=== PATIENT | female | born 1950 | race Caucasian/White ===

== ENCOUNTER → 2017-06-02 | Outpatient (CLI) | payer BC ==
[2017-06-02 07:13] LABS: CHCM 32.2; HCT 40.2 % (34.0-46.0); HGB 12.6 gm/dL (11.4-16.0); MCH 29.4 pg (25.0-35.0); MCHC 31.4 g/dL (31.0-37.0); MCV 93.7 fL (80.0-100.0); Mean Platelet Volume 8.4; RBC 4.29 m/uL (3.80-5.40); RDW 15.5 % (11.5-15.5); WBC 9.5 k/uL (3.8-10.6)
[2017-06-02 09:36] LABS: ALT 31 U/L (9-52); AST 22 U/L (14-36); Alkaline Phosphatase 75 U/L (38-126); Anion Gap 13 mmol/L; Blood Urea Nitrogen 17 mg/dL (7-17); Calcium 10.3 mg/dL (8.4-10.2); Carbon Dioxide 25 mmol/L (22-30); Chloride 101 mmol/L (98-107); Cholesterol 117 mg/dL (<200); Glucose 189 mg/dL (74-99); HDL Cholesterol 38 mg/dL (40-60); Non-African American GFR(MDRD) 50 (>60 ml/min/1.73 sqM); Potassium 4.6 mmol/L (3.5-5.1); Sodium 139 mmol/L (137-145); Total Bilirubin 0.6 mg/dL (0.2-1.3); Total Protein 6.8 g/dL (6.3-8.2)
[2017-06-02 13:10] LABS: Hemoglobin A1C 7.5 % (4.2-6.1)
[2017-06-02 16:37] LABS: Urine Creatinine 115.4 mg/dL
== END | disposition home or self-care (01) ==
LOC: LABWHC1 06:44
PROVIDERS: ATTEND Family Medicine
DX: Z00.00 Encounter for general adult medical examination without abnormal findings (principal); R80.9 Proteinuria, unspecified
CPT/HCPCS: 36415; 80053; 80061; 82043; 82570; 83036; 84439; 84443; 85027

== ENCOUNTER → 2018-05-25 | Outpatient (CLI) | payer MEDICARE ==
[2018-05-25 07:58] LABS: HCT 38.8 % (34.0-46.0); HGB 11.8 gm/dL (11.4-16.0); Hypochromasia Marked; MCH 28.4 pg (25.0-35.0); MCHC 30.5 g/dL (31.0-37.0); MCV 93.1 fL (80.0-100.0); Platelet Count 280 k/uL (150-450); RBC 4.17 m/uL (3.80-5.40); RDW 15.6 % (11.5-15.5); WBC 8.8 k/uL (3.8-10.6)
[2018-05-25 08:00] LABS: Appearance,Urine Clear (Clear); Bilirubin,Urine Negative (Negative); Blood,Urine Negative (Negative); Color,Urine Yellow; Glucose,Urine (UA) Negative (Negative); Ketones,Urine Negative (Negative); Leukocyte Esterase,Urine Small (Negative); Mucus,Urine Rare /hpf; Nitrite,Urine Negative (Negative); PH, Urine 5.5 (5.0-8.0); Protein,Urine Negative (Negative); RBC,Urine 1 /hpf (0-5); Specific Gravity,Urine 1.007 (1.001-1.035); Squamous Epithelial Cell,Urine 1 /hpf (0-4); Urobilinogen,Urine <2.0 mg/dL (<2.0); WBC,Urine 1 /hpf (0-5)
[2018-05-25 08:22] LABS: Albumin 3.5 g/dL (3.5-5.0); Calcium 9.5 mg/dL (8.4-10.2); Potassium 4.8 mmol/L (3.5-5.1); Total Bilirubin 0.4 mg/dL (0.2-1.3); Total Protein 5.9 g/dL (6.3-8.2)
[2018-05-25 08:37] LABS: T4, Free (Free Thyroxine) 1.24 ng/dL (0.78-2.19)
[2018-05-25 19:13] LABS: Hemoglobin A1C 7.1 % (4.0-6.0)
== END | disposition home or self-care (01) ==
LOC: LABWHC1 07:23
PROVIDERS: ATTEND Family Medicine
DX: Z00.00 Encounter for general adult medical examination without abnormal findings (principal); I48.0 Paroxysmal atrial fibrillation; E11.9 Type 2 diabetes mellitus without complications
CPT/HCPCS: 36415; 80053; 80061; 81001; 82043; 82570; 83036; 84439; 84443; 85027

== ENCOUNTER → 2019-06-06 | Outpatient (CLI) | payer MEDICARE ==
[2019-06-06 08:07] LABS: HCT 35.6 % (34.0-46.0); HGB 11.6 gm/dL (11.4-16.0); MCHC 32.5 g/dL (31.0-37.0); MCV 92.5 fL (80.0-100.0); Mean Platelet Volume 7.6; Platelet Count 253 k/uL (150-450); RBC 3.85 m/uL (3.80-5.40); RDW 14.4 % (11.5-15.5); WBC 6.8 k/uL (3.8-10.6)
[2019-06-06 08:26] LABS: Appearance,Urine Clear (Clear); Bilirubin,Urine Negative (Negative); Blood,Urine Negative (Negative); Color,Urine Yellow; Glucose,Urine (UA) Negative (Negative); Ketones,Urine Negative (Negative); Leukocyte Esterase,Urine Trace (Negative); Mucus,Urine Rare /hpf; Nitrite,Urine Negative (Negative); Protein,Urine Trace (Negative); RBC,Urine <1 /hpf (0-5); Specific Gravity,Urine 1.011 (1.001-1.035); Squamous Epithelial Cell,Urine 6 /hpf (0-4); Urobilinogen,Urine <2.0 mg/dL (<2.0); WBC,Urine 3 /hpf (0-5)
[2019-06-06 17:05] LABS: African American GFR (CKD) 38.2 (60.0-200.0); Albumin 3.6 g/dL (3.80-4.90); Albumin/Globulin Ratio 2.57 (1.60-3.17); Anion Gap 7.8 mmol/L (4.00-12.00); Calcium 9.1 mg/dL (8.7-10.3); Carbon Dioxide 26.2 mmol/L (21.6-31.8); Chol/HDL Ratio 3.74; Globulin 1.4 g/dL (1.6-3.3); LDL Cholesterol,Calculated 58.4 mg/dL (0.0-131.0); Potassium 3.9 mmol/L (3.5-5.5); Total Bilirubin 0.3 mg/dL (0.3-1.2); VLDL Calculation 26.6 mg/dL (5.00-40.00)
[2019-06-06 17:14] LABS: T4, Free (Free Thyroxine) 1.2 ng/dL (0.80-1.80)
[2019-06-06 17:31] LABS: Hemoglobin A1C 6.9 % (4.0-6.0)
== END | disposition home or self-care (01) ==
LOC: LABWHC1 07:41
PROVIDERS: ATTEND Family Medicine
DX: Z00.00 Encounter for general adult medical examination without abnormal findings (principal); E11.9 Type 2 diabetes mellitus without complications
CPT/HCPCS: 36415; 80053; 80061; 81001; 83036; 84439; 84443; 85027

== ENCOUNTER 2021-08-19 15:15 | Inpatient (IN) | payer MEDICARE ==
[2021-08-19] MEDS ORDERED: SODIUM CHLORIDE 0.9% 1,000 ML IV STA ×2 (15:25→16:49)
--- NOTE | 2021-08-19 15:26 | ED ---
General Adult HPI - General Stated complaint: bradycardia Time Seen by Provider: 08/19/21 15:18 - History of Present Illness Initial comments: Dictation was produced using [employer] dictation software. please excuse any grammatical, word or spelling errors. Chief Complaint: 70-year-old female past medical history of atrial fibrillation, diabetes and stroke. She presents to the emergency department for weakness History of Present Illness: She is 70-year-old female she was brought in by EMS from home. Patient is able to provide history of present illness patient states that over the last 3-4 days she is been having worsening weakness. EMS was called by patient's . She lives at home. EMS reports the patient was significantly bradycardic with heart rates measuring the 40s. She was given atropine with improvement of her heart rate. She was having A. fib with slow ventricular rate. Patient reports that she takes an echo evaluation medications. She has no pain complaints. Denies any dysuria. Her primary complaint is that she feels weak. The ROS documented in this emergency department record has been reviewed and confirmed by me. Those systems with pertinent positive or negative responses have been documented in the HPI. All other systems are other negative and/or noncontributory. PHYSICAL EXAM: General Impression: Alert and oriented x3, not in acute distress HEENT: Normocephalic atraumatic, extra-ocular movements intact, pupils equal and reactive to light bilaterally, dry mucous membranes Cardiovascular: Heart regular rate and rhythm Chest: Able to complete full sentences, no retractions, no tachypnea Abdomen: abdomen soft, non-tender, non-distended, no organomegaly Musculoskeletal: Pulses present and equal in all extremities, bilateral lower extremity lymphedema Motor: no focal deficits noted Neurological: CN II-XII grossly intact, no focal motor or sensory deficits noted Skin: Intertriginous rash to the left inferior chest under the fold ED course: 70-year-old female presents emergency department for several days of worsening weakness. Vital signs upon arrival shows heart rate of 44, blood pressure 75/29.. There is concern of sepsis. Patient given broad spectrum antibiotics. Patient is 5 feet 2 inches. Bethany body weight is 50 kg. Patient given 30 mL per KG bolus. Patient is hypotensive and bradycardic. Patient was given atropine with improvement of heart rate into the 50s. Patient was not sure of her medications. at the bedside also is not sure what medi cation she takes per computer technician was able to track that patient's daily medications per she is on beta blockers and multiple blood pressure medications. Laboratory evaluation obtained CBC within acceptable limits. Hemoglobin 8.7. Coag panel is negative. Metabolic panel shows significant derangement with potassium 6.2. Bicarb of 9, BUN 134, creatinine of 4.93. Lactic acidosis 2.9. Coronal virus negative. Patient given multiple boluses of fluid with very slight improvement of blood pressure. Patient given hyperkalemia cocktail with no improvement of bradycardia, blood pressure. Decision was made to pace left internal jugular central venous catheter. Patient started epinephrine to titrate to MAP of 60-65. There is improvement. Improvement of blood pressure and heart rate. Case discussed with Dr. Sidhu in who is willing to accept patient's care to the ICU. Case also discussed with cardiology is agreeable to plan. And will be on consult. Nephrology be consulted. Patient placed on bicarbonate infusion after given bicarbonate boluses. At this point is not entirely clear what's causing patient's bradycardia and hypotension. There is concern of sepsis. Also concern of beta trinity toxicity EKG interpretation: Ventricular rate 40, A. fib with slow ventricular response, QRS 86, QTC 434. No PA prolongation, no QTC prolongation, no ST or T-wave changes noted. EKG is narrow complex bradycardia - Related Data Home Medications Medication Instructions Recorded Confirmed Atenolol [Tenormin] 50 mg PO BID 04/10/14 08/19/21 Atorvastatin Calcium [Lipitor] 10 mg PO HS 04/10/14 08/19/21 Clopidogrel [Plavix] 75 mg PO DAILY 04/10/14 08/19/21 Diltiazem Cd [Cardizem CD] 300 mg PO DAILY 04/10/14 08/19/21 Furosemide [Lasix] 20 mg PO TID 04/10/14 08/19/21 cloNIDine HCL [Catapres] 0.2 mg PO QID PRN 04/10/14 08/19/21 hydrALAZINE HCL 50 mg PO TID-W/MEALS 04/10/14 08/19/21 Ergocalciferol [Vitamin D2 50,000 unit PO Q7D 06/06/14 08/19/21 (DRISDOL)] Doxazosin [Cardura] 4 mg PO HS 08/19/21 08/19/21 Insulin Aspart Protam & Aspart 30 unit SQ HS 08/19/21 08/19/21 [NovoLOG MIX 70-30 Flexpen] Insulin Aspart [NovoLOG Flexpen] 22 units SQ TID-W/MEALS 08/19/21 08/19/21 Losartan Potassium [Cozaar] 100 mg PO DAILY 08/19/21 08/19/21 Travoprost [Travoprost 0.004%] 1 drop BOTH EYES HS 08/19/21 08/19/21 metFORMIN HCL ER [Glucophage XR] 2,000 mg PO DAILY 08/19/21 08/19/21 Allergies Allergy/AdvReac Type Severity Reaction Status Date / Time enalapril maleate Allergy Unknown Verified 08/19/21 16:31 [From Vasotec] enalaprilat dihydrate Allergy Unknown Verified 08/19/21 16:31 [From Vasotec] metoprolol tartrate Allergy Unknown Verified 08/19/21 16:31 [From Lopressor] Review of Systems ROS Statement: Those systems with pertinent positive or pertinent negative responses have been documented in the HPI. ROS Other: All systems not noted in ROS Statement are negative. Past Medical History Past Medical History: CVA/TIA, Diabetes Mellitus, Hyperlipidemia, Hypertension History of Any Multi-Drug Resistant Organisms: None Reported Past Surgical History: Breast Surgery, Hysterectomy, Tonsillectomy Past Anesthesia/Blood Transfusion Reactions: No Reported Reaction Past Psychological History: No Psychological Hx Reported Past Alcohol Use History: None Reported Past Drug Use History: None Reported - Past Family History Father Family Medical History: Cancer Mother Family Medical History: CVA/TIA, Diabetes Mellitus Course Vital Signs 08/19/21 08/19/21 08/19/21 15:45 17:43 18:05 Pulse Rate 44 L 53 L 52 L Respiratory 17 Rate Blood Pressure 75/29 O2 Sat by Pulse 98 Oximetry 08/19/21 19:16 Pulse Rate 45 L Respiratory 18 Rate Blood Pressure 88/44 O2 Sat by Pulse 95 Oximetry Procedures - Central Line Placement Left IJ Consent Obtained: verbal consent, written consent Patient Placed on Monitor/Pulse Ox: Yes MD Prep: mask, gown, gloves Central Line Prep: Povidone-Iodine 1% Local Anesthesia Used: Lidocaine 1%, with Epi Ultrasound Used for Placement: Yes Central Line Lumen Inserted: triple Bloods Obtained for Lab: No Central Line Position: good blood return, all ports aspirated, flushed, capped, sutured in place with 3-0 nylon Dressing Applied: Tegaderm, sterile gauze/tape Post Procedure X-Ray: tip of catheter in good position Patient Tolerated Procedure: well Complications: none Medical Decision Making - Lab Data Result diagrams: 08/19/21 15:59 08/19/21 15:59 Lab Results 08/19/21 08/19/21 08/19/21 Range/Units 15:45 15:59 15:59 WBC 10.6 (3.8-10.6) k/uL RBC 3.48 L (3.80-5.40) m/uL Hgb 8.7 L (11.4-16.0) gm/dL Hct 29.4 L (34.0-46.0) % MCV 84.5 (80.0-100.0) fL MCH 25.1 (25.0-35.0) pg MCHC 29.7 L (31.0-37.0) g/dL RDW 17.5 H (11.5-15.5) % Plt Count 465 H (150-450) k/uL MPV 8.5 Neutrophils % 89 % Lymphocytes % 6 % Monocytes % 4 % Eosinophils % 1 % Basophils % 0 % Neutrophils # 9.4 H (1.3-7.7) k/uL Lymphocytes # 0.6 L (1.0-4.8) k/uL Monocytes # 0.4 (0-1.0) k/uL Eosinophils # 0.1 (0-0.7) k/uL Basophils # 0.0 (0-0.2) k/uL Hypochromasia Marked Anisocytosis Slight PT (9.0-12.0) sec INR (<1.2) APTT (22.0-30.0) sec Sodium 128 L (137-145) mmol/L Potassium 6.2 H* (3.5-5.1) mmol/L Chloride 108 H (98-107) mmol/L Carbon Dioxide 9 L* (22-30) mmol/L Anion Gap 11 mmol/L BUN 134 H* (7-17) mg/dL Creatinine 4.93 H (0.52-1.04) mg/dL Est GFR (CKD-EPI)AfAm 10 (>60 ml/min/1.73 sqM) Est GFR (CKD-EPI)NonAf 8 (>60 ml/min/1.73 sqM) Glucose 110 H (74-99) mg/dL POC Glucose (mg/dL) (75-99) mg/dL POC Glu Distribution Tech ID Lactic Ac Sepsis Rflx Plasma Lactic Acid Garrick (0.7-2.0) mmol/L Calcium 8.1 L (8.4-10.2) mg/dL Ionized Calcium Gricelda 5.2 (4.5-5.3) mg/dL Magnesium 1.7 (1.6-2.3) mg/dL Total Bilirubin <0.1 L (0.2-1.3) mg/dL AST 19 (14-36) U/L ALT 16 (4-34) U/L Alkaline Phosphatase 49 (38-126) U/L Ammonia (<30) umol/L Troponin I (0.000-0.034) ng/mL Total Protein 4.4 L (6.3-8.2) g/dL Albumin 2.2 L (3.5-5.0) g/dL TSH 3.740 (0.465-4.680) mIU/L Coronavirus (PCR) (Not Detectd) Blood Type A Positive Blood Type Confirm Blood Type Recheck Bld Type Recheck Status Antibody Screen NEGATIVE Spec Expiration Date 08/19/21 08/19/21 08/19/21 Range/Units 15:59 15:59 15:59 WBC (3.8-10.6) k/uL RBC (3.80-5.40) m/uL Hgb (11.4-16.0) gm/dL Hct (34.0-46.0) % MCV (80.0-100.0) fL MCH (25.0-35.0) pg MCHC (31.0-37.0) g/dL RDW (11.5-15.5) % Plt Count (150-450) k/uL MPV Neutrophils % % Lymphocytes % % Monocytes % % Eosinophils % % Basophils % % Neutrophils # (1.3-7.7) k/uL Lymphocytes # (1.0-4.8) k/uL Monocytes # (0-1.0) k/uL Eosinophils # (0-0.7) k/uL Basophils # (0-0.2) k/uL Hypochromasia Anisocytosis PT 10.0 (9.0-12.0) sec INR 0.9 (<1.2) APTT 19.5 L (22.0-30.0) sec Sodium (137-145) mmol/L Potassium (3.5-5.1) mmol/L Chloride (98-107) mmol/L Carbon Dioxide (22-30) mmol/L Anion Gap mmol/L BUN (7-17) mg/dL Creatinine (0.52-1.04) mg/dL Est GFR (CKD-EPI)AfAm (>60 ml/min/1.73 sqM) Est GFR (CKD-EPI)NonAf (>60 ml/min/1.73 sqM) Glucose (74-99) mg/dL POC Glucose (mg/dL) (75-99) mg/dL POC Glu Distribution Tech ID Lactic Ac Sepsis Rflx Plasma Lactic Acid Garrick 2.9 H* (0.7-2.0) mmol/L Calcium (8.4-10.2) mg/dL Ionized Calcium Gricelda (4.5-5.3) mg/dL Magnesium (1.6-2.3) mg/dL Total Bilirubin (0.2-1.3) mg/dL AST (14-36) U/L ALT (4-34) U/L Alkaline Phosphatase (38-126) U/L Ammonia <9 (<30) umol/L Troponin I (0.000-0.034) ng/mL Total Protein (6.3-8.2) g/dL Albumin (3.5-5.0) g/dL TSH (0.465-4.680) mIU/L Coronavirus (PCR) (Not Detectd) Blood Type Blood Type Confirm Blood Type Recheck No Previous Record Bld Type Recheck Status CABO Indicated Antibody Screen Spec Expiration Date 08/22/2021235808/19/21 08/19/21 08/19/21 Range/Units 15:59 15:59 16:03 WBC (3.8-10.6) k/uL RBC (3.80-5.40) m/uL Hgb (11.4-16.0) gm/dL Hct (34.0-46.0) % MCV (80.0-100.0) fL MCH (25.0-35.0) pg MCHC (31.0-37.0) g/dL RDW (11.5-15.5) % Plt Count (150-450) k/uL MPV Neutrophils % % Lymphocytes % % Monocytes % % Eosinophils % % Basophils % % Neutrophils # (1.3-7.7) k/uL Lymphocytes # (1.0-4.8) k/uL Monocytes # (0-1.0) k/uL Eosinophils # (0-0.7) k/uL Basophils # (0-0.2) k/uL Hypochromasia Anisocytosis PT (9.0-12.0) sec INR (<1.2) APTT (22.0-30.0) sec Sodium (137-145) mmol/L Potassium (3.5-5.1) mmol/L Chloride (98-107) mmol/L Carbon Dioxide (22-30) mmol/L Anion Gap mmol/L BUN (7-17) mg/dL Creatinine (0.52-1.04) mg/dL Est GFR (CKD-EPI)AfAm (>60 ml/min/1.73 sqM) Est GFR (CKD-EPI)NonAf (>60 ml/min/1.73 sqM) Glucose (74-99) mg/dL POC Glucose (mg/dL) (75-99) mg/dL POC Glu Distribution Tech ID Lactic Ac Sepsis Rflx Plasma Lactic Acid Garrick (0.7-2.0) mmol/L Calcium (8.4-10.2) mg/dL Ionized Calcium Gricelda (4.5-5.3) mg/dL Magnesium (1.6-2.3) mg/dL Total Bilirubin (0.2-1.3) mg/dL AST (14-36) U/L ALT (4-34) U/L Alkaline Phosphatase (38-126) U/L Ammonia (<30) umol/L Troponin I <0.012 (0.000-0.034) ng/mL Total Protein (6.3-8.2) g/dL Albumin (3.5-5.0) g/dL TSH (0.465-4.680) mIU/L Coronavirus (PCR) Not Detected (Not Detectd) Blood Type Blood Type Confirm A Positive Blood Type Recheck Bld Type Recheck Status Antibody Screen Spec Expiration Date 08/19/21 08/19/21 Range/Units 16:29 16:46 WBC (3.8-10.6) k/uL RBC (3.80-5.40) m/uL Hgb (11.4-16.0) gm/dL Hct (34.0-46.0) % MCV (80.0-100.0) fL MCH (25.0-35.0) pg MCHC (31.0-37.0) g/dL RDW (11.5-15.5) % Plt Count (150-450) k/uL MPV Neutrophils % % Lymphocytes % % Monocytes % % Eosinophils % % Basophils % % Neutrophils # (1.3-7.7) k/uL Lymphocytes # (1.0-4.8) k/uL Monocytes # (0-1.0) k/uL Eosinophils # (0-0.7) k/uL Basophils # (0-0.2) k/uL Hypochromasia Anisocytosis PT (9.0-12.0) sec INR (<1.2) APTT (22.0-30.0) sec Sodium (137-145) mmol/L Potassium (3.5-5.1) mmol/L Chloride (98-107) mmol/L Carbon Dioxide (22-30) mmol/L Anion Gap mmol/L BUN (7-17) mg/dL Creatinine (0.52-1.04) mg/dL Est GFR (CKD-EPI)AfAm (>60 ml/min/1.73 sqM) Est GFR (CKD-EPI)NonAf (>60 ml/min/1.73 sqM) Glucose (74-99) mg/dL POC Glucose (mg/dL) 114 H (75-99) mg/dL POC Glu Distribution Tech ID Kathy Johnston Lactic Ac Sepsis Rflx Y Plasma Lactic Acid Garrick (0.7-2.0) mmol/L Calcium (8.4-10.2) mg/dL Ionized Calcium Gricelda (4.5-5.3) mg/dL Magnesium (1.6-2.3) mg/dL Total Bilirubin (0.2-1.3) mg/dL AST (14-36) U/L ALT (4-34) U/L Alkaline Phosphatase (38-126) U/L Ammonia (<30) umol/L Troponin I (0.000-0.034) ng/mL Total Protein (6.3-8.2) g/dL Albumin (3.5-5.0) g/dL TSH (0.465-4.680) mIU/L Coronavirus (PCR) (Not Detectd) Blood Type Blood Type Confirm Blood Type Recheck Bld Type Recheck Status Antibody Screen Spec Expiration Date Critical Care Time Critical Care Time: Yes Total Critical Care Time: 76 Disposition Clinical Impression: Bradycardia, Hypotension, MADELEINE (acute kidney injury) Disposition: ADMITTED IP TO THIS HOSP Condition: Critical Referrals: Luis Armando Crystal DO [Primary Care Provider] - 1-2 days
[2021-08-19] MEDS ORDERED: VANCOMYCIN IV PER PHARMACY 1 EACH MISC MISCELLANE PRN (15:58)
[2021-08-19] MEDS ORDERED: PIPERACILLIN-TAZOBACTAM 3.375 GM in SODIUM CHLORIDE 0.9% 100 ML IVPB STA (15:58)
[2021-08-19] MEDS ORDERED: SODIUM CHLORIDE 0.9% 500 ML 500 ML IV STA (16:00)
[2021-08-19] MEDS ORDERED: VANCOMYCIN 1,500 MG in SODIUM CHLORIDE 0.9% 250 ML IVPB STA (16:04)
[2021-08-19] MEDS ORDERED: ATROPINE SULFATE 0.1 MG/ML 10ML SYRINGE IV STA (16:08)
[2021-08-19 16:15] LABS: Anisocytosis Slight; Basophils % (A) 0 %; Eosinophils # (A) 0.1 k/uL (0-0.7); Eosinophils % (A) 1 %; HCT 29.4 % (34.0-46.0); HGB 8.7 gm/dL (11.4-16.0); Hypochromasia Marked; Lymphocytes # (A) 0.6 k/uL (1.0-4.8); Lymphocytes % (A) 6 %; MCH 25.1 pg (25.0-35.0); MCHC 29.7 g/dL (31.0-37.0); MCV 84.5 fL (80.0-100.0); Mean Platelet Volume 8.5; Monocytes # (A) 0.4 k/uL (0-1.0); Monocytes % (A) 4 %; Neutrophils # (A) 9.4 k/uL (1.3-7.7); Neutrophils % (A) 89 %; Platelet Count 465 k/uL (150-450); RBC 3.48 m/uL (3.80-5.40); RDW 17.5 % (11.5-15.5); WBC 10.6 k/uL (3.8-10.6)
[2021-08-19 16:20] LABS: Ionized Calcium 5.2 mg/dL (4.5-5.3)
[2021-08-19 16:25] LABS: ALT 16 U/L (4-34); AST 19 U/L (14-36); African American GFR (CKD) 10 (>60 ml/min/1.73 sqM); Albumin 2.2 g/dL (3.5-5.0); Alkaline Phosphatase 49 U/L (38-126); Anion Gap 11 mmol/L; Calcium 8.1 mg/dL (8.4-10.2); Chloride 108 mmol/L (98-107); Glucose 110 mg/dL (74-99); Magnesium 1.7 mg/dL (1.6-2.3); Non-African American GFR(CKD) 8 (>60 ml/min/1.73 sqM); Sodium 128 mmol/L (137-145); Total Bilirubin <0.1 mg/dL (0.2-1.3); Total Protein 4.4 g/dL (6.3-8.2)
[2021-08-19 16:30] LABS: Glucose,Whole Blood 114 mg/dL (75-99)
[2021-08-19 16:39] LABS: Lactic Acid, Venous 2.9 mmol/L (0.7-2.0)
[2021-08-19 16:46] LABS: Blood Urea Nitrogen 134 mg/dL (7-17); Carbon Dioxide 9 mmol/L (22-30); Potassium 6.2 mmol/L (3.5-5.1)
[2021-08-19] MEDS ORDERED: SODIUM BICARB 8.4% 50 ML SYR (1 MEQ/ML) IV STA (16:48)
[2021-08-19] MEDS ORDERED: ALBUTEROL NEB (CONC) 2.5 MG/0.5 ML INHALATION ONE (16:48)
[2021-08-19] MEDS ORDERED: DEXTROSE 50% SYRINGE 50 ML IVP ONE (16:48)
[2021-08-19] MEDS ORDERED: INSULIN REGULAR 100 UNIT/ML VIAL (IV) IV ONE (16:48)
[2021-08-19 16:49] LABS: INR 0.9 (<1.2)
--- NOTE | 2021-08-19 17:00 | XR ---
EXAMINATION TYPE: XR chest 1V portable DATE OF EXAM: 08/19/2021 HISTORY: Shortness of breath. COMPARISON: None. TECHNIQUE: Single view of the chest is submitted. FINDINGS: There is cardiomegaly with patchy perihilar and basilar infiltrates. Small effusion noted on the left . The findings are nonspecific and could reflect congestive failure with early pulmonary edema. Infil trates of other etiology however difficult to exclude. Correlate clinically and progress studies are advised. Hilar and mediastinal structures are within normal limits. Degenerative changes are seen of the dorsal spine. IMPRESSION: 1. There is cardiomegaly with patchy perihilar and basilar infiltrates. Small effusion noted on the left. The findings are nonspecific and could reflect congestive failure with early pulmonary edema. I nfiltrates of other etiology however difficult to exclude. Correlate clinically and progress studies are advised.
[2021-08-19 17:05] LABS: Partial Thromboplastin Time 19.5 sec (22.0-30.0)
[2021-08-19] MEDS ORDERED: CALCIUM GLUCONATE 2 GM in SODIUM CHLORIDE 0.9% 100 ML IVPB ONE (17:15)
[2021-08-19] MEDS ORDERED: NOREPINEPHRINE 32 MG in SODIUM CHLORIDE 0.9% 218 ML IV ONE (18:31)
[2021-08-19] MEDS ORDERED: EPINEPHrine 4 MG in DEXTROSE 5% IN WATER 250 ML IV ONE ×2 (19:00)
--- NOTE | 2021-08-19 19:29 | XR ---
EXAMINATION TYPE: XR chest 1V portable DATE OF EXAM: 08/19/2021 COMPARISON: 08/19/2021 INDICATION: Central line placement TECHNIQUE: Single frontal view of the chest is obtained. FINDINGS: The heart size is enlarged. The pulmonary vasculature is normal. Diffuse increased lung markings are present. There is placement of a left central venous catheter with the tip in the proximal right atrium. No pn eumothorax is evident. IMPRESSION: 1. Diffuse increased lung markings. Correlate for pulmonary edema or atypical pneumonia. 2. Insertion of a left central venous catheter with tip in the proximal right atrium. No pneumothorax is evident. 3. Cardiomegaly
[2021-08-19] MEDS ORDERED: NALOXONE 0.4 MG/ML 1 ML VIAL IV PRN (19:38)
[2021-08-19] MEDS ORDERED: SODIUM CHLORIDE 0.9% 1,000 ML IV SCH (19:45)
[2021-08-19] MEDS: DEXTROSE 5% IN WATER 1,000 ML with SODIUM BICARB (1 MEQ/ML) 150 ML IV SCH (20:12)
[2021-08-19] MEDS: PANTOPRAZOLE 40 MG/10 ML VIAL IV SCH (20:44)
[2021-08-19 22:21] LABS: Glucose,Whole Blood 169 mg/dL (75-99)
[2021-08-20] MEDS: SODIUM CHLORIDE 0.9% 150 ML with VASOPRESSIN 60 UNIT IV SCH ×2 (02:28)
[2021-08-20] MEDS: EPINEPHrine 16 MG in DEXTROSE 5% IN WATER 250 ML IV SCH ×4 (02:29→18:55)
[2021-08-20 03:51] LABS: Anisocytosis Slight; Basophils % (A) 0 %; Eosinophils % (A) 0 %; HCT 32.5 % (34.0-46.0); HGB 8.9 gm/dL (11.4-16.0); Hypochromasia Marked; Lymphocytes # (A) 0.5 k/uL (1.0-4.8); Lymphocytes % (A) 3 %; MCH 24.6 pg (25.0-35.0); MCHC 27.5 g/dL (31.0-37.0); MCV 89.2 fL (80.0-100.0); Mean Platelet Volume 8.9; Monocytes # (A) 0.7 k/uL (0-1.0); Monocytes % (A) 3 %; Neutrophils # (A) 19.2 k/uL (1.3-7.7); Neutrophils % (A) 93 %; Platelet Count 548 k/uL (150-450); RBC 3.64 m/uL (3.80-5.40); RDW 17.3 % (11.5-15.5); WBC 20.6 k/uL (3.8-10.6)
[2021-08-20 03:58] LABS: Chloride 105 mmol/L (98-107)
[2021-08-20 04:01] LABS: ALT 18 U/L (4-34); AST 17 U/L (14-36); African American GFR (CKD) 9 (>60 ml/min/1.73 sqM); Albumin 2.3 g/dL (3.5-5.0); Alkaline Phosphatase 54 U/L (38-126); Anion Gap 14 mmol/L; Calcium 8.1 mg/dL (8.4-10.2); Glucose 315 mg/dL (74-99); Non-African American GFR(CKD) 8 (>60 ml/min/1.73 sqM); Potassium 5.4 mmol/L (3.5-5.1); Sodium 126 mmol/L (137-145); Total Bilirubin <0.1 mg/dL (0.2-1.3); Total Protein 4.5 g/dL (6.3-8.2)
[2021-08-20 04:12] LABS: Blood Urea Nitrogen 126 mg/dL (7-17); Carbon Dioxide 7 mmol/L (22-30)
[2021-08-20 04:57] LABS: Amorphous Sediment,Urine Rare /hpf; Appearance,Urine Cloudy (Clear); Bilirubin,Urine 1+ (Negative); Blood,Urine Negative (Negative); Color,Urine Yellow; Glucose,Urine (UA) Negative (Negative); Hyaline Casts,Urine 4 /lpf (0-2); Ketones,Urine Negative (Negative); Leukocyte Esterase,Urine Moderate (Negative); Mucus,Urine Rare /hpf; Nitrite,Urine Negative (Negative); Protein,Urine 2+ (Negative); RBC,Urine 1 /hpf (0-5); Specific Gravity,Urine 1.024 (1.001-1.035); Squamous Epithelial Cell,Urine 4 /hpf (0-4); WBC,Urine 7 /hpf (0-5)
[2021-08-20] MEDS: DEXTROSE 5% IN WATER 1,000 ML with SODIUM BICARB (1 MEQ/ML) 150 ML IV SCH ×2 (06:59→16:39)
[2021-08-20] MEDS ORDERED: SODIUM BICARB 8.4% 50 ML SYR (1 MEQ/ML) IV STA ×2 (07:41→07:48)
[2021-08-20] MEDS ORDERED: SODIUM BICARB 8.4% 50 ML SYR (1 MEQ/ML) ONE (07:43)
[2021-08-20] MEDS ORDERED: IOPAMIDOL CONTRAST (ORAL USE) VIAL PO PRN (07:43)
--- NOTE | 2021-08-20 07:51 | P.CNPUL ---
History of Present Illness Consult date: 08/20/21 Chief complaint: Generalized weakness History of present illness: A 70-year-old morbidly obese female patient presented yesterday because of gene ralized weakness. Immediate she was identified to be in acute kidney injury and she was found to have severe metabolic acidosis. In the emergency room the patient was also bradycardic heart rate was quite low in the 40s initially in the form of atrial fibrillation. She was hypotensive. She was given a triple lumen catheter through the left IJ. He was given a total of 3 L of IV fluids in the form of normal saline. Following that she was started on epinephrine drip which is currently running at 0.37 mcg/kg per minute. Urine output is minimal at this point in time. The patient has developed an acute kidney injury. She reported diminished intake, generalized weakness and fatigue. No reported fever. No cough or sputum production. No altered mentation. No nausea or vomiting. She had a bout of diarrhea. COVID 19 testing is been negative. She has chronic edema and swelling and ulceration lower extremity is bilaterally. No active cellulitis. She did take a dose of vancomycin in the emergency department. Overnight, she was switched a bicarb infusion which is currently running at the rate of 150 mEq at the rate of 150 mL an hour. Most recent serum bicarbonate 7. Most recent potassium level is at 5.4. Most recent sodium level is up 126. Lactic acid level is at 3.0. White cell count is up to 20 with a hemoglobin of 8.9. Chest x-ray showing cardiomegaly along with pulmonary vascular congestion. Despite all these metabolic derangements, the patient is still awake and alert and breathing is comfortable and she is only on 2 L of oxygen by nasal cannula. Troponins are negative. ProBNP level is 7900. Review of Systems Constitutional: Reports daytime sleepiness, Reports fatigue, Reports poor appetite, Reports weakness Eyes: denies as per HPI, denies blurred vision, denies bulging eye, denies decr eased vision, denies diplopia, denies discharge, denies dry eye, denies irritation, denies itching, denies pain, denies photophobia, denies loss of peripheral vision, denies loss of vision, denies tunnel vision/blind spots Ears: deny: decreased hearing, ear discharge, earache, tinnitus Ears, nose, mouth and throat: Reports as per HPI Breasts: absent: as per HPI, change in shape, gynecomastia, masses, nipple discharge, pain, skin changes, swelling Cardiovascular: Reports decreased exercise tolerance, Reports dyspnea on exertion Respiratory: Reports dyspnea Gastrointestinal: Reports diarrhea Genitourinary: Reports as per HPI Menstruation: Reports as per HPI Musculoskeletal: Reports as per HPI Musculoskeletal: bilateral: ankle swelling, absent: ankle pain, ankle stiffness, as per HPI, elbow pain, elbow stiffness, elbow swelling, foot pain, foot stiffness, foot swelling, hand pain, hand stiffness, hand swelling, hip pain, hip stiffness, hip swelling, knee pain, knee stiffness, knee swelling, shoulder pain, shoulder stiffness, shoulder swelling, wrist pain, wrist stiffness, wrist swelling Integumentary: Reports as per HPI, Reports wounds Neurological: Reports as per HPI Psychiatric: Reports as per HPI Endocrine: Reports as per HPI Hematologic/Lymphatic: Reports as per HPI Allergic/Immunologic: Reports as per HPI Past Medical History Past Medical History: CVA/TIA, Diabetes Mellitus, Hyperlipidemia, Hypertension History of Any Multi-Drug Resistant Organisms: None Reported Past Surgical History: Breast Surgery, Hysterectomy, Tonsillectomy Additional Past Surgical History / Comment(s): Right breast biopsy for hyperdensity Past Anesthesia/Blood Transfusion Reactions: No Reported Reaction Past Psychological History: No Psychological Hx Reported Smoking Status: Never smoker Past Alcohol Use History: None Reported Past Drug Use History: None Reported - Past Family History Father Family Medical History: Cancer Mother Family Medical History: CVA/TIA, Diabetes Mellitus Medications and Allergies Home Medications Medication Instructions Recorded Confirmed Type Atenolol [Tenormin] 50 mg PO BID 04/10/14 08/19/21 History Atorvastatin Calcium [Lipitor] 10 mg PO HS 04/10/14 08/19/21 History Clopidogrel [Plavix] 75 mg PO DAILY 04/10/14 08/19/21 History Diltiazem Cd [Cardizem CD] 300 mg PO DAILY 04/10/14 08/19/21 History Furosemide [Lasix] 20 mg PO TID 04/10/14 08/19/21 History cloNIDine HCL [Catapres] 0.2 mg PO QID PRN 04/10/14 08/19/21 History hydrALAZINE HCL 50 mg PO TID-W/MEALS 04/10/14 08/19/21 History Ergocalciferol [Vitamin D2 50,000 unit PO Q7D 06/06/14 08/19/21 History (DRISDOL)] Doxazosin [Cardura] 4 mg PO HS 08/19/21 08/19/21 History Insulin Aspart Protam & Aspart 30 unit SQ HS 08/19/21 08/19/21 History [NovoLOG MIX 70-30 Flexpen] Insulin Aspart [NovoLOG Flexpen] 22 units SQ TID-W/MEALS 08/19/21 08/19/21 History Losartan Potassium [Cozaar] 100 mg PO DAILY 08/19/21 08/19/21 History Travoprost [Travoprost 0.004%] 1 drop BOTH EYES HS 08/19/21 08/19/21 History metFORMIN HCL ER [Glucophage XR] 2,000 mg PO DAILY 08/19/21 08/19/21 History Allergies Allergy/AdvReac Type Severity Reaction Status Date / Time enalapril maleate Allergy Unknown Verified 08/19/21 16:31 [From Vasotec] enalaprilat dihydrate Allergy Unknown Verified 08/19/21 16:31 [From Vasotec] metoprolol tartrate Allergy Unknown Verified 08/19/21 16:31 [From Lopressor] Physical Exam Vitals: Vital Signs Temp Pulse Pulse Resp BP Pulse Ox 08/20/21 07:00 94.5 F L 88 21 81/36 96 08/20/21 06:45 80 20 90/49 96 08/20/21 06:30 71 17 86/56 96 08/20/21 06:15 76 22 93/44 96 08/20/21 06:00 77 20 98/51 96 08/20/21 05:45 89 16 95/42 96 08/20/21 05:30 84 17 97/42 96 08/20/21 05:15 82 111/92 97 08/20/21 05:00 96 18 97/71 96 08/20/21 04:45 85 25 H 92/71 97 08/20/21 04:30 79 19 95/58 96 08/20/21 04:15 71 21 101/64 96 08/20/21 04:00 93.9 F L 80 84 17 106/43 97 08/20/21 03:45 82 78/61 96 08/20/21 03:30 72 70/42 96 08/20/21 03:15 87 84/40 96 08/20/21 03:00 93.6 F L 87 15 90/37 94 L 08/20/21 02:45 79 86/45 97 08/20/21 02:30 84 84/43 97 08/20/21 02:15 93.4 F L 80 89/40 96 08/20/21 02:00 81 15 80/43 95 08/20/21 01:45 82 91/41 96 08/20/21 01:30 86 86/44 96 08/20/21 01:15 82 77/60 94 L 08/20/21 01:00 69 13 89/33 96 08/20/21 00:45 84 86/60 97 08/20/21 00:30 70 81/39 97 08/20/21 00:15 75 84/34 96 08/20/21 00:00 92.8 F L 76 84 14 74/35 95 08/19/21 23:45 70 13 83/39 95 08/19/21 23:30 66 76/34 96 08/19/21 23:15 61 73/40 96 08/19/21 23:00 63 15 75/41 96 08/19/21 22:45 64 73/36 96 08/19/21 22:30 66 63/29 96 08/19/21 22:15 56 L 18 86/44 96 08/19/21 21:50 55 L 18 78/30 98 08/19/21 20:35 18 08/19/21 19:16 45 L 18 88/44 95 08/19/21 18:05 52 L 08/19/21 17:43 53 L 08/19/21 17:07 38 L 17 72/48 95 08/19/21 16:42 41 L 59/46 98 08/19/21 16:10 48 L 17 72/41 98 08/19/21 15:45 44 L 17 75/29 98 08/19/21 15:24 97.1 F L 36 L 17 68/39 98 08/19/21 15:22 32 L 18 74/45 97 Intake and Output 08/19/21 08/20/21 08/20/21 22:59 06:59 14:59 Intake Total 755.521 4256.653 763.876 Output Total 10 Balance 244.527 992.653 763.876 Intake: IV 200 800 150 Dextrose 5% in Water 1, 200 800 150 000 ml @ 150 mls/hr IV . Q7H40M VU with Sodium Bicarb (1 Meq/ml) 150 ml Rx#:[id number] Intake, IV Titration 44.527 202.653 133.876 Amount EPINEPHrine 16 mg In 7.62 133.876 Dextrose 5% in Water 250 ml @ 0.03 MCG/KG/MIN 2. 679 mls/hr IV .Q24H VU Rx#:[id number] EPINEPHrine 4 mg In 44.527 195.033 Dextrose 5% in Water 250 ml @ 0.01 MCG/KG/MIN 3. 601 mls/hr IV .Q24H ONE Rx#:[id number] Oral 480 Output: Urine 10 Other: Weight 95.254 kg 104.2 kg General Impression: Alert and oriented x3, not in acute distress, morbidly obese, breathing is nonlabored and the patient is laying comfortably in bed at 2 L of oxygen by nasal cannula Head exam was generally normal. There was no scleral icterus or corneal arcus. Mucous membranes were moist. HEENT: Normocephalic atraumatic, extra-ocular movements intact, pupils equal and reactive to light bilaterally, dry mucous membranes, the patient is triple-lumen catheter in the left IJ Cardiovascular: Heart regular rate and rhythm Chest: Able to complete full sentences, no retractions, no tachypnea Abdomen: abdomen soft, non-tender, non-distended, no organomegaly Musculoskeletal: Pulses present and equal in all extremities, bilateral lower ex tremity lymphedema Motor: no focal deficits noted Neurological: CN II-XII grossly intact, no focal motor or sensory deficits noted Skin: Intertriginous rash to the left inferior chest under the fold, no active cellulitis in the lower extremities. There is some superficial ulceration. No abscess formation. Results - Laboratory Findings CBC and BMP: 08/20/21 03:19 08/20/21 03:19 PT/INR, D-dimer PT 10.0 sec (9.0-12.0) 08/19/21 15:59 INR 0.9 (<1.2) 08/19/21 15:59 Abnormal lab findings: Abnormal Labs 08/19/21 08/19/21 08/19/21 15:59 15:59 15:59 WBC RBC 3.48 L Hgb 8.7 L Hct 29.4 L MCH MCHC 29.7 L RDW 17.5 H Plt Count 465 H Neutrophils # 9.4 H Lymphocytes # 0.6 L APTT Sodium 128 L Potassium 6.2 H* Chloride 108 H Carbon Dioxide 9 L* BUN 134 H* Creatinine 4.93 H Glucose 110 H POC Glucose (mg/dL) Plasma Lactic Acid Garrick 2.9 H* Calcium 8.1 L Total Bilirubin <0.1 L Total Protein 4.4 L Albumin 2.2 L Urine Appearance Urine Protein Urine Bilirubin Ur Leukocyte Esterase Urine WBC Amorphous Sediment Hyaline Casts Urine Mucus 08/19/21 08/19/21 08/19/21 15:59 16:29 18:46 WBC RBC Hgb Hct MCH MCHC RDW Plt Count Neutrophils # Lymphocytes # APTT 19.5 L Sodium Potassium Chloride Carbon Dioxide BUN Creatinine Glucose POC Glucose (mg/dL) 114 H Plasma Lactic Acid Garrick 2.1 H* Calcium Total Bilirubin Total Protein Albumin Urine Appearance Urine Protein Urine Bilirubin Ur Leukocyte Esterase Urine WBC Amorphous Sediment Hyaline Casts Urine Mucus 08/19/21 08/19/21 08/20/21 19:38 22:20 02:39 WBC RBC Hgb Hct MCH MCHC RDW Plt Count Neutrophils # Lymphocytes # APTT Sodium Potassium 5.4 H Chloride Carbon Dioxide BUN Creatinine Glucose POC Glucose (mg/dL) 169 H Plasma Lactic Acid Garrick 2.8 H* Calcium Total Bilirubin Total Protein Albumin Urine Appearance Urine Protein Urine Bilirubin Ur Leukocyte Esterase Urine WBC Amorphous Sediment Hyaline Casts Urine Mucus 08/20/21 08/20/21 08/20/21 03:19 03:19 04:20 WBC 20.6 H RBC 3.64 L Hgb 8.9 L Hct 32.5 L MCH 24.6 L MCHC 27.5 L RDW 17.3 H Plt Count 548 H Neutrophils # 19.2 H Lymphocytes # 0.5 L APTT Sodium 126 L Potassium 5.4 H Chloride Carbon Dioxide 7 L* BUN 126 H* Creatinine 5.08 H Glucose 315 H POC Glucose (mg/dL) Plasma Lactic Acid Garrick Calcium 8.1 L Total Bilirubin <0.1 L Total Protein 4.5 L Albumin 2.3 L Urine Appearance Cloudy H Urine Protein 2+ H Urine Bilirubin 1+ H Ur Leukocyte Esterase Moderate H Urine WBC 7 H Amorphous Sediment Rare H Hyaline Casts 4 H Urine Mucus Rare H 08/20/21 05:22 WBC RBC Hgb Hct MCH MCHC RDW Plt Count Neutrophils # Lymphocytes # APTT Sodium Potassium Chloride Carbon Dioxide BUN Creatinine Glucose POC Glucose (mg/dL) Plasma Lactic Acid Garrick 3.0 H* Calcium Total Bilirubin Total Protein Albumin Urine Appearance Urine Protein Urine Bilirubin Ur Leukocyte Esterase Urine WBC Amorphous Sediment Hyaline Casts Urine Mucus - Diagnostic Findings Chest x-ray: image reviewed Assessment and Plan Plan: 1 acute kidney injury. The patient is oliguric. The patient is not producing any urine output. Exact cause is not clear. Consider ATN secondary to intravascular volume depletion/dehydration. Further investigation is needed to establish the cause of the acute kidney injury. 2 acute metabolic acidosis a combination of anion and non-anion gap type. The patient has mild lactic acidosis. Serum bicarb is down to 7 and anion gap is at 14. 3 acute hyponatremia, sodium level is at 126 4 acute hyperkalemia, improving and the potassium level is down to 5.4 5 acute leukocytosis 6 bradycardia with an underlying atrial fibrillation rhythm, improved 7 acute hypotension/shock, consider septic, consider hypovolemic and the patient is currently adequately resuscitated and the patient is currently on norepinephrine drip in addition to vasopressin. Norepinephrine is running at a dose of 0.37 mcg/kg per minute and the patient is also on vasopressin physiologic dose. 8 obesity with a BMI of 42 9 history of CVA 10 diabetes mellitus maintained on insulin 7030 on outpatient basis and the patient takes 7030 insulin 30 units at bedtime and NovoLog 22 units 3 times a day with meals 11 hyperlipidemia 12 hypertension 13 glucoma Plan Continue bicarb infusions the rate of 150 mL an hour. Patient has a triple lumen catheter monitor the CVP Given a total of 100 mEq of sodium bicarbonate IV push right now Check urinalysis and urine cultures and blood cultures Monitor lactic acid level , The patient empirically with IV Zosyn The patient has received a dose of vancomycin in the emergency department. He is On hold for now pending further cultures Obtain a CAT scan of the abdomen with by mouth contrast only Nephrology consultation regards acute kidney injury Hold metformin Check ketones Put the patient insulin drip for now for blood sugar control and keep her nothing by mouth pending further workup Heparin subcu for DVT prophylaxis Check pro calcitonin level Continue the pressors in addition to fluids. The patient is currently on a combination of epinephrine and vasopressin Echocardiogram to evaluate LV function Condition is critical. We'll continue to follow. Metformin Time with Patient: Greater than 30
[2021-08-20] MEDS ORDERED: ONDANSETRON 4 MG/2 ML VIAL IVP PRN (07:57)
[2021-08-20] MEDS ORDERED: ONDANSETRON 4 MG/2 ML VIAL ONE (07:57)
[2021-08-20] MEDS ORDERED: INSULIN REGULAR BOLUS (FROM DRIP BAG) IV PRN (08:41)
[2021-08-20] MEDS: IOPAMIDOL CONTRAST (ORAL USE) VIAL PO PRN ×2 (09:05→10:08)
[2021-08-20 09:17] LABS: Glucose,Whole Blood 485 mg/dL (75-99)
[2021-08-20] MEDS: INSULIN REGULAR 100 UNIT in SODIUM CHLORIDE 0.9% 100 ML IV SCH ×3 (09:19→21:06)
[2021-08-20] MEDS: PIPERACILLIN-TAZOBACTAM 3.375 GM in SODIUM CHLORIDE 0.9% 100 ML IVPB SCH ×2 (09:25→20:32)
[2021-08-20] MEDS: PANTOPRAZOLE 40 MG/10 ML VIAL IV SCH (09:26)
[2021-08-20] MEDS: HEPARIN SODIUM,PORCINE/PF 5,000 UNIT/0.5 ML SYRINGE SQ SCH ×2 (09:26→18:39)
--- NOTE | 2021-08-20 09:54 | ECHOF ---
Referral Reason:HYpotension sepsis MEASUREMENTS -------- HEIGHT: 157.5 cm WEIGHT: 103.9 kg BP: RVIDd: 5.2 cm (< 3.3) IVSd: 0.9 cm (0.6 - 1.1) LVIDd: 5.3 cm (3.9 - 5.3) LVPWd: 1.0 cm (0.6 - 1.1) IVSs: 1.6 cm LVIDs: 2.7 cm LVPWs: 1.8 cm LAESV Index (A-L): 31.56 ml/m Ao Diam: 2.6 cm (2.0 - 3.7) AV Cusp: 1.5 cm (1.5 - 2.6) LA Diam: 4.8 cm (2.7 - 3.8) MV EXCURSION: 22.213 mm (> 18.000) MV EF SLOPE: 125 mm/s (70 - 150) EPSS: 1.1 cm MV E Dell: 1.52 m/s MV DecT: 221 ms MV A Dell: 0.38 m/s MV E/A Ratio: 4.03 RAP: 20.00 mmHg RVSP: 80.47 mmHg TAPSE: 17.96 mm FINDINGS -------- This was a technically adequate study. The left ventricular size is normal. Left ventricular wall thickness is normal. Overall left vent ricular systolic function is normal with, an EF between 55 - 60 %. Increased LAP Grade 2 Diastolic Dysfunction. The right ventricle is severely enlarged. The right ventricular systolic function is moderately imp aired. LA is midly dilated 29-33ml/m2. The right atrial size is normal. Unable to visualize the septum. Aortic valve is trileaflet and is mildly thickened. The mitral valve is normal. Mild mitral regurgitation is present. The tricuspid valve appears structurally normal. Moderate to severe tricuspid regurgitation present . There is severe pulmonary hypertension. The right ventricular systolic pressure, as measured by Doppler, is 80.47mmHg. There is no pulmonic regurgitation present. The aortic root size is normal. The inferior vena cava is dilated with no significant inspiratory collapse which is consistent estima wes right atrial pressure of >20 mmHg. There is a trivial pericardial effusion present. CONCLUSIONS -------- 1. The left ventricular size is normal. 2. Left ventricular wall thickness is normal. 3. Overall left ventricular systolic function is normal with, an EF between 55 - 60 %. 4. Increased LAP Grade 2 Diastolic Dysfunction. 5. The right ventricle is severely enlarged. 6. The right ventricular systolic function is moderately impaired. 7. LA is midly dilated 29-33ml/m2. 8. Aortic valve is trileaflet and is mildly thickened. 9. Mild mitral regurgitation is present. 10. Moderate to severe tricuspid regurgitation present. 11. There is severe pulmonary hypertension. 12. The right ventricular systolic pressure, as measured by Doppler, is 80.47mmHg. 13. The inferior vena cava is dilated with no significant inspiratory collapse which is consistent es timated right atrial pressure of >20 mmHg. 14. There is a trivial pericardial effusion present. MOTHER BABY RN: Suma Call RDCS
[2021-08-20 10:00] LABS: Glucose,Whole Blood 429 mg/dL (75-99)
[2021-08-20 11:12] LABS: Glucose,Whole Blood 415 mg/dL (75-99)
--- NOTE | 2021-08-20 11:20 | CT ---
EXAMINATION TYPE: CT chest wo con, CT abdomen pelvis wo con DATE OF EXAM: 08/20/2021 COMPARISON: Chest x-ray from yesterday HISTORY: Sepsis. (accession [id number]), Sepsis, abnormal cxr. (accession [id number]) pain. CT DLP: 1286.4 (accession [id number]), 533.8 (accession [id number]) mGycm. Automated Exposure Control for Dose Reduction was Utilized. TECHNIQUE: CT scan of the thorax, abdomen and pelvis is performed with oral but without without IV contrast. FINDINGS: Patient unable to hold breath making evaluation suboptimal. LUNGS: Small to moderate size left greater than right pleural effusions with associated left-sided co mpressive atelectasis. Central increased opacities suggest mild alveolar edema bilaterally. MEDIASTINUM: There is cardiomegaly with moderate to severe left greater than right biatrial dilatatio n. There is at least mild biventricular dilatation. Severe three-vessel coronary artery calcification and/or stents. Lack of IV contrast and motion limits evaluation for adenopathy. No definitive great er than 1 cm mediastinal lymph nodes. Prominent subcentimeter prevascular lymph nodes. Enlarged right and left pulmonary arteries suggesting underlying pulmonary artery hypertension. OTHER: Prominent but subcentimeter bilateral axillary lymph nodes. Left internal jugular venous ashley ter terminates in SVC. LIVER/GB: Dependent tiny calcified gallstone. Liver has some adjacent anterior superior ascites. Live r is slightly lobulated contour. PANCREAS: No significant abnormality is seen. SPLEEN: Some adjacent ascites. ADRENALS: There is 2.1 x 1.2 cm left adrenal nodularity, Hounsfield units average between 5 and 10 calzada ggesting benign lipid rich adenoma. KIDNEYS: Some cortical thinning in both kidneys. Central vascular calcifications are present lower po le right kidney. No hydronephrosis seen bilaterally. Aguilera catheter decompresses bladder. BOWEL: Suboptimal evaluation of bowel with oral contrast only reaching beginning of the duodenal swee p. Mild to moderately distended contrast-filled stomach. No suspicious small bowel dilatation. Sugges tion of mild to moderate wall thickening throughout small bowel loops. Suggestion of mild to moderate wall thickening throughout nearly entire colon. GENITAL ORGANS: No gross abnormality seen. LYMPH NODES: No greater than 1cm abdominal or pelvic lymph nodes are appreciated. OSSEOUS STRUCTURES: Moderate axial joint space loss both hips. Prominent multilevel spurring in the t horacolumbar spine. Mild to moderate height loss of L1 vertebra site where there are punctate calcifi c densities possible underlying hemangioma, this now extends into the T12-L1 disc space. Perhaps manpreet te fracture. Facet arthropathy lower lumbar spine. OTHER: Small amount of pelvic ascites. Moderate amount of diffuse subcutaneous edema. Focal abnormal skin thickening left anterior pelvic wall measuring 7.4 x 2.6 cm, perhaps large scar, correlate clini caryl. IMPRESSION: 1. Fluid overload state with small to moderate size left greater than right pleural effusions. Mild a mount of intra-abdominal and pelvic ascites. Moderate diffuse soft tissue subcutaneous edema and/or s oft tissue anasarca. No well-formed fluid collection or drainable abscess. 2. Nonspecific diffuse small and large bowel wall thickening.
--- NOTE | 2021-08-20 11:44 | P.HPIM ---
History of Present Illness H&P Date: 08/20/21 Chief Complaint: Weakness This 70-year-old pleasant female, patient of Dr. Crystal, and Dr. 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 Patient comes in to emergency room with severe metabolic acidosis, dehydration, and severe bradycardia, with heart rates in the 40s and blood pressure systolic in the 80s. She was critical when she was seen in the emergency room EMS has given her atropine, with improvement of the heart rate. Patient is in A. fib, with slow ventricular heart rate. 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 Bilateral leg. Patient denies any chest pain pleurisy, leg pain, no nausea vomiting diarrhea, no melena and hematochezia , no syncope no seizures. covid vaccination status unclear, patient was not on any NSAIDs, or steroids prior to ER visit Emergency room, she was in A. fib with slowed ventricular hydrated, in the 40s, CO2 of 9, potassium of 6.2, sodium 128, creatinine 4.93, BUN of 134. Magnesium 1.7 TSH 3.7 albumin 2.2 wbc count 10.6 hemoglobin 8.7 platelet count 465. Urinalysis urine WBC of 7 patient come in with lactic acidosis, coronavirus PCR negative. Patient is transferred to ICU, with multiple consultants, cardiology, Dr. voss from critical care medicine, and Dr. Dave from nephrology. 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 Bowels shows moderate distended contrast-filled stomach, suggestion of mild to moderate wall thickening throughout small bowel loops, Review of Systems Constitutional: Reports as per HPI, Reports lethargy, Reports weakness Ears, nose, mouth and throat: Reports as per HPI Cardiovascular: Reports as per HPI Respiratory: Reports as per HPI, Reports dyspnea, Denies congestion, Denies cough, Denies cough with sputum, Denies excessive sputum, Denies hemoptysis, Den ies home oxygen, Denies pain, Denies pain on inspiration, Denies pleurisy, Denies respiratory infections, Denies sleep apnea, Denies snoring, Denies wheezing Gastrointestinal: Reports as per HPI, Denies abdominal pain, Denies belching, Denies bloating, Denies BRBPR, Denies change in bowel habits, Denies coffee ground emesis, Denies constipation, Denies diarrhea, Denies dyspepsia, Denies early satiety, Denies excessive gas, Denies heartburn, Denies hematemesis, Denies hematochezia, Denies indigestion, Denies jaundice, Denies lactose intolerance, Denies loss of appetite, Denies melena, Denies nausea, Denies vomiting Genitourinary: Reports as per HPI Menstruation: Reports as per HPI, Reports postmenopausal Musculoskeletal: Reports as per HPI, Reports muscle weakness, Denies arm numbness/tingling, Denies atrophy, Denies fractures, Denies frequent falls, Denies gait dysfunction, Denies hot joints, Denies leg numbness/tingling, Denies limitation of motion, Denies loss of height, Denies low back pain, Denies morning stiffness, Denies muscle cramps, Denies myalgias, Denies neck pain, Denies neck stiffness, Denies prior amputations, Denies redness of joints, Denies shooting arm pain, Denies shooting leg pain Integumentary: Reports as per HPI Neurological: Reports as per HPI, Denies change in speech, Denies gait dysfunction, Denies head injury, Denies headaches, Denies motor disturbance, Denies paralysis, Denies seizures Psychiatric: Reports as per HPI, Denies anhedonia, Denies anxiety, Denies anxiety attacks, Denies change in appetite, Denies change in libido, Denies change in sleep habits, Denies confusion, Denies depression, Denies difficulty concentrating, Denies disorientation, Denies hallucinations, Denies hopelessness, Denies hypersomnia, Denies insomnia, Denies irritability, Denies memory loss, Denies mood swings, Denies paranoia, Denies sadness/tearfulness, Denies sleep disturbances, Denies suicidal ideation Endocrine: Reports as per HPI, Denies cold intolerance, Denies deepening of the voice, Denies excessive sweating, Denies excessive thirst, Denies fatigue, Aron es flushing, Denies heat intolerance, Denies high blood sugars, Denies increase in ring/shoe/hat size, Denies low blood sugars, Denies nocturia, Denies palpitations, Denies polydipsia, Denies polyphagia, Denies polyuria, Denies proptosis, Denies recent glucocorticoid use, Denies thyroid mass, Denies weight change Hematologic/Lymphatic: Reports as per HPI, Denies easy bleeding, Denies easy bruising, Denies lymphadenopathy, Denies lymphedema, Denies thrombophilia Allergic/Immunologic: Reports as per HPI, Denies allergic rhinitis, Denies anaphylaxis, Denies angioedema, Denies gluten intolerance, Denies persistent infections, Denies seasonal allergies, Denies urticaria, Denies wheezing Past Medical History Past Medical History: CVA/TIA, Diabetes Mellitus, Hyperlipidemia, Hypertension History of Any Multi-Drug Resistant Organisms: None Reported Past Surgical History: Breast Surgery, Hysterectomy, Tonsillectomy Additional Past Surgical History / Comment(s): Right breast biopsy for hyperdensity Past Anesthesia/Blood Transfusion Reactions: No Reported Reaction Past Psychological History: No Psychological Hx Reported Smoking Status: Never smoker Past Alcohol Use History: None Reported Past Drug Use History: None Reported - Past Family History Father Family Medical History: Cancer (lung) Mother Family Medical History: CVA/TIA, Diabetes Mellitus Additional Family Medical History / Comment(s): 2 brothers okay 2 sisters okay 3 sons okay one daughter okay. patient denies any CAD CHF cancer blood pressure PE DVT CVA asthma Medications and Allergies Home Medications Medication Instructions Recorded Confirmed Type Atenolol [Tenormin] 50 mg PO BID 04/10/14 08/19/21 History Atorvastatin Calcium [Lipitor] 10 mg PO HS 04/10/14 08/19/21 History Clopidogrel [Plavix] 75 mg PO DAILY 04/10/14 08/19/21 History Diltiazem Cd [Cardizem CD] 300 mg PO DAILY 04/10/14 08/19/21 History Furosemide [Lasix] 20 mg PO TID 04/10/14 08/19/21 History cloNIDine HCL [Catapres] 0.2 mg PO QID PRN 04/10/14 08/19/21 History hydrALAZINE HCL 50 mg PO TID-W/MEALS 04/10/14 08/19/21 History Ergocalciferol [Vitamin D2 50,000 unit PO Q7D 06/06/14 08/19/21 History (DRISDOL)] Doxazosin [Cardura] 4 mg PO HS 08/19/21 08/19/21 History Insulin Aspart Protam & Aspart 30 unit SQ HS 08/19/21 08/19/21 History [NovoLOG MIX 70-30 Flexpen] Insulin Aspart [NovoLOG Flexpen] 22 units SQ TID-W/MEALS 08/19/21 08/19/21 History Losartan Potassium [Cozaar] 100 mg PO DAILY 08/19/21 08/19/21 History Travoprost [Travoprost 0.004%] 1 drop BOTH EYES HS 08/19/21 08/19/21 History metFORMIN HCL ER [Glucophage XR] 2,000 mg PO DAILY 08/19/21 08/19/21 History Allergies Allergy/AdvReac Type Severity Reaction Status Date / Time enalapril maleate Allergy Unknown Verified 08/19/21 16:31 [From Vasotec] enalaprilat dihydrate Allergy Unknown Verified 08/19/21 16:31 [From Vasotec] metoprolol tartrate Allergy Unknown Verified 08/19/21 16:31 [From Lopressor] Physical Exam Vitals: Vital Signs Temp Pulse Pulse Resp BP Pulse Ox 08/20/21 08:45 86 13 110/55 95 08/20/21 08:30 93 21 78/63 95 08/20/21 08:15 80 26 H 107/47 96 08/20/21 08:00 101 H 26 H 100/41 96 08/20/21 07:45 84 19 95/39 97 08/20/21 07:30 79 22 96/37 96 08/20/21 07:15 82 15 97/45 95 08/20/21 07:00 94.5 F L 88 21 81/36 96 08/20/21 06:45 80 20 90/49 96 08/20/21 06:30 71 17 86/56 96 08/20/21 06:15 76 22 93/44 96 08/20/21 06:00 77 20 98/51 96 08/20/21 05:45 89 16 95/42 96 08/20/21 05:30 84 17 97/42 96 08/20/21 05:15 82 111/92 97 08/20/21 05:00 96 18 97/71 96 08/20/21 04:45 85 25 H 92/71 97 08/20/21 04:30 79 19 95/58 96 08/20/21 04:15 71 21 101/64 96 08/20/21 04:00 93.9 F L 80 84 17 106/43 97 08/20/21 03:45 82 78/61 96 08/20/21 03:30 72 70/42 96 08/20/21 03:15 87 84/40 96 08/20/21 03:00 93.6 F L 87 15 90/37 94 L 08/20/21 02:45 79 86/45 97 08/20/21 02:30 84 84/43 97 08/20/21 02:15 93.4 F L 80 89/40 96 08/20/21 02:00 81 15 80/43 95 08/20/21 01:45 82 91/41 96 08/20/21 01:30 86 86/44 96 08/20/21 01:15 82 77/60 94 L 08/20/21 01:00 69 13 89/33 96 08/20/21 00:45 84 86/60 97 08/20/21 00:30 70 81/39 97 08/20/21 00:15 75 84/34 96 08/20/21 00:00 92.8 F L 76 84 14 74/35 95 08/19/21 23:45 70 13 83/39 95 08/19/21 23:30 66 76/34 96 08/19/21 23:15 61 73/40 96 08/19/21 23:00 63 15 75/41 96 08/19/21 22:45 64 73/36 96 08/19/21 22:30 66 63/29 96 08/19/21 22:15 56 L 18 86/44 96 08/19/21 21:50 55 L 18 78/30 98 08/19/21 20:35 18 08/19/21 19:16 45 L 18 88/44 95 08/19/21 18:05 52 L 08/19/21 17:43 53 L 08/19/21 17:07 38 L 17 72/48 95 08/19/21 16:42 41 L 59/46 98 08/19/21 16:10 48 L 17 72/41 98 08/19/21 15:45 44 L 17 75/29 98 08/19/21 15:24 97.1 F L 36 L 17 68/39 98 08/19/21 15:22 32 L 18 74/45 97 Intake and Output 08/19/21 08/20/21 08/20/21 22:59 06:59 14:59 Intake Total 163.803 2232.653 1063.876 Output Total 10 0 Balance 244.527 349.832 8367.876 Intake: IV 200 800 450 Dextrose 5% in Water 1, 200 800 450 000 ml @ 150 mls/hr IV . Q7H40M VU with Sodium Bicarb (1 Meq/ml) 150 ml Rx#:[id number] Intake, IV Titration 44.527 202.653 133.876 Amount EPINEPHrine 16 mg In 7.62 133.876 Dextrose 5% in Water 250 ml @ 0.03 MCG/KG/MIN 2. 679 mls/hr IV .Q24H VU Rx#:[id number] EPINEPHrine 4 mg In 44.527 195.033 Dextrose 5% in Water 250 ml @ 0.01 MCG/KG/MIN 3. 601 mls/hr IV .Q24H ONE Rx#:[id number] Oral 480 Output: Urine 10 0 Other: Voiding Method Indwelling Catheter Weight 95.254 kg 104.2 kg - Constitutional General appearance: cooperative, no acute distress - EENT Eyes: EOMI, PERRLA, normal appearance ENT: NA/AT, normal oropharynx - Neck Neck: normal ROM - Respiratory Respiratory: bilateral: CTA, negative: diminished, dullness - Cardiovascular Rhythm: regular Heart sounds: normal: S1, S2 Abnormal Heart Sounds: no systolic murmur, no diastolic murmur, no rub, no S3 Gallop, no S4 Gallop, no click, no other - Gastrointestinal General gastrointestinal: normal bowel sounds - Integumentary Follicular eruptions with circumferential redness on this follicular eruptions, below the knee, with shallow ulcers, mainly dried scab, bilateral no weeping edema Integumentary: cellulitis, decreased turgor, normal - Neurologic Neurologic: CNII-XII intact - Musculoskeletal Musculoskeletal: strength equal bilaterally - Psychiatric Psychiatric: A&O x's 3, intact judgment & insight Results CBC & Chem 7: 08/20/21 03:19 08/20/21 03:19 Labs: Abnormal Lab Results - Last 24 Hours (Table) 08/19/21 08/19/21 08/19/21 Range/Units 15:59 15:59 15:59 WBC (3.8-10.6) k/uL RBC 3.48 L (3.80-5.40) m/uL Hgb 8.7 L (11.4-16.0) gm/dL Hct 29.4 L (34.0-46.0) % MCH (25.0-35.0) pg MCHC 29.7 L (31.0-37.0) g/dL RDW 17.5 H (11.5-15.5) % Plt Count 465 H (150-450) k/uL Neutrophils # 9.4 H (1.3-7.7) k/uL Lymphocytes # 0.6 L (1.0-4.8) k/uL APTT (22.0-30.0) sec Sodium 128 L (137-145) mmol/L Potassium 6.2 H* (3.5-5.1) mmol/L Chloride 108 H (98-107) mmol/L Carbon Dioxide 9 L* (22-30) mmol/L BUN 134 H* (7-17) mg/dL Creatinine 4.93 H (0.52-1.04) mg/dL Glucose 110 H (74-99) mg/dL POC Glucose (mg/dL) (75-99) mg/dL Plasma Lactic Acid Garrick 2.9 H* (0.7-2.0) mmol/L Calcium 8.1 L (8.4-10.2) mg/dL Total Bilirubin <0.1 L (0.2-1.3) mg/dL Total Protein 4.4 L (6.3-8.2) g/dL Albumin 2.2 L (3.5-5.0) g/dL Urine Appearance (Clear) Urine Protein (Negative) Urine Bilirubin (Negative) Ur Leukocyte Esterase (Negative) Urine WBC (0-5) /hpf Amorphous Sediment (None) /hpf Hyaline Casts (0-2) /lpf Urine Mucus (None) /hpf 08/19/21 08/19/21 08/19/21 Range/Units 15:59 16:29 18:46 WBC (3.8-10.6) k/uL RBC (3.80-5.40) m/uL Hgb (11.4-16.0) gm/dL Hct (34.0-46.0) % MCH (25.0-35.0) pg MCHC (31.0-37.0) g/dL RDW (11.5-15.5) % Plt Count (150-450) k/uL Neutrophils # (1.3-7.7) k/uL Lymphocytes # (1.0-4.8) k/uL APTT 19.5 L (22.0-30.0) sec Sodium (137-145) mmol/L Potassium (3.5-5.1) mmol/L Chloride (98-107) mmol/L Carbon Dioxide (22-30) mmol/L BUN (7-17) mg/dL Creatinine (0.52-1.04) mg/dL Glucose (74-99) mg/dL POC Glucose (mg/dL) 114 H (75-99) mg/dL Plasma Lactic Acid Garrick 2.1 H* (0.7-2.0) mmol/L Calcium (8.4-10.2) mg/dL Total Bilirubin (0.2-1.3) mg/dL Total Protein (6.3-8.2) g/dL Albumin (3.5-5.0) g/dL Urine Appearance (Clear) Urine Protein (Negative) Urine Bilirubin (Negative) Ur Leukocyte Esterase (Negative) Urine WBC (0-5) /hpf Amorphous Sediment (None) /hpf Hyaline Casts (0-2) /lpf Urine Mucus (None) /hpf 08/19/21 08/19/21 08/20/21 Range/Units 19:38 22:20 02:39 WBC (3.8-10.6) k/uL RBC (3.80-5.40) m/uL Hgb (11.4-16.0) gm/dL Hct (34.0-46.0) % MCH (25.0-35.0) pg MCHC (31.0-37.0) g/dL RDW (11.5-15.5) % Plt Count (150-450) k/uL Neutrophils # (1.3-7.7) k/uL Lymphocytes # (1.0-4.8) k/uL APTT (22.0-30.0) sec Sodium (137-145) mmol/L Potassium 5.4 H (3.5-5.1) mmol/L Chloride (98-107) mmol/L Carbon Dioxide (22-30) mmol/L BUN (7-17) mg/dL Creatinine (0.52-1.04) mg/dL Glucose (74-99) mg/dL POC Glucose (mg/dL) 169 H (75-99) mg/dL Plasma Lactic Acid Garrick 2.8 H* (0.7-2.0) mmol/L Calcium (8.4-10.2) mg/dL Total Bilirubin (0.2-1.3) mg/dL Total Protein (6.3-8.2) g/dL Albumin (3.5-5.0) g/dL Urine Appearance (Clear) Urine Protein (Negative) Urine Bilirubin (Negative) Ur Leukocyte Esterase (Negative) Urine WBC (0-5) /hpf Amorphous Sediment (None) /hpf Hyaline Casts (0-2) /lpf Urine Mucus (None) /hpf 08/20/21 08/20/21 08/20/21 Range/Units 03:19 03:19 04:20 WBC 20.6 H (3.8-10.6) k/uL RBC 3.64 L (3.80-5.40) m/uL Hgb 8.9 L (11.4-16.0) gm/dL Hct 32.5 L (34.0-46.0) % MCH 24.6 L (25.0-35.0) pg MCHC 27.5 L (31.0-37.0) g/dL RDW 17.3 H (11.5-15.5) % Plt Count 548 H (150-450) k/uL Neutrophils # 19.2 H (1.3-7.7) k/uL Lymphocytes # 0.5 L (1.0-4.8) k/uL APTT (22.0-30.0) sec Sodium 126 L (137-145) mmol/L Potassium 5.4 H (3.5-5.1) mmol/L Chloride (98-107) mmol/L Carbon Dioxide 7 L* (22-30) mmol/L BUN 126 H* (7-17) mg/dL Creatinine 5.08 H (0.52-1.04) mg/dL Glucose 315 H (74-99) mg/dL POC Glucose (mg/dL) (75-99) mg/dL Plasma Lactic Acid Garrick (0.7-2.0) mmol/L Calcium 8.1 L (8.4-10.2) mg/dL Total Bilirubin <0.1 L (0.2-1.3) mg/dL Total Protein 4.5 L (6.3-8.2) g/dL Albumin 2.3 L (3.5-5.0) g/dL Urine Appearance Cloudy H (Clear) Urine Protein 2+ H (Negative) Urine Bilirubin 1+ H (Negative) Ur Leukocyte Esterase Moderate H (Negative) Urine WBC 7 H (0-5) /hpf Amorphous Sediment Rare H (None) /hpf Hyaline Casts 4 H (0-2) /lpf Urine Mucus Rare H (None) /hpf 08/20/21 08/20/21 08/20/21 Range/Units 05:22 08:21 09:17 WBC (3.8-10.6) k/uL RBC (3.80-5.40) m/uL Hgb (11.4-16.0) gm/dL Hct (34.0-46.0) % MCH (25.0-35.0) pg MCHC (31.0-37.0) g/dL RDW (11.5-15.5) % Plt Count (150-450) k/uL Neutrophils # (1.3-7.7) k/uL Lymphocytes # (1.0-4.8) k/uL APTT (22.0-30.0) sec Sodium (137-145) mmol/L Potassium (3.5-5.1) mmol/L Chloride (98-107) mmol/L Carbon Dioxide (22-30) mmol/L BUN (7-17) mg/dL Creatinine (0.52-1.04) mg/dL Glucose (74-99) mg/dL POC Glucose (mg/dL) 485 H (75-99) mg/dL Plasma Lactic Acid Garrick 3.0 H* 3.5 H* (0.7-2.0) mmol/L Calcium (8.4-10.2) mg/dL Total Bilirubin (0.2-1.3) mg/dL Total Protein (6.3-8.2) g/dL Albumin (3.5-5.0) g/dL Urine Appearance (Clear) Urine Protein (Negative) Urine Bilirubin (Negative) Ur Leukocyte Esterase (Negative) Urine WBC (0-5) /hpf Amorphous Sediment (None) /hpf Hyaline Casts (0-2) /lpf Urine Mucus (None) /hpf 08/20/21 08/20/21 Range/Units 09:59 11:11 WBC (3.8-10.6) k/uL RBC (3.80-5.40) m/uL Hgb (11.4-16.0) gm/dL Hct (34.0-46.0) % MCH (25.0-35.0) pg MCHC (31.0-37.0) g/dL RDW (11.5-15.5) % Plt Count (150-450) k/uL Neutrophils # (1.3-7.7) k/uL Lymphocytes # (1.0-4.8) k/uL APTT (22.0-30.0) sec Sodium (137-145) mmol/L Potassium (3.5-5.1) mmol/L Chloride (98-107) mmol/L Carbon Dioxide (22-30) mmol/L BUN (7-17) mg/dL Creatinine (0.52-1.04) mg/dL Glucose (74-99) mg/dL POC Glucose (mg/dL) 429 H 415 H (75-99) mg/dL Plasma Lactic Acid Garrick (0.7-2.0) mmol/L Calcium (8.4-10.2) mg/dL Total Bilirubin (0.2-1.3) mg/dL Total Protein (6.3-8.2) g/dL Albumin (3.5-5.0) g/dL Urine Appearance (Clear) Urine Protein (Negative) Urine Bilirubin (Negative) Ur Leukocyte Esterase (Negative) Urine WBC (0-5) /hpf Amorphous Sediment (None) /hpf Hyaline Casts (0-2) /lpf Urine Mucus (None) /hpf Laboratory Results WBC 20.6 k/uL (3.8-10.6) H 08/20/21 03:19 RBC 3.64 m/uL (3.80-5.40) L 08/20/21 03:19 Hgb 8.9 gm/dL (11.4-16.0) L 08/20/21 03:19 Hct 32.5 % (34.0-46.0) L 08/20/21 03:19 MCV 89.2 fL (80.0-100.0) 08/20/21 03:19 MCH 24.6 pg (25.0-35.0) L 08/20/21 03:19 MCHC 27.5 g/dL (31.0-37.0) L 08/20/21 03:19 RDW 17.3 % (11.5-15.5) H 08/20/21 03:19 Plt Count 548 k/uL (150-450) H 08/20/21 03:19 MPV 8.9 08/20/21 03:19 Neutrophils % 93 % 08/20/21 03:19 Lymphocytes % 3 % 08/20/21 03:19 Monocytes % 3 % 08/20/21 03:19 Eosinophils % 0 % 08/20/21 03:19 Basophils % 0 % 08/20/21 03:19 Neutrophils # 19.2 k/uL (1.3-7.7) H 08/20/21 03:19 Lymphocytes # 0.5 k/uL (1.0-4.8) L 08/20/21 03:19 Monocytes # 0.7 k/uL (0-1.0) 08/20/21 03:19 Eosinophils # 0.0 k/uL (0-0.7) 08/20/21 03:19 Basophils # 0.0 k/uL (0-0.2) 08/20/21 03:19 Hypochromasia Marked 08/20/21 03:19 Anisocytosis Slight 08/20/21 03:19 PT 10.0 sec (9.0-12.0) 08/19/21 15:59 INR 0.9 (<1.2) 08/19/21 15:59 APTT 19.5 sec (22.0-30.0) L 08/19/21 15:59 Sodium 126 mmol/L (137-145) L 08/20/21 03:19 Potassium 5.4 mmol/L (3.5-5.1) H 08/20/21 03:19 Chloride 105 mmol/L (98-107) 08/20/21 03:19 Carbon Dioxide 7 mmol/L (22-30) L* 08/20/21 03:19 Anion Gap 14 mmol/L 08/20/21 03:19 BUN 126 mg/dL (7-17) H* 08/20/21 03:19 Creatinine 5.08 mg/dL (0.52-1.04) H 08/20/21 03:19 Est GFR (CKD-EPI)AfAm 9 (>60 ml/min/1.73 sqM) 08/20/21 03:19 Est GFR (CKD-EPI)NonAf 8 (>60 ml/min/1.73 sqM) 08/20/21 03:19 Glucose 315 mg/dL (74-99) H 08/20/21 03:19 POC Glucose (mg/dL) 415 mg/dL (75-99) H 08/20/21 11:11 POC Glu Lead Driver ID Marie Nichols 08/20/21 11:11 Lactic Ac Sepsis Rflx Y 08/20/21 08:50 Plasma Lactic Acid Garrick 3.5 mmol/L (0.7-2.0) H* 08/20/21 08:21 Calcium 8.1 mg/dL (8.4-10.2) L 08/20/21 03:19 Ionized Calcium Gricelda 5.2 mg/dL (4.5-5.3) 08/19/21 15:59 Magnesium 1.7 mg/dL (1.6-2.3) 08/19/21 15:59 Total Bilirubin <0.1 mg/dL (0.2-1.3) L 08/20/21 03:19 AST 17 U/L (14-36) 08/20/21 03:19 ALT 18 U/L (4-34) 08/20/21 03:19 Alkaline Phosphatase 54 U/L (38-126) 08/20/21 03:19 Ammonia <9 umol/L (<30) 08/19/21 15:59 Troponin I <0.012 ng/mL (0.000-0.034) 08/19/21 15:59 NT-Pro-B Natriuret Pep 7900 pg/mL 08/19/21 18:46 Total Protein 4.5 g/dL (6.3-8.2) L 08/20/21 03:19 Albumin 2.3 g/dL (3.5-5.0) L 08/20/21 03:19 TSH 3.740 mIU/L (0.465-4.680) 08/19/21 15:59 Urine Color Yellow 08/20/21 04:20 Urine Appearance Cloudy (Clear) H 08/20/21 04:20 Urine pH 5.0 (5.0-8.0) 08/20/21 04:20 Ur Specific [place] 1.024 (1.001-1.035) 08/20/21 04:20 Urine Protein 2+ (Negative) H 08/20/21 04:20 Urine Glucose (UA) Negative (Negative) 08/20/21 04:20 Urine Ketones Negative (Negative) 08/20/21 04:20 Urine Blood Negative (Negative) 08/20/21 04:20 Urine Nitrite Negative (Negative) 08/20/21 04:20 Urine Bilirubin 1+ (Negative) H 08/20/21 04:20 Urine Urobilinogen 2.0 mg/dL (<2.0) 08/20/21 04:20 Ur Leukocyte Esterase Moderate (Negative) H 08/20/21 04:20 Urine RBC 1 /hpf (0-5) 08/20/21 04:20 Urine WBC 7 /hpf (0-5) H 08/20/21 04:20 Ur Squamous Epith Cells 4 /hpf (0-4) 08/20/21 04:20 Amorphous Sediment Rare /hpf (None) H 08/20/21 04:20 Hyaline Casts 4 /lpf (0-2) H 08/20/21 04:20 Urine Mucus Rare /hpf (None) H 08/20/21 04:20 Coronavirus (PCR) Not Detected (Not Detectd) 08/19/21 15:59 Blood Type A Positive 08/19/21 15:45 Blood Type Confirm A Positive 08/19/21 16:03 Blood Type Recheck No Previous Record 08/19/21 15:59 Bld Type Recheck Status CABO Indicated 08/19/21 15:59 Antibody Screen NEGATIVE 08/19/21 15:45 Spec Expiration Date 08/22/2021235808/19/21 15:59 Thrombosis Risk Factor Assmnt - Choose All That Apply Each Factor Represents 1 point: Medical pt on bed rest, Obesity (BMI >25) Other Risk Factors: Yes Each Risk Factor Represents 2 Points: Age 61-74 years Thrombosis Risk Factor Assessment Total Risk Factor Score: 4 Thrombosis Risk Factor Assessment Level: Moderate Risk Assessment and Plan Plan: 1. Acute kidney failure, secondary to ATN with oliguria, severe uremia, random proteinuria, baseline creatinine 1.6 in August 2020, metformin discontinued, hydralazine is held secondary to low blood pressure, patient is not on SOTERO inhibitor and prior to coming in, Cardura is on hold atenolol is on hold secondary to bradycardia, losartan is on hold secondary to kidney failure, and hyperkalemia check CK for rhabdo 2 Severe bradycardia, with cardiogenic shock troponins are negative, with echocardiogram ejection fraction 55%, moderate to severe TR, severe pulmonary h ypertension grade 2 diastolic dysfunction, trivial pericardial effusion no aortic stenosis Cardizem, and metoprolol is on hold cardiology is consulted 3sepsis, with septic shock suspected, primary source unknown, however patient comes in with severe hyperbilirubinemia, and bradycardia requiring fluid resuscitation, and norepinephrine drip with vasopressin. Empiric treatment, with vancomycin and Zosyn IV 4 Severe metabolic acidosis, with acute kidney failure metformin is discontinued, patient is on bicarb drip, 5. Diabetes mellitus type 2 was on 7030 as an outpatient, 13 units at bedtime, 22 units breakfast and lunch and dinner check A1c Accu-Cheks before meals and at bedtime, 6. 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 History of CVA unknown deficits at this time 8. Hyperkalemia, acute, requires fluid resuscitation, 9. Bilateral leg cellulitis, unable to perform any cultures at this time Silvadene, local wound care, on IV Invanz, vancomycin 10. Trivial pericardial effusion 11.. 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 Small to moderate left greater than right pleural effusion, with atelectasis 13. Anasarca, with protein calorie malnutrition, protein supplementation Discharge planning CODE STATUS
[2021-08-20 12:19] LABS: Glucose,Whole Blood 400 mg/dL (75-99)
[2021-08-20 12:45] LABS: Potassium 5.1 mmol/L (3.5-5.1)
[2021-08-20 13:44] LABS: Glucose,Whole Blood 366 mg/dL (75-99)
--- NOTE | 2021-08-20 13:51 | CONS ---
CONSULTATION CHIEF COMPLAINT: Bradycardia HISTORY OF PRESENT ILLNESS: This is a 70-year-old lady with history of hypertensive heart disease, chronic renal insufficiency, [id number] diabetes, prior CVA and permanent atrial fibrillation, who declined to take long-term anticoagulation, presented to hospital with symptoms of fatigue tiredness and not feeling well. The patient has been having diarrhea for the last 1 week on and off along with nausea. She was found to be in renal failure with a BUN of 126, creatinine of 5 and the admission potassium was 6.2. She received treatment for hyperkalemia in the emergency room. When she first presented to the ER, she was in atrial fibrillation with very slow ventricular rate in the 30s and 40s. She was also hypotensive. She was started on epinephrine following which her heart rate has improved as did the blood pressure to some extent. She is on multiple medications that will lower her blood pressure including Cozaar, hydralazine, Catapres, and Cardizem CD along with Tenormin and she was also on AV elsie blockers. I believe her bradycardia is related to a combination of problems, including AV elsie blockers and the renal failure with hyperkalemia. Her renal failure is probably due to a combination of long-standing hypertension, diabetes and intravascular volume depletion on this admission secondary to diarrhea. This morning, she is feeling somewhat better and is receiving IV fluids along with epinephrine along with an Epi drip. I anticipate her heart rate coming up with holding the beta blockers and calcium channel blockers and with potassium improving. We will consult Nephrology for the renal failure. PAST MEDICAL HISTORY: Significant for hypertension, atrial fibrillation, diabetes, and renal failure. CURRENT MEDICATIONS: Include metformin 2000 mg daily, Cozaar 100 mg daily, hydralazine 50 t.i.d., Catapres 0.2 q.i.d., insulin, Lasix, Cardura, Cardizem CD 300 daily, Plavix 75 daily Lipitor 10, Tenormin 50 b.i.d. ALLERGIES: ALLERGIC TO VASOTEC AND LOPRESSOR. FAMILY HISTORY: Negative for premature coronary artery disease. SOCIAL HISTORY: Negative for current smoking, EtOH abuse or drug abuse. REVIEW OF SYSTEMS: HEENT is unremarkable,. CARDIAC as described above. RESPIRATORY as described above. GI negative. GENITOURINARY as described above. PSYCHOSOCIAL negative. ENDOCRINE negative. DERMATOLOGICAL: Negative. CONSTITUTIONAL: Significant for fatigue, tiredness, not feeling well along with bradycardia. ANDROID UI DEVELOPER: Negative. Rest of the system review is not relevant. PHYSICAL EXAMINATION: On exam, heart rate is 80 beats per minute. Blood pressure is 110/50. Respiratory is 13, O2 saturation is 95%. NECK: There is no jugular venous distention. Carotid upstroke is diminished. There is no bruit. CHEST exam reveals diminished air entry at the bases. HEART exam reveals first and second heart sounds, irregular rhythm and a systolic murmur at the left lower sternal border. ABDOMEN: Soft. Exam of EXTREMITIES reveals bilateral chronic edema. LAB: Show that the potassium is 5.4, BUN is 126, creatinine is 5. Lactic acid is elevated. White cell count is elevated at 20, hemoglobin is 8.9, platelet count is 548. ASSESSMENT: 1. Acute worsening of the chronic renal failure. 2. Bradycardia secondary to hyperkalemia and the AV elsie blockers. 3. History of hypertension. 4. Hypotension. PLAN: Keep the potassium below 5. Continue with the epi drip for hypotension. We will consult Nephrology for the renal failure. We will obtain a 2D echo to evaluate his LV function. She does not need a pacemaker at this time. I anticipate the heart rate improving once the hyperkalemia improves. The patient is not on oral anticoagulant as she opted not to. PAULINA / TONYN: [id number] /
[2021-08-20 15:02] LABS: Glucose,Whole Blood 335 mg/dL (75-99)
[2021-08-20 15:22] LABS: Calcium 7.7 mg/dL (8.4-10.2)
[2021-08-20 16:07] LABS: Glucose,Whole Blood 322 mg/dL (75-99)
--- NOTE | 2021-08-20 16:42 | CONS ---
CONSULTATION REASON FOR CONSULTATION: Severe metabolic acidosis and acute kidney injury. HISTORY OF PRESENT ILLNESS: The patient is a 70-year-old female who was admitted to the hospital with increased weakness. Patient also had diarrhea for about 2 days prior to admission. She denied any previous history of kidney diseases. Patient's blood pressure has been low, with systolic in the 70s. She is currently maintained on pressors. Patient was also bradycardic on admission with heart rate below 50 and is currently maintained on epi drip and vasopressin. Patient's CO2 was 7 on initial admission, currently maintained on bicarb drip. Serum creatinine was 4.9 yesterday. It is up to 5.08 today. Patient has had poor urine output; only at about 5 to 10 mL/hour. Patient denies use of nonsteroidal anti-inflammatory agents prior to admission. She was maintained on Cozaar, metformin prior to admission. Lactic acid was elevated at 2.9 to 3.5. No diarrhea currently after admission. PAST MEDICAL HISTORY: Significant for hypertension, type 2 diabetes, history of CVA/TIA, hyperlipidemia. PAST SURGICAL HISTORY: Breast surgery, hysterectomy, tonsillectomy, right breast biopsy. SOCIAL HISTORY: Negative for smoking, drug abuse or alcohol abuse. MEDICATIONS: Medications prior to admission included atenolol, Lipitor, Plavix, Cardizem, Lasix, clonidine, hydralazine, vitamin D, Cardura, Cozaar, Glucophage. ALLERGIES: ALLERGIES include VASOTEC (causes reaction not known), LOPRESSOR. REVIEW OF SYSTEMS: As per HPI. Other systems negative. PHYSICAL EXAMINATION: Patient is comfortable, awake. She is not in any acute distress. Alert, oriented x3. Blood pressure 110/55, heart rate 86 per minute. She is afebrile. EXAMINATION OF THE HEART: S1 and S2. EXAMINATION OF LUNGS: Bilateral breath sounds are heard. Decreased breath sounds at the bases. Abdomen is soft, non-tender. Examination of lower extremities shows chronic skin changes. Wrinkling of the skin noted, suggesting recent loss of fluid. FIBERLINE SUPERVISOR EXAM: Grossly intact. LABS: Sodium 126, potassium 5.4, chloride 105, BUN of 126, serum creatinine 5.0. Lactic acid 3.0. ASSESSMENT: 1. Acute kidney injury, acute tubular necrosis, currently oliguric. Rule out obstructive uropathy. Patient is going down for CT of the abdomen. No previous history of kidney diseases. Continue with the Aguilera catheter. 2. Severe metabolic acidosis, non-gap as well as gap acidosis secondary to renal failure as well as diarrhea and lactic acidosis. Patient was on metformin, and this can be associated with lactic acidosis as well. At the same time, Patient has been hypotensive, which would cause the lactic acidosis. Continue with the bicarb drip for now. 3. Hyponatremia, hypovolemic. Will adjust the bicarb drip based on repeat labs. 4. Mild hyperkalemia associated with acute kidney injury, severe metabolic acidosis, use of angiotensin receptor blockers prior to admission, slightly improved. Will repeat labs later on today. 5. Lactic acidosis associated with hypotension, hypoperfusion as well as possibly related to metformin use. 6. Anemia. Rule out iron deficiency. 7. Type 2 diabetes. PLAN: Continue bicarb drip. Repeat labs. Adjust the bicarb drip for the low sodium based on repeat labs. Continue to hold off on the angiotensin receptor blockers and metformin. Continue empiric antibiotics. Agree with CT of the abdomen. Avoid vancomycin, given the advanced renal failure. Thank you for this consultation. Will continue to follow the patient with you during her hospitalization. MMODL / IJN: [id number] /
[2021-08-20 17:40] LABS: Glucose,Whole Blood 259 mg/dL (75-99)
[2021-08-20 18:45] LABS: Glucose,Whole Blood 234 mg/dL (75-99)
--- NOTE | 2021-08-20 19:41 | P.PCN ---
Date of Procedure: 08/20/21 Preoperative Diagnosis: acute kigney injury, hypotension Postoperative Diagnosis: acute kidney injury, hypotension Procedure(s) Performed: arterial line insertion Anesthesia: local, spinal Surgeon: Tad Jade Estimated Blood Loss (ml): 0 Pathology: none sent Condition: critical Disposition: ICU Operative Findings: Arterial Line: Indication: Hemodynamic monitoring. A time-out was completed verifying correct patient, procedure, site, positioni ng, and implant(s) or special equipment if applicable. Allens test was performed to ensure adequate perfusion. The patients right wrist was prepped and draped in sterile fashion. 1% Lidocaine was used to anesthetize the area. An 18G Arrow arterial line was introduced into the radial artery. The catheter was threaded over the guide wire and the needle was removed with appropriate pulsatile blood return. Blood loss was minimal. The catheter was then sutured in place to the skin and a sterile dressing applied. Perfusion to the extremity distal to the point of catheter insertion was checked and found to be adequate. The patient tolerated the procedure well and there were no complications.
[2021-08-20] MEDS ORDERED: VANCOMYCIN 1,500 MG in SODIUM CHLORIDE 0.9% 250 ML IVPB ONE (20:00)
[2021-08-20 20:04] LABS: Glucose,Whole Blood 192 mg/dL (75-99)
[2021-08-20 21:01] LABS: Glucose,Whole Blood 169 mg/dL (75-99)
[2021-08-20 21:58] LABS: Glucose,Whole Blood 157 mg/dL (75-99)
[2021-08-20 23:06] LABS: Glucose,Whole Blood 151 mg/dL (75-99)
[2021-08-20 23:46] LABS: Glucose,Whole Blood 161 mg/dL (75-99)
[2021-08-21] MEDS: HEPARIN SODIUM,PORCINE/PF 5,000 UNIT/0.5 ML SYRINGE SQ SCH ×4 (00:14→23:18)
[2021-08-21 01:08] LABS: Glucose,Whole Blood 135 mg/dL (75-99)
[2021-08-21 01:50] LABS: Glucose,Whole Blood 142 mg/dL (75-99)
[2021-08-21 03:03] LABS: Glucose,Whole Blood 158 mg/dL (75-99)
[2021-08-21] MEDS: DEXTROSE 5% IN WATER 1,000 ML with SODIUM BICARB (1 MEQ/ML) 150 ML IV SCH ×3 (03:07→17:29)
[2021-08-21 04:18] LABS: Glucose,Whole Blood 139 mg/dL (75-99)
[2021-08-21] MEDS: EPINEPHrine 16 MG in DEXTROSE 5% IN WATER 250 ML IV SCH ×2 (04:28)
[2021-08-21 04:44] LABS: Anisocytosis Slight; Basophils % (A) 0 %; Eosinophils % (A) 0 %; HCT 25.2 % (34.0-46.0); HGB 7.8 gm/dL (11.4-16.0); Hypochromasia Slight; Lymphocytes # (A) 0.4 k/uL (1.0-4.8); Lymphocytes % (A) 1 %; MCH 25.1 pg (25.0-35.0); MCHC 30.9 g/dL (31.0-37.0); MCV 81.3 fL (80.0-100.0); Mean Platelet Volume 8.6; Microcytosis Slight; Monocytes # (A) 1.2 k/uL (0-1.0); Monocytes % (A) 4 %; Neutrophils # (A) 29.2 k/uL (1.3-7.7); Neutrophils % (A) 94 %; Platelet Count 523 k/uL (150-450); Poikilocytosis Slight
[2021-08-21 05:02] LABS: Glucose,Whole Blood 169 mg/dL (75-99)
[2021-08-21 06:20] LABS: Glucose,Whole Blood 182 mg/dL (75-99)
[2021-08-21 06:58] LABS: Glucose,Whole Blood 182 mg/dL (75-99)
--- NOTE | 2021-08-21 07:36 | P.PN ---
Subjective Progress Note Date: 08/21/21 A 70-year-old morbidly obese female patient presented yesterday because of generalized weakness. Immediate she was identified to be in acute kidney injury and she was found to have severe metabolic acidosis. In the emergency room the patient was also bradycardic heart rate was quite low in the 40s initially in the form of atrial fibrillation. She was hypotensive. She was given a triple lumen catheter through the left IJ. He was given a total of 3 L of IV fluids in the form of normal saline. Following that she was started on epinephrine drip which is currently running at 0.37 mcg/kg per minute. Urine output is minimal at this point in time. The patient has developed an acute kidney injury. She reported diminished intake, generalized weakness and fatigue. No reported fever. No cough or sputum production. No altered mentation. No nausea or vomiting. She had a bout of diarrhea. COVID 19 testing is been negative. She has chronic edema and swelling and ulceration lower extremity is bilaterally. No active cellulitis. She did take a dose of vancomycin in the emergency department. Overnight, she was switched a bicarb infusion which is currently running at the rate of 150 mEq at the rate of 150 mL an hour. Most recent serum bicarbonate 7. Most recent potassium level is at 5.4. Most recent sodium level is up 126. Lactic acid level is at 3.0. White cell count is up to 20 with a hemoglobin of 8.9. Chest x-ray showing cardiomegaly along with pulmonary vascular congestion. Despite all these metabolic derangements, the patient is still awake and alert and breathing is comfortable and she is only on 2 L of oxygen by nasal cannula. Troponins are negative. ProBNP level is 7900. On today's evaluation of 08/21/2021 patient is feeling better. She is awake and alert and following commands and answering questions. Fortunately, she improved urine output. Currently she is producing urine output in order of 20-40 disease an hour. She remains hemodynamically unstable although there is a potential of weaning down the pressors. The patient is currently on epinephrine drip running at 0.21 mcg/kg per minute and vasopressin is on physiologic dose. She is afebrile. Focused on 11 was low. She is on IV Zosyn. She was given a dose of vancomycin in the emergency pelvic all of the cultures are negative. As such, I'm not sure the patient is septic. His CVP is around 18. CAT scan of the abdomen showed diffuse subcutaneous anasarca. No acute intra-abdominal process. CAT scan of the chest showed bilateral pleural effusion lung bases bilaterally. Meanwhile, echo cardiac exam was essentially within normal limits. She remains on oxygen at 2 L per minute nasal cannula. Electrodes are still pending patient remains on insulin drip at 4 units an hour and the blood sugars under better control. She remains on a bicarb infusion at the rate of 150 mL an hour, labs are still pending. Lactic acid was as high as 3.0. She is stooling. No neck stiffness. No focal neurological deficit at this point in time. Newsroom Intern on the case. Blood cultures were negative. Objective - Vital Signs Vital signs: Vital Signs Temp 98.0 F 08/21/21 04:00 Pulse 112 H 08/21/21 07:15 Resp 17 08/21/21 07:15 BP 123/107 08/21/21 06:30 Pulse Ox 95 08/21/21 07:15 Intake & Output 08/20/21 08/21/21 08/21/21 18:59 06:59 18:59 Intake Total 2723.380 2069.962 213.463 Output Total 25 190 40 Balance 2698.380 1879.962 173.463 Weight 104.2 kg 107.6 kg Intake: IV 1800 1800 150 Dextrose 5% in Water 1, 1800 1800 150 000 ml @ 150 mls/hr IV . Q7H40M VU with Sodium Bicarb (1 Meq/ml) 150 ml Rx#:[id number] Intake, IV Titration 443.380 269.962 63.463 Amount EPINEPHrine 16 mg In 242.380 241.169 63.463 Dextrose 5% in Water 250 ml @ 0.03 MCG/KG/MIN 2. 679 mls/hr IV .Q24H VU Rx#:[id number] Insulin Regular 100 unit 101.000 28.793 In Sodium Chloride 0.9% 100 ml @ Per Protocol IV .Q0M UV Rx#:[id number] Piperacillin-Tazobactam 3 100 .375 gm In Sodium Chloride 0.9% 100 ml @ 25 mls/hr IVPB Q12H VU Rx# :[id number] Oral 480 Output: Urine 25 190 40 Other: Voiding Method Indwelling Catheter Indwelling Catheter # Bowel Movements 1 ABP, PAP, CO, CI - Last Documented Arterial Blood Pressure 124/54 - Exam General Impression: Alert and oriented x3, not in acute distress, morbidly obese, breathing is nonlabored and the patient is laying comfortably in bed at 2 L of oxygen by nasal cannula Head exam was generally normal. There was no scleral icterus or corneal arcus. Mucous membranes were moist. HEENT: Normocephalic atraumatic, extra-ocular movements intact, pupils equal and reactive to light bilaterally, dry mucous membranes, the patient is triple-lumen catheter in the left IJ Cardiovascular: Heart regular rate and rhythm Chest: Able to complete full sentences, no retractions, no tachypnea Abdomen: abdomen soft, non-tender, non-distended, no organomegaly Musculoskeletal: Pulses present and equal in all extremities, bilateral lower extremity lymphedema Motor: no focal deficits noted Neurological: CN II-XII grossly intact, no focal motor or sensory deficits noted Skin: Intertriginous rash to the left inferior chest under the fold, no active cellulitis in the lower extremities. There is some superficial ulceration. No abscess formation. - Labs CBC & Chem 7: 08/21/21 04:15 08/20/21 15:09 Labs: Abnormal Lab Results - Last 24 Hours (Table) 08/20/21 08/20/21 08/20/21 Range/Units 08:21 09:17 09:59 WBC (3.8-10.6) k/uL RBC (3.80-5.40) m/uL Hgb (11.4-16.0) gm/dL Hct (34.0-46.0) % MCHC (31.0-37.0) g/dL RDW (11.5-15.5) % Plt Count (150-450) k/uL Neutrophils # (1.3-7.7) k/uL Lymphocytes # (1.0-4.8) k/uL Monocytes # (0-1.0) k/uL Sodium (137-145) mmol/L Carbon Dioxide (22-30) mmol/L BUN (7-17) mg/dL Creatinine (0.52-1.04) mg/dL Glucose (74-99) mg/dL POC Glucose (mg/dL) 485 H 429 H (75-99) mg/dL Plasma Lactic Acid Garrick 3.5 H* (0.7-2.0) mmol/L Calcium (8.4-10.2) mg/dL Creatine Kinase (30-135) U/L 08/20/21 08/20/21 08/20/21 Range/Units 11:11 11:55 11:55 WBC (3.8-10.6) k/uL RBC (3.80-5.40) m/uL Hgb (11.4-16.0) gm/dL Hct (34.0-46.0) % MCHC (31.0-37.0) g/dL RDW (11.5-15.5) % Plt Count (150-450) k/uL Neutrophils # (1.3-7.7) k/uL Lymphocytes # (1.0-4.8) k/uL Monocytes # (0-1.0) k/uL Sodium 128 L (137-145) mmol/L Carbon Dioxide 10 L (22-30) mmol/L BUN 119 H* (7-17) mg/dL Creatinine 5.13 H (0.52-1.04) mg/dL Glucose 367 H (74-99) mg/dL POC Glucose (mg/dL) 415 H (75-99) mg/dL Plasma Lactic Acid Garrick 5.0 H* (0.7-2.0) mmol/L Calcium 8.0 L (8.4-10.2) mg/dL Creatine Kinase 167 H (30-135) U/L 08/20/21 08/20/21 08/20/21 Range/Units 12:18 13:43 15:00 WBC (3.8-10.6) k/uL RBC (3.80-5.40) m/uL Hgb (11.4-16.0) gm/dL Hct (34.0-46.0) % MCHC (31.0-37.0) g/dL RDW (11.5-15.5) % Plt Count (150-450) k/uL Neutrophils # (1.3-7.7) k/uL Lymphocytes # (1.0-4.8) k/uL Monocytes # (0-1.0) k/uL Sodium (137-145) mmol/L Carbon Dioxide (22-30) mmol/L BUN (7-17) mg/dL Creatinine (0.52-1.04) mg/dL Glucose (74-99) mg/dL POC Glucose (mg/dL) 400 H 366 H 335 H (75-99) mg/dL Plasma Lactic Acid Garrick (0.7-2.0) mmol/L Calcium (8.4-10.2) mg/dL Creatine Kinase (30-135) U/L 08/20/21 08/20/21 08/20/21 Range/Units 15:09 15:09 16:05 WBC (3.8-10.6) k/uL RBC (3.80-5.40) m/uL Hgb (11.4-16.0) gm/dL Hct (34.0-46.0) % MCHC (31.0-37.0) g/dL RDW (11.5-15.5) % Plt Count (150-450) k/uL Neutrophils # (1.3-7.7) k/uL Lymphocytes # (1.0-4.8) k/uL Monocytes # (0-1.0) k/uL Sodium 126 L (137-145) mmol/L Carbon Dioxide 13 L (22-30) mmol/L BUN 127 H* (7-17) mg/dL Creatinine 5.07 H (0.52-1.04) mg/dL Glucose 316 H (74-99) mg/dL POC Glucose (mg/dL) 322 H (75-99) mg/dL Plasma Lactic Acid Garrick 3.0 H* (0.7-2.0) mmol/L Calcium 7.7 L (8.4-10.2) mg/dL Creatine Kinase (30-135) U/L 08/20/21 08/20/21 08/20/21 Range/Units 17:39 18:44 20:02 WBC (3.8-10.6) k/uL RBC (3.80-5.40) m/uL Hgb (11.4-16.0) gm/dL Hct (34.0-46.0) % MCHC (31.0-37.0) g/dL RDW (11.5-15.5) % Plt Count (150-450) k/uL Neutrophils # (1.3-7.7) k/uL Lymphocytes # (1.0-4.8) k/uL Monocytes # (0-1.0) k/uL Sodium (137-145) mmol/L Carbon Dioxide (22-30) mmol/L BUN (7-17) mg/dL Creatinine (0.52-1.04) mg/dL Glucose (74-99) mg/dL POC Glucose (mg/dL) 259 H 234 H 192 H (75-99) mg/dL Plasma Lactic Acid Garrick (0.7-2.0) mmol/L Calcium (8.4-10.2) mg/dL Creatine Kinase (30-135) U/L 08/20/21 08/20/21 08/20/21 Range/Units 21:00 21:56 22:56 WBC (3.8-10.6) k/uL RBC (3.80-5.40) m/uL Hgb (11.4-16.0) gm/dL Hct (34.0-46.0) % MCHC (31.0-37.0) g/dL RDW (11.5-15.5) % Plt Count (150-450) k/uL Neutrophils # (1.3-7.7) k/uL Lymphocytes # (1.0-4.8) k/uL Monocytes # (0-1.0) k/uL Sodium (137-145) mmol/L Carbon Dioxide (22-30) mmol/L BUN (7-17) mg/dL Creatinine (0.52-1.04) mg/dL Glucose (74-99) mg/dL POC Glucose (mg/dL) 169 H 157 H 151 H (75-99) mg/dL Plasma Lactic Acid Garrick (0.7-2.0) mmol/L Calcium (8.4-10.2) mg/dL Creatine Kinase (30-135) U/L 08/20/21 08/21/21 08/21/21 Range/Units 23:45 01:07 01:49 WBC (3.8-10.6) k/uL RBC (3.80-5.40) m/uL Hgb (11.4-16.0) gm/dL Hct (34.0-46.0) % MCHC (31.0-37.0) g/dL RDW (11.5-15.5) % Plt Count (150-450) k/uL Neutrophils # (1.3-7.7) k/uL Lymphocytes # (1.0-4.8) k/uL Monocytes # (0-1.0) k/uL Sodium (137-145) mmol/L Carbon Dioxide (22-30) mmol/L BUN (7-17) mg/dL Creatinine (0.52-1.04) mg/dL Glucose (74-99) mg/dL POC Glucose (mg/dL) 161 H 135 H 142 H (75-99) mg/dL Plasma Lactic Acid Garrick (0.7-2.0) mmol/L Calcium (8.4-10.2) mg/dL Creatine Kinase (30-135) U/L 08/21/21 08/21/21 08/21/21 Range/Units 03:01 04:15 04:15 WBC 31.0 H (3.8-10.6) k/uL RBC 3.10 L (3.80-5.40) m/uL Hgb 7.8 L (11.4-16.0) gm/dL Hct 25.2 L (34.0-46.0) % MCHC 30.9 L (31.0-37.0) g/dL RDW 18.0 H (11.5-15.5) % Plt Count 523 H (150-450) k/uL Neutrophils # 29.2 H (1.3-7.7) k/uL Lymphocytes # 0.4 L (1.0-4.8) k/uL Monocytes # 1.2 H (0-1.0) k/uL Sodium (137-145) mmol/L Carbon Dioxide (22-30) mmol/L BUN (7-17) mg/dL Creatinine (0.52-1.04) mg/dL Glucose (74-99) mg/dL POC Glucose (mg/dL) 158 H (75-99) mg/dL Plasma Lactic Acid Garrick (0.7-2.0) mmol/L Calcium (8.4-10.2) mg/dL Creatine Kinase 140 H (30-135) U/L 08/21/21 08/21/21 08/21/21 Range/Units 04:16 05:00 06:18 WBC (3.8-10.6) k/uL RBC (3.80-5.40) m/uL Hgb (11.4-16.0) gm/dL Hct (34.0-46.0) % MCHC (31.0-37.0) g/dL RDW (11.5-15.5) % Plt Count (150-450) k/uL Neutrophils # (1.3-7.7) k/uL Lymphocytes # (1.0-4.8) k/uL Monocytes # (0-1.0) k/uL Sodium (137-145) mmol/L Carbon Dioxide (22-30) mmol/L BUN (7-17) mg/dL Creatinine (0.52-1.04) mg/dL Glucose (74-99) mg/dL POC Glucose (mg/dL) 139 H 169 H 182 H (75-99) mg/dL Plasma Lactic Acid Garrick (0.7-2.0) mmol/L Calcium (8.4-10.2) mg/dL Creatine Kinase (30-135) U/L 08/21/21 Range/Units 06:56 WBC (3.8-10.6) k/uL RBC (3.80-5.40) m/uL Hgb (11.4-16.0) gm/dL Hct (34.0-46.0) % MCHC (31.0-37.0) g/dL RDW (11.5-15.5) % Plt Count (150-450) k/uL Neutrophils # (1.3-7.7) k/uL Lymphocytes # (1.0-4.8) k/uL Monocytes # (0-1.0) k/uL Sodium (137-145) mmol/L Carbon Dioxide (22-30) mmol/L BUN (7-17) mg/dL Creatinine (0.52-1.04) mg/dL Glucose (74-99) mg/dL POC Glucose (mg/dL) 182 H (75-99) mg/dL Plasma Lactic Acid Garrick (0.7-2.0) mmol/L Calcium (8.4-10.2) mg/dL Creatine Kinase (30-135) U/L Microbiology - Last 24 Hours (Table) 08/19/21 15:59 Blood Culture - Preliminary Blood No Growth after 24 hours Assessment and Plan Plan: 1 acute kidney injury. The patient is oliguric. The patient is not producing any urine output. Exact cause is not clear. Consider ATN secondary to intravascular volume depletion/dehydration. Further investigation is needed to establish the cause of the acute kidney injury. From the abdomen showed no evidence of any hydronephrosis and the patient renal function was significantly impaired. The urine output has improved overnight as the patient is receiving bicarb infusion. Follow-up labs from today is still pending. 2 acute metabolic acidosis a combination of anion and non-anion gap type. The patient has mild lactic acidosis. Awaiting follow-up levels from today, the patient's serum bicarb was as low as 7 and the patient's serum bicarbonate gradually improving. 3 acute hyponatremia, sodium level is at 126 4 acute hyperkalemia, improving 5 acute leukocytosis still elevated 6 bradycardia with an underlying atrial fibrillation rhythm, improved, still on a combination of epinephrine and vasopressin physiologic dose and the patient continues to be in atrial fibrillation, 7 acute hypotension/shock, consider septic, consider hypovolemic and the patient is currently adequately resuscitated and the patient is currently on norepinephrine drip in addition to vasopressin. Norepinephrine is running at a dose of 0.21 mcg/kg per minute and the patient is also on vasopressin physiol ogic dose. 8 obesity with a BMI of 42 9 history of CVA 10 diabetes mellitus maintained on insulin 7030 on outpatient basis and the patient takes 7030 insulin 30 units at bedtime and NovoLog 22 units 3 times a day with meals 11 hyperlipidemia 12 hypertension 13 glucoma 14 secondary pulmonary hypertension with tricuspid regurgitation, preserved LV function and diastolic heart failure 15 bilateral pleural effusions as noted on a CAT scan of the chest. Plan Continue bicarb infusions the rate of 150 mL an hour. Patient has a triple lumen catheter monitor the CVP CVP is currently at 18 Awaiting follow-up levels from today Cultures of been all negative and appropriate calcitonin level is low The patient empirically with IV Zosyn The patient has received a dose of vancomycin in the emergency department. He is On hold for now pending further cultures Nephrology consultation regards acute kidney injury Continue insulin drip for now at 4 units an hour Hold metformin Heparin subcu for DVT prophylaxis Check pro calcitonin level was low Continue the pressors in addition to fluids. The patient is currently on a combination of epinephrine and vasopressin, wean off pressors if possible and lower the epinephrine infusion rate. Patient urine output is improved. Echocardiogram to evaluate LV function, and the patient has preserved LV function, moderate to severe tricuspid regurgitation severe pulmonary hypertension. She has also evidence of diastolic heart failure. The CAT scan of the chest also showed bilateral pleural effusions. Condition is critical. We'll continue to follow.
[2021-08-21] MEDS: NOREPINEPHRINE 8 MG in SODIUM CHLORIDE 0.9% 250 ML IV SCH (09:08)
[2021-08-21] MEDS: SODIUM CHLORIDE 0.9% 150 ML with VASOPRESSIN 60 UNIT IV SCH ×4 (10:25→10:28)
[2021-08-21] MEDS: PIPERACILLIN-TAZOBACTAM 3.375 GM in SODIUM CHLORIDE 0.9% 100 ML IVPB SCH ×2 (10:28→20:50)
[2021-08-21] MEDS: PANTOPRAZOLE 40 MG/10 ML VIAL IV SCH (10:28)
[2021-08-21 10:37] LABS: Glucose,Whole Blood 140 mg/dL (75-99)
[2021-08-21 11:20] LABS: Albumin 2.2 g/dL (3.5-5.0); Calcium 7.4 mg/dL (8.4-10.2); Potassium 4.7 mmol/L (3.5-5.1); Total Bilirubin 0.1 mg/dL (0.2-1.3); Total Protein 4.4 g/dL (6.3-8.2)
--- NOTE | 2021-08-21 12:02 | XR ---
EXAMINATION TYPE: XR KUB portable DATE OF EXAM: 08/21/2021 11:55 AM CLINICAL HISTORY: Distention. TECHNIQUE: Two supine portable KUB images of the abdomen are obtained. COMPARISON: CT abdomen and pelvis August 20, 2021. FINDINGS: Slightly suboptimal secondary to patient's large body habitus and left abdominal protrusion extending outside the field of view. Some paucity of bowel gas redemonstrated. Gas seen in nondisten ded left-sided bowel loops. Aguilera catheter over the lower pelvis redemonstrated. Chronic left basilar opacity consistent with small left pleural effusion and associated compressive atelectasis. Mild/mod erate overlying arterial vascular calcification. Moderate axial joint space loss in both hips. IMPRESSION: Overall nonobstructive bowel gas pattern remains present.
--- NOTE | 2021-08-21 12:46 | P.PN ---
Subjective Progress Note Date: 08/21/21 INTERVAL HISTORY: The patient is a 70-year-old female with a history of hypertension, heart disease, chronic renal insufficiency, ljv-vwnlrhk-umfbonuvt diabetes, prior CVA, and permanent atrial fibrillation, who has declined long- term anticoagulation in the past, presents to the hospital with symptoms of fatigue, tiredness, and not feeling well. Patient was admitted bradycardia, hypotensive, and acute kidney injury. Today patient was doing well examined at the bedside. She remains on epinephrine and vasopressin. Echocardiogram completed yesterday reveals a normal LV function, with an EF of 55-60%, grade 2 diastolic dysfunction, mild mitral valve regurgitation, moderate to severe tricuspid regurgitation and severe pulmonary hypertension. Blood pressure is well-controlled today 124/54, and heart rate is slightly elevated at 100-117. Patient remains in atrial fibrillation. LAB DATA: BUN 120, creatinine 4.61, potassium 4.7, hemoglobin 7.8 Objective - Vital Signs Vital signs: Vital Signs Temp 99.1 F 08/21/21 12:00 Pulse 117 H 08/21/21 12:00 Resp 22 08/21/21 12:00 BP 123/107 08/21/21 06:30 Pulse Ox 96 08/21/21 12:00 Intake & Output 08/20/21 08/21/21 08/21/21 18:59 06:59 18:59 Intake Total 2723.380 2069.962 960.271 Output Total 25 190 265 Balance 2698.380 1879.962 695.271 Weight 104.2 kg 107.6 kg Intake: IV 1800 1800 750 Dextrose 5% in Water 1, 1800 1800 750 000 ml @ 150 mls/hr IV . Q7H40M VU with Sodium Bicarb (1 Meq/ml) 150 ml Rx#:[id number] Intake, IV Titration 443.380 269.962 210.271 Amount EPINEPHrine 16 mg In 242.380 241.169 95.954 Dextrose 5% in Water 250 ml @ 0.03 MCG/KG/MIN 2. 679 mls/hr IV .Q24H VU Rx#:[id number] Insulin Regular 100 unit 101.000 28.793 14.317 In Sodium Chloride 0.9% 100 ml @ Per Protocol IV .Q0M VU Rx#:[id number] Piperacillin-Tazobactam 3 100 .375 gm In Sodium Chloride 0.9% 100 ml @ 25 mls/hr IVPB Q12H VU Rx# :[id number] Sodium Chloride 0.9% 150 100 ml @ 0.03 UNITS/MIN 4.59 mls/hr IV .Q24H VU with Vasopressin 60 unit Rx#: [id number] Oral 480 Output: Urine 25 190 265 Other: Voiding Method Indwelling Catheter Indwelling Catheter Indwelling Catheter # Bowel Movements 1 ABP, PAP, CO, CI - Last Documented Arterial Blood Pressure 106/54 - Exam PHYSICAL EXAMINATION: Blood pressure 124/54 heart rate 109 respirations 20, temp 98.0, 95% on room air. HEART: S1, S2 normal. No murmur, no gallop. Irregular rhythm, with a controlled rate LUNGS: Clear to auscultation. NECK: Supple. ABDOMEN: Soft, non-tender, positive bowel sounds. EXTREMITIES: 2+ peripheral pulses, severe lower extremity edema. Cellulitis of the right lower extremity. - Labs CBC & Chem 7: 08/21/21 04:15 08/21/21 10:37 Labs: Abnormal Lab Results - Last 24 Hours (Table) 08/20/21 08/20/21 08/20/21 Range/Units 11:55 11:55 13:43 WBC (3.8-10.6) k/uL RBC (3.80-5.40) m/uL Hgb (11.4-16.0) gm/dL Hct (34.0-46.0) % MCHC (31.0-37.0) g/dL RDW (11.5-15.5) % Plt Count (150-450) k/uL Neutrophils # (1.3-7.7) k/uL Lymphocytes # (1.0-4.8) k/uL Monocytes # (0-1.0) k/uL Sodium 128 L (137-145) mmol/L Carbon Dioxide 10 L (22-30) mmol/L BUN 119 H* (7-17) mg/dL Creatinine 5.13 H (0.52-1.04) mg/dL Glucose 367 H (74-99) mg/dL POC Glucose (mg/dL) 366 H (75-99) mg/dL Plasma Lactic Acid Garrick 5.0 H* (0.7-2.0) mmol/L Calcium 8.0 L (8.4-10.2) mg/dL Total Bilirubin (0.2-1.3) mg/dL AST (14-36) U/L Creatine Kinase 167 H (30-135) U/L Total Protein (6.3-8.2) g/dL Albumin (3.5-5.0) g/dL 08/20/21 08/20/21 08/20/21 Range/Units 15:00 15:09 15:09 WBC (3.8-10.6) k/uL RBC (3.80-5.40) m/uL Hgb (11.4-16.0) gm/dL Hct (34.0-46.0) % MCHC (31.0-37.0) g/dL RDW (11.5-15.5) % Plt Count (150-450) k/uL Neutrophils # (1.3-7.7) k/uL Lymphocytes # (1.0-4.8) k/uL Monocytes # (0-1.0) k/uL Sodium 126 L (137-145) mmol/L Carbon Dioxide 13 L (22-30) mmol/L BUN 127 H* (7-17) mg/dL Creatinine 5.07 H (0.52-1.04) mg/dL Glucose 316 H (74-99) mg/dL POC Glucose (mg/dL) 335 H (75-99) mg/dL Plasma Lactic Acid Garrick 3.0 H* (0.7-2.0) mmol/L Calcium 7.7 L (8.4-10.2) mg/dL Total Bilirubin (0.2-1.3) mg/dL AST (14-36) U/L Creatine Kinase (30-135) U/L Total Protein (6.3-8.2) g/dL Albumin (3.5-5.0) g/dL 08/20/21 08/20/21 08/20/21 Range/Units 16:05 17:39 18:44 WBC (3.8-10.6) k/uL RBC (3.80-5.40) m/uL Hgb (11.4-16.0) gm/dL Hct (34.0-46.0) % MCHC (31.0-37.0) g/dL RDW (11.5-15.5) % Plt Count (150-450) k/uL Neutrophils # (1.3-7.7) k/uL Lymphocytes # (1.0-4.8) k/uL Monocytes # (0-1.0) k/uL Sodium (137-145) mmol/L Carbon Dioxide (22-30) mmol/L BUN (7-17) mg/dL Creatinine (0.52-1.04) mg/dL Glucose (74-99) mg/dL POC Glucose (mg/dL) 322 H 259 H 234 H (75-99) mg/dL Plasma Lactic Acid Garrick (0.7-2.0) mmol/L Calcium (8.4-10.2) mg/dL Total Bilirubin (0.2-1.3) mg/dL AST (14-36) U/L Creatine Kinase (30-135) U/L Total Protein (6.3-8.2) g/dL Albumin (3.5-5.0) g/dL 08/20/21 08/20/21 08/20/21 Range/Units 20:02 21:00 21:56 WBC (3.8-10.6) k/uL RBC (3.80-5.40) m/uL Hgb (11.4-16.0) gm/dL Hct (34.0-46.0) % MCHC (31.0-37.0) g/dL RDW (11.5-15.5) % Plt Count (150-450) k/uL Neutrophils # (1.3-7.7) k/uL Lymphocytes # (1.0-4.8) k/uL Monocytes # (0-1.0) k/uL Sodium (137-145) mmol/L Carbon Dioxide (22-30) mmol/L BUN (7-17) mg/dL Creatinine (0.52-1.04) mg/dL Glucose (74-99) mg/dL POC Glucose (mg/dL) 192 H 169 H 157 H (75-99) mg/dL Plasma Lactic Acid Garrick (0.7-2.0) mmol/L Calcium (8.4-10.2) mg/dL Total Bilirubin (0.2-1.3) mg/dL AST (14-36) U/L Creatine Kinase (30-135) U/L Total Protein (6.3-8.2) g/dL Albumin (3.5-5.0) g/dL 08/20/21 08/20/21 08/21/21 Range/Units 22:56 23:45 01:07 WBC (3.8-10.6) k/uL RBC (3.80-5.40) m/uL Hgb (11.4-16.0) gm/dL Hct (34.0-46.0) % MCHC (31.0-37.0) g/dL RDW (11.5-15.5) % Plt Count (150-450) k/uL Neutrophils # (1.3-7.7) k/uL Lymphocytes # (1.0-4.8) k/uL Monocytes # (0-1.0) k/uL Sodium (137-145) mmol/L Carbon Dioxide (22-30) mmol/L BUN (7-17) mg/dL Creatinine (0.52-1.04) mg/dL Glucose (74-99) mg/dL POC Glucose (mg/dL) 151 H 161 H 135 H (75-99) mg/dL Plasma Lactic Acid Garrick (0.7-2.0) mmol/L Calcium (8.4-10.2) mg/dL Total Bilirubin (0.2-1.3) mg/dL AST (14-36) U/L Creatine Kinase (30-135) U/L Total Protein (6.3-8.2) g/dL Albumin (3.5-5.0) g/dL 08/21/21 08/21/21 08/21/21 Range/Units 01:49 03:01 04:15 WBC 31.0 H (3.8-10.6) k/uL RBC 3.10 L (3.80-5.40) m/uL Hgb 7.8 L (11.4-16.0) gm/dL Hct 25.2 L (34.0-46.0) % MCHC 30.9 L (31.0-37.0) g/dL RDW 18.0 H (11.5-15.5) % Plt Count 523 H (150-450) k/uL Neutrophils # 29.2 H (1.3-7.7) k/uL Lymphocytes # 0.4 L (1.0-4.8) k/uL Monocytes # 1.2 H (0-1.0) k/uL Sodium (137-145) mmol/L Carbon Dioxide (22-30) mmol/L BUN (7-17) mg/dL Creatinine (0.52-1.04) mg/dL Glucose (74-99) mg/dL POC Glucose (mg/dL) 142 H 158 H (75-99) mg/dL Plasma Lactic Acid Garrick (0.7-2.0) mmol/L Calcium (8.4-10.2) mg/dL Total Bilirubin (0.2-1.3) mg/dL AST (14-36) U/L Creatine Kinase (30-135) U/L Total Protein (6.3-8.2) g/dL Albumin (3.5-5.0) g/dL 08/21/21 08/21/21 08/21/21 Range/Units 04:15 04:16 05:00 WBC (3.8-10.6) k/uL RBC (3.80-5.40) m/uL Hgb (11.4-16.0) gm/dL Hct (34.0-46.0) % MCHC (31.0-37.0) g/dL RDW (11.5-15.5) % Plt Count (150-450) k/uL Neutrophils # (1.3-7.7) k/uL Lymphocytes # (1.0-4.8) k/uL Monocytes # (0-1.0) k/uL Sodium (137-145) mmol/L Carbon Dioxide (22-30) mmol/L BUN (7-17) mg/dL Creatinine (0.52-1.04) mg/dL Glucose (74-99) mg/dL POC Glucose (mg/dL) 139 H 169 H (75-99) mg/dL Plasma Lactic Acid Garrick (0.7-2.0) mmol/L Calcium (8.4-10.2) mg/dL Total Bilirubin (0.2-1.3) mg/dL AST (14-36) U/L Creatine Kinase 140 H (30-135) U/L Total Protein (6.3-8.2) g/dL Albumin (3.5-5.0) g/dL 08/21/21 08/21/21 08/21/21 Range/Units 06:18 06:56 10:36 WBC (3.8-10.6) k/uL RBC (3.80-5.40) m/uL Hgb (11.4-16.0) gm/dL Hct (34.0-46.0) % MCHC (31.0-37.0) g/dL RDW (11.5-15.5) % Plt Count (150-450) k/uL Neutrophils # (1.3-7.7) k/uL Lymphocytes # (1.0-4.8) k/uL Monocytes # (0-1.0) k/uL Sodium (137-145) mmol/L Carbon Dioxide (22-30) mmol/L BUN (7-17) mg/dL Creatinine (0.52-1.04) mg/dL Glucose (74-99) mg/dL POC Glucose (mg/dL) 182 H 182 H 140 H (75-99) mg/dL Plasma Lactic Acid Garrick (0.7-2.0) mmol/L Calcium (8.4-10.2) mg/dL Total Bilirubin (0.2-1.3) mg/dL AST (14-36) U/L Creatine Kinase (30-135) U/L Total Protein (6.3-8.2) g/dL Albumin (3.5-5.0) g/dL 08/21/21 Range/Units 10:37 WBC (3.8-10.6) k/uL RBC (3.80-5.40) m/uL Hgb (11.4-16.0) gm/dL Hct (34.0-46.0) % MCHC (31.0-37.0) g/dL RDW (11.5-15.5) % Plt Count (150-450) k/uL Neutrophils # (1.3-7.7) k/uL Lymphocytes # (1.0-4.8) k/uL Monocytes # (0-1.0) k/uL Sodium 128 L (137-145) mmol/L Carbon Dioxide 20 L (22-30) mmol/L BUN 120 H* (7-17) mg/dL Creatinine 4.61 H (0.52-1.04) mg/dL Glucose 120 H (74-99) mg/dL POC Glucose (mg/dL) (75-99) mg/dL Plasma Lactic Acid Garrick (0.7-2.0) mmol/L Calcium 7.4 L (8.4-10.2) mg/dL Total Bilirubin 0.1 L (0.2-1.3) mg/dL AST 53 H (14-36) U/L Creatine Kinase (30-135) U/L Total Protein 4.4 L (6.3-8.2) g/dL Albumin 2.2 L (3.5-5.0) g/dL Microbiology - Last 24 Hours (Table) 08/19/21 15:59 Blood Culture - Preliminary Blood No Growth after 24 hours Assessment and Plan Assessment: Bradycardia secondary to hyperkalemia and the AV blockers Permanent atrial fibrillation History of Hypertension Hypotension improved Pacemaker not indicated at this time. Plan: Hypotension has improved, Taper pressors down Monitor and maintain Potassium below 5 Creatinine improved, continue to follow with nephrology for renal failure Patient has decided to opt out of using oral anticoagulation
[2021-08-21 14:23] LABS: Glucose,Whole Blood 195 mg/dL (75-99)
--- NOTE | 2021-08-21 14:43 | P.PN ---
Subjective Progress Note Date: 08/21/21 HISTORY OF PRESENT ILLNESS This 70-year-old pleasant female, patient of Dr. Crystal, and Dr. Mari, with known history of diabetes mellitus, previous TIA hypertension, hyperlipidemia, morbid obesity, who comes in the emergency room secondary to generalized weakness, patient denies any nausea vomiting diarrhea, no medication changes from her PCP or her long wall shear operator, for which hasn't seen over the past 2 years. Patient comes in to emergency room with severe metabolic acidosis, dehydration, and severe bradycardia, with heart rates in the 40s and blood pressure systolic in the 80s. She was critical when she was seen in the emergency room EMS has given her atropine, with improvement of the heart rate. Patient is in A. fib, with slow ventricular heart rate. 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 Bilateral leg. Patient denies any chest pain pleurisy, leg pain, no nausea vomiting diarrhea, no melena and hematochezia , no syncope no seizures. covid vaccination status unclear, patient was not on any NSAIDs, or steroids prior to ER visit Emergency room, she was in A. fib with slowed ventricular hydrated, in the 40s, CO2 of 9, potassium of 6.2, sodium 128, creatinine 4.93, BUN of 134. Magnesium 1.7 TSH 3.7 albumin 2.2 wbc count 10.6 hemoglobin 8.7 platelet count 465. Urinalysis urine WBC of 7 patient come in with lactic acidosis, coronavirus PCR negative. Patient is transferred to ICU, with multiple consultants, cardiology, Dr. voss from critical care medicine, and Dr. Dave from nephrology. 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 Bowels shows moderate distended contrast-filled stomach, suggestion of mild to moderate wall thickening throughout small bowel loops, 12/3: Patient is seen in the intensive care unit. She is currently on epinephrine and vasopressin. Patient is awake and alert. She is complaining of diarrhea for C. difficile toxin and stool for occult blood will be obtained. She did have a drop in her hemoglobin which may be dilutional. She denies having any abdominal pain at this time. Shortness of breath is improved from yesterday. Patient has improved urine output at 20-40 ML's per hour with urine in the bag a brown color and fresh urine is clear luciano. She has been afebrile, heart rate 110, blood pressure 123/50, pulse ox 95% on 2 L nasal cannula. site monitor is atrial fibrillation. Cardiology is following with recommendations to taper pressors. Patient has decided to opt out of using oral anticoagulation. Patient is also followed by grounds restoration specialist and nephrology. Echocardiogram reveals EF of 55-60%, grade 2 diastolic dysfunction, mild mitral regurgitation, moderate to severe tricuspid regurgitation severe pulmonary hypertension. Repeat blood work reveals sodium 128, potassium 4.7, chloride 99, CO2 20, BUN 120, creatinine 4.6. Blood sugars are running between 140 and 195. Total bilirubin 0.1, AST 53. WBC 31, hemoglobin 7.8, platelet count 523. Blood culture no growth at 24 hours. IV fluids are D5 W with. Bicarb. KUB reveals overall nonobstructive bowel gas pattern. REVIEW OF SYSTEMS Constitutional: No fever, no chills, no night sweats. No weight change. Reports weakness, reports fatigue reports lethargy. No daytime sleepiness. EENT: No headache. No blurred vision or double vision, no loss of vision. No loss of Hearing, no ringing in the ears, no dizziness. No nasal drainage or congestion. No epistaxis. No sore throat. Lungs: No shortness of breath, cough, no sputum production. No wheezing. Cardiovascular: No chest pain, no lower extremity edema. No palpitations. No paroxysmal nocturnal dyspnea. No orthopnea. No lightheadedness or dizziness. No syncopal episodes. Abdominal: No abdominal pain. No nausea, vomiting. No diarrhea. No constipation. No bloody or tarry stools. Reports loss of appetite. Genitourinary: No dysuria, increased frequency, urgency. No urinary retention. Musculoskeletal: No myalgias. Reports muscle weakness, no gait dysfunction, no frequent falls. No back pain. No neck pain. Integumentary: No wounds, no lesions. No rash or pruritus. No unusual bruising. No change in hair or nails. Neurologic: No aphasia. No facial droop. No change in mentation. No head injury. No headache. No paralysis. No paresthesia. Psychiatric: No depression. No anxiety. No mood swings. Endocrine: No abnormal blood sugars. No weight change. No excessive sweating or thirst. No cold intolerance. PHYSICAL EXAMINATION Gen: This is a 70-year-old morbidly obese female. She is resting in the ICU bed and appears to be more comfortable from yesterday. HEENT: Head is atraumatic, normocephalic. Pupils equal, round. Sclerae is anicteric. NECK: Supple. No JVD. No lymphadenopathy. No thyromegaly. LUNGS: Clear to auscultation. No wheezes or rhonchi. No intercostal retractions. HEART: Irregular rate and rhythm. No murmur. ABDOMEN: Soft. Bowel sounds are present. No masses. No tenderness. EXTREMITIES: Bilateral lower extremity lymphedema. No calf tenderness. Dorsalis pedis palpable bilaterally. NEUROLOGICAL: Patient is awake, alert and oriented x3. Cranial nerves 2 through 12 are grossly intact. ASSESSMENT AND PLAN 1. Acute kidney failure, secondary to ATN with oliguria, severe uremia. Metformin discontinued, hydralazine is held secondary to low blood pressure, patient is not on SOTERO inhibitor and prior to coming in, Cardura is on hold atenolol is on hold secondary to bradycardia, losartan is on hold secondary to kidney failure, and hyperkalemia. 2. Severe bradycardia secondary to hyperkalemia and AV blockers, with cardiogenic shock. Patient is currently on vasopressor and epinephrine. Patient is followed by cardiology. 3. Sepsis, with septic shock suspected, primary source unknown, however patient comes in with severe hyperbilirubinemia, and bradycardia requiring fluid resuscitation. Empiric treatment with Zosyn. Vancomycin discontinued. 4. Severe metabolic acidosis, with acute kidney failure metformin is discontinued, patient is on bicarb drip, 5. Diabetes mellitus type 2 was on 70/30 as an outpatient. Patient is on insulin drip 6. Severe pulmonary hypertension with moderate to severe tricuspid regurgitation long wall shear operator following, need to have sleep apnea test as an o utpatient 7. History of CVA unknown deficits at this time 8. Hyperkalemia, acute, requires fluid resuscitation, 9. Bilateral leg cellulitis, unable to perform any cultures at this time Murtaza, local wound care, on IV Zosyn 10. Trivial pericardial effusion 11. 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 Small to moderate left greater than right pleural effusion, with atelectasis 13. Anasarca, with protein calorie malnutrition, protein supplementation 14. DVT prophylaxis. Heparin subcu. 15. GI prophylaxis. Protonix. 16. COVID-19 testing negative. Patient has been hospitalized during a pandemic. CODE STATUS: Full code DISCHARGE PLAN Patient wishes to discharge to home with VNA or subacute rehab most likely. Impression and plan of care have been directed as dictated by the signing physician. Lucia Oliver nurse practitioner acting as scribe for signing physician. Objective - Vital Signs Vital signs: Vital Signs Temp 99.1 F 08/21/21 08:00 Pulse 103 H 08/21/21 10:30 Resp 18 08/21/21 10:30 BP 123/107 08/21/21 06:30 Pulse Ox 96 08/21/21 10:30 Intake & Output 08/20/21 08/21/21 08/21/21 18:59 06:59 18:59 Intake Total 2723.380 2069.962 260.271 Output Total 25 190 40 Balance 2698.380 1879.962 220.271 Weight 104.2 kg 107.6 kg Intake: IV 1800 1800 150 Dextrose 5% in Water 1, 1800 1800 150 000 ml @ 150 mls/hr IV . Q7H40M VU with Sodium Bicarb (1 Meq/ml) 150 ml Rx#:[id number] Intake, IV Titration 443.380 269.962 110.271 Amount EPINEPHrine 16 mg In 242.380 241.169 95.954 Dextrose 5% in Water 250 ml @ 0.03 MCG/KG/MIN 2. 679 mls/hr IV .Q24H VU Rx#:[id number] Insulin Regular 100 unit 101.000 28.793 14.317 In Sodium Chloride 0.9% 100 ml @ Per Protocol IV .Q0M VU Rx#:[id number] Piperacillin-Tazobactam 3 100 .375 gm In Sodium Chloride 0.9% 100 ml @ 25 mls/hr IVPB Q12H [facility] Rx# :[id number] Oral 480 Output: Urine 25 190 40 Other: Voiding Method Indwelling Catheter Indwelling Catheter # Bowel Movements 1 ABP, PAP, CO, CI - Last Documented Arterial Blood Pressure 97/49 - Labs CBC & Chem 7: 08/21/21 04:15 08/21/21 10:37 Labs: Abnormal Lab Results - Last 24 Hours (Table) 08/20/21 08/20/21 08/20/21 Range/Units 11:11 11:55 11:55 WBC (3.8-10.6) k/uL RBC (3.80-5.40) m/uL Hgb (11.4-16.0) gm/dL Hct (34.0-46.0) % MCHC (31.0-37.0) g/dL RDW (11.5-15.5) % Plt Count (150-450) k/uL Neutrophils # (1.3-7.7) k/uL Lymphocytes # (1.0-4.8) k/uL Monocytes # (0-1.0) k/uL Sodium 128 L (137-145) mmol/L Carbon Dioxide 10 L (22-30) mmol/L BUN 119 H* (7-17) mg/dL Creatinine 5.13 H (0.52-1.04) mg/dL Glucose 367 H (74-99) mg/dL POC Glucose (mg/dL) 415 H (75-99) mg/dL Plasma Lactic Acid Garrick 5.0 H* (0.7-2.0) mmol/L Calcium 8.0 L (8.4-10.2) mg/dL Creatine Kinase 167 H (30-135) U/L 08/20/21 08/20/21 08/20/21 Range/Units 12:18 13:43 15:00 WBC (3.8-10.6) k/uL RBC (3.80-5.40) m/uL Hgb (11.4-16.0) gm/dL Hct (34.0-46.0) % MCHC (31.0-37.0) g/dL RDW (11.5-15.5) % Plt Count (150-450) k/uL Neutrophils # (1.3-7.7) k/uL Lymphocytes # (1.0-4.8) k/uL Monocytes # (0-1.0) k/uL Sodium (137-145) mmol/L Carbon Dioxide (22-30) mmol/L BUN (7-17) mg/dL Creatinine (0.52-1.04) mg/dL Glucose (74-99) mg/dL POC Glucose (mg/dL) 400 H 366 H 335 H (75-99) mg/dL Plasma Lactic Acid Garrick (0.7-2.0) mmol/L Calcium (8.4-10.2) mg/dL Creatine Kinase (30-135) U/L 08/20/21 08/20/21 08/20/21 Range/Units 15:09 15:09 16:05 WBC (3.8-10.6) k/uL RBC (3.80-5.40) m/uL Hgb (11.4-16.0) gm/dL Hct (34.0-46.0) % MCHC (31.0-37.0) g/dL RDW (11.5-15.5) % Plt Count (150-450) k/uL Neutrophils # (1.3-7.7) k/uL Lymphocytes # (1.0-4.8) k/uL Monocytes # (0-1.0) k/uL Sodium 126 L (137-145) mmol/L Carbon Dioxide 13 L (22-30) mmol/L BUN 127 H* (7-17) mg/dL Creatinine 5.07 H (0.52-1.04) mg/dL Glucose 316 H (74-99) mg/dL POC Glucose (mg/dL) 322 H (75-99) mg/dL Plasma Lactic Acid Garrick 3.0 H* (0.7-2.0) mmol/L Calcium 7.7 L (8.4-10.2) mg/dL Creatine Kinase (30-135) U/L 08/20/21 08/20/21 08/20/21 Range/Units 17:39 18:44 20:02 WBC (3.8-10.6) k/uL RBC (3.80-5.40) m/uL Hgb (11.4-16.0) gm/dL Hct (34.0-46.0) % MCHC (31.0-37.0) g/dL RDW (11.5-15.5) % Plt Count (150-450) k/uL Neutrophils # (1.3-7.7) k/uL Lymphocytes # (1.0-4.8) k/uL Monocytes # (0-1.0) k/uL Sodium (137-145) mmol/L Carbon Dioxide (22-30) mmol/L BUN (7-17) mg/dL Creatinine (0.52-1.04) mg/dL Glucose (74-99) mg/dL POC Glucose (mg/dL) 259 H 234 H 192 H (75-99) mg/dL Plasma Lactic Acid Garrick (0.7-2.0) mmol/L Calcium (8.4-10.2) mg/dL Creatine Kinase (30-135) U/L 08/20/21 08/20/21 08/20/21 Range/Units 21:00 21:56 22:56 WBC (3.8-10.6) k/uL RBC (3.80-5.40) m/uL Hgb (11.4-16.0) gm/dL Hct (34.0-46.0) % MCHC (31.0-37.0) g/dL RDW (11.5-15.5) % Plt Count (150-450) k/uL Neutrophils # (1.3-7.7) k/uL Lymphocytes # (1.0-4.8) k/uL Monocytes # (0-1.0) k/uL Sodium (137-145) mmol/L Carbon Dioxide (22-30) mmol/L BUN (7-17) mg/dL Creatinine (0.52-1.04) mg/dL Glucose (74-99) mg/dL POC Glucose (mg/dL) 169 H 157 H 151 H (75-99) mg/dL Plasma Lactic Acid Garrick (0.7-2.0) mmol/L Calcium (8.4-10.2) mg/dL Creatine Kinase (30-135) U/L 08/20/21 08/21/21 08/21/21 Range/Units 23:45 01:07 01:49 WBC (3.8-10.6) k/uL RBC (3.80-5.40) m/uL Hgb (11.4-16.0) gm/dL Hct (34.0-46.0) % MCHC (31.0-37.0) g/dL RDW (11.5-15.5) % Plt Count (150-450) k/uL Neutrophils # (1.3-7.7) k/uL Lymphocytes # (1.0-4.8) k/uL Monocytes # (0-1.0) k/uL Sodium (137-145) mmol/L Carbon Dioxide (22-30) mmol/L BUN (7-17) mg/dL Creatinine (0.52-1.04) mg/dL Glucose (74-99) mg/dL POC Glucose (mg/dL) 161 H 135 H 142 H (75-99) mg/dL Plasma Lactic Acid Garrick (0.7-2.0) mmol/L Calcium (8.4-10.2) mg/dL Creatine Kinase (30-135) U/L 08/21/21 08/21/21 08/21/21 Range/Units 03:01 04:15 04:15 WBC 31.0 H (3.8-10.6) k/uL RBC 3.10 L (3.80-5.40) m/uL Hgb 7.8 L (11.4-16.0) gm/dL Hct 25.2 L (34.0-46.0) % MCHC 30.9 L (31.0-37.0) g/dL RDW 18.0 H (11.5-15.5) % Plt Count 523 H (150-450) k/uL Neutrophils # 29.2 H (1.3-7.7) k/uL Lymphocytes # 0.4 L (1.0-4.8) k/uL Monocytes # 1.2 H (0-1.0) k/uL Sodium (137-145) mmol/L Carbon Dioxide (22-30) mmol/L BUN (7-17) mg/dL Creatinine (0.52-1.04) mg/dL Glucose (74-99) mg/dL POC Glucose (mg/dL) 158 H (75-99) mg/dL Plasma Lactic Acid Garrick (0.7-2.0) mmol/L Calcium (8.4-10.2) mg/dL Creatine Kinase 140 H (30-135) U/L 08/21/21 08/21/21 08/21/21 Range/Units 04:16 05:00 06:18 WBC (3.8-10.6) k/uL RBC (3.80-5.40) m/uL Hgb (11.4-16.0) gm/dL Hct (34.0-46.0) % MCHC (31.0-37.0) g/dL RDW (11.5-15.5) % Plt Count (150-450) k/uL Neutrophils # (1.3-7.7) k/uL Lymphocytes # (1.0-4.8) k/uL Monocytes # (0-1.0) k/uL Sodium (137-145) mmol/L Carbon Dioxide (22-30) mmol/L BUN (7-17) mg/dL Creatinine (0.52-1.04) mg/dL Glucose (74-99) mg/dL POC Glucose (mg/dL) 139 H 169 H 182 H (75-99) mg/dL Plasma Lactic Acid Garrick (0.7-2.0) mmol/L Calcium (8.4-10.2) mg/dL Creatine Kinase (30-135) U/L 08/21/21 08/21/21 Range/Units 06:56 10:36 WBC (3.8-10.6) k/uL RBC (3.80-5.40) m/uL Hgb (11.4-16.0) gm/dL Hct (34.0-46.0) % MCHC (31.0-37.0) g/dL RDW (11.5-15.5) % Plt Count (150-450) k/uL Neutrophils # (1.3-7.7) k/uL Lymphocytes # (1.0-4.8) k/uL Monocytes # (0-1.0) k/uL Sodium (137-145) mmol/L Carbon Dioxide (22-30) mmol/L BUN (7-17) mg/dL Creatinine (0.52-1.04) mg/dL Glucose (74-99) mg/dL POC Glucose (mg/dL) 182 H 140 H (75-99) mg/dL Plasma Lactic Acid Garrick (0.7-2.0) mmol/L Calcium (8.4-10.2) mg/dL Creatine Kinase (30-135) U/L Microbiology - Last 24 Hours (Table) 08/19/21 15:59 Blood Culture - Preliminary Blood No Growth after 24 hours
[2021-08-21 15:48] LABS: Glucose,Whole Blood 136 mg/dL (75-99)
--- NOTE | 2021-08-21 18:30 | PN ---
PROGRESS NOTE Patient is seen for followup for acute kidney injury. She was admitted with severe metabolic acidosis. Serum creatinine had peaked to about 5.0. Patient's urine output has picked up now. She is about 40 to 50 mL/hour. The CT of the abdomen and pelvis did not show any acute findings. There was evidence of pleural effusions and fluid overload, and some bowel thickening was noted as well. Creatinine has come down to 4.6 from 5.0 yesterday. On examination today, patient is awake, comfortable. She is not in any acute distress. Blood pressure 106/54, heart rate 117 per minute. She is afebrile. EXAMINATION OF THE HEART: S1 and S2. EXAMINATION OF LUNGS: Decreased breath sounds at the bases. Abdomen is soft. No significant tenderness noted. Examination of lower extremities shows chronic skin changes. Chronic edema noted. Some wrinkling of the skin noted, suggesting recent decrease in the volume status. DOCTOR OF RADIOLOGY EXAM: Grossly intact. Labs show sodium 128, potassium 4.7, chloride 99, CO2 is 20, BUN 120, serum creatinine of 4.6, albumin 2.2. UA shows 2+ protein, 1+ bilirubin. ASSESSMENT: 1. Acute kidney injury, acute tubular necrosis, currently nonoliguric with improving renal function. No evidence of obstruction on the CT scan. 2. Metabolic acidosis and lactic acidosis. Etiology renal failure as well as possible lactic acidosis from metformin, maintained on bicarb drip. Patient's blood pressure was low as well, and this also definitely contributed to the lactic acidosis. Her acidosis is improved. I will continue with the bicarb drip for now. 3. Hypotension related to sepsis, maintained on small dose of Levophed. 4. Hyponatremia, hypovolemic, now improved. 5. Pleural effusions noted on chest x-ray suggest underlying chronic state of congestive heart failure perhaps. Echocardiogram done yesterday shows ejection fraction of 55% to 60%. The right ventricle is severely enlarged. This most likely contributes to the lower extremity edema with severe pulmonary hypertension and pleural effusions. 6. Hyperkalemia associated with acute kidney injury, metabolic acidosis, angiotensin receptor blockers prior to admission, currently improved. 7. Type 2 diabetes. PLAN: Continue with the bicarb drip for now. Repeat labs in a.m. Change composition of bicarb drip to 3 amps of bicarb in half-normal saline due to low sodium. Try to wean off pressors. Continue antibiotics. MMODL / IJN: [id number] /
[2021-08-21] MEDS: SODIUM CHLORIDE 0.45% 1,000 ML with SODIUM BICARB (1 MEQ/ML) 150 ML IV SCH ×2 (19:03)
[2021-08-21 20:48] LABS: Glucose,Whole Blood 171 mg/dL (75-99)
[2021-08-21] MEDS: INSULIN ASPART (NovoLOG) 100 UNIT/ML VIAL SQ SCH (20:58)
[2021-08-22 06:27] LABS: Glucose,Whole Blood 133 mg/dL (75-99)
[2021-08-22] MEDS: INSULIN ASPART (NovoLOG) 100 UNIT/ML VIAL SQ SCH ×4 (06:49→21:17)
--- NOTE | 2021-08-22 08:14 | P.PN ---
Subjective Progress Note Date: 08/22/21 A 70-year-old morbidly obese female patient presented yesterday because of generalized weakness. Immediate she was identified to be in acute kidney injury and she was found to have severe metabolic acidosis. In the emergency room the patient was also bradycardic heart rate was quite low in the 40s initially in the form of atrial fibrillation. She was hypotensive. She was given a triple lumen catheter through the left IJ. He was given a total of 3 L of IV fluids in the form of normal saline. Following that she was started on epinephrine drip which is currently running at 0.37 mcg/kg per minute. Urine output is minimal at this point in time. The patient has developed an acute kidney injury. She reported diminished intake, generalized weakness and fatigue. No reported fever. No cough or sputum production. No altered mentation. No nausea or vomiting. She had a bout of diarrhea. COVID 19 testing is been negative. She has chronic edema and swelling and ulceration lower extremity is bilaterally. No active cellulitis. She did take a dose of vancomycin in the emergency department. Overnight, she was switched a bicarb infusion which is currently running at the rate of 150 mEq at the rate of 150 mL an hour. Most recent serum bicarbonate 7. Most recent potassium level is at 5.4. Most recent sodium level is up 126. Lactic acid level is at 3.0. White cell count is up to 20 with a hemoglobin of 8.9. Chest x-ray showing cardiomegaly along with pulmonary vascular congestion. Despite all these metabolic derangements, the patient is still awake and alert and breathing is comfortable and she is only on 2 L of oxygen by nasal cannula. Troponins are negative. ProBNP level is 7900. On today's evaluation of 08/21/2021 patient is feeling better. She is awake and alert and following commands and answering questions. Fortunately, she improved urine output. Currently she is producing urine output in order of 20-40 disease an hour. She remains hemodynamically unstable although there is a potential of weaning down the pressors. The patient is currently on epinephrine drip running at 0.21 mcg/kg per minute and vasopressin is on physiologic dose. She is afebrile. Focused on 11 was low. She is on IV Zosyn. She was given a dose of vancomycin in the emergency pelvic all of the cultures are negative. As such, I'm not sure the patient is septic. His CVP is around 18. CAT scan of the abdomen showed diffuse subcutaneous anasarca. No acute intra-abdominal process. CAT scan of the chest showed bilateral pleural effusion lung bases bilaterally. Meanwhile, echo cardiac exam was essentially within normal limits. She remains on oxygen at 2 L per minute nasal cannula. Electrodes are still pending patient remains on insulin drip at 4 units an hour and the blood sugars under better control. She remains on a bicarb infusion at the rate of 150 mL an hour, labs are still pending. Lactic acid was as high as 3.0. She is stooling. No neck stiffness. No focal neurological deficit at this point in time. 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 Blood cultures were negative. We will see her 08/22/2021, the patient is being seen for a follow-up. She is alert and awake. She is calm and comfortable. The patient is still having renal failure. Creatinine is improving slowly. With ongoing fluid resuscitation, creatinine is dropped down to 4.6 with a BUN of 120, sodium is improved up to 128. The patient remains on a bicarb infusion and serum bicarbs up to 20 with anion gap of 9. No cultures available and the patient remains on IV Zosyn. Pressor requirements have dropped down to a norepinephrine of 0.03 mcg/kg per minute and the patient is hemodynamically much improved compared to yesterday. No clear signs of infection despite the fact that the patient has developed some leukocytosis. The blood culture has been negative. The pro calcitonin level wa s at 0.09. The patient is also off the bicarb drip. The overall fluid balance over the past 24 hours has been in the order of +1.3 L. The patient was another 4.5 L positive on 08/20/2021. Most recent blood sugar is 133. Lactic acid level has dropped down to 3.0. She is resting comfortably in bed. She is on oxygen at 2 L and her current pulse ox is 92%. Objective - Vital Signs Vital signs: Vital Signs Temp 98.0 F 08/22/21 04:00 Pulse 90 08/22/21 07:00 Resp 13 08/22/21 07:00 BP 123/107 08/22/21 07:00 Pulse Ox 95 08/22/21 07:00 Intake & Output 08/21/21 08/22/21 08/22/21 18:59 06:59 18:59 Intake Total 1850.271 897.696 70 Output Total 630 770 100 Balance 1220.271 127.696 -30 Weight 108 kg Intake: IV 1640 770 70 Dextrose 5% in Water 1, 1500 000 ml @ 150 mls/hr IV . Q7H40M VU with Sodium Bicarb (1 Meq/ml) 150 ml Rx#:[id number] Sodium Chloride 0.45% 1, 140 770 70 000 ml @ 70 mls/hr IV . [id number] VU with Sodium Bicarb (1 Meq/ml) 150 ml Rx#:[id number] Intake, IV Titration 210.271 127.696 Amount EPINEPHrine 16 mg In 95.954 Dextrose 5% in Water 250 ml @ 0.03 MCG/KG/MIN 2. 679 mls/hr IV .Q24H VU Rx#:[id number] Insulin Regular 100 unit 14.317 In Sodium Chloride 0.9% 100 ml @ Per Protocol IV .Q0M VU Rx#:[id number] Norepinephrine 8 mg In 127.696 Sodium Chloride 0.9% 250 ml @ 0.05 MCG/KG/MIN 10. 41 mls/hr IV .Q24H VU Rx #:[id number] Sodium Chloride 0.9% 150 100 ml @ 0.03 UNITS/MIN 4.59 mls/hr IV .Q24H VU with Vasopressin 60 unit Rx#: [id number] Output: Urine 630 770 100 Other: Voiding Method Indwelling Catheter Indwelling Catheter # Bowel Movements 1 ABP, PAP, CO, CI - Last Documented Arterial Blood Pressure 115/45 - Exam General Impression: Alert and oriented x3, not in acute distress, morbidly obese, breathing is nonlabored and the patient is laying comfortably in bed at 2 L of oxygen by nasal cannula Head exam was generally normal. There was no scleral icterus or corneal arcus. Mucous membranes were moist. HEENT: Normocephalic atraumatic, extra-ocular movements intact, pupils equal and reactive to light bilaterally, dry mucous membranes, the patient is triple-lumen catheter in the left IJ Cardiovascular: Heart regular rate and rhythm Chest: Able to complete full sentences, no retractions, no tachypnea Abdomen: abdomen soft, non-tender, non-distended, no organomegaly Musculoskeletal: Pulses present and equal in all extremities, bilateral lower extremity lymphedema Motor: no focal deficits noted Neurological: CN II-XII grossly intact, no focal motor or sensory deficits noted Skin: Intertriginous rash to the left inferior chest under the fold, no active cellulitis in the lower extremities. There is some superficial ulceration. No abscess formation. - Labs CBC & Chem 7: 08/21/21 04:15 08/21/21 10:37 Labs: Abnormal Lab Results - Last 24 Hours (Table) 08/21/21 08/21/21 08/21/21 Range/Units 03:00 04:15 10:36 Sodium (137-145) mmol/L Carbon Dioxide (22-30) mmol/L BUN (7-17) mg/dL Creatinine (0.52-1.04) mg/dL Glucose (74-99) mg/dL POC Glucose (mg/dL) 140 H (75-99) mg/dL Hemoglobin A1c 6.6 H (4.0-6.0) % Calcium (8.4-10.2) mg/dL Total Bilirubin (0.2-1.3) mg/dL AST (14-36) U/L Total Protein (6.3-8.2) g/dL Albumin (3.5-5.0) g/dL Stool Occult Blood Positive H (Negative) 08/21/21 08/21/21 08/21/21 Range/Units 10:37 14:21 15:46 Sodium 128 L (137-145) mmol/L Carbon Dioxide 20 L (22-30) mmol/L BUN 120 H* (7-17) mg/dL Creatinine 4.61 H (0.52-1.04) mg/dL Glucose 120 H (74-99) mg/dL POC Glucose (mg/dL) 195 H 136 H (75-99) mg/dL Hemoglobin A1c (4.0-6.0) % Calcium 7.4 L (8.4-10.2) mg/dL Total Bilirubin 0.1 L (0.2-1.3) mg/dL AST 53 H (14-36) U/L Total Protein 4.4 L (6.3-8.2) g/dL Albumin 2.2 L (3.5-5.0) g/dL Stool Occult Blood (Negative) 08/21/21 08/22/21 Range/Units 20:46 06:25 Sodium (137-145) mmol/L Carbon Dioxide (22-30) mmol/L BUN (7-17) mg/dL Creatinine (0.52-1.04) mg/dL Glucose (74-99) mg/dL POC Glucose (mg/dL) 171 H 133 H (75-99) mg/dL Hemoglobin A1c (4.0-6.0) % Calcium (8.4-10.2) mg/dL Total Bilirubin (0.2-1.3) mg/dL AST (14-36) U/L Total Protein (6.3-8.2) g/dL Albumin (3.5-5.0) g/dL Stool Occult Blood (Negative) Microbiology - Last 24 Hours (Table) 08/19/21 15:59 Blood Culture - Preliminary Blood No Growth after 48 hours Assessment and Plan Plan: 1 acute kidney injury. Exact cause is not clear. Consider ATN secondary to intravascular volume depletion/dehydration. Further investigation is needed to establish the cause of the acute kidney injury. From the abdomen showed no evidence of any hydronephrosis and the patient renal function was significantly impaired. The urine output has improved overnight as the patient is receiving bicarb infusion. The patient has nonoliguric ATN in the urine output is gradually improving and the creatinine is slowly improving. 2 acute metabolic acidosis a combination of anion and non-anion gap type. The patient has mild lactic acidosis. Awaiting follow-up levels from today, the patient's serum bicarb was as low as 7 and the patient's serum bicarbonate gradually improving. The most recent serum bicarbs up to 20 and the patient has a mild non-anion gap metabolic acidosis. 3 acute hyponatremia, sodium level is at 12 4 acute hyperkalemia, improving 5 acute leukocytosis still elevated 6 bradycardia with an underlying atrial fibrillation rhythm, improved, still on a combination of epinephrine and vasopressin physiologic dose and the patient continues to be in atrial fibrillation. On today's evaluation the patient is on minimal dose of norepinephrine and vasopressin has been discontinued. 7 acute hypotension/shock, consider septic, consider hypovolemic , improved 8 obesity with a BMI of 42 9 history of CVA 10 diabetes mellitus maintained on insulin 7030 on outpatient basis and the patient takes 7030 insulin 30 units at bedtime and NovoLog 22 units 3 times a day with meals, currently the patient is off the insulin drip. 11 hyperlipidemia 12 hypertension 13 glucoma 14 secondary pulmonary hypertension with tricuspid regurgitation, preserved LV function and diastolic heart failure 15 bilateral pleural effusions as noted on a CAT scan of the chest. Plan Continue bicarb infusions the rate of 70 mL an hour. Patient has a triple lumen catheter monitor the CVP CVP is currently at 16 Awaiting follow-up levels from today Cultures of been all negative and appropriate calcitonin level is low The patient empirically with IV Zosyn Nephrology consultation regards acute kidney injury Continue insulin SS coverage Hold metformin Heparin subcu for DVT prophylaxis Check pro calcitonin level was low Wean off pressores and DC Echocardiogram to evaluate LV function, and the patient has preserved LV function, moderate to severe tricuspid regurgitation severe pulmonary hypertension. She has also evidence of diastolic heart failuwill continue to FU and awaiting labs from today!!!!
[2021-08-22] MEDS: PIPERACILLIN-TAZOBACTAM 3.375 GM in SODIUM CHLORIDE 0.9% 100 ML IVPB SCH ×2 (09:30→21:29)
[2021-08-22] MEDS ORDERED: ALTEPLASE 2 MG VIAL (CATHFLO) IV STA (09:53)
[2021-08-22] MEDS: HEPARIN SODIUM,PORCINE/PF 5,000 UNIT/0.5 ML SYRINGE SQ SCH ×2 (10:00→21:17)
[2021-08-22] MEDS: PANTOPRAZOLE 40 MG/10 ML VIAL IV SCH (10:01)
[2021-08-22] MEDS: SODIUM CHLORIDE 0.45% 1,000 ML with SODIUM BICARB (1 MEQ/ML) 150 ML IV SCH ×2 (10:06)
--- NOTE | 2021-08-22 10:26 | P.PN ---
Subjective Progress Note Date: 08/22/21 08/21/21 INTERVAL HISTORY: The patient is a 70-year-old female with a history of hypertension, heart disease, chronic renal insufficiency, [id number] diabetes, prior CVA, and permanent atrial fibrillation, who has declined long- term anticoagulation in the past, presents to the hospital with symptoms of fatigue, tiredness, and not feeling well. Patient was admitted bradycardia, hypotensive, and acute kidney injury. Today patient was doing well examined at the bedside. She remains on epinephrine and vasopressin. Echocardiogram completed yesterday reveals a normal LV function, with an EF of 55-60%, grade 2 diastolic dysfunction, mild mitral valve regurgitation, moderate to severe tricuspid regurgitation and severe pulmonary hypertension. Blood pressure is w ell-controlled today 124/54, and heart rate is slightly elevated at 100-117. Patient remains in atrial fibrillation. 08/22/2021 Today patient was examined at the bedside she was resting comfortably in bed. Patient underwent a KUB x-ray for distention. X-ray revealed nonobstructive bowel gas pattern. Patient remains on epinephrine at this time. Blood pressure was 123/107, arterial blood pressure was 119/53, heart rate 89, patient is on 2 L nasal cannula with an O2 sat of 97%. Patient remains in atrial fibrillation with a controlled rate in today. Patient still has severe lower extremity edema. Potassium today is 4.7, patient sodium is 128, BUN is 120, creatinine improved at 4.61. Objective - Vital Signs Vital signs: Vital Signs Temp 98.5 F 08/22/21 08:00 Pulse 89 08/22/21 09:00 Resp 12 08/22/21 09:00 BP 123/107 08/22/21 09:00 Pulse Ox 97 08/22/21 09:00 Intake & Output 08/21/21 08/22/21 08/22/21 18:59 06:59 18:59 Intake Total 1850.271 897.696 458.595 Output Total 630 770 250 Balance 1220.271 127.696 208.595 Weight 108 kg Intake: IV 1640 770 260 Dextrose 5% in Water 1, 1500 000 ml @ 150 mls/hr IV . Q7H40M VU with Sodium Bicarb (1 Meq/ml) 150 ml Rx#:[id number] Piperacillin-Tazobactam 3 50 .375 gm In Sodium Chloride 0.9% 100 ml @ 25 mls/hr IVPB Q12H VU Rx# :[id number] Sodium Chloride 0.45% 1, 140 770 210 000 ml @ 70 mls/hr IV . [id number] VU with Sodium Bicarb (1 Meq/ml) 150 ml Rx#:[id number] Intake, IV Titration 210.271 127.696 78.595 Amount EPINEPHrine 16 mg In 95.954 Dextrose 5% in Water 250 ml @ 0.03 MCG/KG/MIN 2. 679 mls/hr IV .Q24H VU Rx#:[id number] Insulin Regular 100 unit 14.317 In Sodium Chloride 0.9% 100 ml @ Per Protocol IV .Q0M VU Rx#:[id number] Norepinephrine 8 mg In 127.696 78.595 Sodium Chloride 0.9% 250 ml @ 0.05 MCG/KG/MIN 10. 41 mls/hr IV .Q24H VU Rx #:[id number] Sodium Chloride 0.9% 150 100 ml @ 0.03 UNITS/MIN 4.59 mls/hr IV .Q24H VU with Vasopressin 60 unit Rx#: [id number] Oral 120 Output: Urine 630 770 250 Other: Voiding Method Indwelling Catheter Indwelling Catheter Indwelling Catheter # Bowel Movements 1 ABP, PAP, CO, CI - Last Documented Arterial Blood Pressure 119/53 - Exam PHYSICAL EXAMINATION: Vital signs reviewed. HEART: S1, S2 normal. No murmur, no gallop. Irregular rhythm, with a controlled rate LUNGS: Clear to auscultation. NECK: Supple. ABDOMEN: Soft, non-tender, positive bowel sounds. EXTREMITIES: 2+ peripheral pulses, severe lower extremity edema. Cellulitis of the right lower extremity. - Labs CBC & Chem 7: 08/21/21 04:15 08/21/21 10:37 Labs: Abnormal Lab Results - Last 24 Hours (Table) 08/21/21 08/21/21 08/21/21 Range/Units 03:00 04:15 10:36 Sodium (137-145) mmol/L Carbon Dioxide (22-30) mmol/L BUN (7-17) mg/dL Creatinine (0.52-1.04) mg/dL Glucose (74-99) mg/dL POC Glucose (mg/dL) 140 H (75-99) mg/dL Hemoglobin A1c 6.6 H (4.0-6.0) % Calcium (8.4-10.2) mg/dL Total Bilirubin (0.2-1.3) mg/dL AST (14-36) U/L Total Protein (6.3-8.2) g/dL Albumin (3.5-5.0) g/dL Stool Occult Blood Positive H (Negative) 08/21/21 08/21/21 08/21/21 Range/Units 10:37 14:21 15:46 Sodium 128 L (137-145) mmol/L Carbon Dioxide 20 L (22-30) mmol/L BUN 120 H* (7-17) mg/dL Creatinine 4.61 H (0.52-1.04) mg/dL Glucose 120 H (74-99) mg/dL POC Glucose (mg/dL) 195 H 136 H (75-99) mg/dL Hemoglobin A1c (4.0-6.0) % Calcium 7.4 L (8.4-10.2) mg/dL Total Bilirubin 0.1 L (0.2-1.3) mg/dL AST 53 H (14-36) U/L Total Protein 4.4 L (6.3-8.2) g/dL Albumin 2.2 L (3.5-5.0) g/dL Stool Occult Blood (Negative) 08/21/21 08/22/21 Range/Units 20:46 06:25 Sodium (137-145) mmol/L Carbon Dioxide (22-30) mmol/L BUN (7-17) mg/dL Creatinine (0.52-1.04) mg/dL Glucose (74-99) mg/dL POC Glucose (mg/dL) 171 H 133 H (75-99) mg/dL Hemoglobin A1c (4.0-6.0) % Calcium (8.4-10.2) mg/dL Total Bilirubin (0.2-1.3) mg/dL AST (14-36) U/L Total Protein (6.3-8.2) g/dL Albumin (3.5-5.0) g/dL Stool Occult Blood (Negative) Microbiology - Last 24 Hours (Table) 08/19/21 15:59 Blood Culture - Preliminary Blood No Growth after 48 hours Assessment and Plan Assessment: Bradycardia secondary to hyperkalemia and the AV blockers Permanent atrial fibrillation History of Hypertension Hypotension improved Hyponatremia Plan: Hypotension has improved, Taper pressors down as tolerated by patient Monitor and maintain Potassium below 5 Creatinine improved, continue to follow with nephrology for renal failure Patient has decided to opt out of using oral anticoagulation Pacemaker not indicated at this time.
[2021-08-22 11:11] LABS: Anisocytosis Slight; Basophils % (A) 0 %; Eosinophils # (A) 0.2 k/uL (0-0.7); Eosinophils % (A) 1 %; HCT 26.2 % (34.0-46.0); HGB 8.2 gm/dL (11.4-16.0); Hypochromasia Moderate; Lymphocytes # (A) 0.5 k/uL (1.0-4.8); Lymphocytes % (A) 3 %; MCH 24.9 pg (25.0-35.0); MCHC 31.1 g/dL (31.0-37.0); MCV 80.2 fL (80.0-100.0); Mean Platelet Volume 8.5; Microcytosis Slight; Monocytes # (A) 0.8 k/uL (0-1.0); Monocytes % (A) 4 %; Neutrophils # (A) 17.1 k/uL (1.3-7.7); Neutrophils % (A) 91 %; Platelet Count 384 k/uL (150-450); RBC 3.27 m/uL (3.80-5.40); RDW 17.5 % (11.5-15.5); WBC 18.8 k/uL (3.8-10.6)
[2021-08-22 11:34] LABS: Glucose,Whole Blood 197 mg/dL (75-99)
[2021-08-22 11:34] LABS: Albumin 2.1 g/dL (3.5-5.0); Calcium 7.6 mg/dL (8.4-10.2); Potassium 4.1 mmol/L (3.5-5.1); Total Bilirubin 0.2 mg/dL (0.2-1.3); Total Protein 4.3 g/dL (6.3-8.2)
--- NOTE | 2021-08-22 11:56 | PN ---
PROGRESS NOTE The patient is seen for followup for acute kidney injury mostly ATN, initially oliguric, currently nonoliguric with improving renal function. Serum creatinine was down to 4.6 yesterday. Labs are pending from today. The patient has also been acidotic and currently maintained on bicarb drip. This morning, patient states she is feeling better. She looks much better as well. PHYSICAL EXAMINATION: Blood pressure 116/46, heart rate 87 per minute. She is afebrile. Examination of the heart S1, S2. Examination of lungs decreased breath sounds at the bases. Abdomen: Soft, nontender. Obese. Examination of lower extremities shows chronic skin changes. Edema noted bilaterally, upper and lower extremities. ELECTRODE TURNER AND FINISHER exam grossly intact. LABS: Pending from today. ASSESSMENT: 1. Acute kidney injury, ATN, slowly improving, maintained on IV fluids. 2. Severe metabolic acidosis and lactic acidosis associated with renal failure, possible element of lactic acidosis from metformin. The patient had been hypotensive, currently improved. She still remains on a small dose of Levophed. 3. Hypotension secondary to sepsis, maintained on IV fluids and pressors dose of which is decreasing. 4. Hyperkalemia, associated with acute kidney injury, metabolic acidosis, angiotensin receptor blockers prior to admission, now improved. 5. Severe pulmonary hypertension and right-sided heart failure, ejection fraction 55% to 60%. 6. Mental status changes secondary to sepsis, currently improved. 7. Hyponatremia, maintained on slightly hypertonic fluid with 3 amps of bicarb in half- normal saline. Will follow up on the labs from today. PLAN: Follow up on labs. Adjust IV fluids based on the electrolytes. MMODL / IJN: [id number] /
[2021-08-22] MEDS: NOREPINEPHRINE 8 MG in SODIUM CHLORIDE 0.9% 250 ML IV SCH (13:35)
--- NOTE | 2021-08-22 14:12 | P.PN ---
Subjective Progress Note Date: 08/22/21 HISTORY OF PRESENT ILLNESS This 70-year-old pleasant female, patient of Dr. Crystal, and Dr. 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 Patient comes in to emergency room with severe metabolic acidosis, dehydration, and severe bradycardia, with heart rates in the 40s and blood pressure systolic in the 80s. She was critical when she was seen in the emergency room EMS has given her atropine, with improvement of the heart rate. Patient is in A. fib, with slow ventricular heart rate. 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 Bilateral leg. Patient denies any chest pain pleurisy, leg pain, no nausea vomiting diarrhea, no melena and hematochezia , no syncope no seizures. covid vaccination status unclear, patient was not on any NSAIDs, or steroids prior to ER visit Emergency room, she was in A. fib with slowed ventricular hydrated, in the 40s, CO2 of 9, potassium of 6.2, sodium 128, creatinine 4.93, BUN of 134. Magnesium 1.7 TSH 3.7 albumin 2.2 wbc count 10.6 hemoglobin 8.7 platelet count 465. Urinalysis urine WBC of 7 patient come in with lactic acidosis, coronavirus PCR negative. Patient is transferred to ICU, with multiple consultants, cardiology, Dr. voss from critical care medicine, and Dr. Dave from nephrology. 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 Bowels shows moderate distended contrast-filled stomach, suggestion of mild to moderate wall thickening throughout small bowel loops, 12/3: Patient is seen in the intensive care unit. She is currently on epinephrine and vasopressin. Patient is awake and alert. She is complaining of diarrhea for C. difficile toxin and stool for occult blood will be obtained. She did have a drop in her hemoglobin which may be dilutional. She denies having any abdominal pain at this time. Shortness of breath is improved from yesterday. Patient has improved urine output at 20-40 ML's per hour with urine in the bag a brown color and fresh urine is clear luciano. She has been afebrile, heart rate 110, blood pressure 123/50, pulse ox 95% on 2 L nasal cannula. pvc monitor is atrial fibrillation. Cardiology is following with recommendations to taper pressors. Patient has decided to opt out of using oral anticoagulation. Patient is also followed by community life director and nephrology. Echocardiogram reveals EF of 55-60%, grade 2 diastolic dysfunction, mild mitral regurgitation, moderate to severe tricuspid regurgitation severe pulmonary hypertension. Repeat blood work reveals sodium 128, potassium 4.7, chloride 99, CO2 20, BUN 120, creatinine 4.6. Blood sugars are running between 140 and 195. Total bilirubin 0.1, AST 53. WBC 31, hemoglobin 7.8, platelet count 523. Blood culture no growth at 24 hours. IV fluids are D5 W with. Bicarb. KUB reveals overall nonobstructive bowel gas pattern. 08/22: She remains in intensive care unit on norepinephrine. pvc monitor is atrial fibrillation controlled rate. She is currently also on bicarb drip. She has been afebrile, heart rate in the 80s, blood pressure 123/107, pulse ox 97% on 2 L nasal cannula. Repeat blood work reveals BUN of 117 and creatinine 4.24. Hemoglobin 8.2, WBC 18.8. Blood sugars are running between 133 and 197. REVIEW OF SYSTEMS Constitutional: No fever, no chills, no night sweats. No weight change. Reports weakness, reports fatigue reports lethargy. No daytime sleepiness. EENT: No headache. No blurred vision or double vision, no loss of vision. No loss of Hearing, no ringing in the ears, no dizziness. No nasal drainage or congestion. No epistaxis. No sore throat. Lungs: No shortness of breath, cough, no sputum production. No wheezing. Cardiovascular: No chest pain, no lower extremity edema. No palpitations. No paroxysmal nocturnal dyspnea. No orthopnea. No lightheadedness or dizziness. No syncopal episodes. Abdominal: No abdominal pain. No nausea, vomiting. No diarrhea. No constipation. No bloody or tarry stools. Reports loss of appetite. Genitourinary: No dysuria, increased frequency, urgency. No urinary retention. Aguilera catheter in place. Musculoskeletal: No myalgias. Reports muscle weakness, no gait dysfunction, no frequent falls. No back pain. No neck pain. Integumentary: No wounds, no lesions. No rash or pruritus. No unusual bruising. No change in hair or nails. Neurologic: No aphasia. No facial droop. No change in mentation. No head injury. No headache. No paralysis. No paresthesia. Psychiatric: No depression. No anxiety. No mood swings. Endocrine: No abnormal blood sugars. No weight change. No excessive sweating or thirst. No cold intolerance. PHYSICAL EXAMINATION Gen: This is a 70-year-old morbidly obese female. She is resting in the ICU bed and appears to be more comfortable from yesterday. HEENT: Head is atraumatic, normocephalic. Pupils equal, round. Sclerae is anicteric. NECK: Supple. No JVD. No lymphadenopathy. No thyromegaly. LUNGS: Clear to auscultation. No wheezes or rhonchi. No intercostal retractions. HEART: Irregular rate and rhythm. No murmur. ABDOMEN: Soft. Bowel sounds are present. No masses. No tenderness. Aguilera catheter in place. EXTREMITIES: Bilateral lower extremity lymphedema. No calf tenderness. Dorsalis pedis palpable bilaterally. NEUROLOGICAL: Patient is awake, alert and oriented x3. Cranial nerves 2 through 12 are grossly intact. ASSESSMENT AND PLAN 1. Acute kidney failure, secondary to ATN with oliguria, severe uremia. Metformin discontinued, hydralazine is held secondary to low blood pressure, patient is not on SOTERO inhibitor and prior to coming in, Cardura is on hold atenolol is on hold secondary to bradycardia, losartan is on hold secondary to kidney failure, and hyperkalemia. 2. Severe bradycardia secondary to hyperkalemia and AV blockers, with cardiogenic shock. Patient is currently on vasopressor and epinephrine. Patient is followed by cardiology. 3. Sepsis, with septic shock suspected, primary source unknown, however patient comes in with severe hyperbilirubinemia, and bradycardia requiring fluid resuscitation. Empiric treatment with Zosyn. Vancomycin discontinued. Patient is on norepinephrine. 4. Severe metabolic acidosis, with acute kidney failure metformin is discontinued, patient is on bicarb drip, 5. Diabetes mellitus type 2 was on 70/30 as an outpatient. Patient is on insulin drip 6. 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 History of CVA unknown deficits at this time 8. Hyperkalemia, acute, requires fluid resuscitation, 9. Bilateral leg cellulitis, unable to perform any cultures at this time Murtaza, local wound care, on IV Zosyn 10. Trivial pericardial effusion 11. 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 Small to moderate left greater than right pleural effusion, with atelectasis 13. Anasarca, with protein calorie malnutrition, protein supplementation 14. DVT prophylaxis. Heparin subcu. 15. GI prophylaxis. Protonix. 16. COVID-19 testing negative. Patient has been hospitalized during a pandemic. CODE STATUS: Full code DISCHARGE PLAN Patient wishes to discharge to home with VNA or subacute rehab most likely. Impression and plan of care have been directed as dictated by the signing physician. Lucia Oliver nurse practitioner acting as scribe for signing physician. Objective - Vital Signs Vital signs: Vital Signs Temp 98.5 F 08/22/21 08:00 Pulse 87 08/22/21 10:00 Resp 13 08/22/21 10:00 BP 123/107 08/22/21 09:00 Pulse Ox 97 08/22/21 10:00 Intake & Output 08/21/21 08/22/21 08/22/21 18:59 06:59 18:59 Intake Total 1850.271 897.696 553.595 Output Total 630 770 330 Balance 1220.271 127.696 223.595 Weight 108 kg Intake: IV 1640 770 355 Dextrose 5% in Water 1, 1500 000 ml @ 150 mls/hr IV . Q7H40M VU with Sodium Bicarb (1 Meq/ml) 150 ml Rx#:[id number] Piperacillin-Tazobactam 3 75 .375 gm In Sodium Chloride 0.9% 100 ml @ 25 mls/hr IVPB Q12H [facility] Rx# :[id number] Sodium Chloride 0.45% 1, 140 770 280 000 ml @ 70 mls/hr IV . [id number] VU with Sodium Bicarb (1 Meq/ml) 150 ml Rx#:[id number] Intake, IV Titration 210.271 127.696 78.595 Amount EPINEPHrine 16 mg In 95.954 Dextrose 5% in Water 250 ml @ 0.03 MCG/KG/MIN 2. 679 mls/hr IV .Q24H VU Rx#:[id number] Insulin Regular 100 unit 14.317 In Sodium Chloride 0.9% 100 ml @ Per Protocol IV .Q0M VU Rx#:[id number] Norepinephrine 8 mg In 127.696 78.595 Sodium Chloride 0.9% 250 ml @ 0.05 MCG/KG/MIN 10. 41 mls/hr IV .Q24H [facility] Rx #:[id number] Sodium Chloride 0.9% 150 100 ml @ 0.03 UNITS/MIN 4.59 mls/hr IV .Q24H VU with Vasopressin 60 unit Rx#: [id number] Oral 120 Output: Urine 630 770 330 Other: Voiding Method Indwelling Catheter Indwelling Catheter Indwelling Catheter # Bowel Movements 1 ABP, PAP, CO, CI - Last Documented Arterial Blood Pressure 116/46 - Labs CBC & Chem 7: 08/22/21 10:50 08/22/21 10:50 Labs: Abnormal Lab Results - Last 24 Hours (Table) 08/21/21 08/21/21 08/21/21 Range/Units 03:00 04:15 10:37 Sodium 128 L (137-145) mmol/L Carbon Dioxide 20 L (22-30) mmol/L BUN 120 H* (7-17) mg/dL Creatinine 4.61 H (0.52-1.04) mg/dL Glucose 120 H (74-99) mg/dL POC Glucose (mg/dL) (75-99) mg/dL Hemoglobin A1c 6.6 H (4.0-6.0) % Calcium 7.4 L (8.4-10.2) mg/dL Total Bilirubin 0.1 L (0.2-1.3) mg/dL AST 53 H (14-36) U/L Total Protein 4.4 L (6.3-8.2) g/dL Albumin 2.2 L (3.5-5.0) g/dL Stool Occult Blood Positive H (Negative) 08/21/21 08/21/21 08/21/21 Range/Units 14:21 15:46 20:46 Sodium (137-145) mmol/L Carbon Dioxide (22-30) mmol/L BUN (7-17) mg/dL Creatinine (0.52-1.04) mg/dL Glucose (74-99) mg/dL POC Glucose (mg/dL) 195 H 136 H 171 H (75-99) mg/dL Hemoglobin A1c (4.0-6.0) % Calcium (8.4-10.2) mg/dL Total Bilirubin (0.2-1.3) mg/dL AST (14-36) U/L Total Protein (6.3-8.2) g/dL Albumin (3.5-5.0) g/dL Stool Occult Blood (Negative) 08/22/21 Range/Units 06:25 Sodium (137-145) mmol/L Carbon Dioxide (22-30) mmol/L BUN (7-17) mg/dL Creatinine (0.52-1.04) mg/dL Glucose (74-99) mg/dL POC Glucose (mg/dL) 133 H (75-99) mg/dL Hemoglobin A1c (4.0-6.0) % Calcium (8.4-10.2) mg/dL Total Bilirubin (0.2-1.3) mg/dL AST (14-36) U/L Total Protein (6.3-8.2) g/dL Albumin (3.5-5.0) g/dL Stool Occult Blood (Negative) Microbiology - Last 24 Hours (Table) 08/19/21 15:59 Blood Culture - Preliminary Blood No Growth after 48 hours
[2021-08-22 16:35] LABS: Glucose,Whole Blood 266 mg/dL (75-99)
[2021-08-22 19:58] LABS: Glucose,Whole Blood 352 mg/dL (75-99)
[2021-08-22 21:14] LABS: Glucose,Whole Blood 335 mg/dL (75-99)
[2021-08-23] MEDS: HEPARIN SODIUM,PORCINE/PF 5,000 UNIT/0.5 ML SYRINGE SQ SCH ×4 (00:23→23:32)
[2021-08-23] MEDS: PIPERACILLIN-TAZOBACTAM 3.375 GM in SODIUM CHLORIDE 0.9% 100 ML IVPB SCH (01:30)
[2021-08-23 06:32] LABS: Glucose,Whole Blood 234 mg/dL (75-99)
[2021-08-23] MEDS: INSULIN ASPART (NovoLOG) 100 UNIT/ML VIAL SQ SCH ×4 (06:43→20:38)
[2021-08-23] MEDS: SODIUM CHLORIDE 0.45% 1,000 ML with SODIUM BICARB (1 MEQ/ML) 150 ML IV SCH ×2 (07:54)
[2021-08-23 07:59] LABS: Glucose,Whole Blood 221 mg/dL (75-99)
--- NOTE | 2021-08-23 08:23 | P.PN ---
Subjective A 70-year-old morbidly obese female patient presented yesterday because of generalized weakness. Immediate she was identified to be in acute kidney injury and she was found to have severe metabolic acidosis. In the emergency room the patient was also bradycardic heart rate was quite low in the 40s initially in the form of atrial fibrillation. She was hypotensive. She was given a triple lumen catheter through the left IJ. He was given a total of 3 L of IV fluids in the form of normal saline. Following that she was started on epinephrine drip which is currently running at 0.37 mcg/kg per minute. Urine output is minimal at this point in time. The patient has developed an acute kidney injury. She reported diminished intake, generalized weakness and fatigue. No reported fever. No cough or sputum production. No altered mentation. No nausea or vomiting. She had a bout of diarrhea. COVID 19 testing is been negative. She has chronic edema and swelling and ulceration lower extremity is bilaterally. No active cellulitis. She did take a dose of vancomycin in the emergency department. Overnight, she was switched a bicarb infusion which is currently running at the rate of 150 mEq at the rate of 150 mL an hour. Most recent serum bicarbonate 7. Most recent potassium level is at 5.4. Most recent sodium level is up 126. Lactic acid level is at 3.0. White cell count is up to 20 with a hemoglobin of 8.9. Chest x-ray showing cardiomegaly along with pulmonary vascular congestion. Despite all these metabolic derangements, the patient is still awake and alert and breathing is comfortable and she is only on 2 L of oxygen by nasal cannula. Troponins are negative. ProBNP level is 7900. On today's evaluation of 08/21/2021 patient is feeling better. She is awake and alert and following commands and answering questions. Fortunately, she improved urine output. Currently she is producing urine output in order of 20-40 disease an hour. She remains hemodynamically unstable although there is a potential of weaning down the pressors. The patient is currently on epinephrine drip running at 0.21 mcg/kg per minute and vasopressin is on physiologic dose. She is afebrile. Focused on 11 was low. She is on IV Zosyn. She was given a dose of vancomycin in the emergency pelvic all of the cultures are negative. As such, I'm not sure the patient is septic. His CVP is around 18. CAT scan of the abdomen showed diffuse subcutaneous anasarca. No acute intra-abdominal process. CAT scan of the chest showed bilateral pleural effusion lung bases bilaterally. Meanwhile, echo cardiac exam was essentially within normal limits. She remains on oxygen at 2 L per minute nasal cannula. Electrodes are still pending patient remains on insulin drip at 4 units an hour and the blood sugars under better control. She remains on a bicarb infusion at the rate of 150 mL an hour, labs are still pending. Lactic acid was as high as 3.0. She is stooling. No neck stiffness. No focal neurological deficit at this point in time. Car Scrubber on the case. Blood cultures were negative. We will see her 08/22/2021, the patient is being seen for a follow-up. She is alert and awake. She is calm and comfortable. The patient is still having renal failure. Creatinine is improving slowly. With ongoing fluid resuscitation, creatinine is dropped down to 4.6 with a BUN of 120, sodium is improved up to 128. The patient remains on a bicarb infusion and serum bicarbs up to 20 with anion gap of 9. No cultures available and the patient remains on IV Zosyn. Pressor requirements have dropped down to a norepinephrine of 0.03 mcg/kg per minute and the patient is hemodynamically much improved compared to yesterday. No clear signs of infection despite the fact that the patient has developed some leukocytosis. The blood culture has been negative. The pro calcitonin level was at 0.09. The patient is also off the bicarb drip. The overall fluid balance over the past 24 hours has been in the order of +1.3 L. The patient was another 4.5 L positive on 08/20/2021. Most recent blood sugar is 133. Lactic acid level has dropped down to 3.0. She is resting comfortably in bed. She is on oxygen at 2 L and her current pulse ox is 92%. 08/23/2021, the patient is awake and alert on 2 L of oxygen by nasal cannula. She is tolerating her diet. She is comfortable. No signs of any respiratory distress. No nausea vomiting or abdominal pain. She did have some loose liquidy bowel movements and stool for C. diff is pending. Meanwhile, the patient has developed increased edema lower extremities. There may be a c omponent of cellulitis. At certain areas of the lower extremity, there is some liquid seeping out. No open abscesses. The patient is off pressors. The white cell count was dropping yesterday and follow-up labs are pending from today. She remains on a bicarb infusion. Nevertheless, serum bicarb from yesterday was up to 22 and the bicarb infusion can be discontinued. Urine output is order of 50 mL an hour and a potassium level is down to 4.24 with a mean of 117. No other significant events. The patient on IV Zosyn. The patient is on no pressors for now. Pro-calcitonin level was low. Lactic acid level is also dropped. The findings on the case. Objective - Vital Signs Vital signs: Vital Signs Temp 98.3 F 08/23/21 08:00 Pulse 82 08/23/21 08:00 Resp 20 08/23/21 08:00 BP 127/70 08/23/21 05:00 Pulse Ox 93 L 08/23/21 08:00 Intake & Output 08/22/21 08/23/21 08/23/21 18:59 06:59 18:59 Intake Total 8389.496 1032 106 Output Total 900 925 75 Balance 238.595 127 31 Weight 108 kg 114.5 kg Intake: IV 940 1052 106 Piperacillin-Tazobactam 3 100 .375 gm In Sodium Chloride 0.9% 100 ml @ 25 mls/hr IVPB Q12H [facility] Rx# :[id number] Sodium Chloride 0.45% 1, 840 910 100 000 ml @ 70 mls/hr IV . [id number] VU with Sodium Bicarb (1 Meq/ml) 150 ml Rx#:[id number] pressure bag 42 6 zosyn 100 Intake, IV Titration 78.595 Amount Norepinephrine 8 mg In 78.595 Sodium Chloride 0.9% 250 ml @ 0.05 MCG/KG/MIN 10. 41 mls/hr IV .Q24H [facility] Rx #:[id number] Oral 120 Output: Urine 900 925 75 Other: Voiding Method Indwelling Catheter Indwelling Catheter ABP, PAP, CO, CI - Last Documented Arterial Blood Pressure 129/54 - Exam General Impression: Alert and oriented x3, not in acute distress, morbidly obese, breathing is nonlabored and the patient is laying comfortably in bed at 2 L of oxygen by nasal cannula Head exam was generally normal. There was no scleral icterus or corneal arcus. Mucous membranes were moist. HEENT: Normocephalic atraumatic, extra-ocular movements intact, pupils equal and reactive to light bilaterally, dry mucous membranes, the patient is triple-lumen catheter in the left IJ Cardiovascular: Heart regular rate and rhythm Chest: Able to complete full sentences, no retractions, no tachypnea Abdomen: abdomen soft, non-tender, non-distended, no organomegaly Musculoskeletal: Pulses present and equal in all extremities, bilateral lower extremity lymphedema Motor: no focal deficits noted Neurological: CN II-XII grossly intact, no focal motor or sensory deficits noted Skin: Intertriginous rash to the left inferior chest under the fold, no active cellulitis in the lower extremities. There is some superficial ulceration. No abscess formation. - Labs CBC & Chem 7: 08/22/21 10:50 08/22/21 10:50 Labs: Abnormal Lab Results - Last 24 Hours (Table) 08/22/21 08/22/21 08/22/21 Range/Units 10:50 10:50 11:33 WBC 18.8 H (3.8-10.6) k/uL RBC 3.27 L (3.80-5.40) m/uL Hgb 8.2 L (11.4-16.0) gm/dL Hct 26.2 L (34.0-46.0) % MCH 24.9 L (25.0-35.0) pg RDW 17.5 H (11.5-15.5) % Neutrophils # 17.1 H (1.3-7.7) k/uL Lymphocytes # 0.5 L (1.0-4.8) k/uL Sodium 132 L (137-145) mmol/L BUN 117 H* (7-17) mg/dL Creatinine 4.24 H (0.52-1.04) mg/dL Glucose 168 H (74-99) mg/dL POC Glucose (mg/dL) 197 H (75-99) mg/dL Calcium 7.6 L (8.4-10.2) mg/dL Total Protein 4.3 L (6.3-8.2) g/dL Albumin 2.1 L (3.5-5.0) g/dL 08/22/21 08/22/2121 Range/Units 16:33 19:56 21:11 WBC (3.8-10.6) k/uL RBC (3.80-5.40) m/uL Hgb (11.4-16.0) gm/dL Hct (34.0-46.0) % MCH (25.0-35.0) pg RDW (11.5-15.5) % Neutrophils # (1.3-7.7) k/uL Lymphocytes # (1.0-4.8) k/uL Sodium (137-145) mmol/L BUN (7-17) mg/dL Creatinine (0.52-1.04) mg/dL Glucose (74-99) mg/dL POC Glucose (mg/dL) 266 H 352 H 335 H (75-99) mg/dL Calcium (8.4-10.2) mg/dL Total Protein (6.3-8.2) g/dL Albumin (3.5-5.0) g/dL 08/23/21 08/23/21 Range/Units 06:31 07:57 WBC (3.8-10.6) k/uL RBC (3.80-5.40) m/uL Hgb (11.4-16.0) gm/dL Hct (34.0-46.0) % MCH (25.0-35.0) pg RDW (11.5-15.5) % Neutrophils # (1.3-7.7) k/uL Lymphocytes # (1.0-4.8) k/uL Sodium (137-145) mmol/L BUN (7-17) mg/dL Creatinine (0.52-1.04) mg/dL Glucose (74-99) mg/dL POC Glucose (mg/dL) 234 H 221 H (75-99) mg/dL Calcium (8.4-10.2) mg/dL Total Protein (6.3-8.2) g/dL Albumin (3.5-5.0) g/dL Microbiology - Last 24 Hours (Table) 08/19/21 15:59 Blood Culture - Preliminary Blood No Growth after 72 hours Assessment and Plan Plan: 1 acute kidney injury. Exact cause is not clear. Consider ATN secondary to intravascular volume depletion/dehydration. Further investigation is needed to establish the cause of the acute kidney injury. From the abdomen showed no evidence of any hydronephrosis and the patient renal function was significantly impaired. The urine output has improved overnight as the patient is receiving bicarb infusion. The patient has nonoliguric ATN in the urine output is g radually improving and the creatinine is slowly improving. Consider renal failure secondary to metformin's. Follow-up labs from today still pending. 2 acute metabolic acidosis a combination of anion and non-anion gap type. The acidosis improving 3 acute hyponatremia, sodium level is at 132 4 acute hyperkalemia, improving 5 acute leukocytosis still elevated, improving 6 bradycardia with an underlying atrial fibrillation rhythm, improved, still on a combination of epinephrine and vasopressin physiologic dose and the patient continues to be in atrial fibrillation. On today's evaluation the patient is on minimal dose of norepinephrine and vasopressin has been discontinued. 7 acute hypotension/shock, consider septic, consider hypovolemic , improved 8 obesity with a BMI of 42 9 history of CVA 10 diabetes mellitus maintained on insulin 7030 on outpatient basis and the patient takes 7030 insulin 30 units at bedtime and NovoLog 22 units 3 times a day with meals, currently the patient is off the insulin drip. 11 hyperlipidemia 12 hypertension 13 glucoma 14 secondary pulmonary hypertension with tricuspid regurgitation, preserved LV function and diastolic heart failure 15 bilateral pleural effusions as noted on a CAT scan of the chest. Plan Discontinue the bicarb infusions IV fluids to KVO Awaiting follow-up levels from today Cultures of been all negative and appropriate calcitonin level is low Discontinue IV Zosyn and put the patient on Keflex orally Stool for C. diff Nephrology consultation regards acute kidney injury Continue insulin SS coverage Hold metformin Heparin subcu for DVT prophylaxis Check pro calcitonin level was low Wean off pressores and DC Echocardiogram to evaluate LV function, and the patient has preserved LV function, moderate to severe tricuspid regurgitation severe pulmonary hypertension. She has also evidence of diastolic heart failure will continue to FU transfer to med surg
[2021-08-23] MEDS ORDERED: SODIUM CHLORIDE 0.45% 1,000 ML IV SCH (08:30)
[2021-08-23] MEDS ORDERED: FUROSEMIDE 10 MG/ML 10 ML VIAL IV STA (09:33)
[2021-08-23] MEDS: NOREPINEPHRINE 8 MG in SODIUM CHLORIDE 0.9% 250 ML IV SCH (09:45)
[2021-08-23 09:51] LABS: Anisocytosis Slight; Basophils # (A) 0.1 k/uL (0-0.2); Basophils % (A) 0 %; Eosinophils # (A) 0.1 k/uL (0-0.7); Eosinophils % (A) 1 %; HCT 28.2 % (34.0-46.0); HGB 8.5 gm/dL (11.4-16.0); Hypochromasia Moderate; Lymphocytes # (A) 0.4 k/uL (1.0-4.8); Lymphocytes % (A) 2 %; MCHC 30.2 g/dL (31.0-37.0); MCV 82.7 fL (80.0-100.0); Mean Platelet Volume 9.4; Monocytes # (A) 0.7 k/uL (0-1.0); Monocytes % (A) 4 %; Neutrophils # (A) 15.4 k/uL (1.3-7.7); Neutrophils % (A) 91 %; Platelet Count 374 k/uL (150-450); RBC 3.41 m/uL (3.80-5.40); RDW 17.9 % (11.5-15.5); WBC 16.9 k/uL (3.8-10.6)
[2021-08-23 10:10] LABS: Albumin 2.1 g/dL (3.5-5.0); Calcium 7.8 mg/dL (8.4-10.2); Potassium 3.5 mmol/L (3.5-5.1); Total Bilirubin 0.1 mg/dL (0.2-1.3); Total Protein 4.4 g/dL (6.3-8.2)
[2021-08-23] MEDS: PANTOPRAZOLE 40 MG/10 ML VIAL IV SCH (10:17)
[2021-08-23] MEDS: CEPHALEXIN 500 MG CAP PO SCH (10:18)
[2021-08-23] MEDS: SODIUM CHLORIDE 0.9% 500 ML 500 ML IV SCH (10:27)
[2021-08-23 11:31] LABS: Glucose,Whole Blood 302 mg/dL (75-99)
--- NOTE | 2021-08-23 11:33 | PN ---
PROGRESS NOTE Patient is seen for followup for acute kidney injury and metabolic acidosis. Patient is maintained on bicarb drip. Her renal function has been improving; creatinine down to about 4.2 yesterday from 5.1 at peak. She has been maintained on bicarb drip. Her urine output has improved; currently urine output at 75 to 125 mL/hour. Patient is off of pressors. She is tolerating oral intake as well. On examination today, blood pressure was 129/54, heart rate 82 per minute. She is afebrile. EXAMINATION OF THE HEART: S1 and S2. EXAMINATION OF LUNGS: Decreased breath sounds at the bases. Abdomen is soft, non-tender, obese. Examination of lower extremities shows edema bilaterally with chronic skin changes. Labs show hemoglobin 8.2, sodium 132, potassium 4.1, chloride 101, serum creatinine 4.2. These labs are from yesterday, 08/22, and labs are pending from this morning. ASSESSMENT: 1. Acute kidney injury, acute tubular necrosis, initially oliguric, currently nonoliguric, with improvement in renal function, status post IV hydration and currently off of pressors. Etiology was hypotension, hypoperfusion. 2. Severe metabolic acidosis associated with renal failure as well as lactic acidosis related to hypotension, possibly related to metformin as well, currently improved. 3. Hypovolemic hyponatremia initially, currently improved. Patient is now mildly hypervolemic. We will discontinue the IV fluids. 4. Hyperkalemia on initial admission associated with acute kidney injury, severe metabolic acidosis, use of angiotensin receptor blockers, currently improved. 5. Mental status changes associated with hypotension, hypoperfusion and acidosis, now improved. 6. Anemia. Rule out iron deficiency. PLAN: IV Lasix x1. Continue off of IV fluids. Repeat labs today and then again in a.m. Continue to avoid metformin. Check iron profile for workup of anemia and add a dose of Aranesp. Stool for occult blood was positive. MMODL / IJN: [id number] /
[2021-08-23] MEDS: INSULIN DETEMIR (LEVEMIR) 100 UNIT/ML SYR SQ SCH ×2 (11:36→21:21)
--- NOTE | 2021-08-23 12:08 | P.PN ---
Subjective Progress Note Date: 08/23/21 Patient is a 70-year-old female with admitted with bradycardia, hypotension, and acute kidney injury. She is doing well today she is resting comfortably in bed with no signs of acute distress. She reports she had a good night, denies chest pain, palpitations, and improvement in her shortness of breath. Patient still has moderate to severe pitting lower extremity edema. Patient's creatinine has improved today from 4.24 to 3.86. Patient's pressors have been turned off, her blood pressure. Patient has also had good urine output throughout the night. Patient remains on bicarb drip. She remained in atrial fibrillation with a controlled ventricular rate, patient does not want anticoagulations. Vital signs blood pressure 118/68, heart rate 84, respirations 18, 97% on 2 L nasal cannula, afebrile. Labs: Hemoglobin 8.5, potassium 3.5, BUN 106, creatinine 3.86, sodium 134 Objective - Vital Signs Vital signs: Vital Signs Temp 98.3 F 08/23/21 08:00 Pulse 84 08/23/21 11:00 Resp 18 08/23/21 11:00 BP 118/68 08/23/21 11:00 Pulse Ox 96 08/23/21 11:00 Intake & Output 08/22/21 08/23/21 08/23/21 18:59 06:59 18:59 Intake Total 4854.067 2120 184 Output Total 900 925 405 Balance 238.595 127 -221 Weight 108 kg 114.5 kg Intake: IV 940 1052 164 0.9NACL 20 Piperacillin-Tazobactam 3 100 .375 gm In Sodium Chloride 0.9% 100 ml @ 25 mls/hr IVPB Q12H [facility] Rx# :[id number] Sodium Chloride 0.45% 1, 840 910 120 000 ml @ 70 mls/hr IV . [id number] VU with Sodium Bicarb (1 Meq/ml) 150 ml Rx#:[id number] pressure bag 42 24 zosyn 100 Intake, IV Titration 78.595 20 Amount Norepinephrine 8 mg In 78.595 Sodium Chloride 0.9% 250 ml @ 0.05 MCG/KG/MIN 10. 41 mls/hr IV .Q24H [facility] Rx #:[id number] Sodium Chloride 0.9% 500 20 ml 500 ml @ 20 mls/hr IV .Q24H [facility] Rx#:[id number] Oral 120 Output: Urine 900 925 405 Other: Voiding Method Indwelling Catheter Indwelling Catheter Indwelling Catheter ABP, PAP, CO, CI - Last Documented Arterial Blood Pressure 135/58 - Exam PHYSICAL EXAMINATION: Vital signs reviewed. HEART: S1, S2 normal. No murmur, no gallop. Irregular rhythm, with a controlled rate LUNGS: Clear to auscultation. NECK: Supple. ABDOMEN: Soft, non-tender, positive bowel sounds. EXTREMITIES: 2+ peripheral pulses, severe lower extremity edema. Cellulitis of the right lower extremity. - Labs CBC & Chem 7: 08/23/21 09:40 08/23/21 09:40 Labs: Abnormal Lab Results - Last 24 Hours (Table) 08/22/21 08/22/21 08/22/21 Range/Units 10:50 16:33 19:56 WBC (3.8-10.6) k/uL RBC (3.80-5.40) m/uL Hgb (11.4-16.0) gm/dL Hct (34.0-46.0) % MCHC (31.0-37.0) g/dL RDW (11.5-15.5) % Neutrophils # (1.3-7.7) k/uL Lymphocytes # (1.0-4.8) k/uL Sodium 132 L (137-145) mmol/L BUN 117 H* (7-17) mg/dL Creatinine 4.24 H (0.52-1.04) mg/dL Glucose 168 H (74-99) mg/dL POC Glucose (mg/dL) 266 H 352 H (75-99) mg/dL Calcium 7.6 L (8.4-10.2) mg/dL Total Bilirubin (0.2-1.3) mg/dL Total Protein 4.3 L (6.3-8.2) g/dL Albumin 2.1 L (3.5-5.0) g/dL 08/22/21 08/23/21 08/23/21 Range/Units 21:11 06:31 07:57 WBC (3.8-10.6) k/uL RBC (3.80-5.40) m/uL Hgb (11.4-16.0) gm/dL Hct (34.0-46.0) % MCHC (31.0-37.0) g/dL RDW (11.5-15.5) % Neutrophils # (1.3-7.7) k/uL Lymphocytes # (1.0-4.8) k/uL Sodium (137-145) mmol/L BUN (7-17) mg/dL Creatinine (0.52-1.04) mg/dL Glucose (74-99) mg/dL POC Glucose (mg/dL) 335 H 234 H 221 H (75-99) mg/dL Calcium (8.4-10.2) mg/dL Total Bilirubin (0.2-1.3) mg/dL Total Protein (6.3-8.2) g/dL Albumin (3.5-5.0) g/dL 08/23/21 08/23/21 08/23/21 Range/Units 09:40 09:40 11:25 WBC 16.9 H (3.8-10.6) k/uL RBC 3.41 L (3.80-5.40) m/uL Hgb 8.5 L (11.4-16.0) gm/dL Hct 28.2 L (34.0-46.0) % MCHC 30.2 L (31.0-37.0) g/dL RDW 17.9 H (11.5-15.5) % Neutrophils # 15.4 H (1.3-7.7) k/uL Lymphocytes # 0.4 L (1.0-4.8) k/uL Sodium 134 L (137-145) mmol/L BUN 106 H* (7-17) mg/dL Creatinine 3.86 H (0.52-1.04) mg/dL Glucose 238 H (74-99) mg/dL POC Glucose (mg/dL) 302 H (75-99) mg/dL Calcium 7.8 L (8.4-10.2) mg/dL Total Bilirubin 0.1 L (0.2-1.3) mg/dL Total Protein 4.4 L (6.3-8.2) g/dL Albumin 2.1 L (3.5-5.0) g/dL Microbiology - Last 24 Hours (Table) 08/19/21 15:59 Blood Culture - Preliminary Blood No Growth after 72 hours Assessment and Plan Assessment: Bradycardia secondary to hyperkalemia and the AV blockers Permanent atrial fibrillation History of Hypertension Hypotension improved Hyponatremia Hypervolemia Plan: Continue with all current cardiac medications Hypotension has improved, continue with oral medications Monitor and maintain Potassium below 5 Creatinine improved, continue to follow with nephrology for renal failure Consider IV Lasix for hypervolemia, nephrology to dose Patient has decided to opt out of using oral anticoagulation Pacemaker not indicated at this time.
[2021-08-23 12:29] LABS: Glucose,Whole Blood 254 mg/dL (75-99)
--- NOTE | 2021-08-23 14:28 | P.PN ---
Subjective Progress Note Date: 08/23/21 HISTORY OF PRESENT ILLNESS This 70-year-old pleasant female, patient of Dr. Crystal, and Dr. Mari, with known history of diabetes mellitus, previous TIA hypertension, hyperlipidemia, morbid obesity, who comes in the emergency room secondary to generalized weakness, patient denies any nausea vomiting diarrhea, no medication changes from her PCP or her upsetter helper, for which hasn't seen over the past 2 years. Patient comes in to emergency room with severe metabolic acidosis, dehydration, and severe bradycardia, with heart rates in the 40s and blood pressure systolic in the 80s. She was critical when she was seen in the emergency room EMS has given her atropine, with improvement of the heart rate. Patient is in A. fib, with slow ventricular heart rate. 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 Bilateral leg. Patient denies any chest pain pleurisy, leg pain, no nausea vomiting diarrhea, no melena and hematochezia , no syncope no seizures. covid vaccination status unclear, patient was not on any NSAIDs, or steroids prior to ER visit Emergency room, she was in A. fib with slowed ventricular hydrated, in the 40s, CO2 of 9, potassium of 6.2, sodium 128, creatinine 4.93, BUN of 134. Magnesium 1.7 TSH 3.7 albumin 2.2 wbc count 10.6 hemoglobin 8.7 platelet count 465. Urinalysis urine WBC of 7 patient come in with lactic acidosis, coronavirus PCR negative. Patient is transferred to ICU, with multiple consultants, cardiology, Dr. voss from critical care medicine, and Dr. Dave from nephrology. 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 Bowels shows moderate distended contrast-filled stomach, suggestion of mild to moderate wall thickening throughout small bowel loops, 12/3: Patient is seen in the intensive care unit. She is currently on epinephrine and vasopressin. Patient is awake and alert. She is complaining of diarrhea for C. difficile toxin and stool for occult blood will be obtained. She did have a drop in her hemoglobin which may be dilutional. She denies having any abdominal pain at this time. Shortness of breath is improved from yesterday. Patient has improved urine output at 20-40 ML's per hour with urine in the bag a brown color and fresh urine is clear luciano. She has been afebrile, heart rate 110, blood pressure 123/50, pulse ox 95% on 2 L nasal cannula. desk monitor is atrial fibrillation. Cardiology is following with recommendations to taper pressors. Patient has decided to opt out of using oral anticoagulation. Patient is also followed by financial service professional and nephrology. Echocardiogram reveals EF of 55-60%, grade 2 diastolic dysfunction, mild mitral regurgitation, moderate to severe tricuspid regurgitation severe pulmonary hypertension. Repeat blood work reveals sodium 128, potassium 4.7, chloride 99, CO2 20, BUN 120, creatinine 4.6. Blood sugars are running between 140 and 195. Total bilirubin 0.1, AST 53. WBC 31, hemoglobin 7.8, platelet count 523. Blood culture no growth at 24 hours. IV fluids are D5 W with. Bicarb. KUB reveals overall nonobstructive bowel gas pattern. 08/22: She remains in intensive care unit on norepinephrine. desk monitor is atrial fibrillation controlled rate. She is currently also on bicarb drip. She has been afebrile, heart rate in the 80s, blood pressure 123/107, pulse ox 97% on 2 L nasal cannula. Repeat blood work reveals BUN of 117 and creatinine 4.24. Hemoglobin 8.2, WBC 18.8. Blood sugars are running between 133 and 197. 08/23: Patient remains in the intensive care unit but has been cleared by financial service professional for MedSurg with telemetry. Dr. Dave his ordered Lasix 60 mg IV this morning. IV fluids at KVO. Patient is eating and drinking. She does have some diarrhea and C. diff toxin will be checked as well as frequent repeat Hemoccult. Patient has been afebrile, hemodynamically stable, not requiring vasopressors. Pulse ox 93% on 2 L. Repeat blood work reveals WBC 16.9, hemoglobin 8.5. BUN 106 and creatinine 3.86. Blood sugars are high today running in the 200s up to 302. Patient will be started on Levemir 15 units twice daily, and continue NovoLog scale. PT and OT consults added. Antibiotics have been changed to Keflex. REVIEW OF SYSTEMS Constitutional: No fever, no chills, no night sweats. No weight change. Reports weakness, reports fatigue reports lethargy. No daytime sleepiness. EENT: No headache. No blurred vision or double vision, no loss of vision. No loss of Hearing, no ringing in the ears, no dizziness. No nasal drainage or congestion. No epistaxis. No sore throat. Lungs: No shortness of breath, cough, no sputum production. No wheezing. Cardiovascular: No chest pain, no lower extremity edema. No palpitations. No paroxysmal nocturnal dyspnea. No orthopnea. No lightheadedness or dizziness. No syncopal episodes. Abdominal: No abdominal pain. No nausea, vomiting. No diarrhea. No constipation. No bloody or tarry stools. Reports loss of appetite slightly improved. Genitourinary: No dysuria, increased frequency, urgency. No urinary retention. Aguilera catheter in place. Musculoskeletal: No myalgias. Reports muscle weakness, no gait dysfunction, no frequent falls. No back pain. No neck pain. Integumentary: No wounds, no lesions. No rash or pruritus. No unusual bruising. No change in hair or nails. Neurologic: No aphasia. No facial droop. No change in mentation. No head injury. No headache. No paralysis. No paresthesia. Psychiatric: No depression. No anxiety. No mood swings. Endocrine: No abnormal blood sugars. No weight change. No excessive sweating or thirst. No cold intolerance. PHYSICAL EXAMINATION Gen: This is a 70-year-old morbidly obese female. She is resting in t he ICU bed and appears to be comfortable. HEENT: Head is atraumatic, normocephalic. Pupils equal, round. Sclerae is anicteric. NECK: Supple. No JVD. No lymphadenopathy. No thyromegaly. LUNGS: Clear to auscultation. No wheezes or rhonchi. No intercostal retractions. HEART: Irregular rate and rhythm. No murmur. ABDOMEN: Soft. Bowel sounds are present. No masses. No tenderness. Aguilera catheter in place. EXTREMITIES: Bilateral lower extremity lymphedema. No calf tenderness. Dorsalis pedis palpable bilaterally. NEUROLOGICAL: Patient is awake, alert and oriented x3. Cranial nerves 2 through 12 are grossly intact. ASSESSMENT AND PLAN 1. Acute kidney failure, secondary to ATN with oliguria, severe uremia. Metformin discontinued, hydralazine is held secondary to low blood pressure, patient is not on SOTERO inhibitor and prior to coming in, Cardura is on hold aten olol is on hold secondary to bradycardia, losartan is on hold secondary to kidney failure, and hyperkalemia. 2. Severe bradycardia secondary to hyperkalemia and AV blockers, with cardiogenic shock. Patient is off vasopressors. Patient is followed by cardiology. 3. Sepsis, with septic shock suspected, primary source unknown, however patient comes in with severe hyperbilirubinemia, and bradycardia requiring fluid resuscitation. Empiric treatment with Keflex. Vancomycin discontinued. Pat ient is on norepinephrine. 4. Severe metabolic acidosis, with acute kidney failure metformin is di scontinued, patient is on bicarb drip, 5. Diabetes mellitus type 2 was on 70/30 as an outpatient. Patient is on insulin drip 6. Severe pulmonary hypertension with moderate to severe tricuspid r egurgitation upsetter helper following, need to have sleep apnea test as an outpatient 7. History of CVA unknown deficits at this time 8. Hyperkalemia, acute, requires fluid resuscitation, 9. Bilateral leg cellulitis, unable to perform any cultures at this time Silvadene, local wound care, on IV Zosyn 10. Trivial pericardial effusion 11. 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 Small to moderate left greater than right pleural effusion, with atelectasis 13. Anasarca, with protein calorie malnutrition, protein supplementation 14. DVT prophylaxis. Heparin subcu. 15. GI prophylaxis. Protonix. 16. COVID-19 testing negative. Patient has been hospitalized during a pandemic. CODE STATUS: Full code DISCHARGE PLAN Patient wishes to discharge to home with VNA or subacute rehab most likely. Impression and plan of care have been directed as dictated by the signing physician. Lucia Oliver nurse practitioner acting as scribe for signing physician. Objective - Vital Signs Vital signs: Vital Signs Temp 98.3 F 08/23/21 08:00 Pulse 75 08/23/21 10:00 Resp 15 08/23/21 10:00 BP 118/68 08/23/21 10:00 Pulse Ox 96 08/23/21 10:00 Intake & Output 08/22/21 08/23/21 08/23/21 18:59 06:59 18:59 Intake Total 0482.438 5751 158 Output Total 900 925 230 Balance 238.595 127 -72 Weight 108 kg 114.5 kg Intake: IV 940 1052 158 0.9NACL 20 Piperacillin-Tazobactam 3 100 .375 gm In Sodium Chloride 0.9% 100 ml @ 25 mls/hr IVPB Q12H [facility] Rx# :[id number] Sodium Chloride 0.45% 1, 840 910 120 000 ml @ 70 mls/hr IV . [id number] [facility] with Sodium Bicarb (1 Meq/ml) 150 ml Rx#:[id number] pressure bag 42 18 zosyn 100 Intake, IV Titration 78.595 Amount Norepinephrine 8 mg In 78.595 Sodium Chloride 0.9% 250 ml @ 0.05 MCG/KG/MIN 10. 41 mls/hr IV .Q24H [facility] Rx #:[id number] Oral 120 Output: Urine 900 925 230 Other: Voiding Method Indwelling Catheter Indwelling Catheter ABP, PAP, CO, CI - Last Documented Arterial Blood Pressure 122/49 - Labs CBC & Chem 7: 08/23/21 09:40 08/23/21 09:40 Labs: Abnormal Lab Results - Last 24 Hours (Table) 08/22/21 08/22/21 08/22/21 Range/Units 10:50 10:50 11:33 WBC 18.8 H (3.8-10.6) k/uL RBC 3.27 L (3.80-5.40) m/uL Hgb 8.2 L (11.4-16.0) gm/dL Hct 26.2 L (34.0-46.0) % MCH 24.9 L (25.0-35.0) pg MCHC (31.0-37.0) g/dL RDW 17.5 H (11.5-15.5) % Neutrophils # 17.1 H (1.3-7.7) k/uL Lymphocytes # 0.5 L (1.0-4.8) k/uL Sodium 132 L (137-145) mmol/L BUN 117 H* (7-17) mg/dL Creatinine 4.24 H (0.52-1.04) mg/dL Glucose 168 H (74-99) mg/dL POC Glucose (mg/dL) 197 H (75-99) mg/dL Calcium 7.6 L (8.4-10.2) mg/dL Total Bilirubin (0.2-1.3) mg/dL Total Protein 4.3 L (6.3-8.2) g/dL Albumin 2.1 L (3.5-5.0) g/dL 08/22/21 08/22/21 08/22/21 Range/Units 16:33 19:56 21:11 WBC (3.8-10.6) k/uL RBC (3.80-5.40) m/uL Hgb (11.4-16.0) gm/dL Hct (34.0-46.0) % MCH (25.0-35.0) pg MCHC (31.0-37.0) g/dL RDW (11.5-15.5) % Neutrophils # (1.3-7.7) k/uL Lymphocytes # (1.0-4.8) k/uL Sodium (137-145) mmol/L BUN (7-17) mg/dL Creatinine (0.52-1.04) mg/dL Glucose (74-99) mg/dL POC Glucose (mg/dL) 266 H 352 H 335 H (75-99) mg/dL Calcium (8.4-10.2) mg/dL Total Bilirubin (0.2-1.3) mg/dL Total Protein (6.3-8.2) g/dL Albumin (3.5-5.0) g/dL 08/23/21 08/23/21 08/23/21 Range/Units 06:31 07:57 09:40 WBC 16.9 H (3.8-10.6) k/uL RBC 3.41 L (3.80-5.40) m/uL Hgb 8.5 L (11.4-16.0) gm/dL Hct 28.2 L (34.0-46.0) % MCH (25.0-35.0) pg MCHC 30.2 L (31.0-37.0) g/dL RDW 17.9 H (11.5-15.5) % Neutrophils # 15.4 H (1.3-7.7) k/uL Lymphocytes # 0.4 L (1.0-4.8) k/uL Sodium (137-145) mmol/L BUN (7-17) mg/dL Creatinine (0.52-1.04) mg/dL Glucose (74-99) mg/dL POC Glucose (mg/dL) 234 H 221 H (75-99) mg/dL Calcium (8.4-10.2) mg/dL Total Bilirubin (0.2-1.3) mg/dL Total Protein (6.3-8.2) g/dL Albumin (3.5-5.0) g/dL 08/23/21 Range/Units 09:40 WBC (3.8-10.6) k/uL RBC (3.80-5.40) m/uL Hgb (11.4-16.0) gm/dL Hct (34.0-46.0) % MCH (25.0-35.0) pg MCHC (31.0-37.0) g/dL RDW (11.5-15.5) % Neutrophils # (1.3-7.7) k/uL Lymphocytes # (1.0-4.8) k/uL Sodium 134 L (137-145) mmol/L BUN 106 H* (7-17) mg/dL Creatinine 3.86 H (0.52-1.04) mg/dL Glucose 238 H (74-99) mg/dL POC Glucose (mg/dL) (75-99) mg/dL Calcium 7.8 L (8.4-10.2) mg/dL Total Bilirubin 0.1 L (0.2-1.3) mg/dL Total Protein 4.4 L (6.3-8.2) g/dL Albumin 2.1 L (3.5-5.0) g/dL Microbiology - Last 24 Hours (Table) 08/19/21 15:59 Blood Culture - Preliminary Blood No Growth after 72 hours
[2021-08-23 16:27] LABS: % Iron Saturation 4.35 (12.00-45.00)
[2021-08-23 17:36] LABS: Glucose,Whole Blood 312 mg/dL (75-99)
[2021-08-23 20:09] LABS: Glucose,Whole Blood 365 mg/dL (75-99)
[2021-08-24 07:43] LABS: Glucose,Whole Blood 131 mg/dL (75-99)
[2021-08-24] MEDS: HEPARIN SODIUM,PORCINE/PF 5,000 UNIT/0.5 ML SYRINGE SQ SCH ×3 (08:26→23:19)
[2021-08-24] MEDS: INSULIN DETEMIR (LEVEMIR) 100 UNIT/ML SYR SQ SCH ×2 (08:27→20:22)
[2021-08-24] MEDS: PANTOPRAZOLE 40 MG/10 ML VIAL IV SCH (08:27)
[2021-08-24] MEDS: CEPHALEXIN 500 MG CAP PO SCH (08:27)
[2021-08-24] MEDS: INSULIN ASPART (NovoLOG) 100 UNIT/ML VIAL SQ SCH ×4 (08:29→20:22)
--- NOTE | 2021-08-24 08:39 | P.PN ---
Subjective Patient is seen in follow-up for acute kidney injury on chronic kidney disease. Creatinine 3.86 yesterday. Morning labs pending. Oral intake fair. Has a Aguilera catheter. Nonoliguric. No vomiting or diarrhea. Vital signs are stable. General: Awake and alert. HEENT: Head exam is unremarkable. LUNGS: Breath sounds decreased. HEART: Rate and Rhythm are regular. ABDOMEN: Soft, obese. EXTREMITITES: Chronic changes noted. Objective - Vital Signs Vital signs: Vital Signs Temp 98.6 F 08/24/21 02:00 Pulse 90 08/24/21 02:00 Resp 18 08/24/21 02:00 BP 123/73 08/24/21 02:00 Pulse Ox 94 L 08/24/21 02:00 Intake & Output 08/23/21 08/24/21 08/24/21 18:59 06:59 18:59 Intake Total 184 240 Output Total 1205 900 Balance -1021 660 Intake: IV 164 240 0.9NACL 20 240 Sodium Chloride 0.45% 1, 120 000 ml @ 70 mls/hr IV . [id number] [facility] with Sodium Bicarb (1 Meq/ml) 150 ml Rx#:[id number] pressure bag 24 Intake, IV Titration 20 Amount Sodium Chloride 0.9% 500 20 ml 500 ml @ 20 mls/hr IV .Q24H [facility] Rx#:[id number] Output: Urine 1205 900 Other: Voiding Method Indwelling Catheter Indwelling Catheter # Bowel Movements 1 ABP, PAP, CO, CI - Last Documented Arterial Blood Pressure 135/58 - Labs CBC & Chem 7: 08/23/21 09:40 08/23/21 09:40 Labs: Abnormal Lab Results - Last 24 Hours (Table) 08/23/21 08/23/21 08/23/21 Range/Units 09:40 09:40 09:40 WBC 16.9 H (3.8-10.6) k/uL RBC 3.41 L (3.80-5.40) m/uL Hgb 8.5 L (11.4-16.0) gm/dL Hct 28.2 L (34.0-46.0) % MCHC 30.2 L (31.0-37.0) g/dL RDW 17.9 H (11.5-15.5) % Neutrophils # 15.4 H (1.3-7.7) k/uL Lymphocytes # 0.4 L (1.0-4.8) k/uL Sodium 134 L (137-145) mmol/L BUN 106 H* (7-17) mg/dL Creatinine 3.86 H (0.52-1.04) mg/dL Glucose 238 H (74-99) mg/dL POC Glucose (mg/dL) (75-99) mg/dL Calcium 7.8 L (8.4-10.2) mg/dL Iron (50-170) ug/dL % Saturation (12.00-45.00) Total Bilirubin 0.1 L (0.2-1.3) mg/dL Total Protein 4.4 L (6.3-8.2) g/dL Albumin 2.1 L (3.5-5.0) g/dL Procalcitonin 0.18 H (0.02-0.09) ng/mL 08/23/21 08/23/21 08/23/21 Range/Units 09:40 11:25 12:25 WBC (3.8-10.6) k/uL RBC (3.80-5.40) m/uL Hgb (11.4-16.0) gm/dL Hct (34.0-46.0) % MCHC (31.0-37.0) g/dL RDW (11.5-15.5) % Neutrophils # (1.3-7.7) k/uL Lymphocytes # (1.0-4.8) k/uL Sodium (137-145) mmol/L BUN (7-17) mg/dL Creatinine (0.52-1.04) mg/dL Glucose (74-99) mg/dL POC Glucose (mg/dL) 302 H 254 H (75-99) mg/dL Calcium (8.4-10.2) mg/dL Iron 16 L (50-170) ug/dL % Saturation 4.35 L (12.00-45.00) Total Bilirubin (0.2-1.3) mg/dL Total Protein (6.3-8.2) g/dL Albumin (3.5-5.0) g/dL Procalcitonin (0.02-0.09) ng/mL 1208/23/21 08/24/21 Range/Units 17:15 20:08 07:38 WBC (3.8-10.6) k/uL RBC (3.80-5.40) m/uL Hgb (11.4-16.0) gm/dL Hct (34.0-46.0) % MCHC (31.0-37.0) g/dL RDW (11.5-15.5) % Neutrophils # (1.3-7.7) k/uL Lymphocytes # (1.0-4.8) k/uL Sodium (137-145) mmol/L BUN (7-17) mg/dL Creatinine (0.52-1.04) mg/dL Glucose (74-99) mg/dL POC Glucose (mg/dL) 312 H 365 H 131 H (75-99) mg/dL Calcium (8.4-10.2) mg/dL Iron (50-170) ug/dL % Saturation (12.00-45.00) Total Bilirubin (0.2-1.3) mg/dL Total Protein (6.3-8.2) g/dL Albumin (3.5-5.0) g/dL Procalcitonin (0.02-0.09) ng/mL Microbiology - Last 24 Hours (Table) 08/19/21 15:59 Blood Culture - Preliminary Blood No Growth after 96 hours Assessment and Plan Plan: Assessment: 1. Acute kidney injury secondary to ATN secondary to hypotension. Status post Levophed. Creatinine peaked at 5.0 at this admission - 3.86 today. Nonoliguric. 2. Chronic kidney disease stage IIIB with baseline creatinine near 1.6 secondary to diabetic kidney disease. 3. Volume overload. Status post IV Lasix yesterday. 4. Diabetes mellitus. 5. Metabolic acidosis secondary to acute kidney injury, metformin and lactic acidosis. Resolved. 6. Anemia of chronic kidney disease. Iron deficiency noted. Stool for occult blood positive. Plan: Add IV iron. Avoid nephrotoxins. Follow-up morning labs. Continue to monitor renal function and urine output.
[2021-08-24] MEDS: SODIUM CHLORIDE 0.9% 500 ML 500 ML IV SCH (09:06)
[2021-08-24] MEDS: SODIUM FERRIC GLUCONAT-SUCROSE 125 MG in SODIUM CHLORIDE 0.9% 100 ML IVPB SCH (09:15)
--- NOTE | 2021-08-24 10:32 | P.PN ---
Subjective Patient is a 70-year-old female with a past medical history of chronic atrial fibrillation (refusing anticoagulation), pulmonary hypertension, diabetes mellitus, previous CVA, hypertension, hyperlipidemia, morbid obesity, who comes in the emergency room 08/19/2021 secondary to generalized weakness. Patient found to be severe metabolic acidosis, dehydration, acute kidney injury, and severe bradycardia, with heart rates in the 40s and blood pressure systolic in the 80s. She was critical when she was seen in the emergency room EMS has given her atropine. Patient was in A. fib, with slow ventricular heart rate. She was initially transferred to ICU and now is on 5N medical floor. We are following the patient due to bradycardia. She follows in the office with Dr. Mari. Echocardiogram revealed EF of 55-60%, grade 2 diastolic dysfunction, mild mitral regurgitation, moderate to severe tricuspid regurgitation severe pulmonary hypertension. Patient seen and examined at bedside. She is doing well today she is resting comfortably in bed with no signs of acute distress. She denies chest pain, palpitations, and improvement in her shortness of breath. Patient still has moderate to severe pitting lower extremity edema. Labs from yesterday revealed, creatinine has improved today from 4.24 to 3.86. No labs today. Patient with 2.1 L urine output over the past 24 hours. She remained in atrial fibrillation with a controlled ventricular rate, patient does not want anticoagulation. Patient received dose of IV Lasix 60mg per nephrology yesterday, all cardiac medications are being held. Blood pressure 123/73, heart rate 90, afebrile, oxygen saturations greater than 92% on 2 L nasal cannula GENERAL: In no acute distress. NECK: Supple without JVD or thyromegaly. LUNGS: Breath sounds clear to auscultation bilaterally. Respiration equal and unlabored. No wheezes, rales or rhonchi. HEART: Irregular rate and rhythm without Systolic ejection mumur at apex, No rubs or gallops. S1 and S2 heard. EXTREMITIES: Normal range of motion, 3+ bilateral edema. No clubbing or cyanosis. ASSESSMENT Acute Kidney Injury Bradycardia secondary to hyperkalemia and AV blockers Chronic persistent atrial fibrillation, refused anticoagulation Severe metabolic acidosis History of hypertension Type 2 diabetes History of CVA Hyperlipidemia Severe pulmonary hypertension PLAN -Continue to hold home Cardizem and atenolol -Continue to hold losartan due to MADELEINE and Hydralazine held due to hypotension -No further evidence of bradycardia, blood pressures have improved. Pacemaker not indicated at this time. -Diuretics per nephrology -No further changes or workup from a cardiology perspective at this time. We will follow the patient as needed. Recommend holding atenolol and Cardizem on discharge until follow up with Dr. Mari and further evaluation and restart medications as patient tolerates. Hold antihypertensives per nephrology. Nurse Practitioner note has been reviewed, I agree with a documented findings and plan of care. Patient was seen and examined. Objective - Vital Signs Vital signs: Vital Signs Temp 98.6 F 08/24/21 02:00 Pulse 90 08/24/21 02:00 Resp 18 08/24/21 02:00 BP 123/73 08/24/21 02:00 Pulse Ox 94 L 08/24/21 02:00 Intake & Output 08/23/21 08/24/21 08/24/21 18:59 06:59 18:59 Intake Total 184 240 240 Output Total 1205 900 Balance -1021 -660 240 Intake: IV 164 240 0.9NACL 20 240 Sodium Chloride 0.45% 1, 120 000 ml @ 70 mls/hr IV . [id number] VU with Sodium Bicarb (1 Meq/ml) 150 ml Rx#:[id number] pressure bag 24 Intake, IV Titration 20 Amount Sodium Chloride 0.9% 500 20 ml 500 ml @ 20 mls/hr IV .Q24H VU Rx#:[id number] Oral 240 Output: Urine 1205 900 Other: Voiding Method Indwelling Catheter Indwelling Catheter # Bowel Movements 1 ABP, PAP, CO, CI - Last Documented Arterial Blood Pressure 135/58 - Labs CBC & Chem 7: 08/23/21 09:40 08/23/21 09:40 Labs: Abnormal Lab Results - Last 24 Hours (Table) 08/23/21 08/23/21 08/23/21 Range/Units 09:40 09:40 09:40 Sodium 134 L (137-145) mmol/L BUN 106 H* (7-17) mg/dL Creatinine 3.86 H (0.52-1.04) mg/dL Glucose 238 H (74-99) mg/dL POC Glucose (mg/dL) (75-99) mg/dL Calcium 7.8 L (8.4-10.2) mg/dL Iron 16 L (50-170) ug/dL % Saturation 4.35 L (12.00-45.00) Total Bilirubin 0.1 L (0.2-1.3) mg/dL Total Protein 4.4 L (6.3-8.2) g/dL Albumin 2.1 L (3.5-5.0) g/dL Procalcitonin 0.18 H (0.02-0.09) ng/mL 08/23/21 08/23/21 08/23/21 Range/Units 11:25 12:25 17:15 Sodium (137-145) mmol/L BUN (7-17) mg/dL Creatinine (0.52-1.04) mg/dL Glucose (74-99) mg/dL POC Glucose (mg/dL) 302 H 254 H 312 H (75-99) mg/dL Calcium (8.4-10.2) mg/dL Iron (50-170) ug/dL % Saturation (12.00-45.00) Total Bilirubin (0.2-1.3) mg/dL Total Protein (6.3-8.2) g/dL Albumin (3.5-5.0) g/dL Procalcitonin (0.02-0.09) ng/mL 08/23/21 08/24/21 Range/Units 20:08 07:38 Sodium (137-145) mmol/L BUN (7-17) mg/dL Creatinine (0.52-1.04) mg/dL Glucose (74-99) mg/dL POC Glucose (mg/dL) 365 H 131 H (75-99) mg/dL Calcium (8.4-10.2) mg/dL Iron (50-170) ug/dL % Saturation (12.00-45.00) Total Bilirubin (0.2-1.3) mg/dL Total Protein (6.3-8.2) g/dL Albumin (3.5-5.0) g/dL Procalcitonin (0.02-0.09) ng/mL Microbiology - Last 24 Hours (Table) 08/19/21 15:59 Blood Culture - Preliminary Blood No Growth after 96 hours
[2021-08-24 12:17] LABS: Glucose,Whole Blood 214 mg/dL (75-99)
--- NOTE | 2021-08-24 12:29 | P.PN ---
Subjective Progress Note Date: 08/24/21 HISTORY OF PRESENT ILLNESS This 70-year-old pleasant female, patient of Dr. Crystal, and Dr. Mari, with known history of diabetes mellitus, previous TIA hypertension, hyperlipidemia, morbid obesity, who comes in the emergency room secondary to generalized weakness, patient denies any nausea vomiting diarrhea, no medication changes from her PCP or her corporate development manager, for which hasn't seen over the past 2 years. Patient comes in to emergency room with severe metabolic acidosis, dehydration, and severe bradycardia, with heart rates in the 40s and blood pressure systolic in the 80s. She was critical when she was seen in the emergency room EMS has given her atropine, with improvement of the heart rate. Patient is in A. fib, with slow ventricular heart rate. 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 Bilateral leg. Patient denies any chest pain pleurisy, leg pain, no nausea vomiting diarrhea, no melena and hematochezia , no syncope no seizures. covid vaccination status unclear, patient was not on any NSAIDs, or steroids prior to ER visit Emergency room, she was in A. fib with slowed ventricular hydrated, in the 40s, CO2 of 9, potassium of 6.2, sodium 128, creatinine 4.93, BUN of 134. Magnesium 1.7 TSH 3.7 albumin 2.2 wbc count 10.6 hemoglobin 8.7 platelet count 465. Urinalysis urine WBC of 7 patient come in with lactic acidosis, coronavirus PCR negative. Patient is transferred to ICU, with multiple consultants, cardiology, Dr. voss from critical care medicine, and Dr. Dave from nephrology. 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 Bowels shows moderate distended contrast-filled stomach, suggestion of mild to moderate wall thickening throughout small bowel loops, 12/3: Patient is seen in the intensive care unit. She is currently on epinephrine and vasopressin. Patient is awake and alert. She is complaining of diarrhea for C. difficile toxin and stool for occult blood will be obtained. She did have a drop in her hemoglobin which may be dilutional. She denies having any abdominal pain at this time. Shortness of breath is improved from yesterday. Patient has improved urine output at 20-40 ML's per hour with urine in the bag a brown color and fresh urine is clear luciano. She has been afebrile, heart rate 110, blood pressure 123/50, pulse ox 95% on 2 L nasal cannula. quality assurance monitor chassis is atrial fibrillation. Cardiology is following with recommendations to taper pressors. Patient has decided to opt out of using oral anticoagulation. Patient is also followed by screw machine tender and nephrology. Echocardiogram reveals EF of 55-60%, grade 2 diastolic dysfunction, mild mitral regurgitation, moderate to severe tricuspid regurgitation severe pulmonary hypertension. Repeat blood work reveals sodium 128, potassium 4.7, chloride 99, CO2 20, BUN 120, creatinine 4.6. Blood sugars are running between 140 and 195. Total bilirubin 0.1, AST 53. WBC 31, hemoglobin 7.8, platelet count 523. Blood culture no growth at 24 hours. IV fluids are D5 W with. Bicarb. KUB reveals overall nonobstructive bowel gas pattern. 08/22: She remains in intensive care unit on norepinephrine. quality assurance monitor chassis is atrial fibrillation controlled rate. She is currently also on bicarb drip. She has been afebrile, heart rate in the 80s, blood pressure 123/107, pulse ox 97% on 2 L nasal cannula. Repeat blood work reveals BUN of 117 and creatinine 4.24. Hemoglobin 8.2, WBC 18.8. Blood sugars are running between 133 and 197. 08/23: Patient remains in the intensive care unit but has been cleared by screw machine tender for MedSurg with telemetry. Dr. Dave his ordered Lasix 60 mg IV this morning. IV fluids at KVO. Patient is eating and drinking. She does have some diarrhea and C. diff toxin will be checked as well as frequent repeat Hemoccult. Patient has been afebrile, hemodynamically stable, not requiring vasopressors. Pulse ox 93% on 2 L. Repeat blood work reveals WBC 16.9, hemoglobin 8.5. BUN 106 and creatinine 3.86. Blood sugars are high today running in the 200s up to 302. Patient will be started on Levemir 15 units twice daily, and continue NovoLog scale. PT and OT consults added. Antibiotics have been changed to Keflex. 08/24: Patient is seen today on the [facility] floor. She's been afebrile, heart rate 90, blood pressure 123/73 and pulse ox 94% on 2 L nasal cannula. Stool for C. difficile toxin was negative yesterday. Blood sugars this morning at 131 last evening, patient started higher dose of Levemir. Last evening blood sugars were in the 300s. Blood culture no growth after 96 hours. Patient has been seen by nephrology and Ferrlecit ordered 3 days. She continues to have edema, no Lasix ordered for today. The blood work is ordered for tomorrow. Aguilera catheter is in place. Cardiology is recommending continuing holing Cardizem, atenolol, losartan and hydralazine. Cardiology is following on an as-needed basis with plan for follow-up with Dr. Mari as an outpatient. REVIEW OF SYSTEMS Constitutional: No fever, no chills, no night sweats. No weight change. Reports weakness, reports fatigue reports lethargy. No daytime sleepiness. EENT: No headache. No blurred vision or double vision, no loss of vision. No nasal drainage or congestion. No epistaxis. No sore throat. Lungs: No shortness of breath, cough, no sputum production. No wheezing. Cardiovascular: No chest pain, no lower extremity edema. No palpitations. No paroxysmal nocturnal dyspnea. No orthopnea. No lightheadedness or dizziness. No syncopal episodes. Abdominal: No abdominal pain. No nausea, vomiting. No diarrhea. No constipation. No bloody or tarry stools. Reports loss of appetite slightly improved. Genitourinary: No dysuria, increased frequency, urgency. No urinary retention. Aguilera catheter in place. Musculoskeletal: No myalgias. Reports muscle weakness, no gait dysfunction, no frequent falls. No back pain. No neck pain. Integumentary: No wounds, no lesions. No rash or pruritus. No unusual bruising. No change in hair or nails. Neurologic: No aphasia. No facial droop. No change in mentation. No head injury. No headache. No paralysis. No paresthesia. Psychiatric: No depression. No anxiety. No mood swings. Endocrine: No abnormal blood sugars. No weight change. No excessive sweating or thirst. No cold intolerance. PHYSICAL EXAMINATION Gen: This is a 70-year-old morbidly obese female. She is resting in the bed on the [facility] floor and appears to be comfortable. HEENT: Head is atraumatic, normocephalic. Pupils equal, round. Sclerae is anicteric. NECK: Supple. No JVD. No lymphadenopathy. No thyromegaly. LUNGS: Clear to auscultation. No wheezes or rhonchi. No intercostal retractions. HEART: Irregular rate and rhythm. No murmur. ABDOMEN: Soft. Bowel sounds are present. No masses. No tenderness. Aguilera catheter in place. EXTREMITIES: Bilateral lower extremity lymphedema with edema and generalized edema to the upper extremities as well. No calf tenderness. Dorsalis pedis palpable bilaterally. NEUROLOGICAL: Patient is awake, alert and oriented x3. Cranial nerves 2 through 12 are grossly intact. ASSESSMENT AND PLAN 1. Acute kidney failure, secondary to ATN with oliguria, severe uremia. Metformin, hydralazine losartan, atenolol, Cardura on hold due to either acute kidney injury bradycardia or hypotension. 2. Severe bradycardia secondary to hyperkalemia and AV blockers, with cardiogenic shock. Patient is off vasopressors. Etiology is following on an as needed basis. 3. Sepsis, with septic shock suspected, primary source unknown, however patient comes in with severe hyperbilirubinemia, and bradycardia requiring fluid resuscitation. Empiric treatment with Keflex. Vancomycin discontinued. Patient is off norepinephrine. 4. Severe metabolic acidosis, with acute kidney failure metformin is discontinued, patient is on bicarb drip, 5. Diabetes mellitus type 2 was on 70/30 as an outpatient. Patient is off insulin drip 6. Severe pulmonary hypertension with moderate to severe tricuspid regurgitation corporate development manager following, need to have sleep apnea test as an outpatient 7. History of CVA unknown deficits at this time 8. Hyperkalemia, acute, requires fluid resuscitation, 9. Bilateral leg cellulitis, unable to perform any cultures at this time Murtaza, local wound care, on IV Zosyn 10. Trivial pericardial effusion 11. 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 Small to moderate left greater than right pleural effusion, with atelectasis 13. Anasarca, with protein calorie malnutrition, protein supplementation 14. DVT prophylaxis. Heparin subcu. 15. GI prophylaxis. Protonix. 16. COVID-19 testing negative. Patient has been hospitalized during a valente callum. CODE STATUS: Full code DISCHARGE PLAN Patient wishes to discharge to home with VNA or subacute rehab most likely. Impression and plan of care have been directed as dictated by the signing physician. Lucia Oliver nurse practitioner acting as scribe for signing physic radha. Objective - Vital Signs Vital signs: Vital Signs Temp 98.6 F 08/24/21 02:00 Pulse 90 08/24/21 02:00 Resp 18 08/24/21 02:00 BP 123/73 08/24/21 02:00 Pulse Ox 94 L 08/24/21 02:00 Intake & Output 08/23/21 08/24/21 08/24/21 18:59 06:59 18:59 Intake Total 184 240 240 Output Total 1205 900 Balance -1021 -660 240 Intake: IV 164 240 0.9NACL 20 240 Sodium Chloride 0.45% 1, 120 000 ml @ 70 mls/hr IV . [id number] VU with Sodium Bicarb (1 Meq/ml) 150 ml Rx#:[id number] pressure bag 24 Intake, IV Titration 20 Amount Sodium Chloride 0.9% 500 20 ml 500 ml @ 20 mls/hr IV .Q24H VU Rx#:[id number] Oral 240 Output: Urine 1205 900 Other: Voiding Method Indwelling Catheter Indwelling Catheter # Bowel Movements 1 ABP, PAP, CO, CI - Last Documented Arterial Blood Pressure 135/58 - Labs CBC & Chem 7: 08/23/21 09:40 08/23/21 09:40 Labs: Abnormal Lab Results - Last 24 Hours (Table) 08/23/21 08/23/21 08/23/21 Range/Units 09:40 09:40 09:40 WBC 16.9 H (3.8-10.6) k/uL RBC 3.41 L (3.80-5.40) m/uL Hgb 8.5 L (11.4-16.0) gm/dL Hct 28.2 L (34.0-46.0) % MCHC 30.2 L (31.0-37.0) g/dL RDW 17.9 H (11.5-15.5) % Neutrophils # 15.4 H (1.3-7.7) k/uL Lymphocytes # 0.4 L (1.0-4.8) k/uL Sodium 134 L (137-145) mmol/L BUN 106 H* (7-17) mg/dL Creatinine 3.86 H (0.52-1.04) mg/dL Glucose 238 H (74-99) mg/dL POC Glucose (mg/dL) (75-99) mg/dL Calcium 7.8 L (8.4-10.2) mg/dL Iron (50-170) ug/dL % Saturation (12.00-45.00) Total Bilirubin 0.1 L (0.2-1.3) mg/dL Total Protein 4.4 L (6.3-8.2) g/dL Albumin 2.1 L (3.5-5.0) g/dL Procalcitonin 0.18 H (0.02-0.09) ng/mL 08/23/21 08/23/21 08/23/21 Range/Units 09:40 11:25 12:25 WBC (3.8-10.6) k/uL RBC (3.80-5.40) m/uL Hgb (11.4-16.0) gm/dL Hct (34.0-46.0) % MCHC (31.0-37.0) g/dL RDW (11.5-15.5) % Neutrophils # (1.3-7.7) k/uL Lymphocytes # (1.0-4.8) k/uL Sodium (137-145) mmol/L BUN (7-17) mg/dL Creatinine (0.52-1.04) mg/dL Glucose (74-99) mg/dL POC Glucose (mg/dL) 302 H 254 H (75-99) mg/dL Calcium (8.4-10.2) mg/dL Iron 16 L (50-170) ug/dL % Saturation 4.35 L (12.00-45.00) Total Bilirubin (0.2-1.3) mg/dL Total Protein (6.3-8.2) g/dL Albumin (3.5-5.0) g/dL Procalcitonin (0.02-0.09) ng/mL 08/23/21 08/23/21 08/24/21 Range/Units 17:15 20:08 07:38 WBC (3.8-10.6) k/uL RBC (3.80-5.40) m/uL Hgb (11.4-16.0) gm/dL Hct (34.0-46.0) % MCHC (31.0-37.0) g/dL RDW (11.5-15.5) % Neutrophils # (1.3-7.7) k/uL Lymphocytes # (1.0-4.8) k/uL Sodium (137-145) mmol/L BUN (7-17) mg/dL Creatinine (0.52-1.04) mg/dL Glucose (74-99) mg/dL POC Glucose (mg/dL) 312 H 365 H 131 H (75-99) mg/dL Calcium (8.4-10.2) mg/dL Iron (50-170) ug/dL % Saturation (12.00-45.00) Total Bilirubin (0.2-1.3) mg/dL Total Protein (6.3-8.2) g/dL Albumin (3.5-5.0) g/dL Procalcitonin (0.02-0.09) ng/mL Microbiology - Last 24 Hours (Table) 08/19/21 15:59 Blood Culture - Preliminary Blood No Growth after 96 hours
[2021-08-24 13:58] VITALS: BMI 46.1
[2021-08-24 17:36] LABS: Glucose,Whole Blood 273 mg/dL (75-99)
[2021-08-24 19:55] LABS: Glucose,Whole Blood 284 mg/dL (75-99)
[2021-08-24] MEDS: ATORVASTATIN 10 MG TAB PO SCH (20:22)
[2021-08-25 07:14] LABS: Glucose,Whole Blood 99 mg/dL (75-99)
[2021-08-25] MEDS: INSULIN ASPART (NovoLOG) 100 UNIT/ML VIAL SQ SCH ×4 (08:03→20:32)
[2021-08-25] MEDS: PANTOPRAZOLE 40 MG TABLET PO SCH (08:12)
[2021-08-25] MEDS: INSULIN DETEMIR (LEVEMIR) 100 UNIT/ML SYR SQ SCH ×2 (08:12→20:32)
[2021-08-25] MEDS: SODIUM FERRIC GLUCONAT-SUCROSE 125 MG in SODIUM CHLORIDE 0.9% 100 ML IVPB SCH (08:12)
[2021-08-25] MEDS: HEPARIN SODIUM,PORCINE/PF 5,000 UNIT/0.5 ML SYRINGE SQ SCH ×2 (08:12→16:41)
[2021-08-25] MEDS: CEPHALEXIN 500 MG CAP PO SCH (08:12)
[2021-08-25] MEDS ORDERED: FUROSEMIDE 10 MG/ML 4 ML VIAL IV STA (10:24)
--- NOTE | 2021-08-25 10:24 | P.PN ---
Subjective Patient is seen in follow-up for acute kidney injury on chronic kidney disease. Creatinine 3.86 on August 23. Morning labs pending. Oral intake fair. Has a Aguilera catheter. Nonoliguric. No vomiting or diarrhea. Vital signs are stable. General: Awake and alert. HEENT: Head exam is unremarkable. LUNGS: Breath sounds decreased. HEART: Rate and Rhythm are regular. ABDOMEN: Soft, obese. EXTREMITITES: Chronic changes noted. 1+ edema. Objective - Vital Signs Vital signs: Vital Signs Temp 97.5 F L 08/25/21 05:00 Pulse 85 08/25/21 05:00 Resp 18 08/25/21 05:00 BP 126/78 08/25/21 05:00 Pulse Ox 97 08/25/21 05:00 Intake & Output 08/24/21 08/25/21 08/25/21 18:59 06:59 18:59 Intake Total 340 480 Output Total 500 Balance 340 480 -500 Weight 114.5 kg Intake: Intake, IV Titration 100 Amount Sodium Ferric Gluconat- 100 Sucrose 125 mg In Sodium Chloride 0.9% 100 ml @ 100 mls/hr IVPB DAILY [facility] Rx#:[id number] Oral 240 480 Output: Urine 500 Other: Voiding Method Indwelling Catheter Indwelling Catheter Indwelling Catheter # Voids 4 1 ABP, PAP, CO, CI - Last Documented Arterial Blood Pressure 135/58 - Labs CBC & Chem 7: 08/23/21 09:40 08/23/21 09:40 Labs: Abnormal Lab Results - Last 24 Hours (Table) 08/24/21 08/24/21 08/24/21 Range/Units 12:00 17:33 19:53 POC Glucose (mg/dL) 214 H 273 H 284 H (75-99) mg/dL Microbiology - Last 24 Hours (Table) 08/19/21 15:59 Blood Culture - Preliminary Blood No Growth after 120 hours Assessment and Plan Plan: Assessment: 1. Acute kidney injury secondary to ATN secondary to hypotension. Status post Levophed. Creatinine peaked at 5.0 at this admission - 3.86 on August 23. Nonoliguric. 2. Chronic kidney disease stage IIIB with baseline creatinine near 1.6 secondary to diabetic kidney disease. 3. Volume overload. 4. Diabetes mellitus. 5. Metabolic acidosis secondary to acute kidney injury, metformin and lactic acidosis. Resolved. 6. Anemia of chronic kidney disease. Iron deficiency noted. Stool for occult blood positive. Plan: Maintain IV iron. Lasix 40 mg IV once today. Avoid nephrotoxins. Follow-up morning labs. Continue to monitor renal function and urine output. Okay to DC Aguilera catheter.
[2021-08-25 11:00] LABS: BUN/Creat Ratio 28.71 Ratio (12.00-20.00); Calcium 8.6 mg/dL (8.7-10.3); Magnesium 1.9 mg/dL (1.5-2.4); Non-African American GFR(CKD) 14.6 (60.0-200.0); Potassium 3.6 mmol/L (3.5-5.5)
[2021-08-25 11:47] LABS: Glucose,Whole Blood 158 mg/dL (75-99)
[2021-08-25] MEDS: SODIUM CHLORIDE 0.9% 500 ML 500 ML IV SCH (13:36)
--- NOTE | 2021-08-25 16:56 | P.PN ---
Subjective Progress Note Date: 08/25/21 HISTORY OF PRESENT ILLNESS This 70-year-old pleasant female, patient of Dr. Crystal, and Dr. 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 Patient comes in to emergency room with severe metabolic acidosis, dehydration, and severe bradycardia, with heart rates in the 40s and blood pressure systolic in the 80s. She was critical when she was seen in the emergency room EMS has given her atropine, with improvement of the heart rate. Patient is in A. fib, with slow ventricular heart rate. 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 Bilateral leg. Patient denies any chest pain pleurisy, leg pain, no nausea vomiting diarrhea, no melena and hematochezia , no syncope no seizures. covid vaccination status unclear, patient was not on any NSAIDs, or steroids prior to ER visit Emergency room, she was in A. fib with slowed ventricular hydrated, in the 40s, CO2 of 9, potassium of 6.2, sodium 128, creatinine 4.93, BUN of 134. Magnesium 1.7 TSH 3.7 albumin 2.2 wbc count 10.6 hemoglobin 8.7 platelet count 465. Urinalysis urine WBC of 7 patient come in with lactic acidosis, coronavirus PCR negative. Patient is transferred to ICU, with multiple consultants, cardiology, Dr. voss from critical care medicine, and Dr. Dave from nephrology. 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 Bowels shows moderate distended contrast-filled stomach, suggestion of mild to moderate wall thickening throughout small bowel loops, 12/3: Patient is seen in the intensive care unit. She is currently on epinephrine and vasopressin. Patient is awake and alert. She is complaining of diarrhea for C. difficile toxin and stool for occult blood will be obtained. She did have a drop in her hemoglobin which may be dilutional. She denies having any abdominal pain at this time. Shortness of breath is improved from yesterday. Patient has improved urine output at 20-40 ML's per hour with urine in the bag a brown color and fresh urine is clear luciano. She has been afebrile, heart rate 110, blood pressure 123/50, pulse ox 95% on 2 L nasal cannula. wallpaper hanger helper is atrial fibrillation. Cardiology is following with recommendations to taper pressors. Patient has decided to opt out of using oral anticoagulation. Patient is also followed by compound machine operator and nephrology. Echocardiogram reveals EF of 55-60%, grade 2 diastolic dysfunction, mild mitral regurgitation, moderate to severe tricuspid regurgitation severe pulmonary hypertension. Repeat blood work reveals sodium 128, potassium 4.7, chloride 99, CO2 20, BUN 120, creatinine 4.6. Blood sugars are running between 140 and 195. Total bilirubin 0.1, AST 53. WBC 31, hemoglobin 7.8, platelet count 523. Blood culture no growth at 24 hours. IV fluids are D5 W with. Bicarb. KUB reveals overall nonobstructive bowel gas pattern. 08/22: She remains in intensive care unit on norepinephrine. wallpaper hanger helper is atrial fibrillation controlled rate. She is currently also on bicarb drip. She has been afebrile, heart rate in the 80s, blood pressure 123/107, pulse ox 97% on 2 L nasal cannula. Repeat blood work reveals BUN of 117 and creatinine 4.24. Hemoglobin 8.2, WBC 18.8. Blood sugars are running between 133 and 197. 08/23: Patient remains in the intensive care unit but has been cleared by compound machine operator for MedSurg with telemetry. Dr. Dave his ordered Lasix 60 mg IV this morning. IV fluids at KVO. Patient is eating and drinking. She does have some diarrhea and C. diff toxin will be checked as well as frequent repeat Hemoccult. Patient has been afebrile, hemodynamically stable, not requiring vasopressors. Pulse ox 93% on 2 L. Repeat blood work reveals WBC 16.9, hemoglobin 8.5. BUN 106 and creatinine 3.86. Blood sugars are high today running in the 200s up to 302. Patient will be started on Levemir 15 units twice daily, and continue NovoLog scale. PT and OT consults added. Antibiotics have been changed to Keflex. 08/24: [facility] She's been afebrile, heart rate 90, blood pressure 123/73 and pulse ox 94% on 2 L nasal cannula. Stool for C. difficile toxin was negative yesterday. Blood sugars this morning at 131 last evening, patient started higher dose of Levemir. Last evening blood sugars were in the 300s. Blood culture no growth after 96 hours. Patient has been seen by nephrology and Ferrlecit ordered 3 days. She continues to have edema, no Lasix ordered for today. The blood work is ordered for tomorrow. Aguilera catheter is in place. Cardiology is recommending continuing holing Cardizem, atenolol, losartan and hydralazine. Cardiology is following on an as-needed basis with plan for follow-up with Dr. Mari as an outpatient. 08/25 patient seen on MedSurg floor. Denies any shortness of breath and chest pain. Patient denies any change in bowel habits. Vitals were reviewed patient is afebrile pulse 101 respiratory rate 16 blood pressure 164/76 oxygen saturation 91% on room air. Labs are reviewed patient's creatinine has improved to 3.1 with improvement of BUN to 89. Magnesium 1.9 calcium 8.6. Discontinue Aguilera catheter today. Patient received 1 dose of Lasix. Second dose of IV iron today. Continue to hold Cardizem, atenolol, losartan. Hydralazine can be restarted REVIEW OF SYSTEMS Constitutional: No fever, no chills, no night sweats. No weight change. Reports weakness, reports fatigue reports lethargy. No daytime sleepiness. EENT: No headache. No blurred vision or double vision, no loss of vision. No nasal drainage or congestion. No epistaxis. No sore throat. Lungs: No shortness of breath, cough, no sputum production. No wheezing. Cardiovascular: No chest pain, no lower extremity edema. No palpitations. No paroxysmal nocturnal dyspnea. No orthopnea. No lightheadedness or dizziness. No syncopal episodes. Abdominal: No abdominal pain. No nausea, vomiting. No diarrhea. No constipation. No bloody or tarry stools. Reports loss of appetite slightly improved. Genitourinary: No dysuria, increased frequency, urgency. No urinary retention. Aguilera catheter in place. Musculoskeletal: No myalgias. Reports muscle weakness, no gait dysfunction, no frequent falls. No back pain. No neck pain. Integumentary: No wounds, no lesions. No rash or pruritus. No unusual bruising. No change in hair or nails. Neurologic: No aphasia. No facial droop. No change in mentation. No head injury. No headache. No paralysis. No paresthesia. Psychiatric: No depression. No anxiety. No mood swings. Endocrine: No abnormal blood sugars. No weight change. No excessive sweating or thirst. No cold intolerance. PHYSICAL EXAMINATION Gen: This is a 70-year-old morbidly obese female. She is resting in the bed on the [facility] floor and appears to be comfortable. HEENT: Head is atraumatic, normocephalic. Pupils equal, round. Sclerae is a nicteric. NECK: Supple. No JVD. No lymphadenopathy. No thyromegaly. LUNGS: Clear to auscultation. No wheezes or rhonchi. No intercostal retractions. HEART: Irregular rate and rhythm. No murmur. ABDOMEN: Soft. Bowel sounds are present. No masses. No tenderness. Aguilera catheter in place. EXTREMITIES: Bilateral lower extremity lymphedema with edema and generalized edema to the upper extremities as well. No calf tenderness. Dorsalis pedis palpable bilaterally. NEUROLOGICAL: Patient is awake, alert and oriented x3. Cranial nerves 2 through 12 are grossly intact. ASSESSMENT AND PLAN 1. Acute kidney failure, secondary to ATN with oliguria, severe uremia. Metformin, hydralazine losartan, atenolol, Cardura on hold due to either acute kidney injury bradycardia or hypotension. 2. Severe bradycardia secondary to hyperkalemia and AV blockers, with cardiogenic shock. Patient is off vasopressors. Etiology is following on an as needed basis. 3. Sepsis, with septic shock suspected, primary source unknown, however patient comes in with severe hyperbilirubinemia, and bradycardia requiring fluid resuscitation. Empiric treatment with Keflex. Vancomycin discontinued. Patient is off norepinephrine. 4. Severe metabolic acidosis, with acute kidney failure metformin is discontinued, patient is on bicarb drip, 5. Diabetes mellitus type 2 was on 70/30 as an outpatient. Patient is off insulin drip 6. Severe pulmonary hypertension with moderate to severe tricuspid regurgitation sheet metal shop helper following, need to have sleep apnea test as an outpatient 7. History of CVA unknown deficits at this time 8. Hyperkalemia, acute, requires fluid resuscitation, 9. Bilateral leg cellulitis, unable to perform any cultures at this time Murtaza, local wound care, on IV Zosyn 10. Trivial pericardial effusion 11. 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 Small to moderate left greater than right pleural effusion, with atelectasis 13. Anasarca, with protein calorie malnutrition, protein supplementation 14. DVT prophylaxis. Heparin subcu. 15. GI prophylaxis. Protonix. 16. COVID-19 testing negative. Patient has been hospitalized during a pandemic. CODE STATUS: Full code DISCHARGE PLAN Patient wishes to discharge to home with VNA or subacute rehab most likely. Objective - Vital Signs Vital signs: Vital Signs Temp 97.5 F L 08/25/21 05:00 Pulse 85 08/25/21 05:00 Resp 18 08/25/21 05:00 BP 126/78 08/25/21 05:00 Pulse Ox 97 08/25/21 05:00 Intake & Output 08/24/21 08/25/21 08/25/21 18:59 06:59 18:59 Intake Total 340 480 Output Total 500 Balance 340 480 -500 Weight 114.5 kg Intake: Intake, IV Titration 100 Amount Sodium Ferric Gluconat- 100 Sucrose 125 mg In Sodium Chloride 0.9% 100 ml @ 100 mls/hr IVPB DAILY [facility] Rx#:[id number] Oral 240 480 Output: Urine 500 Other: Voiding Method Indwelling Catheter Indwelling Catheter Indwelling Catheter # Voids 4 1 ABP, PAP, CO, CI - Last Documented Arterial Blood Pressure 135/58 - Labs CBC & Chem 7: 08/23/21 09:40 08/25/21 04:43 Labs: Abnormal Lab Results - Last 24 Hours (Table) 08/24/21 08/24/21 08/24/21 Range/Units 12:00 17:33 19:53 BUN (9.0-27.0) mg/dL Creatinine (0.6-1.5) mg/dL Est GFR (CKD-EPI)AfAm (60.0-200.0) Est GFR (CKD-EPI)NonAf (60.0-200.0) BUN/Creatinine Ratio (12.00-20.00) Ratio Glucose (70-110) mg/dL POC Glucose (mg/dL) 214 H 273 H 284 H (75-99) mg/dL Calcium (8.7-10.3) mg/dL 08/25/21 Range/Units 04:43 BUN 89.0 H (9.0-27.0) mg/dL Creatinine 3.1 H (0.6-1.5) mg/dL Est GFR (CKD-EPI)AfAm 17.0 L (60.0-200.0) Est GFR (CKD-EPI)NonAf 14.6 L (60.0-200.0) BUN/Creatinine Ratio 28.71 H (12.00-20.00) Ratio Glucose 112 H (70-110) mg/dL POC Glucose (mg/dL) (75-99) mg/dL Calcium 8.6 L (8.7-10.3) mg/dL Microbiology - Last 24 Hours (Table) 08/19/21 15:59 Blood Culture - Preliminary Blood No Growth after 120 hours
[2021-08-25 17:19] LABS: Glucose,Whole Blood 264 mg/dL (75-99)
[2021-08-25] MEDS: hydrALAZINE HCL 50 MG TAB PO SCH (17:42)
[2021-08-25 20:32] LABS: Glucose,Whole Blood 285 mg/dL (75-99)
[2021-08-25] MEDS: ATORVASTATIN 10 MG TAB PO SCH (20:33)
[2021-08-26] MEDS ORDERED: HEPARIN SODIUM,PORCINE 5,000 UNIT/ML 1 ML VIAL ONE
[2021-08-26 06:13] LABS: Anisocytosis Slight; Basophils % (A) 0 %; Eosinophils # (A) 0.6 k/uL (0-0.7); Eosinophils % (A) 5 %; HCT 29.7 % (34.0-46.0); HGB 8.3 gm/dL (11.4-16.0); Hypochromasia Marked; Lymphocytes # (A) 0.6 k/uL (1.0-4.8); Lymphocytes % (A) 5 %; MCH 24.8 pg (25.0-35.0); MCHC 28.1 g/dL (31.0-37.0); Mean Platelet Volume 8.6; Monocytes # (A) 0.9 k/uL (0-1.0); Monocytes % (A) 8 %; Neutrophils # (A) 9.6 k/uL (1.3-7.7); Neutrophils % (A) 81 %; Platelet Count 374 k/uL (150-450); RBC 3.36 m/uL (3.80-5.40); RDW 17.7 % (11.5-15.5); WBC 11.9 k/uL (3.8-10.6)
[2021-08-26 06:28] LABS: ALT 18 U/L (4-34); AST 19 U/L (14-36); African American GFR (CKD) 21 (>60 ml/min/1.73 sqM); Albumin 2.3 g/dL (3.5-5.0); Albumin/Globulin Ratio 0.9; Alkaline Phosphatase 56 U/L (38-126); Anion Gap 6 mmol/L; Blood Urea Nitrogen 96 mg/dL (7-17); Calcium 8.8 mg/dL (8.4-10.2); Carbon Dioxide 29 mmol/L (22-30); Chloride 107 mmol/L (98-107); Globulin 2.5 g/dL; Glucose 154 mg/dL (74-99); Magnesium 1.7 mg/dL (1.6-2.3); Non-African American GFR(CKD) 18 (>60 ml/min/1.73 sqM); Potassium 3.4 mmol/L (3.5-5.1); Sodium 142 mmol/L (137-145); Total Bilirubin 0.2 mg/dL (0.2-1.3); Total Protein 4.8 g/dL (6.3-8.2)
[2021-08-26 07:06] LABS: MCV 88.3 fL (80.0-100.0)
[2021-08-26 07:30] LABS: Glucose,Whole Blood 125 mg/dL (75-99)
[2021-08-26] MEDS: HEPARIN SODIUM,PORCINE/PF 5,000 UNIT/0.5 ML SYRINGE SQ SCH ×4 (07:52→23:35)
[2021-08-26] MEDS: INSULIN ASPART (NovoLOG) 100 UNIT/ML VIAL SQ SCH ×4 (08:14→20:35)
[2021-08-26] MEDS: hydrALAZINE HCL 50 MG TAB PO SCH ×3 (08:42→16:14)
[2021-08-26] MEDS: INSULIN DETEMIR (LEVEMIR) 100 UNIT/ML SYR SQ SCH ×2 (08:42→20:36)
[2021-08-26] MEDS: PANTOPRAZOLE 40 MG TABLET PO SCH (08:42)
[2021-08-26] MEDS: CEPHALEXIN 500 MG CAP PO SCH ×2 (08:42→19:46)
[2021-08-26] MEDS: SODIUM FERRIC GLUCONAT-SUCROSE 125 MG in SODIUM CHLORIDE 0.9% 100 ML IVPB SCH (08:47)
[2021-08-26] MEDS ORDERED: POTASSIUM CHLORIDE ER 20 MEQ TAB.ER PO STA (10:27)
[2021-08-26] MEDS: SODIUM CHLORIDE 0.9% 500 ML 500 ML IV SCH (10:37)
--- NOTE | 2021-08-26 11:49 | P.PN ---
Subjective Patient is seen in follow-up for acute kidney injury on chronic kidney disease. Renal function improving. Aguilera catheter discontinued. Good urine output. Oral intake fair. No vomiting or diarrhea. Vital signs are stable. General: Awake and alert. HEENT: Head exam is unremarkable. LUNGS: Breath sounds decreased. HEART: Rate and Rhythm are regular. ABDOMEN: Soft, obese. EXTREMITITES: Chronic changes noted. 1+ edema. Objective - Vital Signs Vital signs: Vital Signs Temp 97.3 F L 08/26/21 11:24 Pulse 90 08/26/21 11:24 Resp 16 08/26/21 11:24 BP 133/82 08/26/21 11:24 Pulse Ox 96 08/26/21 11:24 Intake & Output 08/25/21 08/26/21 08/26/21 18:59 06:59 18:59 Intake Total 100 240 Output Total 1820 Balance -1720 240 Intake: Intake, IV Titration 100 Amount Sodium Ferric Gluconat- 100 Sucrose 125 mg In Sodium Chloride 0.9% 100 ml @ 100 mls/hr IVPB DAILY [facility] Rx#:[id number] Oral 240 Output: Urine 1820 Uretheral (Aguilera) 120 Other: Voiding Method Indwelling Catheter Toilet Toilet ABP, PAP, CO, CI - Last Documented Arterial Blood Pressure 135/58 - Labs CBC & Chem 7: 08/26/21 05:30 08/26/21 05:30 Labs: Abnormal Lab Results - Last 24 Hours (Table) 08/25/21 08/25/21 08/25/21 Range/Units 11:41 17:12 20:30 WBC (3.8-10.6) k/uL RBC (3.80-5.40) m/uL Hgb (11.4-16.0) gm/dL Hct (34.0-46.0) % MCH (25.0-35.0) pg MCHC (31.0-37.0) g/dL RDW (11.5-15.5) % Neutrophils # (1.3-7.7) k/uL Lymphocytes # (1.0-4.8) k/uL Potassium (3.5-5.1) mmol/L BUN (7-17) mg/dL Creatinine (0.52-1.04) mg/dL Glucose (74-99) mg/dL POC Glucose (mg/dL) 158 H 264 H 285 H (75-99) mg/dL Total Protein (6.3-8.2) g/dL Albumin (3.5-5.0) g/dL 08/26/21 08/26/21 08/26/21 Range/Units 05:30 05:30 07:17 WBC 11.9 H (3.8-10.6) k/uL RBC 3.36 L (3.80-5.40) m/uL Hgb 8.3 L (11.4-16.0) gm/dL Hct 29.7 L (34.0-46.0) % MCH 24.8 L (25.0-35.0) pg MCHC 28.1 L (31.0-37.0) g/dL RDW 17.7 H (11.5-15.5) % Neutrophils # 9.6 H (1.3-7.7) k/uL Lymphocytes # 0.6 L (1.0-4.8) k/uL Potassium 3.4 L (3.5-5.1) mmol/L BUN 96 H (7-17) mg/dL Creatinine 2.64 H (0.52-1.04) mg/dL Glucose 154 H (74-99) mg/dL POC Glucose (mg/dL) 125 H (75-99) mg/dL Total Protein 4.8 L (6.3-8.2) g/dL Albumin 2.3 L (3.5-5.0) g/dL Microbiology - Last 24 Hours (Table) 08/19/21 15:59 Blood Culture - Final Blood No Growth after 144 hours Assessment and Plan Plan: Assessment: 1. Acute kidney injury secondary to ATN secondary to hypotension. Status post Levophed. Creatinine peaked at 5.0 at this admission -2.64 today. Nonoliguric. 2. Chronic kidney disease stage IIIB with baseline creatinine near 1.6 secondary to diabetic kidney disease. 3. Volume overload. 4. Diabetes mellitus. 5. Metabolic acidosis secondary to acute kidney injury, metformin and lactic acidosis. Resolved. 6. Anemia of chronic kidney disease. Iron deficiency noted. Stool for occult blood positive. Plan: Maintain IV iron. Add oral Lasix 40 mg once daily. Avoid nephrotoxins. Continue to monitor renal function and urine output.
[2021-08-26 12:04] LABS: Glucose,Whole Blood 148 mg/dL (75-99)
[2021-08-26] MEDS: FUROSEMIDE 40 MG TAB PO SCH (13:34)
--- NOTE | 2021-08-26 14:21 | P.PN ---
Subjective Progress Note Date: 08/26/21 HISTORY OF PRESENT ILLNESS This 70-year-old pleasant female, patient of Dr. Crystal, and Dr. 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 Patient comes in to emergency room with severe metabolic acidosis, dehydration, and severe bradycardia, with heart rates in the 40s and blood pressure systolic in the 80s. She was critical when she was seen in the emergency room EMS has given her atropine, with improvement of the heart rate. Patient is in A. fib, with slow ventricular heart rate. 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 Bilateral leg. Patient denies any chest pain pleurisy, leg pain, no nausea vomiting diarrhea, no melena and hematochezia , no syncope no seizures. covid vaccination status unclear, patient was not on any NSAIDs, or steroids prior to ER visit Emergency room, she was in A. fib with slowed ventricular hydrated, in the 40s, CO2 of 9, potassium of 6.2, sodium 128, creatinine 4.93, BUN of 134. Magnesium 1.7 TSH 3.7 albumin 2.2 wbc count 10.6 hemoglobin 8.7 platelet count 465. Urinalysis urine WBC of 7 patient come in with lactic acidosis, coronavirus PCR negative. Patient is transferred to ICU, with multiple consultants, cardiology, Dr. voss from critical care medicine, and Dr. Dave from nephrology. 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 Bowels shows moderate distended contrast-filled stomach, suggestion of mild to moderate wall thickening throughout small bowel loops, 12/3: Patient is seen in the intensive care unit. She is currently on epinephrine and vasopressin. Patient is awake and alert. She is complaining of diarrhea for C. difficile toxin and stool for occult blood will be obtained. She did have a drop in her hemoglobin which may be dilutional. She denies having any abdominal pain at this time. Shortness of breath is improved from yesterday. Patient has improved urine output at 20-40 ML's per hour with urine in the bag a brown color and fresh urine is clear luciano. She has been afebrile, heart rate 110, blood pressure 123/50, pulse ox 95% on 2 L nasal cannula. youth nutritional monitor is atrial fibrillation. Cardiology is following with recommendations to taper pressors. Patient has decided to opt out of using oral anticoagulation. Patient is also followed by shoe handler and nephrology. Echocardiogram reveals EF of 55-60%, grade 2 diastolic dysfunction, mild mitral regurgitation, moderate to severe tricuspid regurgitation severe pulmonary hypertension. Repeat blood work reveals sodium 128, potassium 4.7, chloride 99, CO2 20, BUN 120, creatinine 4.6. Blood sugars are running between 140 and 195. Total bilirubin 0.1, AST 53. WBC 31, hemoglobin 7.8, platelet count 523. Blood culture no growth at 24 hours. IV fluids are D5 W with. Bicarb. KUB reveals overall nonobstructive bowel gas pattern. 08/22: She remains in intensive care unit on norepinephrine. youth nutritional monitor is atrial fibrillation controlled rate. She is currently also on bicarb drip. She has been afebrile, heart rate in the 80s, blood pressure 123/107, pulse ox 97% on 2 L nasal cannula. Repeat blood work reveals BUN of 117 and creatinine 4.24. Hemoglobin 8.2, WBC 18.8. Blood sugars are running between 133 and 197. 08/23: Patient remains in the intensive care unit but has been cleared by shoe handler for MedSurg with telemetry. Dr. Dave his ordered Lasix 60 mg IV this morning. IV fluids at KVO. Patient is eating and drinking. She does have some diarrhea and C. diff toxin will be checked as well as frequent repeat Hemoccult. Patient has been afebrile, hemodynamically stable, not requiring vasopressors. Pulse ox 93% on 2 L. Repeat blood work reveals WBC 16.9, hemoglobin 8.5. BUN 106 and creatinine 3.86. Blood sugars are high today running in the 200s up to 302. Patient will be started on Levemir 15 units twice daily, and continue NovoLog scale. PT and OT consults added. Antibiotics have been changed to Keflex. 08/24: [facility] She's been afebrile, heart rate 90, blood pressure 123/73 and pulse ox 94% on 2 L nasal cannula. Stool for C. difficile toxin was negative yesterday. Blood sugars this morning at 131 last evening, patient started higher dose of Levemir. Last evening blood sugars were in the 300s. Blood culture no growth after 96 hours. Patient has been seen by nephrology and Ferrlecit ordered 3 days. She continues to have edema, no Lasix ordered for today. The blood work is ordered for tomorrow. Aguilera catheter is in place. Cardiology is recommending continuing holing Cardizem, atenolol, losartan and hydralazine. Cardiology is following on an as-needed basis with plan for follow-up with Dr. Mari as an outpatient. [facility] Denies any shortness of breath and chest pain. Patient denies any change in bowel habits. Vitals were reviewed patient is afebrile pulse 101 respiratory rate 16 blood pressure 164/76 oxygen saturation 91% on room air. Labs are reviewed patient's creatinine has improved to 3.1 with improvement of BUN to 89. Magnesium 1.9 calcium 8.6. Discontinue Aguilera catheter today. Patient received 1 dose of Lasix. Second dose of IV iron today. Continue to hold Cardizem, atenolol, losartan. Hydralazine can be restarted 08/26: Patient has been afebrile, heart rate 76, blood pressure 134/94, pulse ox 90% on 2 L nasal cannula. WBC 11.9, hemoglobin 8.3, platelet count 374. Potassium 3.4, BUN 96 creatinine 2.64. Blood sugars this morning 125 and 285 and 264 during the night. Patient is receiving Ferrlecit for 3 days. He received 1 dose of IV Lasix yesterday. She has been seen by PT and OT will be with recommendations for home with home care. assistant center manager has made arrangements for home care. REVIEW OF SYSTEMS Constitutional: No fever, no chills, no night sweats. No weight change. Reports weakness, reports fatigue reports lethargy. No daytime sleepiness. EENT: No headache. No blurred vision or double vision, no loss of vision. No nasal drainage or congestion. No epistaxis. No sore throat. Lungs: No shortness of breath, cough, no sputum production. No wheezing. Cardiovascular: No chest pain, chronic lower extremity edema. No palpitations. No paroxysmal nocturnal dyspnea. No orthopnea. No lightheadedness or diz ziness. No syncopal episodes. Abdominal: No abdominal pain. No nausea, vomiting. No diarrhea. No constipation. No bloody or tarry stools. Reports loss of appetite slightly improved. Genitourinary: No dysuria, increased frequency, urgency. No urinary retention. Aguilera catheter in place. Musculoskeletal: No myalgias. Reports muscle weakness, no gait dysfunction, no frequent falls. No back pain. No neck pain. Integumentary: No wounds, no lesions. No rash or pruritus. No unusual bruising . No change in hair or nails. Neurologic: No aphasia. No facial droop. No change in mentation. No head injury. No headache. No paralysis. No paresthesia. Psychiatric: No depression. No anxiety. No mood swings. Endocrine: No abnormal blood sugars. No weight change. No excessive sweating or thirst. No cold intolerance. PHYSICAL EXAMINATION Gen: This is a 70-year-old morbidly obese female. She is resting in the bed on the [facility] floor and appears to be comfortable. HEENT: Head is atraumatic, normocephalic. Pupils equal, round. Sclerae is anicteric. NECK: Supple. No JVD. No lymphadenopathy. No thyromegaly. LUNGS: Clear to auscultation. No wheezes or rhonchi. No intercostal retractions. HEART: Irregular rate and rhythm. No murmur. ABDOMEN: Soft. Bowel sounds are present. No masses. No tenderness. EXTREMITIES: Bilateral lower extremity lymphedema with edema and generalized edema to the upper extremities as well. No calf tenderness. Dorsalis pedis palpable bilaterally. NEUROLOGICAL: Patient is awake, alert and oriented x3. Cranial nerves 2 through 12 are grossly intact. ASSESSMENT AND PLAN 1. Acute kidney failure, secondary to ATN with oliguria, severe uremia. Metformin, losartan, atenolol, Cardura on hold due to either acute kidney injury bradycardia or hypotension. 2. Severe bradycardia secondary to hyperkalemia and AV blockers, with cardiogenic shock. Patient is off vasopressors. Cardiology is following on an as needed basis. 3. Sepsis, with septic shock suspected, primary source unknown, however patient comes in with severe hyperbilirubinemia, and bradycardia requiring fluid resusci tation. Empiric treatment with Keflex. Vancomycin discontinued. Patient is off norepinephrine. 4. Severe metabolic acidosis, with acute kidney failure metformin is discontinued, patient is off bicarb drip, 5. Diabetes mellitus type 2 was on 70/30 as an outpatient. Patient is off insulin drip. Continue Levemir 18 units twice daily, NovoLog scale. 6. 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 History of CVA unknown deficits at this time 8. Hyperkalemia, acute, requires fluid resuscitation, 9. Bilateral leg cellulitis, unable to perform any cultures at this time Ivan alcazar, local wound care, on IV Zosyn 10. Trivial pericardial effusion 11. 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 Small to moderate left greater than right pleural effusion, with atelectasis 13. Anasarca, with protein calorie malnutrition, protein supplementation 14. Hypertension. Patient will be resumed on hydralazine 50 mg 3 times daily. Continue to hold losartan, Catapres, Lasix, Cardura. 15. DVT prophylaxis. Heparin subcu. 16. GI prophylaxis. Protonix. 17. COVID-19 testing negative. Patient has been hospitalized during a p andemic. CODE STATUS: Full code DISCHARGE PLAN Home with [facility]. Impression and plan of care have been directed as dictated by the signing physician. Lucia Oliver nurse practitioner acting as scribe for signing physician. Objective - Vital Signs Vital signs: Vital Signs Temp 97.6 F 08/26/21 04:40 Pulse 76 08/26/21 04:40 Resp 24 08/26/21 04:40 BP 134/94 08/26/21 04:40 Pulse Ox 98 08/26/21 04:40 Intake & Output 08/25/21 08/26/21 08/26/21 18:59 06:59 18:59 Intake Total 100 240 Output Total 1820 Balance -1720 240 Intake: Intake, IV Titration 100 Amount Sodium Ferric Gluconat- 100 Sucrose 125 mg In Sodium Chloride 0.9% 100 ml @ 100 mls/hr IVPB DAILY [facility] Rx#:[id number] Oral 240 Output: Urine 1820 Uretheral (Aguilera) 120 Other: Voiding Method Indwelling Catheter Toilet ABP, PAP, CO, CI - Last Documented Arterial Blood Pressure 135/58 - Labs CBC & Chem 7: 08/26/21 05:30 08/26/21 05:30 Labs: Abnormal Lab Results - Last 24 Hours (Table) 08/25/21 08/25/21 08/25/21 Range/Units 04:43 11:41 17:12 WBC (3.8-10.6) k/uL RBC (3.80-5.40) m/uL Hgb (11.4-16.0) gm/dL Hct (34.0-46.0) % MCH (25.0-35.0) pg MCHC (31.0-37.0) g/dL RDW (11.5-15.5) % Neutrophils # (1.3-7.7) k/uL Lymphocytes # (1.0-4.8) k/uL Potassium (3.5-5.1) mmol/L BUN 89.0 H (9.0-27.0) mg/dL Creatinine 3.1 H (0.6-1.5) mg/dL Est GFR (CKD-EPI)AfAm 17.0 L (60.0-200.0) Est GFR (CKD-EPI)NonAf 14.6 L (60.0-200.0) BUN/Creatinine Ratio 28.71 H (12.00-20.00) Ratio Glucose 112 H (70-110) mg/dL POC Glucose (mg/dL) 158 H 264 H (75-99) mg/dL Calcium 8.6 L (8.7-10.3) mg/dL Total Protein (6.3-8.2) g/dL Albumin (3.5-5.0) g/dL 08/25/21 08/26/21 08/26/21 Range/Units 20:30 05:30 05:30 WBC 11.9 H (3.8-10.6) k/uL RBC 3.36 L (3.80-5.40) m/uL Hgb 8.3 L (11.4-16.0) gm/dL Hct 29.7 L (34.0-46.0) % MCH 24.8 L (25.0-35.0) pg MCHC 28.1 L (31.0-37.0) g/dL RDW 17.7 H (11.5-15.5) % Neutrophils # 9.6 H (1.3-7.7) k/uL Lymphocytes # 0.6 L (1.0-4.8) k/uL Potassium 3.4 L (3.5-5.1) mmol/L BUN 96 H (9.0-27.0) mg/dL Creatinine 2.64 H (0.6-1.5) mg/dL Est GFR (CKD-EPI)AfAm (60.0-200.0) Est GFR (CKD-EPI)NonAf (60.0-200.0) BUN/Creatinine Ratio (12.00-20.00) Ratio Glucose 154 H (70-110) mg/dL POC Glucose (mg/dL) 285 H (75-99) mg/dL Calcium (8.7-10.3) mg/dL Total Protein 4.8 L (6.3-8.2) g/dL Albumin 2.3 L (3.5-5.0) g/dL 08/26/21 Range/Units 07:17 WBC (3.8-10.6) k/uL RBC (3.80-5.40) m/uL Hgb (11.4-16.0) gm/dL Hct (34.0-46.0) % MCH (25.0-35.0) pg MCHC (31.0-37.0) g/dL RDW (11.5-15.5) % Neutrophils # (1.3-7.7) k/uL Lymphocytes # (1.0-4.8) k/uL Potassium (3.5-5.1) mmol/L BUN (9.0-27.0) mg/dL Creatinine (0.6-1.5) mg/dL Est GFR (CKD-EPI)AfAm (60.0-200.0) Est GFR (CKD-EPI)NonAf (60.0-200.0) BUN/Creatinine Ratio (12.00-20.00) Ratio Glucose (70-110) mg/dL POC Glucose (mg/dL) 125 H (75-99) mg/dL Calcium (8.7-10.3) mg/dL Total Protein (6.3-8.2) g/dL Albumin (3.5-5.0) g/dL Microbiology - Last 24 Hours (Table) 08/19/21 15:59 Blood Culture - Final Blood No Growth after 144 hours
[2021-08-26 17:17] LABS: Glucose,Whole Blood 208 mg/dL (75-99)
[2021-08-26 20:01] LABS: Glucose,Whole Blood 295 mg/dL (75-99)
[2021-08-26] MEDS: ATORVASTATIN 10 MG TAB PO SCH (20:01)
[2021-08-27 07:09] LABS: Glucose,Whole Blood 133 mg/dL (75-99)
[2021-08-27] MEDS: PANTOPRAZOLE 40 MG TABLET PO SCH (08:50)
[2021-08-27] MEDS: FUROSEMIDE 40 MG TAB PO SCH (08:50)
[2021-08-27] MEDS: CEPHALEXIN 500 MG CAP PO SCH ×2 (08:50→21:27)
[2021-08-27] MEDS: hydrALAZINE HCL 50 MG TAB PO SCH ×3 (08:50→16:58)
[2021-08-27] MEDS: SODIUM FERRIC GLUCONAT-SUCROSE 125 MG in SODIUM CHLORIDE 0.9% 100 ML IVPB SCH (08:50)
[2021-08-27] MEDS: INSULIN ASPART (NovoLOG) 100 UNIT/ML VIAL SQ SCH ×4 (08:51→21:27)
[2021-08-27] MEDS: HEPARIN SODIUM,PORCINE/PF 5,000 UNIT/0.5 ML SYRINGE SQ SCH ×3 (08:51→23:17)
[2021-08-27] MEDS: INSULIN DETEMIR (LEVEMIR) 100 UNIT/ML SYR SQ SCH ×2 (08:51→21:27)
[2021-08-27] MEDS: SODIUM CHLORIDE 0.9% 500 ML 500 ML IV SCH (09:43)
[2021-08-27 09:51] LABS: African American GFR (CKD) 23.1 (60.0-200.0); Anion Gap 12.9 mmol/L (10.00-18.00); BUN/Creat Ratio 35.42 Ratio (12.00-20.00); Calcium 8.9 mg/dL (8.7-10.3); Carbon Dioxide 25.1 mmol/L (20.0-27.5); Magnesium 1.7 mg/dL (1.5-2.4); Non-African American GFR(CKD) 19.9 (60.0-200.0); Potassium 3.5 mmol/L (3.5-5.5)
[2021-08-27] MEDS ORDERED: POTASSIUM CHLORIDE ER 20 MEQ TAB.ER PO STA (10:41)
--- NOTE | 2021-08-27 10:42 | P.PN ---
Subjective Patient is seen in follow-up for acute kidney injury on chronic kidney disease. Renal function improving. Aguilera catheter discontinued. Good urine output. Oral intake fair. No vomiting or diarrhea. No changes overnight. No active complaints. Vital signs are stable. General: Awake and alert. HEENT: Head exam is unremarkable. LUNGS: Breath sounds decreased. HEART: Rate and Rhythm are regular. ABDOMEN: Soft, obese. EXTREMITITES: Chronic changes noted. 1+ edema. Objective - Vital Signs Vital signs: Vital Signs Temp 97.5 F L 08/27/21 04:44 Pulse 98 08/27/21 08:56 Resp 18 08/27/21 04:44 BP 150/74 08/27/21 08:56 Pulse Ox 97 08/27/21 04:44 Intake & Output 08/26/21 08/27/21 08/27/21 18:59 06:59 18:59 Other: Voiding Method Toilet Toilet # Voids 4 # Bowel Movements 1 ABP, PAP, CO, CI - Last Documented Arterial Blood Pressure 135/58 - Labs CBC & Chem 7: 08/26/21 05:30 08/27/21 05:49 Labs: Abnormal Lab Results - Last 24 Hours (Table) 08/26/21 08/26/21 08/26/21 Range/Units 11:57 17:14 19:59 BUN (9.0-27.0) mg/dL Creatinine (0.6-1.5) mg/dL Est GFR (CKD-EPI)AfAm (60.0-200.0) Est GFR (CKD-EPI)NonAf (60.0-200.0) BUN/Creatinine Ratio (12.00-20.00) Ratio Glucose (70-110) mg/dL POC Glucose (mg/dL) 148 H 208 H 295 H (75-99) mg/dL 08/27/21 08/27/21 Range/Units 05:49 07:06 BUN 85.0 H (9.0-27.0) mg/dL Creatinine 2.4 H (0.6-1.5) mg/dL Est GFR (CKD-EPI)AfAm 23.1 L (60.0-200.0) Est GFR (CKD-EPI)NonAf 19.9 L (60.0-200.0) BUN/Creatinine Ratio 35.42 H (12.00-20.00) Ratio Glucose 132 H (70-110) mg/dL POC Glucose (mg/dL) 133 H (75-99) mg/dL Assessment and Plan Plan: Assessment: 1. Acute kidney injury secondary to ATN secondary to hypotension. Status post Levophed. Creatinine peaked at 5.0 at this admission - 2.4 today. Nonoliguric. 2. Chronic kidney disease stage IIIB with baseline creatinine near 1.6 secondary to diabetic kidney disease. 3. Volume overload. 4. Diabetes mellitus. 5. Metabolic acidosis secondary to acute kidney injury, metformin and lactic acidosis. Resolved. 6. Anemia of chronic kidney disease. Iron deficiency noted - s/p IV iron. Stool for occult blood positive. 7. Hypokalemia from diuresis. Plan: Maintain oral Lasix 40 mg once daily. Avoid nephrotoxins. Continue to monitor renal function and urine output. Replace potassium. Add Aranesp.
[2021-08-27] MEDS ORDERED: DARBEPOETIN ALFA 40 MCG/0.4 ML SYRINGE SQ SCH (11:00)
[2021-08-27 12:35] LABS: Glucose,Whole Blood 136 mg/dL (75-99)
--- NOTE | 2021-08-27 12:54 | XR ---
EXAMINATION TYPE: XR chest 2V DATE OF EXAM: 08/27/2021 COMPARISON: 08/19/2021 HISTORY: Shortness of breath TECHNIQUE: Frontal and lateral views of the chest are obtained. FINDINGS: Scattered senescent parenchymal changes noted. Hyperinflation compatible with COPD. There is persistent cardiomegaly with pulmonary venous congestion scattered infiltrates as well as sm all effusions compatible with congestive failure. Mediastinal structures are stable and grossly unrem arkable. No evidence for hilar prominence. Degenerative changes dorsal spine. IMPRESSION: 1. Stable features of congestive failure.
--- NOTE | 2021-08-27 14:57 | P.PN ---
Subjective Progress Note Date: 08/27/21 HISTORY OF PRESENT ILLNESS This 70-year-old pleasant female, patient of Dr. Crystal, and Dr. Mari, with known history of diabetes mellitus, previous TIA hypertension, hyperlipidemia, morbid obesity, who comes in the emergency room secondary to generalized weakness, patient denies any nausea vomiting diarrhea, no medication changes from her PCP or her multiple coil winder, for which hasn't seen over the past 2 years. Patient comes in to emergency room with severe metabolic acidosis, dehydration, and severe bradycardia, with heart rates in the 40s and blood pressure systolic in the 80s. She was critical when she was seen in the emergency room EMS has given her atropine, with improvement of the heart rate. Patient is in A. fib, with slow ventricular heart rate. 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 Bilateral leg. Patient denies any chest pain pleurisy, leg pain, no nausea vomiting diarrhea, no melena and hematochezia , no syncope no seizures. covid vaccination status unclear, patient was not on any NSAIDs, or steroids prior to ER visit Emergency room, she was in A. fib with slowed ventricular hydrated, in the 40s, CO2 of 9, potassium of 6.2, sodium 128, creatinine 4.93, BUN of 134. Magnesium 1.7 TSH 3.7 albumin 2.2 wbc count 10.6 hemoglobin 8.7 platelet count 465. Urinalysis urine WBC of 7 patient come in with lactic acidosis, coronavirus PCR negative. Patient is transferred to ICU, with multiple consultants, cardiology, Dr. voss from critical care medicine, and Dr. Dave from nephrology. 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 Bowels shows moderate distended contrast-filled stomach, suggestion of mild to moderate wall thickening throughout small bowel loops, 12/3: Patient is seen in the intensive care unit. She is currently on epinephrine and vasopressin. Patient is awake and alert. She is complaining of diarrhea for C. difficile toxin and stool for occult blood will be obtained. She did have a drop in her hemoglobin which may be dilutional. She denies having any abdominal pain at this time. Shortness of breath is improved from yesterday. Patient has improved urine output at 20-40 ML's per hour with urine in the bag a brown color and fresh urine is clear luciano. She has been afebrile, heart rate 110, blood pressure 123/50, pulse ox 95% on 2 L nasal cannula. air sampling and monitoring is atrial fibrillation. Cardiology is following with recommendations to taper pressors. Patient has decided to opt out of using oral anticoagulation. Patient is also followed by bowling ball finisher and nephrology. Echocardiogram reveals EF of 55-60%, grade 2 diastolic dysfunction, mild mitral regurgitation, moderate to severe tricuspid regurgitation severe pulmonary hypertension. Repeat blood work reveals sodium 128, potassium 4.7, chloride 99, CO2 20, BUN 120, creatinine 4.6. Blood sugars are running between 140 and 195. Total bilirubin 0.1, AST 53. WBC 31, hemoglobin 7.8, platelet count 523. Blood culture no growth at 24 hours. IV fluids are D5 W with. Bicarb. KUB reveals overall nonobstructive bowel gas pattern. 08/22: She remains in intensive care unit on norepinephrine. air sampling and monitoring is atrial fibrillation controlled rate. She is currently also on bicarb drip. She has been afebrile, heart rate in the 80s, blood pressure 123/107, pulse ox 97% on 2 L nasal cannula. Repeat blood work reveals BUN of 117 and creatinine 4.24. Hemoglobin 8.2, WBC 18.8. Blood sugars are running between 133 and 197. 08/23: Patient remains in the intensive care unit but has been cleared by bowling ball finisher for MedSurg with telemetry. Dr. Dave his ordered Lasix 60 mg IV this morning. IV fluids at KVO. Patient is eating and drinking. She does have some diarrhea and C. diff toxin will be checked as well as frequent repeat Hemoccult. Patient has been afebrile, hemodynamically stable, not requiring vasopressors. Pulse ox 93% on 2 L. Repeat blood work reveals WBC 16.9, hemoglobin 8.5. BUN 106 and creatinine 3.86. Blood sugars are high today running in the 200s up to 302. Patient will be started on Levemir 15 units twice daily, and continue NovoLog scale. PT and OT consults added. Antibiotics have been changed to Keflex. 08/24: [facility] She's been afebrile, heart rate 90, blood pressure 123/73 and pulse ox 94% on 2 L nasal cannula. Stool for C. difficile toxin was negative yesterday. Blood sugars this morning at 131 last evening, patient started higher dose of Levemir. Last evening blood sugars were in the 300s. Blood culture no growth after 96 hours. Patient has been seen by nephrology and Ferrlecit ordered 3 days. She continues to have edema, no Lasix ordered for today. The blood work is ordered for tomorrow. Aguilera catheter is in place. Cardiology is recommending continuing holing Cardizem, atenolol, losartan and hydralazine. Cardiology is following on an as-needed basis with plan for follow-up with Dr. Mari as an outpatient. 08/25 patient seen on MedSurg floor. Denies any shortness of breath and chest pain. Patient denies any change in bowel habits. Vitals were reviewed patient is afebrile pulse 101 respiratory rate 16 blood pressure 164/76 oxygen saturation 91% on room air. Labs are reviewed patient's creatinine has improved to 3.1 with improvement of BUN to 89. Magnesium 1.9 calcium 8.6. Discontinue Aguilera catheter today. Patient received 1 dose of Lasix. Second dose of IV iron today. Continue to hold Cardizem, atenolol, losartan. Hydralazine can be restarted 08/26: Patient has been afebrile, heart rate 76, blood pressure 134/94, pulse ox 90% on 2 L nasal cannula. WBC 11.9, hemoglobin 8.3, platelet count 374. Potassium 3.4, BUN 96 creatinine 2.64. Blood sugars this morning 125 and 285 and 264 during the night. Patient is receiving Ferrlecit for 3 days. He received 1 dose of IV Lasix yesterday. She has been seen by PT and OT will be with recommendations for home with home care. manager wound care has made arrangements for home care. 08/27: Patient completed Ferrlecit infusion yesterday. Nephrology was started the patient on Lasix 40 mg oral daily. She has had good urine output and good appetite and oral intake. Repeat blood work reveals BUN of 85 and creatinine 2.4. Blood sugars are running between 133 and 295. Electrolytes are normal. Patient has been afebrile, heart rate 87, blood pressure 128/83, pulse ox 97% on 2 L nasal cannula. Patient noticed to have some crackles and chest x-ray ordered. Nephrology is continuing [facility]. Anticipate discharge home tomorrow. Patient is very anxious to be discharged. REVIEW OF SYSTEMS Constitutional: No fever, no chills, no night sweats. No weight change. Reports weakness, reports fatigue reports lethargy. No daytime sleepiness. EENT: No headache. No blurred vision or double vision, no loss of vision. No nasal drainage or congestion. No epistaxis. No sore throat. Lungs: No shortness of breath, cough, no sputum production. No wheezing. Cardiovascular: No chest pain, chronic lower extremity edema. No palpitations. No paroxysmal nocturnal dyspnea. No orthopnea. No lightheadedness or dizziness . No syncopal episodes. Abdominal: No abdominal pain. No nausea, vomiting. No diarrhea. No const ipation. No bloody or tarry stools. Reports loss of appetite slightly improved. Genitourinary: No dysuria, increased frequency, urgency. No urinary retention. Musculoskeletal: No myalgias. Reports muscle weakness, no gait dysfunction, no frequent falls. No back pain. No neck pain. Integumentary: No wounds, no lesions. No rash or pruritus. No unusual bruising. No change in hair or nails. Neurologic: No aphasia. No facial droop. No change in mentation. No head injury. No headache. No paralysis. No paresthesia. Psychiatric: No depression. No anxiety. No mood swings. Endocrine: No abnormal blood sugars. No weight change. No excessive sweating or thirst. No cold intolerance. PHYSICAL EXAMINATION Gen: This is a 70-year-old morbidly obese female. She is sitting in on the [facility] floor and appears to be comfortable. HEENT: Head is atraumatic, normocephalic. Pupils equal, round. Sclerae is anicteric. NECK: Supple. No JVD. No lymphadenopathy. No thyromegaly. LUNGS: Clear to auscultation. No wheezes or rhonchi. No intercostal retractions. HEART: Irregular rate and rhythm. No murmur. ABDOMEN: Soft. Bowel sounds are present. No masses. No tenderness. EXTREMITIES: Bilateral lower extremity lymphedema with edema and generalized edema to the upper extremities as well. No calf tenderness. Dorsalis pedis palpable bilaterally. NEUROLOGICAL: Patient is awake, alert and oriented x3. Cranial nerves 2 through 12 are grossly intact. ASSESSMENT AND PLAN 1. Acute kidney failure, secondary to ATN with oliguria, severe uremia. Metformin, losartan, atenolol, Cardura on hold due to either acute kidney injury bradycardia or hypotension. 2. Severe bradycardia secondary to hyperkalemia and AV blockers, with cardiogenic shock. Patient is off vasopressors. Cardiology is following on an as needed basis. 3. Sepsis, with septic shock suspected, primary source unknown, however patient comes in with severe hyperbilirubinemia, and bradycardia requiring fluid resuscitation. Empiric treatment with Keflex. Vancomycin discontinued. Patient is off norepinephrine. 4. Severe metabolic acidosis, with acute kidney failure metformin is discontinued, patient is off bicarb drip, 5. Diabetes mellitus type 2 was on 70/30 as an outpatient. Patient is off insulin drip. Continue Levemir 18 units twice daily, NovoLog scale. 6. Severe pulmonary hypertension with moderate to severe tricuspid regurgitati on multiple coil winder following, need to have sleep apnea test as an outpatient 7. History of CVA unknown deficits at this time 8. Hyperkalemia, acute, requires fluid resuscitation, 9. Bilateral leg cellulitis, unable to perform any cultures at this time Murtaza, local wound care, on IV Zosyn 10. Trivial pericardial effusion 11. 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 Small to moderate left greater than right pleural effusion, with atelectas is 13. Anasarca, with protein calorie malnutrition, protein supplementation 14. Hypertension. Patient will be resumed on hydralazine 50 mg 3 times daily. Continue to hold losartan, Catapres, Lasix, Cardura. 15. DVT prophylaxis. Heparin subcu. 16. GI prophylaxis. Protonix. 17. COVID-19 testing negative. Patient has been hospitalized during a pandemic. CODE STATUS: Full code DISCHARGE PLAN Home with [facility] Tuesday. Impression and plan of care have been directed as dictated by the signing physician. Lucia Oliver nurse practitioner acting as scribe for signing physician. Objective - Vital Signs Vital signs: Vital Signs Temp 97.5 F L 08/27/21 04:44 Pulse 98 08/27/21 08:56 Resp 18 08/27/21 04:44 BP 150/74 08/27/21 08:56 Pulse Ox 97 08/27/21 04:44 Intake & Output 08/26/21 08/27/21 08/27/21 18:59 06:59 18:59 Other: Voiding Method Toilet Toilet # Voids 4 # Bowel Movements 1 ABP, PAP, CO, CI - Last Documented Arterial Blood Pressure 135/58 - Labs CBC & Chem 7: 08/26/21 05:30 08/27/21 05:49 Labs: Abnormal Lab Results - Last 24 Hours (Table) 08/26/21 08/26/21 08/26/21 Range/Units 11:57 17:14 19:59 BUN (9.0-27.0) mg/dL Creatinine (0.6-1.5) mg/dL Est GFR (CKD-EPI)AfAm (60.0-200.0) Est GFR (CKD-EPI)NonAf (60.0-200.0) BUN/Creatinine Ratio (12.00-20.00) Ratio Glucose (70-110) mg/dL POC Glucose (mg/dL) 148 H 208 H 295 H (75-99) mg/dL 08/27/21 08/27/21 Range/Units 05:49 07:06 BUN 85.0 H (9.0-27.0) mg/dL Creatinine 2.4 H (0.6-1.5) mg/dL Est GFR (CKD-EPI)AfAm 23.1 L (60.0-200.0) Est GFR (CKD-EPI)NonAf 19.9 L (60.0-200.0) BUN/Creatinine Ratio 35.42 H (12.00-20.00) Ratio Glucose 132 H (70-110) mg/dL POC Glucose (mg/dL) 133 H (75-99) mg/dL
--- NOTE | 2021-08-27 15:46 | CDI ---
Documentation Clarification Form Date: 08/27/2021 03:13:12 PM From: Lalita Elizalde RN, CCDS Admit Date: 08/19/2021 07:40:00 PM Patient Name: Ashley Egan Visit Number: [id number] Discharge Date: ATTENTION: The Clinical Documentation Specialists (CDI) and [facility] Coding Staff appreciate your assistance in clarifying documentation. Please respond to the clarification below the line at the bottom and electronically sign. The CDI & [facility] Coding staff will review the response and follow-up if needed. Please note: Queries are made part of the Legal Health Record. If you have any questions, please contact the author of this message via ITS. Dr. Irvin Zhang Protein calorie malnutrition is documented in the H/P and subsequent progress notes]. Additional clarification regarding the severity of malnutrition is requested. History/Risk Factors: CVA, TIA, Diabetes Mellitus Hypertension, Morbid obesity Clinical Indicators: 70 year-old female present to ED secondary to generalized weakness, severe bradycardia. She has chronic changes with several stages of carbuncle in the legs bilateral, always has chronic edema bilateral legs. Anasarca, with protein calorie malnutrition. Current BMI: 46.2 08/19 Labs: HGB 8.7, HCT 29.4, BUIN 134, Creatinine 4.93, Total Protein 4.4 Albumin 2.2, CA+ 7.8 Iron 16 Insufficient energy intake: 75-100 % Weight Loss: none Fluid accumulation: bilateral legs, RD Consult Assessment: (08/24) overweight, increased nutrient needs Protein, Vit C, Zinc Treatment: Dietary Consult: Yes Dexter PO BID Controlled blood sugars Monitor PO, Monitor supplement intake Consistent carb diet Please clarify the type of malnutrition, if known: [ X ] Mild Protein-Calorie Malnutrition [ ] Moderate Protein-Calorie Malnutrition [ ] Other condition, please specify [ ] Unable to Determine (Template Last Revised: November 2020) MTDD
--- NOTE | 2021-08-27 16:18 | CDI ---
Documentation Clarification Form Date: 08/27/2021 03:49:02 PM From: Lalita Elizalde RN, CCDS Admit Date: 08/19/2021 07:40:00 PM Patient Name: Ashley Egan Visit Number: [id number] Discharge Date: ATTENTION: The Clinical Documentation Specialists (CDI) and [facility] Coding Staff appreciate your assistance in clarifying documentation. Please respond to the clarification below the line at the bottom and electronically sign. The CDI & [facility] Coding staff will review the response and follow-up if needed. Please note: Queries are made part of the Legal Health Record. If you have any questions, please contact the author of this message via ITS. Dr. Irvin Zhang A stage II pressure ulcer on coccyx and left and right buttock is documented in the nursing wound assessment on 08/19/21 and Dietary consult on . Based on this information and the findings below, is there an additional diagnosis that is clinically appropriate for this patient? History/Risk Factors: Clinical Indicators: 70 year-old female present to ED secondary to generalized weakness, severe bradycardia. She has chronic changes with several stages of carbuncle in the legs bilateral, always has chronic edema bilateral legs. Anasarca, with protein calorie malnutrition. 08/19 Nursing wound assessment: Location: Coccyx: Left buttock, right buttock pressure ulcer stage II Wound description: No drainage Treatment: Dexter PO BID Monitor supplement intake Controlled blood sugars Monitor skin integrity per protocol Zinc paste to coccyx, right and left buttock Is there an additional diagnosis that is clinically appropriate for this patient? [ X ] Coccyx, Left buttock, right buttock pressure ulcer stage II, POA [ ] Coccyx: Left buttock, right buttock pressure ulcer stage II, POA [ ] Other condition, please specify [ ] Unable to determine Clinical Definitions: Stage 1 Pressure Ulcer: intact skin, non-blanching redness of local area Stage 2 Pressure Ulcer: Partial thickness, loss of dermis, pink wound bed Stage 3 Pressure Ulcer: Full thickness tissue loss Stage 4 Pressure Ulcer: Full thickness tissue loss with exposed bone, tendon, or muscle. Unstageable pressure ulcer: Full thickness tissue loss in which the base of the ulcer is covered by slough (yellow, fong, brewer, green or brown) and/or eschar (fong, brown or black) in the wound bed. (Template Last Revised: November 2020) MTDD
[2021-08-27 17:40] LABS: Glucose,Whole Blood 172 mg/dL (75-99)
[2021-08-27 20:40] LABS: Glucose,Whole Blood 314 mg/dL (75-99)
[2021-08-27] MEDS: ATORVASTATIN 10 MG TAB PO SCH (21:27)
[2021-08-28 07:39] LABS: Glucose,Whole Blood 105 mg/dL (75-99)
[2021-08-28] MEDS: hydrALAZINE HCL 50 MG TAB PO SCH ×3 (07:45→17:27)
[2021-08-28] MEDS: CEPHALEXIN 500 MG CAP PO SCH (07:45)
[2021-08-28] MEDS: INSULIN ASPART (NovoLOG) 100 UNIT/ML VIAL SQ SCH ×3 (07:45→17:29)
[2021-08-28] MEDS: PANTOPRAZOLE 40 MG TABLET PO SCH (07:45)
[2021-08-28] MEDS: FUROSEMIDE 40 MG TAB PO SCH (07:45)
[2021-08-28] MEDS: INSULIN DETEMIR (LEVEMIR) 100 UNIT/ML SYR SQ SCH (07:46)
[2021-08-28] MEDS: HEPARIN SODIUM,PORCINE/PF 5,000 UNIT/0.5 ML SYRINGE SQ SCH ×2 (07:46→17:28)
--- NOTE | 2021-08-28 10:18 | P.PN ---
Subjective Patient is seen in follow-up for acute kidney injury on chronic kidney disease. Renal function improving. Aguilera catheter discontinued. Good urine output. Oral intake fair. No vomiting or diarrhea. No changes overnight. No active complaints. Vital signs are stable. General: Awake and alert. HEENT: Head exam is unremarkable. LUNGS: Breath sounds decreased. HEART: Rate and Rhythm are regular. ABDOMEN: Soft, obese. EXTREMITITES: Chronic changes noted. 1+ edema. Objective - Vital Signs Vital signs: Vital Signs Temp 97.3 F L 08/28/21 04:37 Pulse 99 08/28/21 07:51 Resp 18 08/28/21 04:37 BP 156/81 08/28/21 07:51 Pulse Ox 96 08/28/21 04:37 Intake & Output 08/27/21 08/28/21 08/28/21 18:59 06:59 18:59 Intake Total 960 Balance 960 Intake: Oral 960 Other: Voiding Method Toilet Toilet # Voids 2 3 ABP, PAP, CO, CI - Last Documented Arterial Blood Pressure 135/58 - Labs CBC & Chem 7: 08/26/21 05:30 08/27/21 05:49 Labs: Abnormal Lab Results - Last 24 Hours (Table) 08/27/21 08/27/21 08/27/21 Range/Units 12:04 17:36 20:38 POC Glucose (mg/dL) 136 H 172 H 314 H (75-99) mg/dL 08/28/21 Range/Units 07:33 POC Glucose (mg/dL) 105 H (75-99) mg/dL Assessment and Plan Plan: Assessment: 1. Acute kidney injury secondary to ATN secondary to hypotension. Status post Levophed. Creatinine peaked at 5.0 at this admission - 2.4 yesterday. Nonoliguric. 2. Chronic kidney disease stage IIIB with baseline creatinine near 1.6 secondary to diabetic kidney disease. 3. Volume overload. Improving with diuresis. 4. Diabetes mellitus. 5. Metabolic acidosis secondary to acute kidney injury, metformin and lactic acidosis. Resolved. 6. Anemia of chronic kidney disease. Iron deficiency noted - s/p IV iron. Stool for occult blood positive. On Aranesp. 7. Hypokalemia from diuresis. Replace. Plan: Maintain oral Lasix 40 mg once daily. Avoid nephrotoxins. Continue to monitor renal function and urine output. Morning labs pending.
[2021-08-28 10:25] LABS: African American GFR (CKD) 23.6 (60.0-200.0); Anion Gap 14.9 mmol/L (10.00-18.00); BUN/Creat Ratio 34.36 Ratio (12.00-20.00); Blood Urea Nitrogen 81.1 mg/dL (9.0-27.0); Calcium 9.4 mg/dL (8.7-10.3); Carbon Dioxide 24.3 mmol/L (20.0-27.5); Magnesium 1.8 mg/dL (1.5-2.4); Non-African American GFR(CKD) 20.3 (60.0-200.0); Potassium 3.9 mmol/L (3.5-5.5)
--- NOTE | 2021-08-28 11:48 | P.DS ---
Providers Date of admission: 08/19/21 19:40 Expected date of discharge: 08/28/21 Attending physician: Meghana Ambrocio Consults: 08/19/21 19:38 Consult Physician Routine Consulting Provider: Charles Mari Consult Reason/Comments: bradycardia Do you want consulting provider notified?: Already Contacted Consult Physician Routine Consulting Provider: Noemy Dave Consult Reason/Comments: nishant Do you want consulting provider notified?: Yes Consult Physician Stat Consulting Provider: Tad Jade Consult Reason/Comments: icu patient Do you want consulting provider notified?: Already Contacted Primary care physician: Luis Armando [facility] Course: HISTORY OF PRESENT ILLNESS This 70-year-old pleasant female, patient of Dr. Crystal, and Dr. Mari, with known history of diabetes mellitus, previous TIA hypertension, hyperlipidemia, morbid obesity, who comes in the emergency room secondary to generalized weakness, patient denies any nausea vomiting diarrhea, no medication changes from her PCP or her dress draper, for which hasn't seen over the past 2 years. Patient comes in to emergency room with severe metabolic acidosis, dehydration, and severe bradycardia, with heart rates in the 40s and blood pressure systolic in the 80s. She was critical when she was seen in the emergency room EMS has given her atropine, with improvement of the heart rate. Patient is in A. fib, with slow ventricular heart rate. 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 Bilateral leg. Patient denies any chest pain pleurisy, leg pain, no nausea vomiting diarrhea, no melena and hematochezia , no syncope no seizures. covid vaccination status unclear, patient was not on any NSAIDs, or steroids prior to ER visit Emergency room, she was in A. fib with slowed ventricular hydrated, in the 40s, CO2 of 9, potassium of 6.2, sodium 128, creatinine 4.93, BUN of 134. Magnesium 1.7 TSH 3.7 albumin 2.2 wbc count 10.6 hemoglobin 8.7 platelet count 465. Urinalysis urine WBC of 7 patient come in with lactic acidosis, coronavirus PCR negative. Patient is transferred to ICU, with multiple consultants, cardiology, Dr. voss from critical care medicine, and Dr. Dave from nephrology. 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 Bowels shows moderate distended contrast-filled stomach, suggestion of mild to moderate wall thickening throughout small bowel loops, 08/21: Patient is seen in the intensive care unit. She is currently on epinephrine and vasopressin. Patient is awake and alert. She is complaining of diarrhea for C. difficile toxin and stool for occult blood will be obtained. She did have a drop in her hemoglobin which may be dilutional. She denies having any abdominal pain at this time. Shortness of breath is improved from yesterday. Patient has improved urine output at 20-40 ML's per hour with urine in the bag a brown color and fresh urine is clear luciano. She has been afebrile, heart rate 110, blood pressure 123/50, pulse ox 95% on 2 L nasal cannula. civil cad designer is atrial fibrillation. Cardiology is following with recommendations to taper pressors. Patient has decided to opt out of using oral anticoagulation. Patient is also followed by supervisor pastry and nephrology. Echocardiogram reveals EF of 55-60%, grade 2 diastolic dysfunction, mild mitral regurgitation, moderate to severe tricuspid regurgitation severe pulmonary hypertension. Repeat blood work reveals sodium 128, potassium 4.7, chloride 99, CO2 20, BUN 120, creatinine 4.6. Blood sugars are running between 140 and 195. Total bilirubin 0.1, AST 53. WBC 31, hemoglobin 7.8, platelet count 523. Blood culture no growth at 24 hours. IV fluids are D5 W with. Bicarb. KUB reveals overall nonobstructive bowel gas pattern. 08/22: She remains in intensive care unit on norepinephrine. civil cad designer is atrial fibrillation controlled rate. She is currently also on bicarb drip. She has been afebrile, heart rate in the 80s, blood pressure 123/107, pulse ox 97% on 2 L nasal cannula. Repeat blood work reveals BUN of 117 and creatinine 4.24. Hemoglobin 8.2, WBC 18.8. Blood sugars are running between 133 and 197. 08/23: Patient remains in the intensive care unit but has been cleared by supervisor pastry for [facility] with telemetry. Dr. Tenzin dang ordered Lasix 60 mg IV this morning. IV fluids at KVO. Patient is eating and drinking. She does have some diarrhea and C. diff toxin will be checked as well as frequent repeat Hemoccult. Patient has been afebrile, hemodynamically stable, not requiring vasopressors. Pulse ox 93% on 2 L. Repeat blood work reveals WBC 16.9, hemoglobin 8.5. BUN 106 and creatinine 3.86. Blood sugars are high today running in the 200s up to 302. Patient will be started on Levemir 15 units twice daily, and continue NovoLog scale. PT and OT consults added. Antibiotics have been changed to Keflex. 08/24: Patient is seen today on the [facility] floor. She's been afebrile, heart rate 90, blood pressure 123/73 and pulse ox 94% on 2 L nasal cannula. Stool for C. difficile toxin was negative yesterday. Blood sugars this morning at 131 last evening, patient started higher dose of Levemir. Last evening blood sugars were in the 300s. Blood culture no growth after 96 hours. Patient has been seen by nephrology and Ferrlecit ordered 3 days. She continues to have edema, no Lasix ordered for today. The blood work is ordered for tomorrow. Aguilera catheter is in place. Cardiology is recommending continuing holing Cardizem, atenolol, losartan and hydralazine. Cardiology is following on an as-needed basis with plan for follow-up with Dr. Mari as an outpatient. 08/25 patient seen on [facility] floor. Denies any shortness of breath and chest pain. Patient denies any change in bowel habits. Vitals were reviewed patient is afebrile pulse 101 respiratory rate 16 blood pressure 164/76 oxygen saturation 91% on room air. Labs are reviewed patient's creatinine has improved to 3.1 with improvement of BUN to 89. Magnesium 1.9 calcium 8.6. Discontinue Aguilera catheter today. Patient received 1 dose of Lasix. Second dose of IV iron today. Continue to hold Cardizem, atenolol, losartan. Hydralazine can be restarted 08/26: Patient has been afebrile, heart rate 76, blood pressure 134/94, pulse ox 90% on 2 L nasal cannula. WBC 11.9, hemoglobin 8.3, platelet count 374. Potassium 3.4, BUN 96 creatinine 2.64. Blood sugars this morning 125 and 285 and 264 during the night. Patient is receiving Ferrlecit for 3 days. He received 1 dose of IV Lasix yesterday. She has been seen by PT and OT will be with recommendations for home with home care. garde manager has made arrang ements for home care. 08/27: Patient completed Ferrlecit infusion yesterday. Nephrology was started the patient on Lasix 40 mg oral daily. She has had good urine output and good appetite and oral intake. Repeat blood work reveals BUN of 85 and creatinine 2.4. Blood sugars are running between 133 and 295. Electrolytes are normal. Patient has been afebrile, heart rate 87, blood pressure 128/83, pulse ox 97% on 2 L nasal cannula. Patient noticed to have some crackles and chest x-ray ordered. Nephrology is continuing Aranesp. Anticipate discharge home tomorrow. Patient is very anxious to be discharged. 08/28: Patient has been seen and followed closely by nephrology. Patient has no new complaints today. She said had good urine output and Aguilera has been discontinued. Nephrology recommends continuing oral Lasix 40 mg daily. Repeat blood work reveals BUN 81 and creatinine 2.4. Sodium 147. Blood sugars this morning 105, last evening she had one reading of 314. Patient has been afebrile, heart rate 70, blood pressure 124/54, pulse ox 96% on 2 L nasal cannula. Patient will be discharged home today in stable condition. DISCHARGE DIAGNOSES 1. Acute kidney failure, secondary to ATN with oliguria, severe uremia. 2. Severe bradycardia secondary to hyperkalemia and AV block, with cardiogenic shock. 3. Sepsis, with septic shock suspected, primary source unknown, however patient comes in with severe hyperbilirubinemia, and bradycardia requiring fluid resuscitation. 4. Severe metabolic acidosis, with acute kidney failure. 5. Diabetes mellitus type 2. 6. Severe pulmonary hypertension with moderate to severe tricuspid regurgitation. 7. History of CVA unknown deficits at this time. 8. Hyperkalemia, acute. 9. Bilateral leg cellulitis. 10. Trivial pericardial effusion. 11. Adrenal lipid rich adenoma calcified for bladder stone incidental finding CAT scan. 12. Small to moderate left greater than right pleural effusion with atelect asis. 13. Anasarca with moderate protein calorie malnutrition. 14. Hypertension. 15. COVID-19 testing negative. Patient has been hospitalized during a pandemic. 16. Stage II coccyx, left buttocks right buttocks pressure ulcers, POA 17. Moderate protein calorie malnutrition. DISCHARGE PLAN Home with [facility]. Greater than 35 minutes was utilized and coordinating patient's discharge. Impression and plan of care have been directed as dictated by the signing physician. Lucia Oliver nurse practitioner acting as scribe for signing physician. Patient Condition at Discharge: Good Plan - Discharge Summary Discharge Rx Participant: Yes New Discharge Prescriptions: New Furosemide [Lasix] 40 mg PO DAILY #30 tab SILVER sulfADIAZINE CREAM [Silvadene Cream] 1 applic TOPICAL DAILY #50 gram Continue hydrALAZINE HCL 50 mg PO TID-W/MEALS Clopidogrel [Plavix] 75 mg PO DAILY Atorvastatin Calcium [Lipitor] 10 mg PO HS Ergocalciferol [Vitamin D2 (DRISDOL)] 50,000 unit PO Q7D Insulin Aspart Protam & Aspart [NovoLOG MIX 70-30 Flexpen] 30 unit SQ HS #0 Travoprost [Travoprost 0.004%] 1 drop BOTH EYES HS Discontinued cloNIDine HCL [Catapres] 0.2 mg PO QID PRN PRN Reason: HIGH BLOOD PRESSURE Furosemide [Lasix] 20 mg PO TID Diltiazem Cd [Cardizem CD] 300 mg PO DAILY Atenolol [Tenormin] 50 mg PO BID Insulin Aspart [NovoLOG Flexpen] 22 units SQ TID-W/MEALS metFORMIN HCL ER [Glucophage XR] 2,000 mg PO DAILY Doxazosin [Cardura] 4 mg PO HS Losartan Potassium [Cozaar] 100 mg PO DAILY Discharge Medication List Atorvastatin Calcium [Lipitor] 10 mg PO HS 04/10/14 [History] Clopidogrel [Plavix] 75 mg PO DAILY 04/10/14 [History] hydrALAZINE HCL 50 mg PO TID-W/MEALS 04/10/14 [History] Ergocalciferol [Vitamin D2 (DRISDOL)] 50,000 unit PO Q7D 06/06/14 [History] Travoprost [Travoprost 0.004%] 1 drop BOTH EYES HS 08/19/21 [History] Furosemide [Lasix] 40 mg PO DAILY #30 tab 08/28/21 [Rx] Insulin Aspart Protam & Aspart [NovoLOG MIX 70-30 Flexpen] 30 unit SQ HS #0 08/28/21 [Rx] SILVER sulfADIAZINE CREAM [Silvadene Cream] 1 applic TOPICAL DAILY #50 gram 08/28/21 [Rx] Follow up Appointment(s)/Referral(s): Marilou Gallego [NON-STAFF] - 1 Week Luis Armando Crystal DO [Primary Care Provider] - 1 Week Chemo Bermudez DO [STAFF PHYSICIAN] - 1 Week Charles Mari MD [STAFF PHYSICIAN] - 2 Weeks Discharge Disposition: HOME WITH HOME HEALTH SERVICES
[2021-08-28 12:44] LABS: Glucose,Whole Blood 82 mg/dL (75-99)
[2021-08-28] MEDS: SODIUM CHLORIDE 0.9% 500 ML 500 ML IV SCH (13:52)
[2021-08-28 14:00] VITALS: BP 136/81; RESP 20; TEMP 97.4
== END 2021-08-28 17:55 | disposition home health service (06) | DRG 871 ==
LOC: EC 15:15 → 2SICU 19:40 → 5NMEDONC 08-23 12:08
PROVIDERS: ADMIT Family Medicine; ATTEND Family Medicine
PROC: 02H633Z Insertion of Infusion Device into Right Atrium, Percutaneous Approach (ICD-10-PCS; principal; 2021-08-19)
PROC: 3E033XZ Introduction of Vasopressor into Peripheral Vein, Percutaneous Approach (ICD-10-PCS; principal; 2021-08-19)
PROC: 4A133J1 Monitoring of Arterial Pulse, Peripheral, Percutaneous Approach (ICD-10-PCS; 2021-08-20)
PROC: 4A133B1 Monitoring of Arterial Pressure, Peripheral, Percutaneous Approach (ICD-10-PCS; 2021-08-20)
PROC: 03HY32Z Insertion of Monitoring Device into Upper Artery, Percutaneous Approach (ICD-10-PCS; 2021-08-20)
DX: A41.9 Sepsis, unspecified organism (principal); N17.0 Acute kidney failure with tubular necrosis; R57.0 Cardiogenic shock; R65.21 Severe sepsis with septic shock; E87.2 Acidosis; I13.0 Hypertensive heart and chronic kidney disease with heart failure and stage 1 through stage 4 chronic kidney disease, or unspecified chronic kidney disease; E87.1 Hypo-osmolality and hyponatremia; I50.32 Chronic diastolic (congestive) heart failure; R18.8 Other ascites; R17 Unspecified jaundice; I48.21 Permanent atrial fibrillation; Z68.42 Body mass index [BMI] 45.0-49.9, adult; L03.116 Cellulitis of left lower limb; L03.115 Cellulitis of right lower limb; J98.11 Atelectasis; J96.11 Chronic respiratory failure with hypoxia; E44.0 Moderate protein-calorie malnutrition; L89.312 Pressure ulcer of right buttock, stage 2; L89.322 Pressure ulcer of left buttock, stage 2; I27.29 Other secondary pulmonary hypertension; L89.152 Pressure ulcer of sacral region, stage 2; D63.1 Anemia in chronic kidney disease; E11.22 Type 2 diabetes mellitus with diabetic chronic kidney disease; N18.32 Chronic kidney disease, stage 3b; Z79.4 Long term (current) use of insulin; E66.01 Morbid (severe) obesity due to excess calories; Z20.822 Contact with and (suspected) exposure to COVID-19; R00.1 Bradycardia, unspecified; E87.5 Hyperkalemia; E87.6 Hypokalemia; T50.1X5A Adverse effect of loop [high-ceiling] diuretics, initial encounter; E86.0 Dehydration; I44.30 Unspecified atrioventricular block; N21.0 Calculus in bladder; D35.02 Benign neoplasm of left adrenal gland; K82.8 Other specified diseases of gallbladder; E78.5 Hyperlipidemia, unspecified; I08.1 Rheumatic disorders of both mitral and tricuspid valves; L30.4 Erythema intertrigo; E61.1 Iron deficiency; L02.436 Carbuncle of left lower limb; L02.435 Carbuncle of right lower limb; E86.1 Hypovolemia; I89.0 Lymphedema, not elsewhere classified; H40.9 Unspecified glaucoma; Z79.02 Long term (current) use of antithrombotics/antiplatelets; Z79.84 Long term (current) use of oral hypoglycemic drugs; Z79.899 Other long term (current) drug therapy; Z86.73 Personal history of transient ischemic attack (TIA), and cerebral infarction without residual deficits; Z90.710 Acquired absence of both cervix and uterus; Z90.89 Acquired absence of other organs; Z87.42 Personal history of other diseases of the female genital tract; Z87.2 Personal history of diseases of the skin and subcutaneous tissue; Z98.890 Other specified postprocedural states; Z88.8 Allergy status to other drugs, medicaments and biological substances; Z83.3 Family history of diabetes mellitus; Z80.1 Family history of malignant neoplasm of trachea, bronchus and lung; Z82.3 Family history of stroke
CPT/HCPCS: 36415; 36556; 71045; 71046; 71250; 74018; 74176; 80048; 80053; 81001; 82140; 82272; 82330; 82533; 82550; 83036; 83540; 83550; 83605; 83735; 83880; 84132; 84145; 84443; 84484; 85025; 85610; 85730; 86850; 86900; 86901; 87040; 87324; 87635; 93005; 93306; 94640; 96361; 96365; 96366; 96368; 96375; 99291; 99292

== ENCOUNTER 2021-09-04 13:24 | Emergency (ER) | payer MEDICARE ==
[2021-09-04 13:45] LABS: Glucose,Whole Blood 23 mg/dL (75-99)
[2021-09-04] MEDS ORDERED: DEXTROSE 50% SYRINGE 50 ML IVP STA (13:49)
[2021-09-04 13:52] VITALS: RESP 18; TEMP 97.5
--- NOTE | 2021-09-04 14:00 | ED ---
General Adult HPI - General Chief complaint: Recheck/Abnormal Lab/Rx Stated complaint: Hypoglycemia Source: EMS Mode of arrival: EMS Limitations: altered mental status - History of Present Illness Initial comments: 8-year-old female with history of CVA, diabetes presents emergency Department with altered mental status. Most provide the history. States that the recall to the house for possible stroke. Son was concerned that the patient was becoming her right side and was acting confused. EMS checked her glucose and it was found to be 44. They attempted to give her an amp of dextrose however her line blew and were unable to get another one. Patient ate O 0. Normally a and O 4. EMS was unable to appreciate any unilateral weakness. Upon my evaluation IV had been established and the patient was given half amp of dextrose. She does have Quick resolution in her symptoms and is able to answer all questions appropriately. She was recently hospitalized. Normally takes 7030, 30 units in the morning and 20 units at night. States that she did take her insulin last night. She did eat breakfast this morning. Denies that she took any extra insulin. She has been discharged from the hospital for 7 days now reports that she's been doing fine at home. She is wearing home oxygen. Denies increased work of breathing. No chest pain. Denies having any unilateral numbness or weakness. No other alleviating, precipitating or alleviating factors. - Related Data Home Medications Medication Instructions Recorded Confirmed Atorvastatin Calcium [Lipitor] 10 mg PO DAILY 04/10/14 09/04/21 Clopidogrel [Plavix] 75 mg PO DAILY 04/10/14 09/04/21 hydrALAZINE HCL 50 mg PO TID-W/MEALS 04/10/14 09/04/21 Ergocalciferol [Vitamin D2 50,000 unit PO MO 06/06/14 09/04/21 (DRISDOL)] Travoprost [Travoprost 0.004%] 1 drop BOTH EYES HS 08/19/21 09/04/21 Atenolol [Tenormin] 25 mg PO HS 09/04/21 09/04/21 Insulin Aspart Protam & Aspart 20 unit SQ HS 09/04/21 09/04/21 [NovoLOG MIX 70-30 Flexpen] Insulin Aspart Protam & Aspart 30 unit SQ DAILY 09/04/21 09/04/21 [NovoLOG MIX 70-30 Flexpen] Previous Rx's Medication Instructions Recorded Furosemide [Lasix] 40 mg PO DAILY #30 tab 08/28/21 SILVER sulfADIAZINE CREAM 1 applic TOPICAL DAILY #50 gram 08/28/21 [Silvadene Cream] Allergies Allergy/AdvReac Type Severity Reaction Status Date / Time enalapril maleate Allergy Unknown Verified 09/04/21 13:55 [From Vasotec] enalaprilat dihydrate Allergy Unknown Verified 09/04/21 13:55 [From Vasotec] metoprolol tartrate Allergy Unknown Verified 09/04/21 13:55 [From Lopressor] Review of Systems ROS Statement: Those systems with pertinent positive or pertinent negative responses have been documented in the HPI. ROS Other: All systems not noted in ROS Statement are negative. Past Medical History Past Medical History: CVA/TIA, Diabetes Mellitus, Hyperlipidemia, Hypertension History of Any Multi-Drug Resistant Organisms: None Reported Past Surgical History: Breast Surgery, Hysterectomy, Tonsillectomy Additional Past Surgical History / Comment(s): Right breast biopsy for hyperdensity Past Anesthesia/Blood Transfusion Reactions: No Reported Reaction Past Psychological History: No Psychological Hx Reported Smoking Status: Never smoker Past Alcohol Use History: None Reported Past Drug Use History: None Reported - Past Family History Father Family Medical History: Cancer (lung) Mother Family Medical History: CVA/TIA, Diabetes Mellitus Additional Family Medical History / Comment(s): 2 brothers okay 2 sisters okay 3 sons okay one daughter okay. patient denies any CAD CHF cancer blood pressure PE DVT CVA asthma General Exam Limitations: altered mental status Course Vital Signs 09/04/21 09/04/21 09/04/21 13:25 14:41 16:03 Temperature 97.5 F L Pulse Rate 86 71 76 Respiratory 18 18 18 Rate Blood Pressure 112/75 122/76 116/71 O2 Sat by Pulse 96 98 98 Oximetry 09/04/21 17:37 Temperature Pulse Rate 82 Respiratory 18 Rate Blood Pressure 104/67 O2 Sat by Pulse 99 Oximetry EKG Findings - EKG Comments: EKG Findings:: EKG demonstrates A. fib with a rate of 62. QRS 82. QTC of 454. No acute ST segment elevations or depressions Medical Decision Making - Medical Decision Making On arrival the patient is placed into room 9. A thorough history and physical exam is performed. Patient is given half amp of dextrose with improvement in her mentation. He will answer questions appropriately. She does drink some juice. Laboratory sister conducted. Her glucose does fall 274. She does eat a sandwich and is watched in the emergency department for several hours. Lab studies are reviewed. Patient's labs appear consistent with previous. Troponin is elevated however patient does not have previous troponin draw and does have ingested heart failure. I did reevaluate the patient. She is requesting discharge home at this time she does feel much improved. Vitals have been stable as well as her blood glucose. Patient is informed if she has any new or worsening symptoms that she must return immediately to the emergency room for wh ich she did agree to. Patient discharged home in stable condition - Lab Data Result diagrams: 09/04/21 13:52 09/04/21 13:52 Lab Results 09/04/21 09/04/21 09/04/21 Range/Units 13:35 13:52 13:52 WBC 10.9 H (3.8-10.6) k/uL RBC 3.48 L (3.80-5.40) m/uL Hgb 8.9 L (11.4-16.0) gm/dL Hct 31.0 L (34.0-46.0) % MCV 88.9 (80.0-100.0) fL MCH 25.4 (25.0-35.0) pg MCHC 28.6 L (31.0-37.0) g/dL RDW 19.6 H (11.5-15.5) % Plt Count 490 H (150-450) k/uL MPV 8.1 Neutrophils % 84 % Lymphocytes % 7 % Monocytes % 4 % Eosinophils % 3 % Basophils % 1 % Neutrophils # 9.2 H (1.3-7.7) k/uL Lymphocytes # 0.7 L (1.0-4.8) k/uL Monocytes # 0.4 (0-1.0) k/uL Eosinophils # 0.3 (0-0.7) k/uL Basophils # 0.1 (0-0.2) k/uL Hypochromasia Marked Anisocytosis Slight PT 10.6 (9.0-12.0) sec INR 1.0 (<1.2) APTT 19.2 L (22.0-30.0) sec Sodium (137-145) mmol/L Potassium (3.5-5.1) mmol/L Chloride (98-107) mmol/L Carbon Dioxide (22-30) mmol/L Anion Gap mmol/L BUN (7-17) mg/dL Creatinine (0.52-1.04) mg/dL Est GFR (CKD-EPI)AfAm (>60 ml/min/1.73 sqM) Est GFR (CKD-EPI)NonAf (>60 ml/min/1.73 sqM) Glucose (74-99) mg/dL POC Glucose (mg/dL) 23 L (75-99) mg/dL POC Glu Ash Kier Boiler ID Anna Peacock Calcium (8.4-10.2) mg/dL Total Bilirubin (0.2-1.3) mg/dL AST (14-36) U/L ALT (4-34) U/L Alkaline Phosphatase (38-126) U/L Troponin I (0.000-0.034) ng/mL Total Protein (6.3-8.2) g/dL Albumin (3.5-5.0) g/dL 09/04/21 09/04/21 09/04/21 Range/Units 13:52 13:52 13:55 WBC (3.8-10.6) k/uL RBC (3.80-5.40) m/uL Hgb (11.4-16.0) gm/dL Hct (34.0-46.0) % MCV (80.0-100.0) fL MCH (25.0-35.0) pg MCHC (31.0-37.0) g/dL RDW (11.5-15.5) % Plt Count (150-450) k/uL MPV Neutrophils % % Lymphocytes % % Monocytes % % Eosinophils % % Basophils % % Neutrophils # (1.3-7.7) k/uL Lymphocytes # (1.0-4.8) k/uL Monocytes # (0-1.0) k/uL Eosinophils # (0-0.7) k/uL Basophils # (0-0.2) k/uL Hypochromasia Anisocytosis PT (9.0-12.0) sec INR (<1.2) APTT (22.0-30.0) sec Sodium 143 (137-145) mmol/L Potassium 4.0 (3.5-5.1) mmol/L Chloride 106 (98-107) mmol/L Carbon Dioxide 30 (22-30) mmol/L Anion Gap 7 mmol/L BUN 63 H (7-17) mg/dL Creatinine 1.78 H (0.52-1.04) mg/dL Est GFR (CKD-EPI)AfAm 33 (>60 ml/min/1.73 sqM) Est GFR (CKD-EPI)NonAf 29 (>60 ml/min/1.73 sqM) Glucose <20 L* (74-99) mg/dL POC Glucose (mg/dL) 105 H (75-99) mg/dL POC Glu Ash Kier Boiler ID Dann Abad Calcium 9.1 (8.4-10.2) mg/dL Total Bilirubin 0.2 (0.2-1.3) mg/dL AST 28 (14-36) U/L ALT 20 (4-34) U/L Alkaline Phosphatase 90 (38-126) U/L Troponin I 0.118 H* (0.000-0.034) ng/mL Total Protein 5.8 L (6.3-8.2) g/dL Albumin 2.7 L (3.5-5.0) g/dL 09/04/21 09/04/21 Range/Units 14:40 15:57 WBC (3.8-10.6) k/uL RBC (3.80-5.40) m/uL Hgb (11.4-16.0) gm/dL Hct (34.0-46.0) % MCV (80.0-100.0) fL MCH (25.0-35.0) pg MCHC (31.0-37.0) g/dL RDW (11.5-15.5) % Plt Count (150-450) k/uL MPV Neutrophils % % Lymphocytes % % Monocytes % % Eosinophils % % Basophils % % Neutrophils # (1.3-7.7) k/uL Lymphocytes # (1.0-4.8) k/uL Monocytes # (0-1.0) k/uL Eosinophils # (0-0.7) k/uL Basophils # (0-0.2) k/uL Hypochromasia Anisocytosis PT (9.0-12.0) sec INR (<1.2) APTT (22.0-30.0) sec Sodium (137-145) mmol/L Potassium (3.5-5.1) mmol/L Chloride (98-107) mmol/L Carbon Dioxide (22-30) mmol/L Anion Gap mmol/L BUN (7-17) mg/dL Creatinine (0.52-1.04) mg/dL Est GFR (CKD-EPI)AfAm (>60 ml/min/1.73 sqM) Est GFR (CKD-EPI)NonAf (>60 ml/min/1.73 sqM) Glucose (74-99) mg/dL POC Glucose (mg/dL) 74 L 130 H (75-99) mg/dL POC Glu Ash Kier Boiler Dann Buckner, Dann Calcium (8.4-10.2) mg/dL Total Bilirubin (0.2-1.3) mg/dL AST (14-36) U/L ALT (4-34) U/L Alkaline Phosphatase (38-126) U/L Troponin I (0.000-0.034) ng/mL Total Protein (6.3-8.2) g/dL Albumin (3.5-5.0) g/dL Disposition Clinical Impression: Hypoglycemia Disposition: HOME SELF-CARE Condition: Stable Instructions (If sedation given, give patient instructions): Hypoglycemia in a Person with Diabetes (ED) Additional Instructions: Please follow up with primary care doctor within 2-4 days. Check your sugars closely. Return to the emergency room for any new or worsening symptoms Is patient prescribed a controlled substance at d/c from ED?: No Referrals: Luis Armando Crystal DO [Primary Care Provider] - 1-2 days Time of Disposition: 17:13
[2021-09-04 14:06] LABS: Anisocytosis Slight; Basophils # (A) 0.1 k/uL (0-0.2); Basophils % (A) 1 %; Eosinophils # (A) 0.3 k/uL (0-0.7); Eosinophils % (A) 3 %; HGB 8.9 gm/dL (11.4-16.0); Hypochromasia Marked; Lymphocytes # (A) 0.7 k/uL (1.0-4.8); Lymphocytes % (A) 7 %; MCH 25.4 pg (25.0-35.0); MCHC 28.6 g/dL (31.0-37.0); MCV 88.9 fL (80.0-100.0); Mean Platelet Volume 8.1; Monocytes # (A) 0.4 k/uL (0-1.0); Monocytes % (A) 4 %; Neutrophils # (A) 9.2 k/uL (1.3-7.7); Neutrophils % (A) 84 %; Platelet Count 490 k/uL (150-450); RBC 3.48 m/uL (3.80-5.40); RDW 19.6 % (11.5-15.5); WBC 10.9 k/uL (3.8-10.6)
[2021-09-04 14:06] LABS: Glucose,Whole Blood 105 mg/dL (75-99)
[2021-09-04 14:17] LABS: ALT 20 U/L (4-34); AST 28 U/L (14-36); African American GFR (CKD) 33 (>60 ml/min/1.73 sqM); Albumin 2.7 g/dL (3.5-5.0); Alkaline Phosphatase 90 U/L (38-126); Anion Gap 7 mmol/L; Blood Urea Nitrogen 63 mg/dL (7-17); Calcium 9.1 mg/dL (8.4-10.2); Carbon Dioxide 30 mmol/L (22-30); Chloride 106 mmol/L (98-107); Non-African American GFR(CKD) 29 (>60 ml/min/1.73 sqM); Sodium 143 mmol/L (137-145); Total Bilirubin 0.2 mg/dL (0.2-1.3); Total Protein 5.8 g/dL (6.3-8.2)
[2021-09-04 14:25] LABS: Glucose <20 mg/dL (74-99)
[2021-09-04 14:32] LABS: Prothrombin Time 10.6 sec (9.0-12.0)
[2021-09-04 14:35] LABS: Partial Thromboplastin Time 19.2 sec (22.0-30.0)
[2021-09-04 14:41] LABS: Glucose,Whole Blood 74 mg/dL (75-99)
[2021-09-04 15:59] LABS: Glucose,Whole Blood 130 mg/dL (75-99)
[2021-09-04 17:38] VITALS: BP 104/67; PULSE 82
== END 2021-09-04 17:39 | disposition home or self-care (01) ==
LOC: EC 13:24
DX: E11.649 Type 2 diabetes mellitus with hypoglycemia without coma (principal); E78.5 Hyperlipidemia, unspecified; I10 Essential (primary) hypertension; Z79.02 Long term (current) use of antithrombotics/antiplatelets; Z79.4 Long term (current) use of insulin; Z88.1 Allergy status to other antibiotic agents; Z86.73 Personal history of transient ischemic attack (TIA), and cerebral infarction without residual deficits; Z90.710 Acquired absence of both cervix and uterus
CPT/HCPCS: 36415; 80053; 84484; 85025; 85610; 85730; 93005; 99285

== ENCOUNTER 2021-12-07 22:11 | Inpatient (IN) | payer MEDICARE ==
--- NOTE | 2021-12-07 22:33 | XR ---
EXAMINATION TYPE: XR knee limited LT DATE OF EXAM: 12/07/2021 COMPARISON: NONE HISTORY: Pain TECHNIQUE: 2 views FINDINGS: There is acute transverse supracondylar fracture of the distal femur. There is marked commi nution. There is 2 cm posterior displacement of the distal femur fragment on the lateral view. The kn ee joint spaces are normal. No knee joint effusion. IMPRESSION: Acute supracondylar displaced comminuted fracture distal femur.
[2021-12-07] MEDS ORDERED: SODIUM CHLORIDE 0.9% 1,000 ML IV STA (23:57)
[2021-12-07] MEDS ORDERED: NALOXONE 0.4 MG/ML 1 ML VIAL IV PRN (23:59)
[2021-12-07] MEDS ORDERED: TEMAZEPAM 15 MG CAP PO PRN (23:59)
--- NOTE | 2021-12-08 00:04 | ED ---
Fall HPI - General Chief Complaint: Fall Stated Complaint: Fall Time Seen by Provider: 12/07/21 22:12 Source: patient, EMS Mode of arrival: EMS - History of Present Illness Initial Comments: Patient states that she had a mechanical tumble today and injured her left knee. Pain is worse with movement. She did take pain medicine prior to arrival. She did not hit her head. She denies conscious. She has no chest pain or shortness of breath. She has no belly or back pain. She has no nausea or vomiting. She has no paresthesias. She has no weakness. The pain does not radiate into her. She denies any other injuries. - Related Data Home Medications Medication Instructions Recorded Confirmed Atorvastatin Calcium [Lipitor] 10 mg PO DAILY 04/10/14 09/04/21 Clopidogrel [Plavix] 75 mg PO DAILY 04/10/14 09/04/21 hydrALAZINE HCL 50 mg PO TID-W/MEALS 04/10/14 09/04/21 Ergocalciferol [Vitamin D2 50,000 unit PO MO 06/06/14 09/04/21 (DRISDOL)] Travoprost [Travoprost 0.004%] 1 drop BOTH EYES HS 08/19/21 09/04/21 Atenolol [Tenormin] 25 mg PO HS 09/04/21 09/04/21 Insulin Aspart Protam & Aspart 20 unit SQ HS 09/04/21 09/04/21 [NovoLOG MIX 70-30 Flexpen] Insulin Aspart Protam & Aspart 30 unit SQ DAILY 09/04/21 09/04/21 [NovoLOG MIX 70-30 Flexpen] Previous Rx's Medication Instructions Recorded Furosemide [Lasix] 40 mg PO DAILY #30 tab 08/28/21 SILVER sulfADIAZINE CREAM 1 applic TOPICAL DAILY #50 gram 08/28/21 [Silvadene Cream] Allergies Allergy/AdvReac Type Severity Reaction Status Date / Time enalapril maleate Allergy Unknown Verified 09/04/21 13:55 [From Vasotec] enalaprilat dihydrate Allergy Unknown Verified 09/04/21 13:55 [From Vasotec] metoprolol tartrate Allergy Unknown Verified 09/04/21 13:55 [From Lopressor] Review of Systems ROS Statement: Those systems with pertinent positive or pertinent negative responses have been documented in the HPI. ROS Other: All systems not noted in ROS Statement are negative. Past Medical History Past Medical History: CVA/TIA, Diabetes Mellitus, Hyperlipidemia, Hypertension Additional Past Medical History / Comment(s): lymphedema History of Any Multi-Drug Resistant Organisms: None Reported Past Surgical History: Breast Surgery, Hysterectomy, Tonsillectomy Additional Past Surgical History / Comment(s): Right breast biopsy for hyperdensity Past Anesthesia/Blood Transfusion Reactions: No Reported Reaction Past Psychological History: No Psychological Hx Reported Smoking Status: Never smoker Past Alcohol Use History: None Reported Past Drug Use History: None Reported - Past Family History Father Family Medical History: Cancer (lung) Mother Family Medical History: CVA/TIA, Diabetes Mellitus Additional Family Medical History / Comment(s): 2 brothers okay 2 sisters okay 3 sons okay one daughter okay. patient denies any CAD CHF cancer blood pressure PE DVT CVA asthma General Exam Limitations: no limitations Head exam: Present: atraumatic, normocephalic, normal inspection Eye exam: Present: normal appearance, PERRL, EOMI. Absent: scleral icterus, conjunctival injection, periorbital swelling ENT exam: Present: normal exam, mucous membranes moist Neck exam: Present: normal inspection. Absent: tenderness, meningismus, lymphadenopathy Respiratory exam: Present: normal lung sounds bilaterally. Absent: respiratory distress, wheezes, rales, rhonchi, stridor Cardiovascular Exam: Present: regular rate, normal rhythm, normal heart sounds. Absent: systolic murmur, diastolic murmur, rubs, gallop, clicks GI/Abdominal exam: Present: soft, normal bowel sounds. Absent: distended, tenderness, guarding, rebound, rigid Extremities exam: Present: tenderness, pedal edema Back exam: Present: normal inspection. Absent: tenderness Neurological exam: Present: alert, oriented X3 Psychiatric exam: Present: normal affect, normal mood Skin exam: Present: warm, dry Course Vital Signs 12/07/21 22:18 Temperature 98.4 F Pulse Rate 74 Respiratory 16 Rate Blood Pressure 101/64 O2 Sat by Pulse 92 L Oximetry Medical Decision Making - Medical Decision Making Patient presents to the left leg injury. X-ray shows a supracondylar femur fracture. I spoke with orthopedics, who will admit the patient to the hospital. I am placing a consult to internal medicine for medical management. Disposition Clinical Impression: Femur fracture, left Disposition: ADMITTED IP TO THIS HOSP Condition: Fair Is patient prescribed a controlled substance at d/c from ED?: No Referrals: Luis Armando Crystal DO [Primary Care Provider] - 1-2 days
--- NOTE | 2021-12-08 00:44 | XR ---
EXAMINATION TYPE: XR femur LT DATE OF EXAM: 12/08/2021 COMPARISON: None HISTORY: Fall. Pain TECHNIQUE: 4 views FINDINGS: There is supracondylar fracture of the distal femur. There is posterior displacement of the distal fragment 2 cm. No dislocation at the knee joint. The hip joint is intact exam limited by rush ent's size. IMPRESSION: Acute supracondylar fracture of the distal femur with comminution and displacement.
--- NOTE | 2021-12-08 00:49 | XR ---
EXAMINATION TYPE: XR chest 1V portable DATE OF EXAM: 12/08/2021 COMPARISON: 08/27/2021 HISTORY: Chest pain TECHNIQUE: Single view FINDINGS: Heart is enlarged. There is pulmonary vascular congestion. There is some blunting of the co st phrenic angles and more on the left side. There is also left lower lobe infiltrate. IMPRESSION: Congestive heart failure with pleural fluid and left lower lobe pneumonia. No change comp ared to old exam.
[2021-12-08 01:01] LABS: Anisocytosis Slight; Basophils # (A) 0.1 k/uL (0-0.2); Basophils % (A) 1 %; Eosinophils % (A) 0 %; HCT 37.9 % (34.0-46.0); HGB 10.6 gm/dL (11.4-16.0); Hypochromasia Marked; Lymphocytes # (A) 0.5 k/uL (1.0-4.8); Lymphocytes % (A) 4 %; MCH 23.6 pg (25.0-35.0); MCV 84.3 fL (80.0-100.0); Mean Platelet Volume 7.4; Monocytes # (A) 0.6 k/uL (0-1.0); Monocytes % (A) 5 %; Neutrophils # (A) 10.2 k/uL (1.3-7.7); Neutrophils % (A) 88 %; Platelet Count 435 k/uL (150-450); RDW 18.1 % (11.5-15.5); WBC 11.5 k/uL (3.8-10.6)
[2021-12-08 01:15] LABS: Albumin 2.5 g/dL (3.5-5.0); Calcium 8.3 mg/dL (8.4-10.2); Potassium 4.5 mmol/L (3.5-5.1); Total Bilirubin 0.6 mg/dL (0.2-1.3); Total Protein 5.3 g/dL (6.3-8.2)
[2021-12-08 01:25] LABS: Prothrombin Time 10.5 sec (9.0-12.0)
[2021-12-08 01:31] LABS: Partial Thromboplastin Time 21.1 sec (22.0-30.0)
--- NOTE | 2021-12-08 03:56 | P.HPIM ---
History of Present Illness H&P Date: 12/08/21 Patient is a 71-year-old female with a PMH of diastolic CHF with persistent bilateral lower extremity edema, chronic kidney disease, type II DM, hypertension, hyperlipidemia, TIA, who presents to the emergency room after a fall. Patient reports that she was walking at home with her walker when she tripped on a blanket that got stuck on the walker. She reports falling on her left side, striking her hip to the ground, and immediately having severe pain at the site. She denied losing consciousness or head trauma. She called for her who subsequently activated EMS and the patient was brought to the emergency room. A left femur x-ray revealed an acute supracondylar fracture of the distal femur with combination and displacement. Chest x-ray revealed congestive heart failure with pleural fluid and left lower lobe pneumonia. Laboratory evaluation was remarkable for WBC count 11.5, BUN 74, creatinine 1.68, and glucose 154. At time of interview, the patient reported no active complaints with no left hip pain at rest. She did report significant hip pain with any sort of movement. She denied experiencing cough, fever, chills, chest pain, shortness of breath. Reports bilateral lower extremity edema chronically with venous stasis changes and nonhealing wounds for which she follows at wound clinic. Further denied abdominal pain, nausea, vomiting, diarrhea. Review of systems: Pertinent positives and negatives as discussed in HPI, a complete review of systems was performed and all other systems are negative. Physical examination: General: non toxic, no distress, appears older than stated age, morbidly obese Derm: no unusual rashes/lesions no unusual ecchymoses, warm, dry Head: atraumatic, normocephalic, symmetric Eyes: EOMI, no lid lag, anicteric sclera, pupils equal round reactive to light ENT: Nose and ears atraumatic, no thrush, no pharyngeal erythema Neck: No thyromegaly, no cervical lymphadenopathy, trachea midline, supple Mouth: no lip lesion, mucus membranes moist Cardiovascular: S1S2 reg, no murmur, positive posterior tibial pulse bilateral, 2+ bilateral lower extremity pitting edema with Ole bandages in place, capillary refill less than 2 seconds Lungs: Mild bibasilar rales, no wheezing or rhonchi, no accessory muscle use Abdominal: soft, nontender to palpation, no guarding, no appreciable organomegaly, normal bowel sounds Ext: no gross muscle atrophy, muscle strength 4 out of 5 in all 4 extremities grossly except proximal left lower extremity due to pain, no overlying left hip skin abnormalities noted no contractures, Neuro: CN II-XI grossly intact, light touch intact all 4 extremities, finger to nose within normal limits, Psych: Alert, oriented, appropriate affect Assessment/plan Preoperative Evaluation s/p traumatic left femoral fracture -Patient appears to be in acute CHF exacerbation -Cardiology consulted for clearance -Patient will be a high risk for intraoperative cardiac complications due to significant comorbidities and underlying CHF -Obtain EKG Acute CHF exacerbation -IV Lasix -Intake and output -Daily weight -Monitor electrolytes Chronic conditions: 2 DM, hypertension, hyperlipidemia, history of TIA, chronic kidney disease -Continue with home meds -Insulin sliding scale and blood glucose monitoring -Check A1c Past Medical History Past Medical History: CVA/TIA, Diabetes Mellitus, Hyperlipidemia, Hypertension Additional Past Medical History / Comment(s): lymphedema History of Any Multi-Drug Resistant Organisms: None Reported Past Surgical History: Breast Surgery, Hysterectomy, Tonsillectomy Additional Past Surgical History / Comment(s): Right breast biopsy for hyperdensity Past Anesthesia/Blood Transfusion Reactions: No Reported Reaction Past Psychological History: No Psychological Hx Reported Smoking Status: Never smoker Past Alcohol Use History: None Reported Past Drug Use History: None Reported - Past Family History Father Family Medical History: Cancer (lung) Mother Family Medical History: CVA/TIA, Diabetes Mellitus Additional Family Medical History / Comment(s): 2 brothers okay 2 sisters okay 3 sons okay one daughter okay. patient denies any CAD CHF cancer blood pressure PE DVT CVA asthma Medications and Allergies Home Medications Medication Instructions Recorded Confirmed Type Atorvastatin Calcium [Lipitor] 10 mg PO DAILY 04/10/14 09/04/21 History Clopidogrel [Plavix] 75 mg PO DAILY 04/10/14 09/04/21 History hydrALAZINE HCL 50 mg PO TID-W/MEALS 04/10/14 09/04/21 History Ergocalciferol [Vitamin D2 50,000 unit PO MO 06/06/14 09/04/21 History (DRISDOL)] Travoprost [Travoprost 0.004%] 1 drop BOTH EYES HS 08/19/21 09/04/21 History Furosemide [Lasix] 40 mg PO DAILY #30 tab 08/28/21 09/04/21 Rx SILVER sulfADIAZINE CREAM 1 applic TOPICAL DAILY #50 gram 08/28/21 09/04/21 Rx [Silvadene Cream] Atenolol [Tenormin] 25 mg PO HS 09/04/21 09/04/21 History Insulin Aspart Protam & Aspart 20 unit SQ HS 09/04/21 09/04/21 History [NovoLOG MIX 70-30 Flexpen] Insulin Aspart Protam & Aspart 30 unit SQ DAILY 09/04/21 09/04/21 History [NovoLOG MIX 70-30 Flexpen] Allergies Allergy/AdvReac Type Severity Reaction Status Date / Time enalapril maleate Allergy Unknown Verified 09/04/21 13:55 [From Vasotec] enalaprilat dihydrate Allergy Unknown Verified 09/04/21 13:55 [From Vasotec] metoprolol tartrate Allergy Unknown Verified 09/04/21 13:55 [From Lopressor] Physical Exam Vitals: Vital Signs Temp Pulse Resp BP Pulse Ox 12/07/21 22:18 98.4 F 74 16 101/64 92 L Intake and Output 12/07/21 12/07/21 12/08/21 14:59 22:59 06:59 Other: Weight 113.398 kg Results CBC & Chem 7: 12/08/21 00:35 12/08/21 00:35 Labs: Abnormal Lab Results - Last 24 Hours (Table) 12/08/21 12/08/21 12/08/21 Range/Units 00:35 00:35 00:35 WBC 11.5 H (3.8-10.6) k/uL Hgb 10.6 L (11.4-16.0) gm/dL MCH 23.6 L (25.0-35.0) pg MCHC 28.0 L (31.0-37.0) g/dL RDW 18.1 H (11.5-15.5) % Neutrophils # 10.2 H (1.3-7.7) k/uL Lymphocytes # 0.5 L (1.0-4.8) k/uL APTT 21.1 L (22.0-30.0) sec Chloride 111 H (98-107) mmol/L Carbon Dioxide 21 L (22-30) mmol/L BUN 74 H (7-17) mg/dL Creatinine 1.68 H (0.52-1.04) mg/dL Glucose 154 H (74-99) mg/dL Calcium 8.3 L (8.4-10.2) mg/dL AST 40 H (14-36) U/L Total Protein 5.3 L (6.3-8.2) g/dL Albumin 2.5 L (3.5-5.0) g/dL
[2021-12-08] MEDS: MORPHINE SULFATE 4 MG/ML SYRINGE IVP PRN ×2 (04:01→14:22)
[2021-12-08] MEDS: ATORVASTATIN 10 MG TAB PO SCH (08:03)
[2021-12-08] MEDS: hydrALAZINE HCL 50 MG TAB PO SCH ×3 (08:03→20:20)
[2021-12-08] MEDS: HEPARIN SODIUM,PORCINE/PF 5,000 UNIT/0.5 ML SYRINGE SQ SCH ×3 (08:03→23:54)
[2021-12-08] MEDS: CLOPIDOGREL 75 MG TAB PO SCH (08:03)
[2021-12-08] MEDS: FUROSEMIDE 10 MG/ML 4 ML VIAL IV SCH ×2 (08:03→23:47)
[2021-12-08 08:30] LABS: Glucose,Whole Blood 146 mg/dL (75-99)
[2021-12-08] MEDS ORDERED: FUROSEMIDE 40 MG TAB PO SCH (09:00)
[2021-12-08] MEDS ORDERED: INSULN ASP PRT/INSULIN ASPART 100 UNIT/ML 10 ML VIAL SQ SCH ×2 (09:00→21:00)
[2021-12-08 09:32] LABS: African American GFR (CKD) 32.3 (60.0-200.0); Anion Gap 11.2 mmol/L (10.00-18.00); BUN/Creat Ratio 38.01 Ratio (12.00-20.00); Blood Urea Nitrogen 68.8 mg/dL (9.0-27.0); Calcium 8.5 mg/dL (8.7-10.3); Carbon Dioxide 18.9 mmol/L (20.0-27.5); Non-African American GFR(CKD) 27.8 (60.0-200.0); Potassium 4.3 mmol/L (3.5-5.5)
[2021-12-08 09:35] LABS: HGB 9.5 g/dL (12.0-15.0); MCH 22.9 pg (27.0-32.0); MCHC 27.9 g/dL (32.0-37.0); MCV 81.9 fL (80.0-97.0); NRBC Per 100 WBC 0 /100 WBCS (0.0-0.0); Platelet Count 439 X 10*3/uL (140-440); RBC 4.15 X 10*6/uL (4.10-5.20); RDW 19.9 % (11.5-14.5); WBC 7.15 X 10*3/uL (4.50-10.00)
--- NOTE | 2021-12-08 09:37 | P.HPOR ---
History of Present Illness H&P Date: 12/08/21 This patient is a 71-year-old female with a past medical history of diabetes, hypertension, hyperlipidemia, TIA, chronic kidney disease, bilateral chronic lower extremity ulcers, who currently takes Plavix that presented to [facility] emergency department last evening with complaints of left knee pain following a fall at home. Patient states she was getting up from her chair at home when she tripped over a blanket and fell onto the left knee. EMS was called and the patient was transported to [facility] emergency department. X- rays in the emergency department revealed a left distal femur fracture. Patient was admitted under the care of Dr. William with a consult placed to internal medicine for pre-operative medical clearance. Patient is seen and examined bedside in the emergency department. She states her pain is well controlled at this time. Her pain is localized to the left knee and she denies additional areas of pain or discomfort. She states she did not hit her head when she fell. She did receive a dose of Plavix this morning. Patient states she is ambulatory at baseline with a walker. Patient states her bilateral lower extremity ulcers are dressed daily by an outpatient physical therapist. Patient denies chest pain, shortness of breath, nausea, vomiting. She denies numbness or tingling of the left lower extremity. Vital signs stable. Past Medical History Past Medical History: CVA/TIA, Diabetes Mellitus, Hyperlipidemia, Hypertension Additional Past Medical History / Comment(s): lymphedema History of Any Multi-Drug Resistant Organisms: None Reported Past Surgical History: Breast Surgery, Hysterectomy, Tonsillectomy Additional Past Surgical History / Comment(s): Right breast biopsy for hyperdensity Past Anesthesia/Blood Transfusion Reactions: No Reported Reaction Past Psychological History: No Psychological Hx Reported Smoking Status: Never smoker Past Alcohol Use History: None Reported Past Drug Use History: None Reported - Past Family History Father Family Medical History: Cancer (lung) Mother Family Medical History: CVA/TIA, Diabetes Mellitus Additional Family Medical History / Comment(s): 2 brothers okay 2 sisters okay 3 sons okay one daughter okay. patient denies any CAD CHF cancer blood pressure PE DVT CVA asthma Medications and Allergies Home Medications Medication Instructions Recorded Confirmed Type Atorvastatin Calcium [Lipitor] 10 mg PO DAILY 04/10/14 12/08/21 History Clopidogrel [Plavix] 75 mg PO DAILY 04/10/14 12/08/21 History hydrALAZINE HCL 50 mg PO TID-W/MEALS 04/10/14 12/08/21 History Ergocalciferol [Vitamin D2 50,000 unit PO MO 06/06/14 12/08/21 History (DRISDOL)] Travoprost [Travoprost 0.004%] 1 drop BOTH EYES HS 08/19/21 12/08/21 History Atenolol [Tenormin] 50 mg PO HS 09/04/21 12/08/21 History Insulin Aspart Protam & Aspart 20 unit SQ HS 09/04/21 12/08/21 History [NovoLOG MIX 70-30 Flexpen] Insulin Aspart Protam & Aspart 30 unit SQ DAILY 09/04/21 12/08/21 History [NovoLOG MIX 70-30 Flexpen] Brimonidine Tartrate [Alphagan P 1 drop BOTH EYES BID 12/08/21 12/08/21 History 0.1% Ophth Soln] Furosemide [Lasix] 40 mg PO DAILY 12/08/21 12/08/21 History Allergies Allergy/AdvReac Type Severity Reaction Status Date / Time enalapril maleate Allergy Hives over Verified 12/08/21 07:09 [From Vasotec] entire body enalaprilat dihydrate Allergy Hives over Verified 12/08/21 07:09 [From Vasotec] entire body metoprolol tartrate Allergy Hives over Verified 12/08/21 07:09 [From Lopressor] entire body Physical Examination On examination, patient is lying in bed in no apparent distress. She is alert and oriented 3. Her head appears normocephalic and atraumatic. Her breathing appears nonlabored. On inspection of the bilateral upper extremities, there are no obvious deformities or signs of trauma. On inspection of the right lower extremity, there are no obvious deformities or signs of trauma. Her right lower leg is dressed in an Ole wrap. No pain with PROM of the right hip, knee, ankle. On inspection of the left lower extremity, lower leg is wrapped in an Ole wrap. There is mild swelling of the distal thigh. There are no open wounds or lac erations. There is diffuse pain with palpation of the left knee and distal thigh. No pain with palpation of the left hip, thigh, lower leg, ankle, foot. No pain with PROM of the left hip, ankle. Motor and sensory function is intact of the left lower extremity. The visible portion of the toes are warm and well perfused with brisk capillary refill distally. Results Left femur x-ray 12/07/21: Displaced supracondylar distal femur fracture. - Labs Labs: Abnormal Lab Results - Last 24 Hours (Table) 12/08/21 12/08/21 12/08/21 Range/Units 00:35 00:35 00:35 WBC 11.5 H (3.8-10.6) k/uL Hgb 10.6 L (11.4-16.0) gm/dL MCH 23.6 L (25.0-35.0) pg MCHC 28.0 L (31.0-37.0) g/dL RDW 18.1 H (11.5-15.5) % Neutrophils # 10.2 H (1.3-7.7) k/uL Lymphocytes # 0.5 L (1.0-4.8) k/uL APTT 21.1 L (22.0-30.0) sec Chloride 111 H (98-107) mmol/L Carbon Dioxide 21 L (22-30) mmol/L BUN 74 H (7-17) mg/dL Creatinine 1.68 H (0.52-1.04) mg/dL Glucose 154 H (74-99) mg/dL POC Glucose (mg/dL) (75-99) mg/dL Calcium 8.3 L (8.4-10.2) mg/dL AST 40 H (14-36) U/L Total Protein 5.3 L (6.3-8.2) g/dL Albumin 2.5 L (3.5-5.0) g/dL 12/08/21 Range/Units 08:27 WBC (3.8-10.6) k/uL Hgb (11.4-16.0) gm/dL MCH (25.0-35.0) pg MCHC (31.0-37.0) g/dL RDW (11.5-15.5) % Neutrophils # (1.3-7.7) k/uL Lymphocytes # (1.0-4.8) k/uL APTT (22.0-30.0) sec Chloride (98-107) mmol/L Carbon Dioxide (22-30) mmol/L BUN (7-17) mg/dL Creatinine (0.52-1.04) mg/dL Glucose (74-99) mg/dL POC Glucose (mg/dL) 146 H (75-99) mg/dL Calcium (8.4-10.2) mg/dL AST (14-36) U/L Total Protein (6.3-8.2) g/dL Albumin (3.5-5.0) g/dL H & H 12/08/21 Range/Units 00:35 Hgb 10.6 L (11.4-16.0) gm/dL Hct 37.9 (34.0-46.0) % Coagulation 12/08/21 Range/Units 00:35 INR 1.0 (<1.2) Result Diagrams: 12/08/21 06:07 12/08/21 06:07 Assessment and Plan Assessment: Left displaced distal femur fracture Plan: - Clinical and imaging findings were discussed with the patient. The patient was discussed in detail with Dr. William. Recommend surgical fixation of the patient's left femur fracture with a retrograde femoral nail, pending medical clearance and consent. Patient gave verbal consent for procedure bedside this morning. Internal medicine has requested cardiology clearance. - Strict non-weight bearing left lower extremity. Bed rest. - Pain management as needed. - Will plan for OR this afternoon if medically cleared. NPO diet.
--- NOTE | 2021-12-08 11:41 | P.CRDCN ---
History of Present Illness History of present illness: This is a 71 year old female with a past medical history of hypertension, dyslipidemia, type 2 diabetes, permanent atrial fibrillation not on anticoagulation due to patient refusal in the past, chronic kidney disease, severe pulmonary hypertension, peripheral vascular disease. She follows with Dr. Mari. We have been consulted for cardiac clearance. Patient presents to the emergency department with mechanical fall at home and found to have a left femur fracture. Patient states that she was walking at home with her walker unfortunately she got tangled up with her walker and tripped and fell on the ground on her left side. X-rays in the emergency department revealed a left distal femur fracture. Patient denies any lightheadedness, dizziness, palpitations, syncope or near- syncope. She denies any chest pain. She states she has been short of breath with this is been chronic since August. She denies any worsening lower extremity edema. She does have bilateral leg ulcers and she gets these just daily outpatient with physical therapy. She denies any orthopnea or PND. Sleeps with 1 pillow. Per ortho that plan for surgical fixation of the patient's left femur fracture with a retrograde femoral nail this afternoon DIAGNOSTICS EKG reveals atrial fibrillation, heart rate 76 Telemetry tracings indicate atrial fibrillation Chest xray report revealed no change compared to old exam, congestive heart failure with pleural fluid and left lower lobe infiltrate noted Most recent echocardiogram 08/2021 revealed EF 5560 percent, grade 2 diastolic dysfunction, LA is mildly dilated, mild mitral regurgitation, [id number] tricuspid regurgitation, severe pulmonary hypertension, RVSP of 80 mmHg Laboratory reviewed, sodium 140, potassium 4.3, BUN 68, serum creatinine 1.8, hemoglobin A1c 7.4, magnesium 2.0, WBC 7.1, hemoglobin 9.5, platelets 438 Current home medications include hydralazine 50 mg 3 times a day, Lasix 40 mg daily, Plavix 75 mg daily, atorvastatin 10 mg daily, atenolol 50 mg daily REVIEW OF SYSTEMS At the time of my exam: CONSTITUTIONAL: Denies fever or chills. CARDIOVASCULAR: Denies chest pain, +shortness of breath, Denies orthopnea, PND or palpitations. RESPIRATORY: Denies cough. GASTROINTESTINAL: Denies abdominal pain, diarrhea, constipation, nausea or vomiting. MUSCULOSKELETAL: Denies myalgias. NEUROLOGIC: Denies numbness, tingling, headacbe or weakness. ENDOCRINE: Denies fatigue, weight change, polydipsia or polyurina. GENITOURINARY: Denies burning, hematuria or urgency with micturation. HEMATOLOGIC: Denies history of anemia or bleeding. PHYSICAL EXAMINATION Blood pressure 109/70, heart rate 72, afebrile, oxygen saturation 94% on room air CONSTITUTIONAL: No apparent distress. HEENT: Head is normocephalic. Pupils are equal, round. Sclerae anicteric. Mucous membranes of the mouth are moist. Mild JVD noted. No carotid bruit. CHEST EXAMINATION: Lungs with crackles on the left lower base to auscultation. No chest wall tenderness is noted on palpation or with deep breathing. HEART EXAMINATION: Irregular rate and rhythm. S1, S2 heard. Systolic ejection murmur at apex. No gallops or rub. ABDOMEN: Soft, nontender. Positive bowel sounds. EXTREMITIES: 2+ peripheral pulses, 2+ bilateral lower extremity edema, wrapped in SOTERO bandages bilaterally, patient with bilateral LE ulcers NEUROLOGIC EXAMINATION: Patient is awake, alert and oriented x3. ASSESSMENT Mechanical Fall Left distal femur fracture Chronic heart failure with preserved ejection fraction Hypertension Dyslipidemia Type 2 diabetes Permanent atrial fibrillation not on anticoagulation due to patient refusal Chronic kidney disease Severe pulmonary hypertension Morbid obesity BMP 113 Bilateral lower extremity ulcers, chronic \ Chronic lower extremity edema PLAN Patient is at high risk for surgery. She has the following risk factors history of congestive heart failure, pulmonary hypertension, history of atrial fibrillation, preoperative treatment with insulin, chronic kidney disease. Patient is also not able to perform >4 METs levels of activity. There is risk to the procedure, however, benefits of surgery to repair left femur fracture outweigh risks at this time. Patient is hemodynamically stable. Recommend cautious fluid administration and optimal BP control. Continue home cardiac medications Further recommendations based on clinical course. Nurse practitioner note has been reviewed by physician. Signing provider agrees with the documented findings, assessment, and plan of care. Past Medical History Past Medical History: CVA/TIA, Diabetes Mellitus, Hyperlipidemia, Hypertension Additional Past Medical History / Comment(s): lymphedema History of Any Multi-Drug Resistant Organisms: None Reported Past Surgical History: Breast Surgery, Hysterectomy, Tonsillectomy Additional Past Surgical History / Comment(s): Right breast biopsy for hyperdensity Past Anesthesia/Blood Transfusion Reactions: No Reported Reaction Past Psychological History: No Psychological Hx Reported Smoking Status: Never smoker Past Alcohol Use History: None Reported Past Drug Use History: None Reported - Past Family History Father Family Medical History: Cancer (lung) Mother Family Medical History: CVA/TIA, Diabetes Mellitus Additional Family Medical History / Comment(s): 2 brothers okay 2 sisters okay 3 sons okay one daughter okay. patient denies any CAD CHF cancer blood pressure PE DVT CVA asthma Medications and Allergies Home Medications Medication Instructions Recorded Confirmed Type Atorvastatin Calcium [Lipitor] 10 mg PO DAILY 04/10/14 12/08/21 History Clopidogrel [Plavix] 75 mg PO DAILY 04/10/14 12/08/21 History hydrALAZINE HCL 50 mg PO TID-W/MEALS 04/10/14 12/08/21 History Ergocalciferol [Vitamin D2 50,000 unit PO MO 06/06/14 12/08/21 History (DRISDOL)] Travoprost [Travoprost 0.004%] 1 drop BOTH EYES HS 08/19/21 12/08/21 History Atenolol [Tenormin] 50 mg PO HS 09/04/21 12/08/21 History Insulin Aspart Protam & Aspart 20 unit SQ HS 09/04/21 12/08/21 History [NovoLOG MIX 70-30 Flexpen] Insulin Aspart Protam & Aspart 30 unit SQ DAILY 09/04/21 12/08/21 History [NovoLOG MIX 70-30 Flexpen] Brimonidine Tartrate [Alphagan P 1 drop BOTH EYES BID 12/08/21 12/08/21 History 0.1% Ophth Soln] Furosemide [Lasix] 40 mg PO DAILY 12/08/21 12/08/21 History Allergies Allergy/AdvReac Type Severity Reaction Status Date / Time enalapril maleate Allergy Hives over Verified 12/08/21 07:09 [From Vasotec] entire body enalaprilat dihydrate Allergy Hives over Verified 12/08/21 07:09 [From Vasotec] entire body metoprolol tartrate Allergy Hives over Verified 12/08/21 07:09 [From Lopressor] entire body Physical Exam Vitals: Vital Signs Temp Pulse Resp BP Pulse Ox 12/08/21 07:00 72 16 109/70 94 L 12/08/21 04:24 72 16 119/73 98 12/07/21 22:18 98.4 F 74 16 101/64 92 L Intake and Output 12/07/21 12/08/21 12/08/21 22:59 06:59 14:59 Other: Weight 113.398 kg Results 12/08/21 06:07 12/08/21 06:07 Cardiac Enzymes 12/08/21 Range/Units 00:35 AST 40 H (14-36) U/L Coagulation 12/08/21 Range/Units 00:35 PT 10.5 (9.0-12.0) sec APTT 21.1 L (22.0-30.0) sec CBC 12/08/21 Range/Units 00:35 WBC 11.5 H (3.8-10.6) k/uL RBC 4.50 (3.80-5.40) m/uL Hgb 10.6 L (11.4-16.0) gm/dL Hct 37.9 (34.0-46.0) % Plt Count 435 (150-450) k/uL Comprehensive Metabolic Panel 12/08/21 Range/Units 00:35 Sodium 138 (137-145) mmol/L Potassium 4.5 (3.5-5.1) mmol/L Chloride 111 H (98-107) mmol/L Carbon Dioxide 21 L (22-30) mmol/L BUN 74 H (7-17) mg/dL Creatinine 1.68 H (0.52-1.04) mg/dL Glucose 154 H (74-99) mg/dL Calcium 8.3 L (8.4-10.2) mg/dL AST 40 H (14-36) U/L ALT 14 (4-34) U/L Alkaline Phosphatase 70 (38-126) U/L Total Protein 5.3 L (6.3-8.2) g/dL Albumin 2.5 L (3.5-5.0) g/dL Current Medications Generic Name Dose Route Start Last Admin Trade Name Freq PRN Reason Stop Dose Admin Hydrocodone Bitart/Acetaminophen 1 each 12/07/21 23:59 Hydrocodone/Apap 5-325mg 1 Each Tab PO Q4HR PRN Moderate Pain Atenolol 25 mg 12/08/21 21:00 Atenolol 25 Mg Tab PO HS VU Atorvastatin Calcium 10 mg 12/08/21 09:00 12/08/21 08:03 Atorvastatin 10 Mg Tab PO 10 mg DAILY VU Administration Clopidogrel Bisulfate 75 mg 12/08/21 09:00 12/08/21 08:03 Clopidogrel 75 Mg Tab PO 75 mg DAILY VU Administration Ergocalciferol 1,250 mcg 12/14/21 09:00 Ergocalciferol 1,250 Mcg (50,000 Iu) Capsule PO MO VU Furosemide 40 mg 12/08/21 09:00 12/08/21 08:03 Furosemide 10 Mg/Ml 4 Ml Vial IV 40 mg Q12HR VU Administration Heparin Sodium (Porcine) 5,000 unit 12/08/21 08:00 12/08/21 08:03 Heparin Sodium,Porcine/Pf 5,000 Unit/0.5 Ml Syringe SQ 5,000 unit Q8HR VU Administration Hydralazine HCl 50 mg 12/08/21 07:30 12/08/21 08:03 Hydralazine Hcl 50 Mg Tab PO 50 mg TID-W/MEALS VU Administration Sodium Chloride 1,000 mls @ 20 mls/hr 12/07/21 23:57 Saline 0.9% IV 12/08/21 23:56 .Q24H STA Insulin Aspart 15 unit 12/08/21 21:00 Insuln Asp Prt/Insulin Aspart 100 Unit/Ml 10 Ml Vial SQ HS UV Insulin Aspart 22 unit 12/08/21 09:00 Insuln Asp Prt/Insulin Aspart 100 Unit/Ml 10 Ml Vial SQ DAILY VU Latanoprost 1 drops 12/08/21 21:00 Latanoprost 0.005% Ophth Drops 2.5 Ml Btl BOTH EYES HS VU Morphine Sulfate 4 mg 12/07/21 23:59 12/08/21 04:01 Morphine Sulfate 4 Mg/Ml Syringe IVP 4 mg Q4HR PRN Administration Severe Pain Naloxone HCl 0.2 mg 12/07/21 23:59 Naloxone 0.4 Mg/Ml 1 Ml Vial IV Q2M PRN Opioid Reversal Temazepam 15 mg 12/07/21 23:59 Temazepam 15 Mg Cap PO HS PRN Insomnia Intake and Output 12/07/21 12/08/21 12/08/21 22:59 06:59 14:59 Other: Weight 113.398 kg 12/08/21 00:35 12/08/21 00:35
[2021-12-08] MEDS ORDERED: TRANEXAMIC ACID 1,000 MG in SODIUM CHLORIDE 0.9% 100 ML IVPB ONE ×4 (13:06)
[2021-12-08] MEDS ORDERED: LACTATED RINGERS 1,000 ML IV ONE (14:59)
[2021-12-08 15:12] LABS: Glucose,Whole Blood 143 mg/dL (75-99)
[2021-12-08] MEDS ORDERED: LIDOCAINE 1% INJ 10MG/ML (20 ML MDV) ONE (15:43)
[2021-12-08] MEDS ORDERED: NEOSTIGMINE 1 MG/ML 10 ML VIAL ONE (15:43)
[2021-12-08] MEDS ORDERED: KETAMINE 10 MG/ML 20 ML VIAL ONE (15:43)
[2021-12-08] MEDS ORDERED: fentaNYL (PF) 50 MCG/ML 2 ML AMP ONE (15:43)
[2021-12-08] MEDS ORDERED: GLYCOPYRROLATE 0.2 MG/ML 2 ML VIAL ONE (15:43)
[2021-12-08] MEDS ORDERED: PHENYLEPHRINE-0.9% NACL SYG 1,000 MCG/10 ML SYRINGE ONE (15:43)
[2021-12-08] MEDS ORDERED: MIDAZOLAM 2 MG/2 ML VIAL ONE (15:43)
[2021-12-08] MEDS ORDERED: TRANEXAMIC ACID IN NACL,ISO-OS 1,000 MG/100 ML BAG ONE (15:43)
[2021-12-08] MEDS ORDERED: ONDANSETRON 4 MG/2 ML VIAL ONE (15:43)
[2021-12-08] MEDS ORDERED: SUCCINYLCHOLINE CHLORIDE 100 MG/5 ML SYR IV ONE (15:43)
[2021-12-08] MEDS ORDERED: PROPOFOL 10 MG/ML 20 ML VIAL IV ONE (15:43)
[2021-12-08] MEDS ORDERED: ROCURONIUM 10 MG/ML (5 ML VIAL) IV ONE (15:43)
[2021-12-08] MEDS ORDERED: ceFAZolin 3,000 MG in SODIUM CHLORIDE 0.9% IRRIGATIO 3,000 ML IRRIGATION ONE (16:43)
[2021-12-08] MEDS ORDERED: NALOXONE 0.4 MG/ML 1 ML VIAL IVP ONE (16:57)
[2021-12-08] MEDS ORDERED: SUGAMMADEX SODIUM 500 MG/5 ML SDV IV ONE (16:58)
--- NOTE | 2021-12-08 18:30 | FL ---
EXAMINATION TYPE: FL guidance operating room DATE OF EXAM: 12/08/2021 6:19 PM INDICATION: Patient age:Female; 71 years old; Reason for study: LT FEMORAL NAIL; PHH. Intraoperative fluoroscopic services were provided for internal fixation of a left femur fracture. To lyla fluoroscopy time is 3 minutes 52 seconds with a total of 10submitted images to PACS. Please see margot hazel operative note for further details.
[2021-12-08] MEDS ORDERED: HYDROmorphone 0.2 MG/1 ML SYRINGE IVP PRN (18:43)
[2021-12-08] MEDS ORDERED: HYDROmorphone 0.5 MG/0.5 ML SYRINGE IVP PRN (18:43)
[2021-12-08] MEDS ORDERED: ONDANSETRON 4 MG/2 ML VIAL IVP PRN (18:43)
[2021-12-08] MEDS ORDERED: hydrOXYzine pamoate 25 MG CAP PO PRN (18:43)
--- NOTE | 2021-12-08 18:50 | P.OP ---
Date of Procedure: 12/08/21 Preoperative Diagnosis: 1. Left comminuted supracondylar distal femur fracture 2. Morbid obesity 3. Chronic bilateral lower extremity lymphedema with multiple open wounds and chronic cellulitis 4. History of TIA on Plavix 5. Congestive heart failure 6. Chronic kidney disease 7. Type 2 diabetes 8. Atrial fibrillation Postoperative Diagnosis: Same Procedure(s) Performed: Operative fixation of left femoral shaft fracture with retrograde intramedullary nail Implants: Tarun T2 330 x 13 mm nail Anesthesia: GETA Surgeon: Flakito William Line Installer Trolley #1: Trinidad Hunt Estimated Blood Loss (ml): 300 Pathology: none sent Condition: stable Disposition: PACU Indications for Procedure: The patient is a 71-year-old female with multiple medical problems including morbid obesity who sustained a closed left distal femur fracture. She was admitted under my care and cleared for surgery by internal medicine. I met with the patient and her to discuss surgical options. My recommendation was operative fixation with an intramedullary nail given her very poor soft tissue envelope and multiple open draining wounds in her legs. We discussed my desire to make a small incisions as possible to prevent wound healing complications and infection. We also discussed the possibility of performing open reduction and internal fixation with a lateral plate and screws if the fracture is not amenable to a retrograde nail. We discussed potential risks and competitions of surgery including but certainly not limited to risks from anesthesia, infection, delayed wound healing, nonunion, malunion, hardware failure, posterior medical arthritis, iatrogenic joint damage, DVT, PE, other medical complications, and inability to regain preinjury level of function, and possibly loss of life or limb. The patient and her understand that she has a significantly elevated risk of having a complication given her weight and multiple medical problems. They provided their verbal and written consent to go forward with martinez bird. Description of Procedure: The patient was identified in preoperative holding and the correct left leg was marked with my initials. I reviewed the consent form with the patient and her . All the questions were answered. The patient was then brought back to the operating room by anesthesia. She was positioned on the operating room table where a general anesthetic, preoperative antibiotics, and TXA were given. A bump was placed on the left leg to facilitate imaging. The right leg was secured to the OR table with foam and tape. Her pannus was overlapping the proximal aspect of her thigh which would prevent proximal interlocking screw placements of her pannus was carefully taped over her right shoulder. The left leg was then prepped and draped in the standard sterile fashion. Prior to starting surgery timeout was performed identifying the correct patient, operative extremity, and procedure. I began by provisionally reducing the fracture. Stab incisions were made anteriorly over the distal and proximal fragment. A ball spike pusher was used to translate the proximal shaft posteriorly. An incision was then made in the midline over the patellar tendon starting at the distal pole of the patella and extending distally. Dissection was carried down carefully to the subcutaneous tissue and peritenon. The patellar tendon was split midline. A guidepin was then placed centered in the femoral notch on the AP view and at the apex of the Blumensaat's line on the lateral view. The guidewire was then brought to the level of the fracture. Reduction finger was then used to bring the distal fragment out of flexion. Once the fracture was reasonably well per reduced the short guidepin was removed and a ball-tipped guidewire was placed across the fracture and up to the level of lesser trochanter. This was measured and then I reamed up to a 14.5 mm reamer. A 13 mm diameter nail was dispensed. I verified the targeting arm lined up with all the slots in the nail. The nail was then gently inserted under fluoroscopic guidance and fully seated. The ball-tipped guidewire was removed. Using the targeting arm for distal interlocking screws were placed. Using the freehand technique a proximal interlocking screw was placed. Final fluoroscopic images were taken. All wounds were then irrigated and closed in layers. Sterile dressings were applied. A knee immobilizer was placed. The patient was then awoken from her anesthetic transferred from the OR table to a gurney and brought to recovery having tolerated the procedure well. Trinidad Hunt was required as a skilled railway yard assistant due to the complexity of the surgery given the patient's size for patient positioning, retraction, placement of hardware, closure of wounds, application of dressing, and mobilization. Plan: The patient should remain toe-touch weightbearing on her left leg. I would like to keep her in a knee immobilizer for 48 hours. After this the knee immobilizer can removed and she can begin gentle range of motion of the knee. Given her multiple medical problems I will defer DVT prophylaxis to internal medicine. The wound service will be consulted for management of her bilateral lymphedema and chronic wounds. Given her multiple medical issues I would like her transferred to internal medicine on postoperative day #1.
[2021-12-08 20:01] LABS: Glucose,Whole Blood 143 mg/dL (75-99)
[2021-12-08] MEDS: INSULN ASP PRT/INSULIN ASPART 100 UNIT/ML 10 ML VIAL SQ SCH ×2 (20:19→23:48)
[2021-12-08 20:52] LABS: Glucose,Whole Blood 142 mg/dL (75-99)
[2021-12-08] MEDS: atenoloL 25 MG TAB PO SCH (21:46)
[2021-12-08] MEDS: HYDROcodone/APAP 5-325MG 1 EACH TAB PO PRN (21:46)
[2021-12-08] MEDS: LATANOPROST 0.005% OPHTH DROPS 2.5 ML BTL BOTH EYES SCH (23:47)
[2021-12-08] MEDS: SENNOSIDES-DOCUSATE SODIUM 1 EACH TAB PO SCH (23:55)
[2021-12-09 07:04] LABS: Glucose,Whole Blood 123 mg/dL (75-99)
[2021-12-09 08:28] LABS: Anisocytosis Slight; Basophils # (A) 0.1 k/uL (0-0.2); Basophils % (A) 1 %; Eosinophils % (A) 0 %; HGB 9.5 gm/dL (11.4-16.0); Hypochromasia Marked; Lymphocytes # (A) 0.6 k/uL (1.0-4.8); Lymphocytes % (A) 5 %; MCH 23.9 pg (25.0-35.0); MCHC 27.1 g/dL (31.0-37.0); MCV 88.4 fL (80.0-100.0); Mean Platelet Volume 7.9; Monocytes # (A) 0.6 k/uL (0-1.0); Monocytes % (A) 6 %; Neutrophils # (A) 9.1 k/uL (1.3-7.7); Neutrophils % (A) 86 %; Platelet Count 403 k/uL (150-450); RBC 3.96 m/uL (3.80-5.40); RDW 17.9 % (11.5-15.5); WBC 10.6 k/uL (3.8-10.6)
[2021-12-09 08:36] LABS: African American GFR (CKD) 31 (>60 ml/min/1.73 sqM); Anion Gap 6 mmol/L; Blood Urea Nitrogen 71 mg/dL (7-17); Carbon Dioxide 20 mmol/L (22-30); Chloride 109 mmol/L (98-107); Glucose 117 mg/dL (74-99); Non-African American GFR(CKD) 27 (>60 ml/min/1.73 sqM); Potassium 4.5 mmol/L (3.5-5.1); Sodium 135 mmol/L (137-145)
[2021-12-09] MEDS: HEPARIN SODIUM,PORCINE/PF 5,000 UNIT/0.5 ML SYRINGE SQ SCH ×3 (10:28→23:18)
[2021-12-09] MEDS: ATORVASTATIN 10 MG TAB PO SCH (10:28)
[2021-12-09] MEDS: CLOPIDOGREL 75 MG TAB PO SCH (10:30)
[2021-12-09] MEDS: FUROSEMIDE 10 MG/ML 4 ML VIAL IV SCH (10:30)
[2021-12-09] MEDS: hydrALAZINE HCL 50 MG TAB PO SCH ×3 (10:30→19:37)
[2021-12-09] MEDS: INSULN ASP PRT/INSULIN ASPART 100 UNIT/ML 10 ML VIAL SQ SCH ×2 (11:27→20:49)
--- NOTE | 2021-12-09 11:46 | XR ---
Fluoroscopy INDICATION: Pain FINDINGS: Fluoroscopy time: 3 minutes 53 seconds. Images obtained: 10. IMPRESSIONS: 1. Documentation of fluoroscopy.
[2021-12-09 11:48] LABS: Glucose,Whole Blood 101 mg/dL (75-99)
[2021-12-09] MEDS: HYDROmorphone 0.5 MG/0.5 ML SYRINGE IVP PRN ×2 (11:58→13:04)
--- NOTE | 2021-12-09 12:02 | P.PN ---
Subjective This is a 71 year old female with a past medical history of hypertension, dyslipidemia, type 2 diabetes, permanent atrial fibrillation not on anticoa gulation due to patient refusal in the past, chronic kidney disease, severe pulmonary hypertension, peripheral vascular disease. She follows with Dr. Mari. We have been consulted for cardiac clearance. Patient presents to the emergency department with mechanical fall at home and found to have a left femur fracture. Patient states that she was walking at home with her walker unfortunately she got tangled up with her walker and tripped and fell on the ground on her left side. X-rays in the emergency department revealed a left distal femur fracture. She underwent operative fixation of the left femoral fracture with intramedullary nail 12/08/2021 with orthopedics. Patient seen and examined at bedside, no acute distress. She denies any chest pain, shortness of breath, orthopnea or PND, lightheadedness or dizziness. Her pain is currently controlled. Heart rates are controlled vitals signs stable PHYSICAL EXAMINATION Blood pressure 129/74 HR 97, afebrile, 99% on 3L nasal cannula CONSTITUTIONAL: No apparent distress. HEENT: Neck Supple. No JVD No carotid bruit. CHEST EXAMINATION: Lungs diminished in the bases to auscultation. No chest wall tenderness is noted on palpation or with deep breathing. HEART EXAMINATION: Irregular rate and rhythm. S1, S2 heard. Systolic ejection murmur at apex. No gallops or rub. ABDOMEN: Soft, nontender. Positive bowel sounds. EXTREMITIES: 2+ peripheral pulses, 2+ bilateral lower extremity edema, wrapped in SOTERO bandages bilaterally, patient with bilateral LE ulcers NEUROLOGIC EXAMINATION: Patient is awake, alert and oriented x3. ASSESSMENT Mechanical Fall Left distal femur fracture s/p Chronic heart failure with preserved ejection fraction Hypertension Dyslipidemia Type 2 diabetes Permanent atrial fibrillation not on anticoagulation due to patient refusal Chronic kidney disease Severe pulmonary hypertension Morbid obesity BMP 113 Bilateral lower extremity ulcers, chronic \ Chronic lower extremity edema PLAN From a cardiology perspective, patient is stable. Continue home cardiac medications. No further changes at this time. Nurse practitioner note has been reviewed by physician. Signing provider agrees with the documented findings, assessment, and plan of care. Objective - Vital Signs Vital signs: Vital Signs Temp 97.7 F 12/09/21 08:00 Pulse 100 12/09/21 08:00 Resp 16 12/09/21 08:00 BP 129/74 12/09/21 08:00 Pulse Ox 98 12/09/21 09:29 Intake & Output 12/08/21 12/09/21 12/09/21 18:59 06:59 18:59 Intake Total 901 Output Total 1050 300 Balance -149 -300 Weight 124 kg Intake: IV 901 Output: Urine 750 300 Uretheral ([place]) 650 Estimated Blood Loss 300 Other: Voiding Method Indwelling Catheter - Labs CBC & Chem 7: 12/09/21 08:07 12/09/21 08:07 Labs: Abnormal Lab Results - Last 24 Hours (Table) 12/08/21 12/08/21 12/08/21 Range/Units 15:10 19:59 20:46 Hgb (11.4-16.0) gm/dL MCH (25.0-35.0) pg MCHC (31.0-37.0) g/dL RDW (11.5-15.5) % Neutrophils # (1.3-7.7) k/uL Lymphocytes # (1.0-4.8) k/uL Sodium (137-145) mmol/L Chloride (98-107) mmol/L Carbon Dioxide (22-30) mmol/L BUN (7-17) mg/dL Creatinine (0.52-1.04) mg/dL Glucose (74-99) mg/dL POC Glucose (mg/dL) 143 H 143 H 142 H (75-99) mg/dL Calcium (8.4-10.2) mg/dL 12/09/21 12/09/21 12/09/21 Range/Units 07:02 08:07 08:07 Hgb 9.5 L (11.4-16.0) gm/dL MCH 23.9 L (25.0-35.0) pg MCHC 27.1 L (31.0-37.0) g/dL RDW 17.9 H (11.5-15.5) % Neutrophils # 9.1 H (1.3-7.7) k/uL Lymphocytes # 0.6 L (1.0-4.8) k/uL Sodium 135 L (137-145) mmol/L Chloride 109 H (98-107) mmol/L Carbon Dioxide 20 L (22-30) mmol/L BUN 71 H (7-17) mg/dL Creatinine 1.86 H (0.52-1.04) mg/dL Glucose 117 H (74-99) mg/dL POC Glucose (mg/dL) 123 H (75-99) mg/dL Calcium 8.0 L (8.4-10.2) mg/dL
[2021-12-09] MEDS: HYDROcodone/APAP 5-325MG 1 EACH TAB PO PRN (12:23)
--- NOTE | 2021-12-09 14:41 | P.PN ---
Subjective Progress Note Date: 12/09/21 Patient is a 71-year-old female with a PMH of diastolic CHF with persistent bilateral lower extremity edema, chronic kidney disease, type II DM, hypertension, hyperlipidemia, TIA, who presents to the emergency room after a fall. Patient reports that she was walking at home with her walker when she tripped on a blanket that got stuck on the walker. She reports falling on her left side, striking her hip to the ground, and immediately having severe pain at the site. She denied losing consciousness or head trauma. She called for her who subsequently activated EMS and the patient was brought to the emergency room. A left femur x-ray revealed an acute supracondylar fracture of the distal femur with combination and displacement. Chest x-ray revealed congestive heart failure with pleural fluid and left lower lobe pneumonia. Laboratory evaluation was remarkable for WBC count 11.5, BUN 74, creatinine 1.68, and glucose 154. At time of interview, the patient reported no active complaints with no left hip pain at rest. She did report significant hip pain with any sort of movement. She denied experiencing cough, fever, chills, chest pain, shortness of breath. Reports bilateral lower extremity edema chronically with venous stasis changes and nonhealing wounds for which she follows at wound clinic. Further denied abdominal pain, nausea, vomiting, diarrhea. On 12/08/2021 patient was cleared by cardiology for surgery. Patient had repair of left femoral shaft. This morning patient denies any acute complaints. She denies any shortness of breath. When working with physical therapy nurse noted a vesicular rash on her back and thigh. I did look at these pictures which appeared to be consistent with herpes zoster. Patient herself is denying any back pain. Objective - Vital Signs Vital signs: Vital Signs Temp 97.7 F 12/09/21 08:00 Pulse 100 12/09/21 08:00 Resp 16 12/09/21 08:00 BP 129/74 12/09/21 08:00 Pulse Ox 98 12/09/21 09:29 Intake & Output 12/08/21 12/09/21 12/09/21 18:59 06:59 18:59 Intake Total 901 Output Total 1050 300 Balance -149 -300 Weight 124 kg Intake: IV 901 Output: Urine 750 300 Uretheral ([place]) 650 Estimated Blood Loss 300 Other: Voiding Method Indwelling Catheter - Exam General examination - Alert and Oriented 3 in NAD Heart - + S1S2 no murmurs Lungs - Clear to auscultation Abdomen soft NT ND +ve BS, obese Extremities - bilateral lower extremity bandages are intact and dry 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 Psych - Calm and cooperative - Labs CBC & Chem 7: 12/09/21 08:07 12/09/21 08:07 Labs: Abnormal Lab Results - Last 24 Hours (Table) 12/08/21 12/08/21 12/08/21 Range/Units 15:10 19:59 20:46 Hgb (11.4-16.0) gm/dL MCH (25.0-35.0) pg MCHC (31.0-37.0) g/dL RDW (11.5-15.5) % Neutrophils # (1.3-7.7) k/uL Lymphocytes # (1.0-4.8) k/uL Sodium (137-145) mmol/L Chloride (98-107) mmol/L Carbon Dioxide (22-30) mmol/L BUN (7-17) mg/dL Creatinine (0.52-1.04) mg/dL Glucose (74-99) mg/dL POC Glucose (mg/dL) 143 H 143 H 142 H (75-99) mg/dL Calcium (8.4-10.2) mg/dL 12/09/21 12/09/21 12/09/21 Range/Units 07:02 08:07 08:07 Hgb 9.5 L (11.4-16.0) gm/dL MCH 23.9 L (25.0-35.0) pg MCHC 27.1 L (31.0-37.0) g/dL RDW 17.9 H (11.5-15.5) % Neutrophils # 9.1 H (1.3-7.7) k/uL Lymphocytes # 0.6 L (1.0-4.8) k/uL Sodium 135 L (137-145) mmol/L Chloride 109 H (98-107) mmol/L Carbon Dioxide 20 L (22-30) mmol/L BUN 71 H (7-17) mg/dL Creatinine 1.86 H (0.52-1.04) mg/dL Glucose 117 H (74-99) mg/dL POC Glucose (mg/dL) 123 H (75-99) mg/dL Calcium 8.0 L (8.4-10.2) mg/dL 12/09/21 Range/Units 11:46 Hgb (11.4-16.0) gm/dL MCH (25.0-35.0) pg MCHC (31.0-37.0) g/dL RDW (11.5-15.5) % Neutrophils # (1.3-7.7) k/uL Lymphocytes # (1.0-4.8) k/uL Sodium (137-145) mmol/L Chloride (98-107) mmol/L Carbon Dioxide (22-30) mmol/L BUN (7-17) mg/dL Creatinine (0.52-1.04) mg/dL Glucose (74-99) mg/dL POC Glucose (mg/dL) 101 H (75-99) mg/dL Calcium (8.4-10.2) mg/dL Assessment and Plan Assessment: Left Femoral fracture status post repair -PT OT consult -Orthopedic surgery management Chronic heart failure with preserved ejection fraction -Continue with IV Lasix 40 mg twice a day -Intake and output -Daily weight -Monitor electrolytes -Cardiology on board -Resume statin, beta trinity, Plavix Herpes zoster rash on back and thigh -We'll start patient on acyclovir Diabetes mellitus type 2 -Resume home dose insulin Chronic bilateral lower extremity wounds -Wound care consult Hyperlipidemia -Resume statin CK D stage III -Creatinine at baseline Chronic conditions: 2 DM, hypertension, hyperlipidemia, history of TIA, chronic kidney disease -Continue with home meds -Insulin sliding scale and blood glucose monitoring -Check A1c CODE STATUS:full code DVT prophylaxis: Subcu heparin Discussed with: Patient, ER, rn Anticipated length of stay : [address]: detention facility
[2021-12-09 16:52] LABS: Glucose,Whole Blood 121 mg/dL (75-99)
[2021-12-09] MEDS ORDERED: SODIUM CHLORIDE 0.9% 500 ML 500 ML IV ONE (17:48)
--- NOTE | 2021-12-09 18:35 | P.PN ---
Subjective Progress Note Date: 12/09/21 This patient is a 71- year old female who is status-post operative fixation of left femoral shaft fracture with retrograde intramedullary nail on 12/08/21. Today is post-operative day #1. Patient is seen and examined bedside with Dr. William. Patient is experiencing left foot pain today. She also complains of muscle spasms. Per nursing she did get up with physical therapy today. There are no additional complaints. Vital signs stable. Objective - Vital Signs Vital signs: Vital Signs Temp 96.8 F L 12/09/21 17:42 Pulse 103 H 12/09/21 17:42 Resp 12 12/09/21 17:42 BP 84/50 12/09/21 17:42 Pulse Ox 97 12/09/21 17:42 Intake & Output 12/08/21 12/09/21 12/09/21 18:59 06:59 18:59 Intake Total 901 Output Total 1050 300 Balance -149 -300 Weight 124 kg Intake: IV 901 Output: Urine 750 300 Uretheral ([place]) 650 Estimated Blood Loss 300 Other: Voiding Method Indwelling Catheter - Exam On examination, patient is sitting up in bed in acute distress. She is alert and orientated x3. is bedside. On inspection of the left lower extremity, there is an SOTERO wrap and knee immobilizer in place. The visible portion of the foot is warm and well perfused with brisk capillary refill distally. Motor and sensory function intact LLE. There is pain with palpation of the left foot. - Labs CBC & Chem 7: 12/09/21 08:07 12/09/21 08:07 Labs: Abnormal Lab Results - Last 24 Hours (Table) 12/08/21 12/08/21 12/09/21 Range/Units 19:59 20:46 07:02 Hgb (11.4-16.0) gm/dL MCH (25.0-35.0) pg MCHC (31.0-37.0) g/dL RDW (11.5-15.5) % Neutrophils # (1.3-7.7) k/uL Lymphocytes # (1.0-4.8) k/uL Sodium (137-145) mmol/L Chloride (98-107) mmol/L Carbon Dioxide (22-30) mmol/L BUN (7-17) mg/dL Creatinine (0.52-1.04) mg/dL Glucose (74-99) mg/dL POC Glucose (mg/dL) 143 H 142 H 123 H (75-99) mg/dL Calcium (8.4-10.2) mg/dL 12/09/21 12/09/21 12/09/21 Range/Units 08:07 08:07 11:46 Hgb 9.5 L (11.4-16.0) gm/dL MCH 23.9 L (25.0-35.0) pg MCHC 27.1 L (31.0-37.0) g/dL RDW 17.9 H (11.5-15.5) % Neutrophils # 9.1 H (1.3-7.7) k/uL Lymphocytes # 0.6 L (1.0-4.8) k/uL Sodium 135 L (137-145) mmol/L Chloride 109 H (98-107) mmol/L Carbon Dioxide 20 L (22-30) mmol/L BUN 71 H (7-17) mg/dL Creatinine 1.86 H (0.52-1.04) mg/dL Glucose 117 H (74-99) mg/dL POC Glucose (mg/dL) 101 H (75-99) mg/dL Calcium 8.0 L (8.4-10.2) mg/dL 12/09/21 Range/Units 16:49 Hgb (11.4-16.0) gm/dL MCH (25.0-35.0) pg MCHC (31.0-37.0) g/dL RDW (11.5-15.5) % Neutrophils # (1.3-7.7) k/uL Lymphocytes # (1.0-4.8) k/uL Sodium (137-145) mmol/L Chloride (98-107) mmol/L Carbon Dioxide (22-30) mmol/L BUN (7-17) mg/dL Creatinine (0.52-1.04) mg/dL Glucose (74-99) mg/dL POC Glucose (mg/dL) 121 H (75-99) mg/dL Calcium (8.4-10.2) mg/dL Assessment and Plan Assessment: Status-post operative fixation of left femoral shaft fracture with retrograde intramedullary nail on 12/08/21. Post-operative day #1. Plan: - Toe touch weight bearing left lower extremity. Up with assistance and a walker. - Physical therapy for gait and balance training. - Keep knee immobilizer in place for 48 hours. - Pain management as needed. - DVT prophylaxis per internal medicine. - 2 doses of post-operative IV antibiotics complete. - Will obtain x-rays of left foot. - Case management consulted for discharge planning. Anticipate discharge to rehab.
--- NOTE | 2021-12-09 19:02 | XR ---
EXAMINATION TYPE: XR foot limited LT DATE OF EXAM: 12/09/2021 6:43 PM INDICATION: Patient age:Female; 71 years old; Reason for study: pain; COMPARISON: None TECHNIQUE: The left foot was examined in the AP, oblique, and lateral projections. FINDINGS: There is diffuse osseous demineralization. Plantar calcaneal spurring is present. Calcaneal Achilles enthesophyte is present. Atherosclerosis of the arterial vasculature. No evidence of any acute osseous pathology. No evidence of soft tissue swelling. Scattered degenerat shira osteoarthritic changes of the interphalangeal joints. Mild hallux valgus. IMPRESSION: 1. No evidence of acute fracture. 2. Diffuse osseous demineralization. 3. Mild hallux valgus.
[2021-12-09 20:00] LABS: Glucose,Whole Blood 140 mg/dL (75-99)
[2021-12-09] MEDS: SENNOSIDES-DOCUSATE SODIUM 1 EACH TAB PO SCH (20:48)
[2021-12-09] MEDS: ACYCLOVIR 800 MG TAB PO SCH ×3 (20:48→23:18)
[2021-12-09] MEDS: LATANOPROST 0.005% OPHTH DROPS 2.5 ML BTL BOTH EYES SCH (20:50)
[2021-12-09] MEDS: atenoloL 25 MG TAB PO SCH (20:50)
[2021-12-09] MEDS ORDERED: HYDROmorphone 0.5 MG/0.5 ML SYRINGE IVP STA (22:17)
[2021-12-10] MEDS: ACYCLOVIR 800 MG TAB PO SCH ×3 (05:07→20:43)
[2021-12-10] MEDS: ACETAMINOPHEN TAB 325 MG TAB PO PRN ×3 (05:08→20:48)
[2021-12-10] MEDS ORDERED: SODIUM CHLORIDE 0.9% 1,000 ML IV ONE (06:22)
[2021-12-10 07:03] LABS: Glucose,Whole Blood 113 mg/dL (75-99)
[2021-12-10 09:33] LABS: African American GFR (CKD) 24 (>60 ml/min/1.73 sqM); Anion Gap 10 mmol/L; Blood Urea Nitrogen 74 mg/dL (7-17); Calcium 7.5 mg/dL (8.4-10.2); Carbon Dioxide 13 mmol/L (22-30); Chloride 107 mmol/L (98-107); Glucose 109 mg/dL (74-99); Non-African American GFR(CKD) 21 (>60 ml/min/1.73 sqM); Sodium 130 mmol/L (137-145)
[2021-12-10 09:35] LABS: Magnesium 1.8 mg/dL (1.6-2.3); Potassium 5.2 mmol/L (3.5-5.1)
[2021-12-10] MEDS: INSULN ASP PRT/INSULIN ASPART 100 UNIT/ML 10 ML VIAL SQ SCH ×2 (09:42→20:43)
[2021-12-10] MEDS: HEPARIN SODIUM,PORCINE/PF 5,000 UNIT/0.5 ML SYRINGE SQ SCH ×3 (09:43→23:05)
[2021-12-10] MEDS: CLOPIDOGREL 75 MG TAB PO SCH (09:43)
[2021-12-10] MEDS: ATORVASTATIN 10 MG TAB PO SCH (09:43)
[2021-12-10] MEDS: MIDODRINE 5 MG TAB PO SCH ×2 (11:10→17:05)
--- NOTE | 2021-12-10 11:43 | P.CONS ---
History of Present Illness - Reason for Consult Consult date: 12/10/21 wound care - History of Present Illness This is a 71-year-old patient being seen for open ulcerations to the right lower extremity. Patient's left lower extremity is currently in the leg immobilizer from a previous fracture. Patient states that the legs will routinely have ulcerations that come and go. Her son put lotion on them and they do improve. At this time patient has been seen the wound care center at [facility] where they've been doing daily wraps to her right lower leg. This time patient has no open ulcerations to the right lower leg. Past medical history significant for CVA, diabetes mellitus, hyperlipidemia, hypertension and lymphedema. Review Of Systems: Constitutional: No fever, no chills, no night sweats. No weight change. No weakness, fatigue or lethargy. No daytime sleepiness. Integumentary:reports wounds, no lesions. No rash or pruritus. No unusual bruising. No change in hair or nails. Physical exam: General Appearance: Alert, cooperative, no distress, appears stated age. Skin: See HPI all other Skin color, texture, tugor normal, no rashes or lesions. Neurologic: Alert oriented x3 Assessment: 1. Chronic venous hypertension with inflammation to bilateral lower extremities 2. Lymphedema Plan: 1. Apply triad cream and Ole wrap daily to the right lower extremity. Thank for the consultation any questions contact the wound care center DNP note has been reviewed and discussed with Dr. Menard and the impression and plan of care has been directed as dictated. Past Medical History Past Medical History: CVA/TIA, Diabetes Mellitus, Hyperlipidemia, Hypertension Additional Past Medical History / Comment(s): lymphedema History of Any Multi-Drug Resistant Organisms: None Reported Past Surgical History: Breast Surgery, Hysterectomy, Tonsillectomy Additional Past Surgical History / Comment(s): Right breast biopsy for hyperdensity Past Anesthesia/Blood Transfusion Reactions: No Reported Reaction Past Psychological History: No Psychological Hx Reported Smoking Status: Never smoker Past Alcohol Use History: None Reported Past Drug Use History: None Reported - Past Family History Father Family Medical History: Cancer Mother Family Medical History: CVA/TIA, Diabetes Mellitus Additional Family Medical History / Comment(s): 2 brothers okay 2 sisters okay 3 sons okay one daughter okay. patient denies any CAD CHF cancer blood pressure PE DVT CVA asthma Medications and Allergies Home Medications Medication Instructions Recorded Confirmed Type Atorvastatin Calcium [Lipitor] 10 mg PO DAILY 04/10/14 12/08/21 History Clopidogrel [Plavix] 75 mg PO DAILY 04/10/14 12/08/21 History hydrALAZINE HCL 50 mg PO TID-W/MEALS 04/10/14 12/08/21 History Ergocalciferol [Vitamin D2 50,000 unit PO MO 06/06/14 12/08/21 History (DRISDOL)] Travoprost [Travoprost 0.004%] 1 drop BOTH EYES HS 08/19/21 12/08/21 History Atenolol [Tenormin] 50 mg PO HS 09/04/21 12/08/21 History Insulin Aspart Protam & Aspart 20 unit SQ HS 09/04/21 12/08/21 History [NovoLOG MIX 70-30 Flexpen] Insulin Aspart Protam & Aspart 30 unit SQ DAILY 09/04/21 12/08/21 History [NovoLOG MIX 70-30 Flexpen] Brimonidine Tartrate [Alphagan P 1 drop BOTH EYES BID 12/08/21 12/08/21 History 0.1% Ophth Soln] Furosemide [Lasix] 40 mg PO DAILY 12/08/21 12/08/21 History Allergies Allergy/AdvReac Type Severity Reaction Status Date / Time enalapril maleate Allergy Hives over Verified 12/08/21 14:52 [From Vasotec] entire body enalaprilat dihydrate Allergy Hives over Verified 12/08/21 14:52 [From Vasotec] entire body metoprolol tartrate Allergy Hives over Verified 12/08/21 14:52 [From Lopressor] entire body Physical Exam Vitals: Vital Signs Temp Pulse Resp BP Pulse Ox 12/10/21 08:00 98.1 F 90 16 101/55 97 12/10/21 03:43 102 H 18 84/56 97 12/09/21 22:05 97 18 91/59 97 12/09/21 20:15 97.7 F 106 H 16 114/75 98 12/09/21 19:30 66 18 104/56 100 12/09/21 17:42 96.8 F L 103 H 12 84/50 97 12/09/21 15:00 97.8 F 113 H 16 96/63 99 Intake and Output 12/09/21 12/10/21 12/10/21 22:59 06:59 14:59 Output Total 200 100 Balance -200 -100 Output: Urine 200 100 Other: Voiding Method Indwelling Catheter Indwelling Catheter Results CBC & Chem 7: 12/09/21 08:07 12/10/21 08:35 Labs: Abnormal Lab Results - Last 24 Hours (Table) 12/09/21 12/09/21 12/09/21 Range/Units 11:46 16:49 19:58 Sodium (137-145) mmol/L Potassium (3.5-5.1) mmol/L Carbon Dioxide (22-30) mmol/L BUN (7-17) mg/dL Creatinine (0.52-1.04) mg/dL Glucose (74-99) mg/dL POC Glucose (mg/dL) 101 H 121 H 140 H (75-99) mg/dL Calcium (8.4-10.2) mg/dL 12/10/21 12/10/21 Range/Units 07:01 08:35 Sodium 130 L (137-145) mmol/L Potassium 5.2 H (3.5-5.1) mmol/L Carbon Dioxide 13 L (22-30) mmol/L BUN 74 H (7-17) mg/dL Creatinine 2.32 H (0.52-1.04) mg/dL Glucose 109 H (74-99) mg/dL POC Glucose (mg/dL) 113 H (75-99) mg/dL Calcium 7.5 L (8.4-10.2) mg/dL Assessment and Plan (1) Chronic venous hypertension with inflammation involving both sides Current Visit: Yes Status: Acute Code(s): I87.323 - CHRONIC VENOUS HTN W INFLAMMATION OF BILATERAL LOW EXTRM SNOMED Code(s): 281932418
[2021-12-10 11:51] LABS: Glucose,Whole Blood 134 mg/dL (75-99)
--- NOTE | 2021-12-10 12:06 | P.PN ---
Subjective Progress Note Date: 12/10/21 This patient is a 71- year old female who is status-post operative fixation of left femoral shaft fracture with retrograde intramedullary nail on 12/08/21. Today is post-operative day #2. Patient is seen and examined bedside this morning. Patient was up with physical therapy yesterday and it was noted she has a herpes zoster rash on her back. Patient has been mildly hypotensive and opioids have been discontinued per internal medicine. She states her pain is well-controlled at this time. Patient denies left foot pain today. She has no new complaints. Vital signs stable. Objective - Vital Signs Vital signs: Vital Signs Temp 98.1 F 12/10/21 08:00 Pulse 90 12/10/21 08:00 Resp 16 12/10/21 08:00 BP 101/55 12/10/21 08:00 Pulse Ox 97 12/10/21 08:00 Intake & Output 12/09/21 12/10/21 12/10/21 18:59 06:59 18:59 Output Total 200 100 Balance -200 -100 Output: Urine 200 100 Other: Voiding Method Indwelling Catheter Indwelling Catheter - Exam On examination, patient is sitting up in bed in acute distress. She is alert and orientated x3. On inspection of the left lower extremity, there is an SOTERO wrap and knee immobilizer in place. The visible portion of the foot is warm and well perfused with brisk capillary refill distally. Motor and sensory function intact LLE. There is no pain with palpation of the left foot today. - Labs CBC & Chem 7: 12/09/21 08:07 12/10/21 08:35 Labs: Abnormal Lab Results - Last 24 Hours (Table) 12/09/21 12/09/21 12/10/21 Range/Units 16:49 19:58 07:01 Sodium (137-145) mmol/L Potassium (3.5-5.1) mmol/L Carbon Dioxide (22-30) mmol/L BUN (7-17) mg/dL Creatinine (0.52-1.04) mg/dL Glucose (74-99) mg/dL POC Glucose (mg/dL) 121 H 140 H 113 H (75-99) mg/dL Calcium (8.4-10.2) mg/dL 12/10/21 12/10/21 Range/Units 08:35 11:49 Sodium 130 L (137-145) mmol/L Potassium 5.2 H (3.5-5.1) mmol/L Carbon Dioxide 13 L (22-30) mmol/L BUN 74 H (7-17) mg/dL Creatinine 2.32 H (0.52-1.04) mg/dL Glucose 109 H (74-99) mg/dL POC Glucose (mg/dL) 134 H (75-99) mg/dL Calcium 7.5 L (8.4-10.2) mg/dL - Imaging and Cardiology Left foot x-ray 12/09/21: No acute fractures identified. Assessment and Plan Assessment: Status-post operative fixation of left femoral shaft fracture with retrograde intramedullary nail on 12/08/21. Post-operative day #2. Plan: - Toe touch weight bearing left lower extremity. Up with assistance and a walker. - Physical therapy for gait and balance training. - Keep knee immobilizer in place and we will plan to remove tomorrow morning. - Pain management as needed. - DVT prophylaxis per internal medicine. - X-rays of left foot negative for acute fracture and patient complaining of no pain today. We will observe her left foot pain at this time. - Anticipate discharge to rehab when medically cleared. We will follow patient as she remains inpatient.
[2021-12-10] MEDS: FUROSEMIDE 40 MG TAB PO SCH (12:17)
[2021-12-10] MEDS: HYDROPHILIC CREAM 180 GM TUBE TOPICAL SCH (12:18)
--- NOTE | 2021-12-10 14:36 | P.PN ---
Subjective Progress Note Date: 12/10/21 Patient is a 71-year-old female with a PMH of diastolic CHF with persistent bilateral lower extremity edema, chronic kidney disease, type II DM, hypertension, hyperlipidemia, TIA, who presents to the emergency room after a fall. Patient reports that she was walking at home with her walker when she tripped on a blanket that got stuck on the walker. She reports falling on her left side, striking her hip to the ground, and immediately having severe pain at the site. She denied losing consciousness or head trauma. She called for her who subsequently activated EMS and the patient was brought to the emergency room. A left femur x-ray revealed an acute supracondylar fracture of the distal femur with combination and displacement. Chest x-ray revealed congestive heart failure with pleural fluid and left lower lobe pneumonia. Laboratory evaluation was remarkable for WBC count 11.5, BUN 74, creatinine 1.68, and glucose 154. At time of interview, the patient reported no active complaints with no left hip pain at rest. She did report significant hip pain with any sort of movement. She denied experiencing cough, fever, chills, chest pain, shortness of breath. Reports bilateral lower extremity edema chronically with venous stasis changes and nonhealing wounds for which she follows at wound clinic. Further denied abdominal pain, nausea, vomiting, diarrhea. On 12/08/2021 patient was cleared by cardiology for surgery. Patient had repair of left femoral shaft. 12/09/2021: Physical therapy nurse noticed that patient had a vesicular rash on her back. Nurse took a picture and I repeated and looks like his consistent with herpes zoster. Patient started on acyclovir. Patient blood pressure was also on the low side. She had to be given 1.5 L of fluid bolus. Her hydralazine was discontinued.Also decrease to 40 mg oral daily 12/10/2021: Patient states that her pain is controlled on current pain regimen. Patient blood pressure is still on the low side. Patient has been started on midodrine. Patient still significantly volume overloaded. We'll resume Lasix oral 40 mg daily as tolerated by blood pressure. Patient creatinine is also increasing to 2.3. Which is likely due to her low blood pressure. Objective - Vital Signs Vital signs: Vital Signs Temp 98.1 F 12/10/21 08:00 Pulse 90 03/24/22 08:00 Resp 16 12/10/21 08:00 BP 101/55 12/10/21 08:00 Pulse Ox 97 12/10/21 08:00 Intake & Output 12/09/21 12/10/21 12/10/21 18:59 06:59 18:59 Output Total 200 100 30 Balance -200 -100 -30 Output: Urine 200 100 30 Uretheral ([place]) 30 Other: Voiding Method Indwelling Catheter Indwelling Catheter - Exam General examination - Alert and Oriented 3 in NAD Heart - + S1S2 no murmurs Lungs -diminished breath sounds bilaterally Abdomen soft NT ND +ve BS, obese Extremities - bilateral lower extremity bandages are intact and dry, left knee brace, bilateral lower extremity pitting edema +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 Psych - Calm and cooperative - Labs CBC & Chem 7: 12/09/21 08:07 12/10/21 08:35 Labs: Abnormal Lab Results - Last 24 Hours (Table) 12/09/21 12/09/21 12/10/21 Range/Units 16:49 19:58 07:01 Sodium (137-145) mmol/L Potassium (3.5-5.1) mmol/L Carbon Dioxide (22-30) mmol/L BUN (7-17) mg/dL Creatinine (0.52-1.04) mg/dL Glucose (74-99) mg/dL POC Glucose (mg/dL) 121 H 140 H 113 H (75-99) mg/dL Calcium (8.4-10.2) mg/dL 12/10/21 12/10/21 Range/Units 08:35 11:49 Sodium 130 L (137-145) mmol/L Potassium 5.2 H (3.5-5.1) mmol/L Carbon Dioxide 13 L (22-30) mmol/L BUN 74 H (7-17) mg/dL Creatinine 2.32 H (0.52-1.04) mg/dL Glucose 109 H (74-99) mg/dL POC Glucose (mg/dL) 134 H (75-99) mg/dL Calcium 7.5 L (8.4-10.2) mg/dL Assessment and Plan Assessment: Left Femoral fracture status post repair -PT OT consult -> recommend jail facility -Orthopedic surgery management Chronic heart failure with preserved ejection fraction -Due to low blood pressure were changed patient to oral Lasix 40 mg daily -Intake and output -Daily weight -Monitor electrolytes -Cardiology on board -Resume statin, beta trinity, Plavix Herpes zoster rash on back and thigh -Resume acyclovir -Airborn and contact precautions Acute kidney injury on CK D stage III -Creatinine baseline around 1.8 -Likely worsening due to low blood pressure Low blood pressure -Hold hydralazine -Start patient on midodrine Diabetes mellitus type 2 -Resume home dose insulin Chronic bilateral lower extremity wounds -Wound care consult pending Hyperlipidemia -Resume statin Chronic conditions: 2 DM, hypertension, hyperlipidemia, history of TIA, chronic kidney disease -Continue with home meds -Insulin sliding scale and blood glucose monitoring -Hemoglobin A1c is 7.4 CODE STATUS:full code DVT prophylaxis: Subcu heparin Discussed with: Patient, ER, rn Anticipated length of stay : [address] more [address]: [facility] facility
[2021-12-10 16:45] LABS: Glucose,Whole Blood 141 mg/dL (75-99)
[2021-12-10 20:41] LABS: Glucose,Whole Blood 172 mg/dL (75-99)
[2021-12-10] MEDS: LATANOPROST 0.005% OPHTH DROPS 2.5 ML BTL BOTH EYES SCH (20:42)
[2021-12-10] MEDS: atenoloL 25 MG TAB PO SCH (20:43)
[2021-12-10] MEDS: SENNOSIDES-DOCUSATE SODIUM 1 EACH TAB PO SCH (20:43)
[2021-12-11] MEDS: ACYCLOVIR 800 MG TAB PO SCH ×2 (05:30→09:19)
[2021-12-11 07:03] LABS: Glucose,Whole Blood 124 mg/dL (75-99)
[2021-12-11] MEDS: INSULN ASP PRT/INSULIN ASPART 100 UNIT/ML 10 ML VIAL SQ SCH ×2 (09:14→21:27)
[2021-12-11 09:17] LABS: Magnesium 2.1 mg/dL (1.5-2.4)
[2021-12-11] MEDS: HEPARIN SODIUM,PORCINE/PF 5,000 UNIT/0.5 ML SYRINGE SQ SCH ×3 (09:18→22:54)
[2021-12-11] MEDS: MIDODRINE 5 MG TAB PO SCH ×3 (09:18→17:05)
[2021-12-11] MEDS: ATORVASTATIN 10 MG TAB PO SCH (09:19)
[2021-12-11] MEDS: FUROSEMIDE 40 MG TAB PO SCH (09:19)
[2021-12-11] MEDS: CLOPIDOGREL 75 MG TAB PO SCH (09:19)
[2021-12-11] MEDS: HYDROPHILIC CREAM 180 GM TUBE TOPICAL SCH (09:21)
[2021-12-11 09:32] LABS: African American GFR (CKD) 18.2 (60.0-200.0); Anion Gap 13.1 mmol/L (10.00-18.00); BUN/Creat Ratio 27.52 Ratio (12.00-20.00); Blood Urea Nitrogen 79.8 mg/dL (9.0-27.0); Calcium 7.9 mg/dL (8.7-10.3); Carbon Dioxide 16.9 mmol/L (20.0-27.5); Non-African American GFR(CKD) 15.7 (60.0-200.0); Potassium 5.1 mmol/L (3.5-5.5)
--- NOTE | 2021-12-11 10:35 | P.PN ---
Subjective Progress Note Date: 12/11/21 This patient is a 71- year old female who is status-post operative fixation of left femoral shaft fracture with retrograde intramedullary nail on 12/08/21. Today is post-operative day #3. Patient is seen and examined bedside this morning. She states the pain in her left lower extremity is controlled at this time. No new complaints or concerns today. Patient remains hypotensive. Objective - Vital Signs Vital signs: Vital Signs Temp 97.6 F 12/11/21 07:15 Pulse 87 12/11/21 08:00 Resp 18 12/11/21 08:00 BP 94/59 12/11/21 07:15 Pulse Ox 94 L 12/11/21 07:15 Intake & Output 12/10/21 12/11/21 12/11/21 18:59 06:59 18:59 Output Total 30 200 Balance -30 -200 Output: Urine 30 200 Uretheral (Aguilera) 30 Post Void Residual 0 Other: Voiding Method Indwelling Catheter Indwelling Catheter Indwelling Catheter - Exam On examination, patient is sitting up in bed in acute distress. She is alert and orientated x3. On inspection of the left lower extremity, there is an SOTERO wrap and knee immobilizer in place. Knee immobilizer removed and SOTERO taken down, surgical dressings are clean, dry, intact. No bleeding or drainage through dressings. Dorsalis pedis pulse +2, foot is warm and well perfused with brisk capillary refill distally. Motor and sensory function intact LLE. - Labs CBC & Chem 7: 12/09/21 08:07 12/11/21 06:16 Labs: Abnormal Lab Results - Last 24 Hours (Table) 12/10/21 12/10/21 12/10/21 Range/Units 11:49 16:44 20:39 Sodium (135-145) mmol/L Carbon Dioxide (20.0-27.5) mmol/L BUN (9.0-27.0) mg/dL Creatinine (0.6-1.5) mg/dL Est GFR (CKD-EPI)AfAm (60.0-200.0) Est GFR (CKD-EPI)NonAf (60.0-200.0) BUN/Creatinine Ratio (12.00-20.00) Ratio Glucose (70-110) mg/dL POC Glucose (mg/dL) 134 H 141 H 172 H (75-99) mg/dL Calcium (8.7-10.3) mg/dL 12/11/21 12/11/21 Range/Units 06:16 07:01 Sodium 132 L (135-145) mmol/L Carbon Dioxide 16.9 L (20.0-27.5) mmol/L BUN 79.8 H (9.0-27.0) mg/dL Creatinine 2.9 H (0.6-1.5) mg/dL Est GFR (CKD-EPI)AfAm 18.2 L (60.0-200.0) Est GFR (CKD-EPI)NonAf 15.7 L (60.0-200.0) BUN/Creatinine Ratio 27.52 H (12.00-20.00) Ratio Glucose 113 H (70-110) mg/dL POC Glucose (mg/dL) 124 H (75-99) mg/dL Calcium 7.9 L (8.7-10.3) mg/dL Assessment and Plan Assessment: Status-post operative fixation of left femoral shaft fracture with retrograde intramedullary nail on 12/08/21. Post-operative day #3. Plan: - Toe touch weight bearing left lower extremity. Up with assistance and a walker. - Physical therapy for gait and balance training. - Knee immobilizer has been discontinued. - Pain management as needed. - DVT prophylaxis per internal medicine. - We will continue to follow patient peripherally as she remains inpatient. Patient should follow-up in the office 2 weeks following discharge for repeat x-rays and suture removal.
[2021-12-11 11:42] LABS: Glucose,Whole Blood 127 mg/dL (75-99)
[2021-12-11] MEDS: ACETAMINOPHEN TAB 325 MG TAB PO PRN ×2 (12:48→22:53)
--- NOTE | 2021-12-11 12:51 | P.PN ---
Subjective Progress Note Date: 12/11/21 Patient is a 71-year-old female with a PMH of diastolic CHF with persistent bilateral lower extremity edema, chronic kidney disease, type II DM, hypertension, hyperlipidemia, TIA, who presents to the emergency room after a fall. Patient reports that she was walking at home with her walker when she tripped on a blanket that got stuck on the walker. She reports falling on her left side, striking her hip to the ground, and immediately having severe pain at the site. She denied losing consciousness or head trauma. She called for her who subsequently activated EMS and the patient was brought to the emergency room. A left femur x-ray revealed an acute supracondylar fracture of the distal femur with combination and displacement. Chest x-ray revealed congestive heart failure with pleural fluid and left lower lobe pneumonia. Laboratory evaluation was remarkable for WBC count 11.5, BUN 74, creatinine 1.68, and glucose 154. At time of interview, the patient reported no active complaints with no left hip pain at rest. She did report significant hip pain with any sort of movement. She denied experiencing cough, fever, chills, chest pain, shortness of breath. Reports bilateral lower extremity edema chronically with venous stasis changes and nonhealing wounds for which she follows at wound clinic. Further denied abdominal pain, nausea, vomiting, diarrhea. On 12/08/2021 patient was cleared by cardiology for surgery. Patient had repair of left femoral shaft. 12/09/2021: Physical therapy nurse noticed that patient had a vesicular rash on her back. Nurse took a picture and I repeated and looks like his consistent with herpes zoster. Patient started on acyclovir. Patient blood pressure was also on the low side. She had to be given 1.5 L of fluid bolus. Her hydralazine was discontinued.Also decrease to 40 mg oral daily 12/10/2021: Patient states that her pain is controlled on current pain regimen. Patient blood pressure is still on the low side. Patient has been started on midodrine. Patient still significantly volume overloaded. We'll resume Lasix oral 40 mg daily as tolerated by blood pressure. Patient creatinine is also increasing to 2.3. Which is likely due to her low blood pressure. 12/11/2021: This morning patient is denying any pain. Patient's creatinine is worsening and is up to 2.9. I will stop acyclovir. Also will hold Lasix. Patient is still significantly volume overloaded. Awaiting for nephrology recommendations. Per nurse patient has decreased urine output. Blood pressure remains on the low side Objective - Vital Signs Vital signs: Vital Signs Temp 97.6 F 12/11/21 07:15 Pulse 87 12/11/21 08:00 Resp 18 12/11/21 08:00 BP 94/59 12/11/21 07:15 Pulse Ox 94 L 12/11/21 07:15 Intake & Output 12/10/21 12/11/21 12/11/21 18:59 06:59 18:59 Output Total 30 200 Balance -30 -200 Output: Urine 30 200 Uretheral ([place]il[place]) 30 Post Void Residual 0 Other: Voiding Method Indwelling Catheter Indwelling Catheter Indwelling Catheter - Exam General examination - Alert and Oriented 3 in NAD Heart - + S1S2 no murmurs Lungs -diminished breath sounds bilaterally Abdomen soft NT ND +ve BS, obese Extremities - bilateral lower extremity bandages are intact and dry, left knee brace, bilateral lower extremity pitting edema +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 Psych - Calm and cooperative - Labs CBC & Chem 7: 12/09/21 08:07 12/11/21 06:16 Labs: Abnormal Lab Results - Last 24 Hours (Table) 12/10/21 12/10/21 12/11/21 Range/Units 16:44 20:39 06:16 Sodium 132 L (135-145) mmol/L Carbon Dioxide 16.9 L (20.0-27.5) mmol/L BUN 79.8 H (9.0-27.0) mg/dL Creatinine 2.9 H (0.6-1.5) mg/dL Est GFR (CKD-EPI)AfAm 18.2 L (60.0-200.0) Est GFR (CKD-EPI)NonAf 15.7 L (60.0-200.0) BUN/Creatinine Ratio 27.52 H (12.00-20.00) Ratio Glucose 113 H (70-110) mg/dL POC Glucose (mg/dL) 141 H 172 H (75-99) mg/dL Calcium 7.9 L (8.7-10.3) mg/dL 12/11/21 12/11/21 Range/Units 07:01 11:40 Sodium (135-145) mmol/L Carbon Dioxide (20.0-27.5) mmol/L BUN (9.0-27.0) mg/dL Creatinine (0.6-1.5) mg/dL Est GFR (CKD-EPI)AfAm (60.0-200.0) Est GFR (CKD-EPI)NonAf (60.0-200.0) BUN/Creatinine Ratio (12.00-20.00) Ratio Glucose (70-110) mg/dL POC Glucose (mg/dL) 124 H 127 H (75-99) mg/dL Calcium (8.7-10.3) mg/dL Assessment and Plan Assessment: Left Femoral fracture status post repair -PT OT consult -> recommend long term facility -Orthopedic surgery management Acute on Chronic heart failure with preserved ejection fraction -Due to worsening renal function will hold Lasix -Intake and output -Daily weight -Monitor electrolytes -Cardiology on board -Resume statin, beta trinity, Plavix Herpes zoster rash on back and thigh -Due to worsening renal function we'll stop acyclovir -Airborn and contact precautions Acute kidney injury on CK D stage III -Creatinine baseline around 1.8 -Likely worsening due to low blood pressure versus ATN secondary to acyclovir and Lasix -Patient also has decreased urine output -Maintain Aguilera catheter -Consult nephrology Low blood pressure -Hold hydralazine -Start patient on midodrine Diabetes mellitus type 2 -Resume home dose insulin Chronic bilateral lower extremity wounds -Wound care consult pending Hyperlipidemia -Resume statin Chronic conditions: 2 DM, hypertension, hyperlipidemia, history of TIA, chronic kidney disease -Continue with home meds -Insulin sliding scale and blood glucose monitoring -Hemoglobin A1c is 7.4 CODE STATUS:full code DVT prophylaxis: Subcu heparin Discussed with: Patient, ER, rn Anticipated length of stay : 3-[address]: residential facility
[2021-12-11 16:05] LABS: Glucose,Whole Blood 120 mg/dL (75-99)
--- NOTE | 2021-12-11 17:10 | P.NPCON ---
History of Present Illness - Reason for Consult acute renal failure - History of Present Illness Patient is a 71-year-old female with history of type 2 diabetes hypertension, hyperlipidemia, TIA, chronic kidney disease NKF stage IIIB to 4 secondary to diabetic kidney disease and nephrosclerosis. Baseline creatinine about 1.6 mg/dL. Patient had an episode of acute kidney injury in August 2021 with peak creatinine at about 5.1 mg/dL. He did come down to about 1.6 on 12/08/2021. Patient is admitted to the hospital status post fall. She was found to have acute supracondylar fracture of the distal femur with displacement. Patient is status post operative fixation of the left femoral shaft fracture with retrograde intramedullary nail on 12/08/2021. Serum creatinine was 1.68 on admission and has increased to 2.9 today. Blood pressure has been low with systolic as low as 84 mmHg yesterday. Patient was being diuresed for CHF exacerbation. Ejection fraction 55-60% in August 2021 Started on midodrine yesterday. No NSAIDs noted Patient has an indwelling catheter and 24-hour output documented at 300 mL. I'm not sure this is accurate. Review of Systems As per HPI Past Medical History Past Medical History: CVA/TIA, Diabetes Mellitus, Hyperlipidemia, Hypertension Additional Past Medical History / Comment(s): lymphedema History of Any Multi-Drug Resistant Organisms: None Reported Past Surgical History: Breast Surgery, Hysterectomy, Tonsillectomy Additional Past Surgical History / Comment(s): Right breast biopsy for h yperdensity Past Anesthesia/Blood Transfusion Reactions: No Reported Reaction Past Psychological History: No Psychological Hx Reported Smoking Status: Never smoker Past Alcohol Use History: None Reported Past Drug Use History: None Reported - Past Family History Father Family Medical History: Cancer Mother Family Medical History: CVA/TIA, Diabetes Mellitus Additional Family Medical History / Comment(s): 2 brothers okay 2 sisters okay 3 sons okay one daughter okay. patient denies any CAD CHF cancer blood pressure PE DVT CVA asthma Medications and Allergies Home Medications Medication Instructions Recorded Confirmed Type Atorvastatin Calcium [Lipitor] 10 mg PO DAILY 04/10/14 12/08/21 History Clopidogrel [Plavix] 75 mg PO DAILY 04/10/14 12/08/21 History hydrALAZINE HCL 50 mg PO TID-W/MEALS 04/10/14 12/08/21 History Ergocalciferol [Vitamin D2 50,000 unit PO MO 06/06/14 12/08/21 History (DRISDOL)] Travoprost [Travoprost 0.004%] 1 drop BOTH EYES HS 08/19/21 12/08/21 History Atenolol [Tenormin] 50 mg PO HS 09/04/21 12/08/21 History Insulin Aspart Protam & Aspart 20 unit SQ HS 09/04/21 12/08/21 History [NovoLOG MIX 70-30 Flexpen] Insulin Aspart Protam & Aspart 30 unit SQ DAILY 09/04/21 12/08/21 History [NovoLOG MIX 70-30 Flexpen] Brimonidine Tartrate [Alphagan P 1 drop BOTH EYES BID 12/08/21 12/08/21 History 0.1% Ophth Soln] Furosemide [Lasix] 40 mg PO DAILY 12/08/21 12/08/21 History Allergies Allergy/AdvReac Type Severity Reaction Status Date / Time enalapril maleate Allergy Hives over Verified 12/08/21 14:52 [From Vasotec] entire body enalaprilat dihydrate Allergy Hives over Verified 12/08/21 14:52 [From Vasotec] entire body metoprolol tartrate Allergy Hives over Verified 12/08/21 14:52 [From Lopressor] entire body Physical Exam Vitals: Vital Signs Temp Pulse Resp BP Pulse Ox 12/11/21 14:00 97.4 F L 96 19 95/51 94 L 12/11/21 08:00 87 18 12/11/21 07:15 97.6 F 87 18 94/59 94 L 12/11/21 01:58 97.8 F 58 L 17 103/57 95 12/10/21 19:52 97.6 F 86 18 106/72 98 Intake and Output 12/11/21 12/11/21 12/11/21 06:59 14:59 22:59 Output Total 200 Balance -200 Output: Urine 200 Other: Voiding Method Indwelling Catheter Patient is awake, comfortable, not in any acute distress. Examination of the heart S1 and S2 Examination lungs bilateral breath sounds are heard Abdomen is soft nontender Examination lower extremities shows both extremities to be wrapped. STUDENT DEVELOPMENT DEAN exam grossly intact Results - Lab Results Most recent lab results Calcium 7.9 mg/dL (8.7-10.3) L 12/11/21 06:16 Magnesium 2.1 mg/dL (1.5-2.4) 12/11/21 06:16 12/09/21 08:07 12/11/21 06:16 Assessment and Plan Assessment: 1. Acute kidney injury, ATN secondary to hypoperfusion/hypotension. Patient was also on acyclovir which is appropriately discontinued. Agree with midodrine. I will increase dose. 2. Hypotension rule out adrenal insufficiency 3. Status post fall and left femoral fracture status post surgery on 12/08/2021. Patient had operative fixation of the left shaft fracture with a retrograde intramedullary nail 4. Herpes zoster . Patient was on acyclovir which is appropriately discontinued today 5. Chronic kidney disease NKF stage IIIB to 4 with baseline creatinine about 1.6 mg/dL. Patient had acute kidney injury in August with creatinine had peaked at about 5.1 mg/dL. 6. Type 2 diabetes 7. Diastolic CHF with severe pulmonary hypertension, status post diuresis 8. Metabolic acidosis him a non-gap secondary to acute kidney injury Plan: Flush Aguilera catheter Agree with discontinuation of acyclovir Increase midodrine Add oral sodium bicarb Check random cortisol level IV Lasix 1 Check chest x-ray Avoid any other nephrotoxic agents Check urine analysis Check ultrasound of the kidneys
--- NOTE | 2021-12-11 18:27 | US ---
EXAMINATION TYPE: US kidneys/renal and bladder DATE OF EXAM: 12/11/2021 COMPARISON: CT CLINICAL HISTORY: RF. Diabetic, left femur fracture EXAM MEASUREMENTS: Right Kidney: 9.5 x 6.2 x 4.4 cm Left Kidney: 8.6 x 4.2 x 5.4 cm Post Void Residual Volume: not assessed on inpatient with indwelling bladder catheter. Right Kidney: No hydronephrosis or masses seen Left Kidney: No hydronephrosis or masses seen Bladder: not assessed as patient has reddened and excoriated skin beneath panus and at groin areas. There is no evidence for hydronephrosis at this point in time. No nephrolithiasis is seen. No lucero s are identified. IMPRESSION: No evidence for hydronephrosis or obstructive uropathy.
--- NOTE | 2021-12-11 18:54 | XR ---
EXAMINATION TYPE: XR chest 1V DATE OF EXAM: 12/11/2021 6:45 PM COMPARISON:Chest radiographs from 12/08/2021 TECHNIQUE: XR chest 1V Frontal view of the chest. CLINICAL INDICATION:Female, 71 years old with history of chf; FINDINGS: Lungs/Pleura: No evidence of focal consolidation or pneumothorax. Blunting of the costophrenic angles is present, small left trace right . Pulmonary vascularity: Mild pulmonary vascular congestion. Heart/mediastinum: Cardiomediastinal silhouette is enlarged and stable. Musculoskeletal: No acute osseous pathology. Other findings: None IMPRESSION: Cardiomegaly, pulmonary vascular congestion and bilateral pleural effusions. Correlate with BNP for c ongestive heart failure.
[2021-12-11 21:07] LABS: Glucose,Whole Blood 157 mg/dL (75-99)
[2021-12-11] MEDS: LATANOPROST 0.005% OPHTH DROPS 2.5 ML BTL BOTH EYES SCH (21:27)
[2021-12-11] MEDS: SENNOSIDES-DOCUSATE SODIUM 1 EACH TAB PO SCH (21:27)
[2021-12-11 23:21] LABS: Appearance,Urine Turbid (Clear); Bilirubin,Urine Negative (Negative); Blood,Urine Moderate (Negative); Budding Yeast,Urine Many /hpf; Color,Urine Yellow; Glucose,Urine (UA) Negative (Negative); Ketones,Urine Negative (Negative); Leukocyte Esterase,Urine Large (Negative); Mucus,Urine Many /hpf; Nitrite,Urine Negative (Negative); PH, Urine 5.5 (5.0-8.0); Protein,Urine 1+ (Negative); RBC,Urine >182 /hpf (0-5); Specific Gravity,Urine 1.016 (1.001-1.035); Squamous Epithelial Cell,Urine 14 /hpf (0-4); Urobilinogen,Urine <2.0 mg/dL (<2.0); WBC,Urine >182 /hpf (0-5)
[2021-12-12 07:16] LABS: Glucose,Whole Blood 111 mg/dL (75-99)
[2021-12-12 09:15] LABS: Basophils # (A) 0.02 X 10*3/uL (0.00-0.10); Basophils % (A) 0.2 %; Eosinophils # (A) 0.07 X 10*3/uL (0.04-0.35); Eosinophils % (A) 0.7 %; HCT 27.2 % (37.2-46.3); HGB 7.6 g/dL (12.0-15.0); Immature Grans, Automated 0.4 %; Lymphocytes # (A) 0.71 X 10*3/uL (0.90-5.00); Lymphocytes % (A) 6.8 %; MCH 22.6 pg (27.0-32.0); MCHC 27.9 g/dL (32.0-37.0); MCV 80.7 fL (80.0-97.0); Mean Platelet Volume 10.1 fL (9.5-12.2); Monocytes # (A) 1.02 X 10*3/uL (0.20-1.00); Monocytes % (A) 9.7 %; NRBC Per 100 WBC 0.2 /100 WBCS (0.0-0.0); Neutrophils # (A) 8.65 X 10*3/uL (1.80-7.70); Neutrophils % (A) 82.2 %; Platelet Count 387 X 10*3/uL (140-440); RBC 3.37 X 10*6/uL (4.10-5.20); RDW 19.4 % (11.5-14.5); WBC 10.51 X 10*3/uL (4.50-10.00)
[2021-12-12 09:24] LABS: African American GFR (CKD) 18.2 (60.0-200.0); Anion Gap 11.8 mmol/L (10.00-18.00); BUN/Creat Ratio 28.72 Ratio (12.00-20.00); Blood Urea Nitrogen 83.3 mg/dL (9.0-27.0); Calcium 7.7 mg/dL (8.7-10.3); Carbon Dioxide 17.2 mmol/L (20.0-27.5); Non-African American GFR(CKD) 15.7 (60.0-200.0); Potassium 4.9 mmol/L (3.5-5.5)
--- NOTE | 2021-12-12 09:51 | P.PN ---
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 She was admitted with fall and fracture of distal femur with surgery on 12/08/2021 She was started on Lasix because of possible congestive heart failure He is resting comfortable at bed on nasal cannula oxygen since shortness of breath is better Although her urine output is not adequate. Urine output is documented at 230 mL and 275 mL for the last 2 days. Patient denies any nausea vomiting diarrhea. She has significant edema Objective - Vital Signs Vital signs: Vital Signs Temp 97.7 F 12/12/21 02:00 Pulse 62 12/12/21 02:00 Resp 17 12/12/21 02:00 BP 95/46 12/12/21 02:00 Pulse Ox 97 12/12/21 02:00 Intake & Output 12/11/21 12/12/21 12/12/21 18:59 06:59 18:59 Output Total 275 Balance -275 Output: Urine 275 Other: Voiding Method Indwelling Catheter Indwelling Catheter # Voids 350 On examination on nasal cannula oxygen comfortable HEENT exam JVP difficult to see Lungs are clear to auscultation fair air entry bilaterally Heart sounds unremarkable for any murmur rub gallop Abdomen soft nontender. Extremity examination reveals significant edema to 3+ Neurologically awake alert oriented but generalized weakness - Labs CBC & Chem 7: 12/12/21 05:15 12/12/21 05:09 Labs: Abnormal Lab Results - Last 24 Hours (Table) 12/11/21 12/11/21 12/11/21 Range/Units 11:40 16:03 21:05 WBC (4.50-10.00) X 10*3/uL RBC (4.10-5.20) X 10*6/uL Hgb (12.0-15.0) g/dL Hct (37.2-46.3) % MCH (27.0-32.0) pg MCHC (32.0-37.0) g/dL RDW (11.5-14.5) % Absolute Nucleated RBC (0.00-0.00) X 10*3/uL Neutrophils # (1.80-7.70) X 10*3/uL Lymphocytes # (0.90-5.00) X 10*3/uL Monocytes # (0.20-1.00) X 10*3/uL NRBC/100 WBC Diff (0.0-0.0) /100 WBCS Sodium (135-145) mmol/L Carbon Dioxide (20.0-27.5) mmol/L BUN (9.0-27.0) mg/dL Creatinine (0.6-1.5) mg/dL Est GFR (CKD-EPI)AfAm (60.0-200.0) Est GFR (CKD-EPI)NonAf (60.0-200.0) BUN/Creatinine Ratio (12.00-20.00) Ratio POC Glucose (mg/dL) 127 H 120 H 157 H (75-99) mg/dL Plasma Lactic Acid Garrick (0.7-2.0) mmol/L Calcium (8.7-10.3) mg/dL Urine Appearance (Clear) Urine Protein (Negative) Urine Blood (Negative) Ur Leukocyte Esterase (Negative) Urine RBC (0-5) /hpf Urine WBC (0-5) /hpf Urine WBC Clumps (None) /hpf Ur Squamous Epith Cells (0-4) /hpf Urine Mucus (None) /hpf Urine Yeast (Budding) (None) /hpf 12/11/21 12/12/21 12/12/21 Range/Units 22:45 05:09 05:15 WBC 10.51 H (4.50-10.00) X 10*3/uL RBC 3.37 L (4.10-5.20) X 10*6/uL Hgb 7.6 L (12.0-15.0) g/dL Hct 27.2 L (37.2-46.3) % MCH 22.6 L (27.0-32.0) pg MCHC 27.9 L (32.0-37.0) g/dL RDW 19.4 H (11.5-14.5) % Absolute Nucleated RBC 0.02 H (0.00-0.00) X 10*3/uL Neutrophils # 8.65 H (1.80-7.70) X 10*3/uL Lymphocytes # 0.71 L (0.90-5.00) X 10*3/uL Monocytes # 1.02 H (0.20-1.00) X 10*3/uL NRBC/100 WBC Diff 0.2 H (0.0-0.0) /100 WBCS Sodium 132 L (135-145) mmol/L Carbon Dioxide 17.2 L (20.0-27.5) mmol/L BUN 83.3 H (9.0-27.0) mg/dL Creatinine 2.9 H (0.6-1.5) mg/dL Est GFR (CKD-EPI)AfAm 18.2 L (60.0-200.0) Est GFR (CKD-EPI)NonAf 15.7 L (60.0-200.0) BUN/Creatinine Ratio 28.72 H (12.00-20.00) Ratio POC Glucose (mg/dL) (75-99) mg/dL Plasma Lactic Acid Garrick (0.7-2.0) mmol/L Calcium 7.7 L (8.7-10.3) mg/dL Urine Appearance Turbid H (Clear) Urine Protein 1+ H (Negative) Urine Blood Moderate H (Negative) Ur Leukocyte Esterase Large H (Negative) Urine RBC >182 H (0-5) /hpf Urine WBC >182 H (0-5) /hpf Urine WBC Clumps Many H (None) /hpf Ur Squamous Epith Cells 14 H (0-4) /hpf Urine Mucus Many H (None) /hpf Urine Yeast (Budding) Many H (None) /hpf 12/12/21 12/12/21 Range/Units 07:14 08:46 WBC (4.50-10.00) X 10*3/uL RBC (4.10-5.20) X 10*6/uL Hgb (12.0-15.0) g/dL Hct (37.2-46.3) % MCH (27.0-32.0) pg MCHC (32.0-37.0) g/dL RDW (11.5-14.5) % Absolute Nucleated RBC (0.00-0.00) X 10*3/uL Neutrophils # (1.80-7.70) X 10*3/uL Lymphocytes # (0.90-5.00) X 10*3/uL Monocytes # (0.20-1.00) X 10*3/uL NRBC/100 WBC Diff (0.0-0.0) /100 WBCS Sodium (135-145) mmol/L Carbon Dioxide (20.0-27.5) mmol/L BUN (9.0-27.0) mg/dL Creatinine (0.6-1.5) mg/dL Est GFR (CKD-EPI)AfAm (60.0-200.0) Est GFR (CKD-EPI)NonAf (60.0-200.0) BUN/Creatinine Ratio (12.00-20.00) Ratio POC Glucose (mg/dL) 111 H (75-99) mg/dL Plasma Lactic Acid Garrick 0.6 L (0.7-2.0) mmol/L Calcium (8.7-10.3) mg/dL Urine Appearance (Clear) Urine Protein (Negative) Urine Blood (Negative) Ur Leukocyte Esterase (Negative) Urine RBC (0-5) /hpf Urine WBC (0-5) /hpf Urine WBC Clumps (None) /hpf Ur Squamous Epith Cells (0-4) /hpf Urine Mucus (None) /hpf Urine Yeast (Budding) (None) /hpf Assessment and Plan Assessment: Impression 1. Acute kidney injury, secondary to hypotension blood pressure in the 95 systolic to 107/63, additionally acyclovir, hip fracture with possible bleeding hemoglobin went down from 10.6-7.6 . Creatinine has gone up from 1.68 on admission to 2.9 as of yesterday and 2.9 this morning. 2. Chronic kidney disease secondary diabetic nephropathy baseline creatinine is 1.68 on 12/08/2021. ultrasound shows 9.5 cm and 8.6 cm kidneys 3. Mild degree of hypernatremia secondary acute kidney injury sodium is 132 4. Mild degree of non-gap acidosis with bicarb at 17 and gap 11 etiology is acute kidney injury 5. Morbidly obese. 6. Atrial fibrillation 7. Pulmonary hypertension adding to the edema Recommendation 1. Because of significant edema and possible CHF Will try one dose of Lasix 40 mg IV and see what the response is as follows blood pressure and creatinine is concerned
[2021-12-12] MEDS: HEPARIN SODIUM,PORCINE/PF 5,000 UNIT/0.5 ML SYRINGE SQ SCH ×2 (10:02→17:10)
[2021-12-12] MEDS: CLOPIDOGREL 75 MG TAB PO SCH (10:03)
[2021-12-12] MEDS: INSULN ASP PRT/INSULIN ASPART 100 UNIT/ML 10 ML VIAL SQ SCH ×2 (10:04→20:19)
[2021-12-12] MEDS: MIDODRINE 5 MG TAB PO SCH ×3 (10:04→17:10)
[2021-12-12] MEDS: HYDROPHILIC CREAM 180 GM TUBE TOPICAL SCH (10:04)
[2021-12-12] MEDS: ATORVASTATIN 10 MG TAB PO SCH (10:04)
[2021-12-12] MEDS ORDERED: FUROSEMIDE 10 MG/ML 4 ML VIAL IV STA (10:17)
[2021-12-12 11:06] LABS: Glucose,Whole Blood 119 mg/dL (75-99)
--- NOTE | 2021-12-12 11:29 | P.PN ---
Subjective Progress Note Date: 12/12/21 Patient is a 71-year-old female with a PMH of diastolic CHF with persistent bilateral lower extremity edema, chronic kidney disease, type II DM, hypertension, hyperlipidemia, TIA, who presents to the emergency room after a fall. Patient reports that she was walking at home with her walker when she tripped on a blanket that got stuck on the walker. She reports falling on her left side, striking her hip to the ground, and immediately having severe pain at the site. She denied losing consciousness or head trauma. She called for her who subsequently activated EMS and the patient was brought to the emergency room. A left femur x-ray revealed an acute supracondylar fracture of the distal femur with combination and displacement. Chest x-ray revealed congestive heart failure with pleural fluid and left lower lobe pneumonia. Laboratory evaluation was remarkable for WBC count 11.5, BUN 74, creatinine 1.68, and glucose 154. At time of interview, the patient reported no active complaints with no left hip pain at rest. She did report significant hip pain with any sort of movement. She denied experiencing cough, fever, chills, chest pain, shortness of breath. Reports bilateral lower extremity edema chronically with venous stasis changes and nonhealing wounds for which she follows at wound clinic. Further denied abdominal pain, nausea, vomiting, diarrhea. On 12/08/2021 patient was cleared by cardiology for surgery. Patient had repair of left femoral shaft. 12/09/2021: Physical therapy nurse noticed that patient had a vesicular rash on her back. Nurse took a picture and I repeated and looks like his consistent with herpes zoster. Patient started on acyclovir. Patient blood pressure was also on the low side. She had to be given 1.5 L of fluid bolus. Her hydralazine was discontinued.Also decrease to 40 mg oral daily 12/10/2021: Patient states that her pain is controlled on current pain regimen. Patient blood pressure is still on the low side. Patient has been started on midodrine. Patient still significantly volume overloaded. We'll resume Lasix oral 40 mg daily as tolerated by blood pressure. Patient creatinine is also increasing to 2.3. Which is likely due to her low blood pressure. 12/11/2021: This morning patient is denying any pain. Patient's creatinine is worsening and is up to 2.9. I will stop acyclovir. Also will hold Lasix. Patient is still significantly volume overloaded. Awaiting for nephrology recommendations. Per nurse patient has decreased urine output. Blood pressure remains on the low side 12/12/2021: Patient denying any pain or has any complaints. Her creatinine this morning is 2.9. Patient is still significantly volume overloaded. Nephrology ordered another dose of IV Lasix. Patient's blood pressure remains on the low side. Midodrine has been increased. Patient's UA consistent with UTI. Blood cultures and lactic acid and IV Rocephin has been ordered. Objective - Vital Signs Vital signs: Vital Signs Temp 97.4 F L 12/12/21 10:01 Pulse 80 12/12/21 10:01 Resp 21 12/12/21 10:01 BP 94/64 12/12/21 10:01 Pulse Ox 97 12/12/21 10:01 Intake & Output 12/11/21 12/12/21 12/12/21 18:59 06:59 18:59 Output Total 275 Balance -275 Output: Urine 275 Other: Voiding Method Indwelling Catheter Indwelling Catheter Indwelling Catheter # Voids 350 - Exam General examination - Alert and Oriented 3 in NAD Heart - + S1S2 no murmurs Lungs -diminished breath sounds bilaterally Abdomen soft NT ND +ve BS, obese Extremities - bilateral lower extremity bandages are intact and dry, left knee brace, bilateral lower extremity pitting edema +3 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 - Moving all 4 extremities spontaneously Psych - Calm and cooperative - Labs CBC & Chem 7: 12/12/21 05:15 12/12/21 05:09 Labs: Abnormal Lab Results - Last 24 Hours (Table) 12/11/21 12/11/21 12/11/21 Range/Units 11:40 16:03 21:05 WBC (4.50-10.00) X 10*3/uL RBC (4.10-5.20) X 10*6/uL Hgb (12.0-15.0) g/dL Hct (37.2-46.3) % MCH (27.0-32.0) pg MCHC (32.0-37.0) g/dL RDW (11.5-14.5) % Absolute Nucleated RBC (0.00-0.00) X 10*3/uL Neutrophils # (1.80-7.70) X 10*3/uL Lymphocytes # (0.90-5.00) X 10*3/uL Monocytes # (0.20-1.00) X 10*3/uL NRBC/100 WBC Diff (0.0-0.0) /100 WBCS Sodium (135-145) mmol/L Carbon Dioxide (20.0-27.5) mmol/L BUN (9.0-27.0) mg/dL Creatinine (0.6-1.5) mg/dL Est GFR (CKD-EPI)AfAm (60.0-200.0) Est GFR (CKD-EPI)NonAf (60.0-200.0) BUN/Creatinine Ratio (12.00-20.00) Ratio POC Glucose (mg/dL) 127 H 120 H 157 H (75-99) mg/dL Plasma Lactic Acid Garrick (0.7-2.0) mmol/L Calcium (8.7-10.3) mg/dL Urine Appearance (Clear) Urine Protein (Negative) Urine Blood (Negative) Ur Leukocyte Esterase (Negative) Urine RBC (0-5) /hpf Urine WBC (0-5) /hpf Urine WBC Clumps (None) /hpf Ur Squamous Epith Cells (0-4) /hpf Urine Mucus (None) /hpf Urine Yeast (Budding) (None) /hpf 12/11/21 12/12/21 12/12/21 Range/Units 22:45 05:09 05:15 WBC 10.51 H (4.50-10.00) X 10*3/uL RBC 3.37 L (4.10-5.20) X 10*6/uL Hgb 7.6 L (12.0-15.0) g/dL Hct 27.2 L (37.2-46.3) % MCH 22.6 L (27.0-32.0) pg MCHC 27.9 L (32.0-37.0) g/dL RDW 19.4 H (11.5-14.5) % Absolute Nucleated RBC 0.02 H (0.00-0.00) X 10*3/uL Neutrophils # 8.65 H (1.80-7.70) X 10*3/uL Lymphocytes # 0.71 L (0.90-5.00) X 10*3/uL Monocytes # 1.02 H (0.20-1.00) X 10*3/uL NRBC/100 WBC Diff 0.2 H (0.0-0.0) /100 WBCS Sodium 132 L (135-145) mmol/L Carbon Dioxide 17.2 L (20.0-27.5) mmol/L BUN 83.3 H (9.0-27.0) mg/dL Creatinine 2.9 H (0.6-1.5) mg/dL Est GFR (CKD-EPI)AfAm 18.2 L (60.0-200.0) Est GFR (CKD-EPI)NonAf 15.7 L (60.0-200.0) BUN/Creatinine Ratio 28.72 H (12.00-20.00) Ratio POC Glucose (mg/dL) (75-99) mg/dL Plasma Lactic Acid Garrick (0.7-2.0) mmol/L Calcium 7.7 L (8.7-10.3) mg/dL Urine Appearance Turbid H (Clear) Urine Protein 1+ H (Negative) Urine Blood Moderate H (Negative) Ur Leukocyte Esterase Large H (Negative) Urine RBC >182 H (0-5) /hpf Urine WBC >182 H (0-5) /hpf Urine WBC Clumps Many H (None) /hpf Ur Squamous Epith Cells 14 H (0-4) /hpf Urine Mucus Many H (None) /hpf Urine Yeast (Budding) Many H (None) /hpf 12/12/21 12/12/21 12/12/21 Range/Units 07:14 08:46 11:05 WBC (4.50-10.00) X 10*3/uL RBC (4.10-5.20) X 10*6/uL Hgb (12.0-15.0) g/dL Hct (37.2-46.3) % MCH (27.0-32.0) pg MCHC (32.0-37.0) g/dL RDW (11.5-14.5) % Absolute Nucleated RBC (0.00-0.00) X 10*3/uL Neutrophils # (1.80-7.70) X 10*3/uL Lymphocytes # (0.90-5.00) X 10*3/uL Monocytes # (0.20-1.00) X 10*3/uL NRBC/100 WBC Diff (0.0-0.0) /100 WBCS Sodium (135-145) mmol/L Carbon Dioxide (20.0-27.5) mmol/L BUN (9.0-27.0) mg/dL Creatinine (0.6-1.5) mg/dL Est GFR (CKD-EPI)AfAm (60.0-200.0) Est GFR (CKD-EPI)NonAf (60.0-200.0) BUN/Creatinine Ratio (12.00-20.00) Ratio POC Glucose (mg/dL) 111 H 119 H (75-99) mg/dL Plasma Lactic Acid Garrick 0.6 L (0.7-2.0) mmol/L Calcium (8.7-10.3) mg/dL Urine Appearance (Clear) Urine Protein (Negative) Urine Blood (Negative) Ur Leukocyte Esterase (Negative) Urine RBC (0-5) /hpf Urine WBC (0-5) /hpf Urine WBC Clumps (None) /hpf Ur Squamous Epith Cells (0-4) /hpf Urine Mucus (None) /hpf Urine Yeast (Budding) (None) /hpf Assessment and Plan Assessment: Left Femoral fracture status post repair -PT OT consult -> recommend intermediate facility -Orthopedic surgery management Acute blood loss anemia secondary to surgery -Trend hemoglobin -Transfuse for hemoglobin less than 7 Acute on Chronic heart failure with preserved ejection fraction Significant volume overload -Defer diuretics to nephrology. Patient given 1 dose of IV Lasix today -Patient started on midodrine so that blood pressure can tolerate diuretics -Intake and output -Daily weight -Monitor electrolytes -Cardiology on board -Resume statin, beta trinity, Plavix Herpes zoster rash on back and thigh -Due to worsening renal function we'll stop acyclovir -Airborn and contact precautions -> removed from contact precaution once patient's vesicles are crusted over Acute kidney injury on CK D stage III -Creatinine baseline around 1.8 -Likely due to low blood pressure versus ATN secondary to acyclovir -Patient also has decreased urine output -Maintain Aguilera catheter -Nephrology following patient Low blood pressure Urinary tract infection -Start IV Rocephin -Patient not in sepsis -Lactic acid within normal limits -Follow up urine culture and blood cultures Diabetes mellitus type 2 -Resume home dose insulin Chronic bilateral lower extremity wounds -Appreciated recommendations from wound care Hyperlipidemia -Resume statin Chronic conditions: 2 DM, hypertension, hyperlipidemia, history of TIA, chronic kidney disease -Continue with home meds -Insulin sliding scale and blood glucose monitoring -Hemoglobin A1c is 7.4 -Hold hydralazine due to low blood pressure CODE STATUS:full code DVT prophylaxis: Subcu heparin Discussed with: Patient, ER, rn Anticipated length of stay : 3-[address]: [facility] facility
[2021-12-12] MEDS: ACETAMINOPHEN TAB 325 MG TAB PO PRN (12:20)
[2021-12-12 16:53] LABS: Glucose,Whole Blood 98 mg/dL (75-99)
[2021-12-12 20:26] LABS: Glucose,Whole Blood 133 mg/dL (75-99)
[2021-12-12] MEDS: SENNOSIDES-DOCUSATE SODIUM 1 EACH TAB PO SCH (20:36)
[2021-12-12] MEDS: LATANOPROST 0.005% OPHTH DROPS 2.5 ML BTL BOTH EYES SCH (20:42)
[2021-12-13] MEDS: HEPARIN SODIUM,PORCINE/PF 5,000 UNIT/0.5 ML SYRINGE SQ SCH ×4 (00:30→22:19)
[2021-12-13] MEDS: ACETAMINOPHEN TAB 325 MG TAB PO PRN (06:03)
[2021-12-13 06:53] LABS: Glucose,Whole Blood 113 mg/dL (75-99)
[2021-12-13] MEDS: INSULN ASP PRT/INSULIN ASPART 100 UNIT/ML 10 ML VIAL SQ SCH ×2 (08:00→20:20)
[2021-12-13] MEDS: ATORVASTATIN 10 MG TAB PO SCH (08:00)
[2021-12-13] MEDS: MIDODRINE 5 MG TAB PO SCH ×3 (08:00→17:05)
[2021-12-13] MEDS: CLOPIDOGREL 75 MG TAB PO SCH (08:00)
[2021-12-13] MEDS: HYDROPHILIC CREAM 180 GM TUBE TOPICAL SCH (08:01)
--- NOTE | 2021-12-13 08:37 | P.PN ---
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 She was admitted with fall and fracture of distal femur with surgery on 12/08/2021 She was started on Lasix because of possible congestive heart failure, and severe edema. Her blood pressure remains somewhat low at 95/56, to 118/72. 24-hour urine output has increased to 9 75 mL. He gave her 1 dose of Lasix 40 mg yesterday to see how she responds. After they're pending creatinine yesterday was 2.9 stable for the last 2 days but had not improved. Today's labs are pending. She seems less short of breath currently on nasal cannula oxygen. She has skin breakdown in the right groin because of large pendulous abdomen with the left groin area is clean. No reported pressure sore on the sacrum. Has a poor appetite. But no nausea vomiting or diarrhea Objective - Vital Signs Vital signs: Vital Signs Temp 98.8 F 12/13/21 07:54 Pulse 80 12/13/21 07:54 Resp 17 12/13/21 07:54 BP 95/56 12/13/21 07:54 Pulse Ox 99 12/13/21 07:54 Intake & Output 12/12/21 12/13/21 12/13/21 18:59 06:59 18:59 Output Total 650 325 Balance -650 -325 Output: Urine 650 325 Other: Voiding Method Indwelling Catheter Indwelling Catheter On examination awake alert oriented but generalized weakness Lungs are clear to auscultation fair air entry bilaterally Heart sounds unremarkable for any murmur rub gallop Abdomen pendulous with skin breakdown in the right inguinal area from the large pendulous abdomen. Extremity exam was 3+ edema this includes the upper arms Neurologically awake alert but profoundly weak - Labs CBC & Chem 7: 12/12/21 05:15 12/12/21 05:09 Labs: Abnormal Lab Results - Last 24 Hours (Table) 12/12/21 12/12/21 12/12/21 Range/Units 05:09 05:15 08:46 WBC 10.51 H (4.50-10.00) X 10*3/uL RBC 3.37 L (4.10-5.20) X 10*6/uL Hgb 7.6 L (12.0-15.0) g/dL Hct 27.2 L (37.2-46.3) % MCH 22.6 L (27.0-32.0) pg MCHC 27.9 L (32.0-37.0) g/dL RDW 19.4 H (11.5-14.5) % Absolute Nucleated RBC 0.02 H (0.00-0.00) X 10*3/uL Neutrophils # 8.65 H (1.80-7.70) X 10*3/uL Lymphocytes # 0.71 L (0.90-5.00) X 10*3/uL Monocytes # 1.02 H (0.20-1.00) X 10*3/uL NRBC/100 WBC Diff 0.2 H (0.0-0.0) /100 WBCS Sodium 132 L (135-145) mmol/L Carbon Dioxide 17.2 L (20.0-27.5) mmol/L BUN 83.3 H (9.0-27.0) mg/dL Creatinine 2.9 H (0.6-1.5) mg/dL Est GFR (CKD-EPI)AfAm 18.2 L (60.0-200.0) Est GFR (CKD-EPI)NonAf 15.7 L (60.0-200.0) BUN/Creatinine Ratio 28.72 H (12.00-20.00) Ratio POC Glucose (mg/dL) (75-99) mg/dL Plasma Lactic Acid Garrick 0.6 L (0.7-2.0) mmol/L Calcium 7.7 L (8.7-10.3) mg/dL 12/12/21 12/12/21 12/13/21 Range/Units 11:05 20:24 06:52 WBC (4.50-10.00) X 10*3/uL RBC (4.10-5.20) X 10*6/uL Hgb (12.0-15.0) g/dL Hct (37.2-46.3) % MCH (27.0-32.0) pg MCHC (32.0-37.0) g/dL RDW (11.5-14.5) % Absolute Nucleated RBC (0.00-0.00) X 10*3/uL Neutrophils # (1.80-7.70) X 10*3/uL Lymphocytes # (0.90-5.00) X 10*3/uL Monocytes # (0.20-1.00) X 10*3/uL NRBC/100 WBC Diff (0.0-0.0) /100 WBCS Sodium (135-145) mmol/L Carbon Dioxide (20.0-27.5) mmol/L BUN (9.0-27.0) mg/dL Creatinine (0.6-1.5) mg/dL Est GFR (CKD-EPI)AfAm (60.0-200.0) Est GFR (CKD-EPI)NonAf (60.0-200.0) BUN/Creatinine Ratio (12.00-20.00) Ratio POC Glucose (mg/dL) 119 H 133 H 113 H (75-99) mg/dL Plasma Lactic Acid Garrick (0.7-2.0) mmol/L Calcium (8.7-10.3) mg/dL Assessment and Plan Assessment: Impression 1. Acute kidney injury, secondary to hypotension , additionally acyclovir, hip fracture with possible bleeding hemoglobin went down from 10.6-7.6 . Creatinine has gone up from 1.68 on admission to 2.9 for the last 2 days. Today's labs are pending she did respond to Lasix IV 40 mg 2. Chronic kidney disease secondary diabetic nephropathy baseline creatinine is 1.68 on 12/08/2021. ultrasound shows 9.5 cm and 8.6 cm kidneys 3. Severe edema secondary to hypoalbuminemia, pulmonary hypertension possibly and acute kidney injury. 4. Mild degree of hyponatremia secondary acute kidney injury sodium is 132, possible CHF. today/pending 4. Mild degree of non-gap acidosis with bicarb at 17 and gap 11 etiology is acute kidney injury 5. Morbidly obese. 6. Atrial fibrillation 7. Pulmonary hypertension adding to the edema. Recommendation 1. continue Lasix 40 mg every 12 hours and watch blood pressure and creatinines 2. Start sodium bicarb 650 4 times a day 3. Follow-up labs
[2021-12-13] MEDS: FUROSEMIDE 10 MG/ML 4 ML VIAL IV SCH ×2 (10:05→22:18)
[2021-12-13] MEDS: SODIUM BICARBONATE TAB 650 MG TAB PO SCH ×4 (10:05→22:20)
[2021-12-13 11:43] LABS: Glucose,Whole Blood 65 mg/dL (75-99)
[2021-12-13 11:58] LABS: African American GFR (CKD) 18.2 (60.0-200.0); BUN/Creat Ratio 26.59 Ratio (12.00-20.00); Blood Urea Nitrogen 77.1 mg/dL (9.0-27.0); Calcium 8.1 mg/dL (8.7-10.3); Magnesium 2.1 mg/dL (1.5-2.4); Non-African American GFR(CKD) 15.7 (60.0-200.0); Potassium 4.7 mmol/L (3.5-5.5)
--- NOTE | 2021-12-13 12:27 | P.PN ---
Subjective Progress Note Date: 12/13/21 Patient is a 71-year-old female with a PMH of diastolic CHF with persistent bilateral lower extremity edema, chronic kidney disease, type II DM, hypertension, hyperlipidemia, TIA, who presents to the emergency room after a fall. Patient reports that she was walking at home with her walker when she tripped on a blanket that got stuck on the walker. She reports falling on her left side, striking her hip to the ground, and immediately having severe pain at the site. She denied losing consciousness or head trauma. She called for her who subsequently activated EMS and the patient was brought to the emergency room. A left femur x-ray revealed an acute supracondylar fracture of the distal femur with combination and displacement. Chest x-ray revealed congestive heart failure with pleural fluid and left lower lobe pneumonia. Laboratory evaluation was remarkable for WBC count 11.5, BUN 74, creatinine 1.68, and glucose 154. At time of interview, the patient reported no active complaints with no left hip pain at rest. She did report significant hip pain with any sort of movement. She denied experiencing cough, fever, chills, chest pain, shortness of breath. Reports bilateral lower extremity edema chronically with venous stasis changes and nonhealing wounds for which she follows at wound clinic. Further denied abdominal pain, nausea, vomiting, diarrhea. On 12/08/2021 patient was cleared by cardiology for surgery. Patient had repair of left femoral shaft. 12/09/2021: Physical therapy nurse noticed that patient had a vesicular rash on her back. Nurse took a picture and I repeated and looks like his consistent with herpes zoster. Patient started on acyclovir. Patient blood pressure was also on the low side. She had to be given 1.5 L of fluid bolus. Her hydralazine was discontinued.Also decrease to 40 mg oral daily 12/10/2021: Patient states that her pain is controlled on current pain regimen. Patient blood pressure is still on the low side. Patient has been started on midodrine. Patient still significantly volume overloaded. We'll resume Lasix oral 40 mg daily as tolerated by blood pressure. Patient creatinine is also increasing to 2.3. Which is likely due to her low blood pressure. 12/11/2021: This morning patient is denying any pain. Patient's creatinine is worsening and is up to 2.9. I will stop acyclovir. Also will hold Lasix. Patient is still significantly volume overloaded. Awaiting for nephrology recommendations. Per nurse patient has decreased urine output. Blood pressure remains on the low side 12/12/2021: Patient denying any pain or has any complaints. Her creatinine this morning is 2.9. Patient is still significantly volume overloaded. Nephrology ordered another dose of IV Lasix. Patient's blood pressure remains on the low side. Midodrine has been increased. Patient's UA consistent with UTI. Blood cultures and lactic acid and IV Rocephin has been ordered. 12/13/2021: Patient denying any complaints this morning. I looked at patient's shingles this morning and appears in some areas is still weeping vesicles. Patient's creatinine this morning is again 2.9. Nephrology started patient IV Lasix 40 mg twice a day. Objective - Vital Signs Vital signs: Vital Signs Temp 98.8 F 12/13/21 07:54 Pulse 80 12/13/21 07:54 Resp 16 12/13/21 08:00 BP 95/56 12/13/21 07:54 Pulse Ox 99 12/13/21 07:54 Intake & Output 12/12/21 12/13/21 12/13/21 18:59 06:59 18:59 Output Total 650 325 Balance -650 -325 Output: Urine 650 325 Other: Voiding Method Indwelling Catheter Indwelling Catheter - Exam General examination - Alert and Oriented 3 in NAD Heart - + S1S2 no murmurs Lungs -diminished breath sounds bilaterally Abdomen soft NT ND +ve BS, obese Extremities - bilateral lower extremity bandages are intact and dry, left knee brace, bilateral lower extremity pitting edema +3 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 - Moving all 4 extremities spontaneously Psych - Calm and cooperative - Labs CBC & Chem 7: 12/12/21 05:15 12/13/21 05:01 Labs: Abnormal Lab Results - Last 24 Hours (Table) 12/12/21 12/13/21 12/13/21 Range/Units 20:24 05:01 06:52 Sodium 133 L (135-145) mmol/L Carbon Dioxide 17.0 L (20.0-27.5) mmol/L BUN 77.1 H (9.0-27.0) mg/dL Creatinine 2.9 H (0.6-1.5) mg/dL Est GFR (CKD-EPI)AfAm 18.2 L (60.0-200.0) Est GFR (CKD-EPI)NonAf 15.7 L (60.0-200.0) BUN/Creatinine Ratio 26.59 H (12.00-20.00) Ratio POC Glucose (mg/dL) 133 H 113 H (75-99) mg/dL Calcium 8.1 L (8.7-10.3) mg/dL 12/13/21 Range/Units 11:35 Sodium (135-145) mmol/L Carbon Dioxide (20.0-27.5) mmol/L BUN (9.0-27.0) mg/dL Creatinine (0.6-1.5) mg/dL Est GFR (CKD-EPI)AfAm (60.0-200.0) Est GFR (CKD-EPI)NonAf (60.0-200.0) BUN/Creatinine Ratio (12.00-20.00) Ratio POC Glucose (mg/dL) 65 L (75-99) mg/dL Calcium (8.7-10.3) mg/dL Microbiology - Last 24 Hours (Table) 12/12/21 09:09 Blood Culture - Preliminary Blood No Growth after 24 hours 12/12/21 08:46 Blood Culture - Preliminary Blood No Growth after 24 hours Assessment and Plan Assessment: Left Femoral fracture status post repair -PT OT consult -> [facility] -Orthopedic surgery management -Patient transferred to medical service Acute blood loss anemia secondary to surgery -Trend hemoglobin -Transfuse for hemoglobin less than 7 -CBC pending from this morning Acute on Chronic heart failure with preserved ejection fraction Significant volume overload -Defer diuretics to nephrology. Patient on IV Lasix 40 mg twice a day -Patient started on midodrine so that blood pressure can tolerate diuretics -Intake and output -Daily weight -Monitor electrolytes -Cardiology signed off as nephrology is managing diuretics -Resume statin, beta trinity, Plavix Herpes zoster rash on back and thigh -Due to worsening renal function we'll stop acyclovir -Airborn and contact precautions -> remove from contact precaution once patient's vesicles are crusted over Acute kidney injury on CK D stage III -Creatinine baseline around 1.8 -Likely due to low blood pressure versus ATN secondary to acyclovir -Patient also has decreased urine output -Maintain Aguilera catheter -Nephrology following Urinary tract infection -Start IV Rocephin -Patient not in sepsis -Lactic acid within normal limits -Follow up urine culture and blood cultures Diabetes mellitus type 2 -Resume home dose insulin Chronic bilateral lower extremity wounds -Appreciated recommendations from wound care Hyperlipidemia -Resume statin Chronic conditions: 2 DM, hypertension, hyperlipidemia, history of TIA, chronic kidney disease -Continue with home meds -Insulin sliding scale and blood glucose monitoring -Hemoglobin A1c is 7.4 -Hold hydralazine due to low blood pressure CODE STATUS:full code DVT prophylaxis: Subcu heparin Anticipated length of stay : 3-[address]: long term facility
[2021-12-13 12:43] LABS: Glucose,Whole Blood 100 mg/dL (75-99)
[2021-12-13 12:58] LABS: HCT 27.1 % (37.2-46.3); HGB 7.5 g/dL (12.0-15.0); MCH 22.3 pg (27.0-32.0); MCHC 27.7 g/dL (32.0-37.0); MCV 80.7 fL (80.0-97.0); Mean Platelet Volume 10.3 fL (9.5-12.2); NRBC Per 100 WBC 0.2 /100 WBCS (0.0-0.0); Platelet Count 395 X 10*3/uL (140-440); RBC 3.36 X 10*6/uL (4.10-5.20); RDW 19.6 % (11.5-14.5); WBC 9.95 X 10*3/uL (4.50-10.00)
[2021-12-13 16:54] LABS: Glucose,Whole Blood 96 mg/dL (75-99)
[2021-12-13 20:17] LABS: Glucose,Whole Blood 113 mg/dL (75-99)
[2021-12-13] MEDS: SENNOSIDES-DOCUSATE SODIUM 1 EACH TAB PO SCH (22:19)
[2021-12-13] MEDS: LATANOPROST 0.005% OPHTH DROPS 2.5 ML BTL BOTH EYES SCH (22:20)
[2021-12-14] MEDS: ACETAMINOPHEN TAB 325 MG TAB PO PRN ×4 (01:44→22:18)
[2021-12-14 07:01] LABS: Glucose,Whole Blood 109 mg/dL (75-99)
[2021-12-14] MEDS ORDERED: ERGOCALCIFEROL 1,250 MCG (50,000 IU) CAPSULE PO SCH (09:00)
[2021-12-14 09:28] LABS: BUN/Creat Ratio 31.96 Ratio (12.00-20.00); Magnesium 2.2 mg/dL (1.5-2.4)
[2021-12-14 09:29] LABS: African American GFR (CKD) 21.3 (60.0-200.0); Anion Gap 10.6 mmol/L (10.00-18.00); Blood Urea Nitrogen 81.5 mg/dL (9.0-27.0); Calcium 7.8 mg/dL (8.7-10.3); Carbon Dioxide 20.1 mmol/L (20.0-27.5); Non-African American GFR(CKD) 18.4 (60.0-200.0); Potassium 4.4 mmol/L (3.5-5.5)
[2021-12-14] MEDS: MIDODRINE 5 MG TAB PO SCH ×3 (10:04→15:27)
[2021-12-14] MEDS: CLOPIDOGREL 75 MG TAB PO SCH (10:04)
[2021-12-14] MEDS: HEPARIN SODIUM,PORCINE/PF 5,000 UNIT/0.5 ML SYRINGE SQ SCH ×3 (10:04→22:19)
[2021-12-14] MEDS: SODIUM BICARBONATE TAB 650 MG TAB PO SCH ×4 (10:04→22:18)
[2021-12-14] MEDS: ATORVASTATIN 10 MG TAB PO SCH (10:04)
[2021-12-14] MEDS: HYDROPHILIC CREAM 180 GM TUBE TOPICAL SCH (10:05)
[2021-12-14] MEDS: INSULN ASP PRT/INSULIN ASPART 100 UNIT/ML 10 ML VIAL SQ SCH ×2 (10:05→22:20)
--- NOTE | 2021-12-14 10:56 | P.PN ---
Subjective Patient is seen in follow-up for acute kidney injury on chronic kidney disease. Renal function better today. On IV Lasix. Nonoliguric. Denies chest pain or shortness of breath. On 2 L nasal cannula. No vomiting or diarrhea. Vital signs are stable. General: Awake and alert. HEENT: Head exam is unremarkable. On nasal cannula. LUNGS: Breath sounds decreased. HEART: Rate and Rhythm are regular. ABDOMEN: Soft, obese. EXTREMITITES: Lower extremities wrapped. 1+ edema. Objective - Vital Signs Vital signs: Vital Signs Temp 97.5 F L 12/14/21 08:00 Pulse 85 12/14/21 08:00 Resp 17 12/14/21 00:35 BP 100/66 12/14/21 08:00 Pulse Ox 98 12/14/21 08:00 Intake & Output 12/13/21 12/14/21 12/14/21 18:59 06:59 18:59 Output Total 2600 1000 Balance -2600 -1000 Weight 118 kg Output: Urine 2600 1000 Uretheral ([place]il[place]) 1300 Other: Voiding Method Indwelling Catheter # Bowel Movements 1 - Labs CBC & Chem 7: 12/13/21 05:01 12/14/21 05:35 Labs: Abnormal Lab Results - Last 24 Hours (Table) 12/13/21 12/13/21 12/13/21 Range/Units 05:01 05:01 11:35 RBC 3.36 L (4.10-5.20) X 10*6/uL Hgb 7.5 L (12.0-15.0) g/dL Hct 27.1 L (37.2-46.3) % MCH 22.3 L (27.0-32.0) pg MCHC 27.7 L (32.0-37.0) g/dL RDW 19.6 H (11.5-14.5) % Absolute Nucleated RBC 0.02 H (0.00-0.00) X 10*3/uL NRBC/100 WBC Diff 0.2 H (0.0-0.0) /100 WBCS Sodium 133 L (135-145) mmol/L Carbon Dioxide 17.0 L (20.0-27.5) mmol/L BUN 77.1 H (9.0-27.0) mg/dL Creatinine 2.9 H (0.6-1.5) mg/dL Est GFR (CKD-EPI)AfAm 18.2 L (60.0-200.0) Est GFR (CKD-EPI)NonAf 15.7 L (60.0-200.0) BUN/Creatinine Ratio 26.59 H (12.00-20.00) Ratio POC Glucose (mg/dL) 65 L (75-99) mg/dL Calcium 8.1 L (8.7-10.3) mg/dL 12/13/21 12/13/21 12/14/21 Range/Units 12:42 20:14 05:35 RBC (4.10-5.20) X 10*6/uL Hgb (12.0-15.0) g/dL Hct (37.2-46.3) % MCH (27.0-32.0) pg MCHC (32.0-37.0) g/dL RDW (11.5-14.5) % Absolute Nucleated RBC (0.00-0.00) X 10*3/uL NRBC/100 WBC Diff (0.0-0.0) /100 WBCS Sodium (135-145) mmol/L Carbon Dioxide (20.0-27.5) mmol/L BUN 81.5 H (9.0-27.0) mg/dL Creatinine 2.6 H (0.6-1.5) mg/dL Est GFR (CKD-EPI)AfAm 21.3 L (60.0-200.0) Est GFR (CKD-EPI)NonAf 18.4 L (60.0-200.0) BUN/Creatinine Ratio 31.96 H (12.00-20.00) Ratio POC Glucose (mg/dL) 100 H 113 H (75-99) mg/dL Calcium 7.8 L (8.7-10.3) mg/dL 12/14/21 Range/Units 07:00 RBC (4.10-5.20) X 10*6/uL Hgb (12.0-15.0) g/dL Hct (37.2-46.3) % MCH (27.0-32.0) pg MCHC (32.0-37.0) g/dL RDW (11.5-14.5) % Absolute Nucleated RBC (0.00-0.00) X 10*3/uL NRBC/100 WBC Diff (0.0-0.0) /100 WBCS Sodium (135-145) mmol/L Carbon Dioxide (20.0-27.5) mmol/L BUN (9.0-27.0) mg/dL Creatinine (0.6-1.5) mg/dL Est GFR (CKD-EPI)AfAm (60.0-200.0) Est GFR (CKD-EPI)NonAf (60.0-200.0) BUN/Creatinine Ratio (12.00-20.00) Ratio POC Glucose (mg/dL) 109 H (75-99) mg/dL Calcium (8.7-10.3) mg/dL Microbiology - Last 24 Hours (Table) 12/12/21 09:09 Blood Culture - Preliminary Blood No Growth after 24 hours 12/12/21 08:46 Blood Culture - Preliminary Blood No Growth after 24 hours Assessment and Plan Plan: Assessment: 1. Acute kidney injury secondary to ATN secondary to hypotension, acyclovir and anemia. Also component of cardiorenal syndrome. Renal function better. Creatinine 2.6 today. No hydronephrosis noted on kidney ultrasound. Left kidney small in size 2. Chronic kidney disease stage IIIB secondary to diabetic kidney disease with baseline creatinine in the range of 1.6-1.8. 3. Volume overload. 4. Left hip fracture status post surgical repair on 12/08/2021. 5. Metabolic acidosis secondary to acute kidney injury. On oral bicarb. 6. Anemia of chronic kidney disease. 7. Diabetes mellitus. Plan: Maintain IV Lasix. Check iron studies. Encouraged oral intake. 1500 mL fluid restriction Continue to monitor renal function and urine output
[2021-12-14] MEDS: FUROSEMIDE 10 MG/ML 4 ML VIAL IV SCH ×2 (10:57→22:19)
[2021-12-14 11:23] LABS: Glucose,Whole Blood 100 mg/dL (75-99)
[2021-12-14 13:54] VITALS: BMI 44.6
--- NOTE | 2021-12-14 14:15 | P.PN ---
Subjective Progress Note Date: 12/14/21 HISTORY OF PRESENT ILLNESS Patient is a 71-year-old female with a PMH of diastolic CHF with persistent bi lateral lower extremity edema, chronic kidney disease, type II DM, hypertension, hyperlipidemia, TIA, who presents to the emergency room after a fall. Patient reports that she was walking at home with her walker when she tripped on a blanket that got stuck on the walker. She reports falling on her left side, striking her hip to the ground, and immediately having severe pain at the site. She denied losing consciousness or head trauma. She called for her who subsequently activated EMS and the patient was brought to the emergency room. A left femur x-ray revealed an acute supracondylar fracture of the distal femur with combination and displacement. Chest x-ray revealed congestive heart failure with pleural fluid and left lower lobe pneumonia. Laboratory evaluation was remarkable for WBC count 11.5, BUN 74, creatinine 1.68, and glucose 154. At time of interview, the patient reported no active complaints with no left hip pain at rest. She did report significant hip pain with any sort of movement. She denied experiencing cough, fever, chills, chest pain, shortness of breath. Reports bilateral lower extremity edema chronically with venous stasis changes and nonhealing wounds for which she follows at wound clinic. Further denied abdominal pain, nausea, vomiting, diarrhea. On 12/08/2021 patient was cleared by cardiology for surgery. Patient had repair of left femoral shaft. 12/09/2021: Physical therapy nurse noticed that patient had a vesicular rash on her back. Nurse took a picture and I repeated and looks like his consistent with herpes zoster. Patient started on acyclovir. Patient blood pressure was also on the low side. She had to be given 1.5 L of fluid bolus. Her hydralazine was discontinued.Also decrease to 40 mg oral daily 12/10/2021: Patient states that her pain is controlled on current pain regimen. Patient blood pressure is still on the low side. Patient has been started on midodrine. Patient still significantly volume overloaded. We'll resume Lasix oral 40 mg daily as tolerated by blood pressure. Patient creatinine is also increasing to 2.3. Which is likely due to her low blood pressure. 12/11/2021: This morning patient is denying any pain. Patient's creatinine is worsening and is up to 2.9. I will stop acyclovir. Also will hold Lasix. Patient is still significantly volume overloaded. Awaiting for nephrology recommendations. Per nurse patient has decreased urine output. Blood pressure remains on the low side 12/12/2021: Patient denying any pain or has any complaints. Her creatinine this morning is 2.9. Patient is still significantly volume overloaded. Nephrology ordered another dose of IV Lasix. Patient's blood pressure remains on the low side. Midodrine has been increased. Patient's UA consistent with UTI. Blood cultures and lactic acid and IV Rocephin has been ordered. 12/13/2021: Patient denying any complaints this morning. I looked at patient's shingles this morning and appears in some areas is still weeping vesicles. Patient's creatinine this morning is again 2.9. Nephrology started patient IV Lasix 40 mg twice a day. 12/14: Patient has been seen by nephrology this morning recommend continuing IV Lasix, check iron studies and encourage oral intake, 1500 mL fluid restriction, monitor renal function and urine output. Patient remains afebrile, heart rate 85, blood pressure 100/66, pulse ox 98% on 2 L nasal cannula. Electrolytes are normal, BUN 81 creatinine 2.6. Capillary blood glucose running between 96 and 113. Serum 2.2. Blood culture no growth after [address] remains in place. REVIEW OF SYSTEMS Constitutional: No fever, no chills, no night sweats. No weight change. Generalized weakness, +fatigue or lethargy. No daytime sleepiness. EENT: No headache. No blurred vision or double vision, no loss of vision. No loss of Hearing, no ringing in the ears, no dizziness. No nasal drainage or congestion. No epistaxis. No sore throat. Lungs: Reports shortness of breath, cough, no sputum production. No wheezing. Cardiovascular: No chest pain, no lower extremity edema. No palpitations. No paroxysmal nocturnal dyspnea. No orthopnea. No lightheadedness or dizziness. No syncopal episodes. Abdominal: No abdominal pain. No nausea, vomiting. No diarrhea. No constipation. No bloody or tarry stools. No loss of appetite. Genitourinary: No dysuria, increased frequency, urgency. No urinary retention. Aguilera catheter. Musculoskeletal: No myalgias. No muscle weakness, no gait dysfunction, no frequent falls. No back pain. No neck pain. + Left hip pain. Integumentary: No wounds, no lesions. Noted rash now pruritus. No unusual bruising. No change in hair or nails. Neurologic: No aphasia. No facial droop. No change in mentation. No head injury. No headache. No paralysis. No paresthesia. Psychiatric: No depression. No anxiety. No mood swings. Endocrine: No abnormal blood sugars. No weight change. No excessive sweating or thirst. No cold intolerance. PHYSICAL EXAMINATION Gen: This is a 71-year-old morbidly obese female. She is resting in bed and appears to be comfortable and in no acute distress. HEENT: Head is atraumatic, normocephalic. Pupils equal, round. Sclerae is anicteric. NECK: Supple. No JVD. No lymphadenopathy. No thyromegaly. LUNGS: Diminished breath sounds. No wheezes. No intercostal retractions. No accessory muscle usage. HEART: Regular rate and rhythm. Systolic ejection murmur. ABDOMEN: Soft. Bowel sounds are present. No masses. No tenderness. EXTREMITIES: 1+ pedal edema. No calf tenderness. NEUROLOGICAL: Patient is awake, alert and oriented x3. Cranial nerves 2 through 12 are grossly intact. ASSESSMENT AND PLAN Left Femoral fracture status post intramedullary nail 12/[address] William. Continue PT, OT, current pain management, incentive spirometry to reduce incidence of atelectasis and hospital-acquired pneumonia. Acute blood loss anemia secondary to surgery. Continue to monitor. Acute on Chronic diastolic heart failure. Continue patient on Lasix 40 mg IV every 12 hours per nephrology, monitor I&O and daily weights, continue midodrine 10 mg 3 times daily per nephrology for hypotension. Cardiology has signed off. Herpes zoster rash on back and thigh. Due to worsening renal function, acyclovir discontinued. -Airborn and contact precautions -> remove from contact precaution once patient's vesicles are crusted over Acute kidney injury secondary to ATN secondary to hypotension, acyclovir and anemia. Continue to monitor renal function, Lasix, Aguilera catheter per nephrology. Chronic kidney disease stage IIIB secondary to diabetic kidney disease. Urinary tract infection. No urine culture is available. Continue Rocephin. Diabetes mellitus type 2. Continue patient on Home dose insulin, NovoLog mix [id number] 22 units in the morning, 15 units at bedtime. A1c 7.4. Chronic bilateral lower extremity wounds. Consult with [facility] appreciated. Apply triad and with Ole wrap daily. Hyperlipidemia Hypertension. Hold hydralazine due to low blood pressure DISCHARGE PLAN Subacute rehab at [facility] Impression and plan of care have been directed as dictated by the signing physician. Lucia Oliver nurse practitioner acting as scribe for signing ph ysician. Objective - Vital Signs Vital signs: Vital Signs Temp 97.5 F L 12/14/21 08:00 Pulse 85 12/14/21 08:00 Resp 17 12/14/21 00:35 BP 100/66 12/14/21 08:00 Pulse Ox 98 12/14/21 08:00 Intake & Output 12/13/21 12/14/21 12/14/21 18:59 06:59 18:59 Output Total 2600 1000 Balance -2600 -1000 Output: Urine 2600 1000 Uretheral (Aguilera) 1300 Other: Voiding Method Indwelling Catheter # Bowel Movements 1 - Labs CBC & Chem 7: 12/13/21 05:01 12/14/21 05:35 Labs: Abnormal Lab Results - Last 24 Hours (Table) 12/13/21 12/13/21 12/13/21 Range/Units 05:01 05:01 11:35 RBC 3.36 L (4.10-5.20) X 10*6/uL Hgb 7.5 L (12.0-15.0) g/dL Hct 27.1 L (37.2-46.3) % MCH 22.3 L (27.0-32.0) pg MCHC 27.7 L (32.0-37.0) g/dL RDW 19.6 H (11.5-14.5) % Absolute Nucleated RBC 0.02 H (0.00-0.00) X 10*3/uL NRBC/100 WBC Diff 0.2 H (0.0-0.0) /100 WBCS Sodium 133 L (135-145) mmol/L Carbon Dioxide 17.0 L (20.0-27.5) mmol/L BUN 77.1 H (9.0-27.0) mg/dL Creatinine 2.9 H (0.6-1.5) mg/dL Est GFR (CKD-EPI)AfAm 18.2 L (60.0-200.0) Est GFR (CKD-EPI)NonAf 15.7 L (60.0-200.0) BUN/Creatinine Ratio 26.59 H (12.00-20.00) Ratio POC Glucose (mg/dL) 65 L (75-99) mg/dL Calcium 8.1 L (8.7-10.3) mg/dL 12/13/21 12/13/21 12/14/21 Range/Units 12:42 20:14 07:00 RBC (4.10-5.20) X 10*6/uL Hgb (12.0-15.0) g/dL Hct (37.2-46.3) % MCH (27.0-32.0) pg MCHC (32.0-37.0) g/dL RDW (11.5-14.5) % Absolute Nucleated RBC (0.00-0.00) X 10*3/uL NRBC/100 WBC Diff (0.0-0.0) /100 WBCS Sodium (135-145) mmol/L Carbon Dioxide (20.0-27.5) mmol/L BUN (9.0-27.0) mg/dL Creatinine (0.6-1.5) mg/dL Est GFR (CKD-EPI)AfAm (60.0-200.0) Est GFR (CKD-EPI)NonAf (60.0-200.0) BUN/Creatinine Ratio (12.00-20.00) Ratio POC Glucose (mg/dL) 100 H 113 H 109 H (75-99) mg/dL Calcium (8.7-10.3) mg/dL Microbiology - Last 24 Hours (Table) 12/12/21 09:09 Blood Culture - Preliminary Blood No Growth after 24 hours 12/12/21 08:46 Blood Culture - Preliminary Blood No Growth after 24 hours
[2021-12-14 16:02] LABS: Glucose,Whole Blood 123 mg/dL (75-99)
[2021-12-14 21:15] LABS: Glucose,Whole Blood 144 mg/dL (75-99)
[2021-12-14] MEDS: SENNOSIDES-DOCUSATE SODIUM 1 EACH TAB PO SCH (22:18)
[2021-12-14] MEDS: LATANOPROST 0.005% OPHTH DROPS 2.5 ML BTL BOTH EYES SCH (22:19)
[2021-12-15 07:04] LABS: Glucose,Whole Blood 71 mg/dL (75-99)
[2021-12-15 07:23] VITALS: TEMP 97.5
[2021-12-15 07:34] LABS: African American GFR (CKD) 25 (>60 ml/min/1.73 sqM); Anion Gap 3 mmol/L; Blood Urea Nitrogen 81 mg/dL (7-17); Calcium 7.9 mg/dL (8.4-10.2); Carbon Dioxide 22 mmol/L (22-30); Chloride 110 mmol/L (98-107); Glucose 63 mg/dL (74-99); Magnesium 1.9 mg/dL (1.6-2.3); Non-African American GFR(CKD) 21 (>60 ml/min/1.73 sqM); Potassium 4.1 mmol/L (3.5-5.1); Sodium 135 mmol/L (137-145)
[2021-12-15 08:30] LABS: % Iron Saturation 6.25 (12.00-45.00); Ferritin 69.2 ng/mL (10.0-291.0)
[2021-12-15] MEDS: INSULN ASP PRT/INSULIN ASPART 100 UNIT/ML 10 ML VIAL SQ SCH (08:38)
--- NOTE | 2021-12-15 08:45 | P.DS ---
Providers Date of admission: 12/07/21 23:59 Expected date of discharge: 12/15/21 Attending physician: Douglas Ellis Consults: 12/07/21 23:59 Consult Physician Stat Consulting Provider: Flakito William Consult Reason/Comments: medical management for trauma patient Femur Fracture Do you want consulting provider notified?: Already Contacted 12/08/21 00:29 Consult Physician Stat Consulting Provider: Sagar Botello Consult Reason/Comments: trauma patient, cardiac clearance Do you want consulting provider notified?: Yes 12/10/21 14:50 Consult Physician Routine Consulting Provider: Noemy Dave Consult Reason/Comments: oligouria, [place], volume overload Do you want consulting provider notified?: Yes Primary care physician: [place] [facility] Hospital Course: HISTORY OF PRESENT ILLNESS Patient is a 71-year-old female with a PMH of diastolic CHF with persistent bilateral lower extremity edema, chronic kidney disease, type II DM, hypertension, hyperlipidemia, TIA, who presents to the emergency room after a fall. Patient reports that she was walking at home with her walker when she tripped on a blanket that got stuck on the walker. She reports falling on her left side, striking her hip to the ground, and immediately having severe pain at the site. She denied losing consciousness or head trauma. She called for her who subsequently activated EMS and the patient was brought to the emergency room. A left femur x-ray revealed an acute supracondylar fracture of the distal femur with combination and displacement. Chest x-ray revealed congestive heart failure with pleural fluid and left lower lobe pneumonia. Laboratory evaluation was remarkable for WBC count 11.5, BUN 74, creatinine 1.68, and glucose 154. At time of interview, the patient reported no active complaints with no left hip pain at rest. She did report significant hip pain with any sort of movement. She denied experiencing cough, fever, chills, chest pain, shortness of breath. Reports bilateral lower extremity edema chronically with venous stasis changes and nonhealing wounds for which she follows at wound clinic. Further denied abdominal pain, nausea, vomiting, diarrhea. On 12/08/2021 patient was cleared by cardiology for surgery. Patient had repair of left femoral shaft. 12/09/2021: Physical therapy nurse noticed that patient had a vesicular rash on her back. Nurse took a picture and I repeated and looks like his consistent with herpes zoster. Patient started on acyclovir. Patient blood pressure was also on the low side. She had to be given 1.5 L of fluid bolus. Her hydralazine was discontinued.Also decrease to 40 mg oral daily 12/10/2021: Patient states that her pain is controlled on current pain regimen. Patient blood pressure is still on the low side. Patient has been started on midodrine. Patient still significantly volume overloaded. We'll resume Lasix oral 40 mg daily as tolerated by blood pressure. Patient creatinine is also increasing to 2.3. Which is likely due to her low blood pressure. 12/11/2021: This morning patient is denying any pain. Patient's creatinine is worsening and is up to 2.9. I will stop acyclovir. Also will hold Lasix. Patient is still significantly volume overloaded. Awaiting for nephrology recommendations. Per nurse patient has decreased urine output. Blood pressure remains on the low side 12/12/2021: Patient denying any pain or has any complaints. Her creatinine this morning is 2.9. Patient is still significantly volume overloaded. Nephrology ordered another dose of IV Lasix. Patient's blood pressure remains on the low side. Midodrine has been increased. Patient's UA consistent with UTI. Blood cultures and lactic acid and IV Rocephin has been ordered. 12/13/2021: Patient denying any complaints this morning. I looked at patient's shingles this morning and appears in some areas is still weeping vesicles. Patient's creatinine this morning is again 2.9. Nephrology started patient IV Lasix 40 mg twice a day. 12/14: Patient has been seen by nephrology this morning recommend continuing IV Lasix, check iron studies and encourage oral intake, 1500 mL fluid restriction, monitor renal function and urine output. Patient remains afebrile, heart rate 85, blood pressure 100/66, pulse ox 98% on 2 L nasal cannula. Electrolytes are normal, BUN 81 creatinine 2.6. Capillary blood glucose running between 96 and 113. Serum 2.2. Blood culture no growth after [address] remains in place. 12/15: Patient denies shortness of breath. She states her pain is controlled. She has had a bowel movement with no diarrhea. She is a Aguilera catheter in which we'll plan to have removed at [facility]. She is on oxygen but pulse oxing 100% and oxygen will be removed now. Nephrology has recommended transition to torsemide 20 mg daily on discharge, IV iron decrease dose of bicarbonate, 1500 mL fluid restriction. Patient will be discharged to [facility] today in stable condition. DISCHARGE DIAGNOSES Left Femoral fracture status post intramedullary nail 12/[address] William. Acute blood loss anemia secondary to fracture and surgery. Acute on Chronic diastolic heart failure. Herpes zoster rash on back and thigh. Acute kidney injury secondary to ATN secondary to hypotension, acyclovir and anemia. Chronic kidney disease stage IIIB secondary to diabetic kidney disease. Urinary tract infection. Diabetes mellitus type 2. Chronic bilateral lower extremity wounds. Apply triad and with Ole wrap daily. Hyperlipidemia Hypertension. Hold hydralazine due to low blood pressure DISCHARGE PLAN Subacute rehab at [facility] Greater than 35 minutes was utilized and coordinating patient's discharge. Impression and plan of care have been directed as dictated by the signing physi ashvin. Lucia Oliver nurse practitioner acting as scribe for signing physician. Patient Condition at Discharge: Stable Plan - Discharge Summary Discharge Rx Participant: Yes New Discharge Prescriptions: New Midodrine [ProAmatine] 10 mg PO AC-TID tab atenoloL [Tenormin] 12.5 mg PO HS dose Acetaminophen Tab [Tylenol] 650 mg PO Q6HR PRN tab PRN Reason: Fever And/ Or Pain Torsemide [Demadex] 20 mg PO DAILY #30 tablet Sennosides-Docusate Sodium [Senokot-S] 2 each PO HS tab Sodium Bicarbonate Tab 650 mg PO QID tab Continue Clopidogrel [Plavix] 75 mg PO DAILY Atorvastatin Calcium [Lipitor] 10 mg PO DAILY Ergocalciferol [Vitamin D2 (DRISDOL)] 50,000 unit PO MO Travoprost [Travoprost 0.004%] 1 drop BOTH EYES HS Brimonidine Tartrate [Alphagan P 0.1% Ophth Soln] 1 drop BOTH EYES BID Changed Insulin Aspart Protam & Aspart [NovoLOG MIX 70-30 Flexpen] 15 unit SQ HS #0 Insulin Aspart Protam & Aspart [NovoLOG MIX 70-30 Flexpen] 22 unit SQ DAILY #0 Discontinued hydrALAZINE HCL 50 mg PO TID-W/MEALS Atenolol [Tenormin] 50 mg PO HS Furosemide [Lasix] 40 mg PO DAILY Discharge Medication List Atorvastatin Calcium [Lipitor] 10 mg PO DAILY 04/10/14 [History] Clopidogrel [Plavix] 75 mg PO DAILY 04/10/14 [History] Ergocalciferol [Vitamin D2 (DRISDOL)] 50,000 unit PO MO 06/06/14 [History] Travoprost [Travoprost 0.004%] 1 drop BOTH EYES HS 08/19/21 [History] Brimonidine Tartrate [Alphagan P 0.1% Ophth Soln] 1 drop BOTH EYES BID 12/08/21 [History] Acetaminophen Tab [Tylenol] 650 mg PO Q6HR PRN tab 12/15/21 [Rx] Insulin Aspart Protam & Aspart [NovoLOG MIX 70-30 Flexpen] 15 unit SQ HS #0 12/15/21 [Rx] Insulin Aspart Protam & Aspart [NovoLOG MIX 70-30 Flexpen] 22 unit SQ DAILY #0 12/15/21 [Rx] Midodrine [ProAmatine] 10 mg PO AC-TID tab 12/15/21 [Rx] Sennosides-Docusate Sodium [Senokot-S] 2 each PO HS tab 12/15/21 [Rx] Sodium Bicarbonate Tab 650 mg PO QID tab 12/15/21 [Rx] Torsemide [Demadex] 20 mg PO DAILY #30 tablet 12/15/21 [Rx] atenoloL [Tenormin] 12.5 mg PO HS dose 12/15/21 [Rx] Follow up Appointment(s)/Referral(s): Luis Armando Crystal DO [Primary Care Provider] - 1 Week (after discharge from [facility]) Charles Mari MD [STAFF PHYSICIAN] - 2 Weeks (office not asnwering Please call to schedule appointment) Flakito William MD [Medical Doctor] - 12/24/21 10:10 am Discharge Disposition: TRANSFER TO SNF/ECF
[2021-12-15] MEDS: HEPARIN SODIUM,PORCINE/PF 5,000 UNIT/0.5 ML SYRINGE SQ SCH (08:46)
[2021-12-15] MEDS: MIDODRINE 5 MG TAB PO SCH ×2 (08:47→12:42)
[2021-12-15] MEDS: SODIUM BICARBONATE TAB 650 MG TAB PO SCH (08:47)
[2021-12-15] MEDS: ATORVASTATIN 10 MG TAB PO SCH (08:47)
[2021-12-15] MEDS: CLOPIDOGREL 75 MG TAB PO SCH (08:47)
[2021-12-15] MEDS: FUROSEMIDE 10 MG/ML 4 ML VIAL IV SCH (08:53)
[2021-12-15] MEDS ORDERED: SODIUM FERRIC GLUCONAT-SUCROSE 125 MG in SODIUM CHLORIDE 0.9% 100 ML IVPB SCH (09:00)
[2021-12-15] MEDS ORDERED: SODIUM BICARBONATE TAB 650 MG TAB PO SCH (09:00)
--- NOTE | 2021-12-15 09:01 | P.PN ---
Subjective Patient is seen in follow-up for acute kidney injury on chronic kidney disease. Renal function improving. On IV Lasix. Urine output 3.6 L in the last 24 hours. Denies chest pain or shortness of breath. On 2 L nasal cannula. No vomiting or diarrhea. Oral intake fair. Vital signs are stable. General: Awake and alert. HEENT: Head exam is unremarkable. On nasal cannula. LUNGS: Breath sounds decreased. HEART: Rate and Rhythm are regular. ABDOMEN: Soft, obese. EXTREMITITES: Lower extremities wrapped. 1+ edema. Objective - Vital Signs Vital signs: Vital Signs Temp 97.5 F L 12/15/21 07:21 Pulse 70 12/15/21 07:21 Resp 20 12/15/21 07:21 BP 102/66 12/15/21 07:21 Pulse Ox 100 12/15/21 07:21 Intake & Output 12/14/21 12/15/21 12/15/21 18:59 06:59 18:59 Intake Total 50 200 Output Total 1000 0 Balance -950 200 Weight 118 kg Intake: Intake, IV Titration 50 Amount cefTRIAXone 1 gm In 50 Sodium Chloride 0.9% 50 ml @ 100 mls/hr IVPB Q24HR [facility] Rx#:[id number] Oral 200 Output: Urine 1000 Stool 0 Other: Voiding Method Indwelling Catheter Indwelling Catheter - Labs CBC & Chem 7: 12/13/21 05:01 12/15/21 07:08 Labs: Abnormal Lab Results - Last 24 Hours (Table) 12/14/21 12/14/21 12/14/21 Range/Units 05:35 05:35 11:21 Sodium (137-145) mmol/L Chloride (98-107) mmol/L BUN 81.5 H (9.0-27.0) mg/dL Creatinine 2.6 H (0.6-1.5) mg/dL Est GFR (CKD-EPI)AfAm 21.3 L (60.0-200.0) Est GFR (CKD-EPI)NonAf 18.4 L (60.0-200.0) BUN/Creatinine Ratio 31.96 H (12.00-20.00) Ratio Glucose (74-99) mg/dL POC Glucose (mg/dL) 100 H (75-99) mg/dL Calcium 7.8 L (8.7-10.3) mg/dL Iron 17 L (50-170) ug/dL % Saturation 6.25 L (12.00-45.00) Transferrin 199.0 L (204.0-354.0) mg/dL 12/14/21 12/14/21 12/15/21 Range/Units 16:01 21:05 07:02 Sodium (137-145) mmol/L Chloride (98-107) mmol/L BUN (9.0-27.0) mg/dL Creatinine (0.6-1.5) mg/dL Est GFR (CKD-EPI)AfAm (60.0-200.0) Est GFR (CKD-EPI)NonAf (60.0-200.0) BUN/Creatinine Ratio (12.00-20.00) Ratio Glucose (74-99) mg/dL POC Glucose (mg/dL) 123 H 144 H 71 L (75-99) mg/dL Calcium (8.7-10.3) mg/dL Iron (50-170) ug/dL % Saturation (12.00-45.00) Transferrin (204.0-354.0) mg/dL 12/15/21 Range/Units 07:08 Sodium 135 L (137-145) mmol/L Chloride 110 H (98-107) mmol/L BUN 81 H (9.0-27.0) mg/dL Creatinine 2.26 H (0.6-1.5) mg/dL Est GFR (CKD-EPI)AfAm (60.0-200.0) Est GFR (CKD-EPI)NonAf (60.0-200.0) BUN/Creatinine Ratio (12.00-20.00) Ratio Glucose 63 L (74-99) mg/dL POC Glucose (mg/dL) (75-99) mg/dL Calcium 7.9 L (8.7-10.3) mg/dL Iron (50-170) ug/dL % Saturation (12.00-45.00) Transferrin (204.0-354.0) mg/dL Microbiology - Last 24 Hours (Table) 12/12/21 09:09 Blood Culture - Preliminary Blood No Growth after 48 hours 12/12/21 08:46 Blood Culture - Preliminary Blood No Growth after 48 hours Assessment and Plan Plan: Assessment: 1. Acute kidney injury secondary to ATN secondary to hypotension, acyclovir and anemia. Also component of cardiorenal syndrome. Renal function better. Creatinine 2.26 today. No hydronephrosis noted on kidney ultrasound. Left kidney small in size 2. Chronic kidney disease stage IIIB secondary to diabetic kidney disease with baseline creatinine in the range of 1.6-1.8. 3. Volume overload. Improving with diuresis. 4. Left hip fracture status post surgical repair on 12/08/2021. 5. Metabolic acidosis secondary to acute kidney injury. On oral bicarb. Better. 6. Anemia of chronic kidney disease. Iron deficiency noted. 7. Diabetes mellitus. Plan: Maintain IV Lasix. Transition to oral torsemide 20 mg daily upon discharge. Add IV iron. Decrease dose of bicarb. Encouraged oral intake. 1500 mL fluid restriction Continue to monitor renal function and urine output. Repeat BMP and magnesium level 2-3 days postdischarge. Follow up outpatient in 1 week. Plan for subacute rehab upon discharge.
[2021-12-15] MEDS: HYDROPHILIC CREAM 180 GM TUBE TOPICAL SCH (09:24)
[2021-12-15 11:32] LABS: Glucose,Whole Blood 90 mg/dL (75-99)
[2021-12-15] MEDS: ACETAMINOPHEN TAB 325 MG TAB PO PRN (12:42)
[2021-12-15 14:11] VITALS: BP 108/63; PULSE 80; RESP 19
== END 2021-12-15 15:47 | DRG 480 ==
LOC: EC 22:11 → 4SSUR 23:59
PROVIDERS: ADMIT Internal Medicine Geriatric Medicine; ATTEND Internal Medicine Geriatric Medicine
PROC: 0QS936Z Reposition Left Femoral Shaft with Intramedullary Internal Fixation Device, Percutaneous Approach (ICD-10-PCS; principal; 2021-12-08 09:00)
DX: S72.452A Displaced supracondylar fracture without intracondylar extension of lower end of left femur, initial encounter for closed fracture (principal); N17.0 Acute kidney failure with tubular necrosis; I50.33 Acute on chronic diastolic (congestive) heart failure; J18.9 Pneumonia, unspecified organism; N39.0 Urinary tract infection, site not specified; L97.919 Non-pressure chronic ulcer of unspecified part of right lower leg with unspecified severity; L97.929 Non-pressure chronic ulcer of unspecified part of left lower leg with unspecified severity; D62 Acute posthemorrhagic anemia; E87.0 Hyperosmolality and hypernatremia; E87.2 Acidosis; I13.0 Hypertensive heart and chronic kidney disease with heart failure and stage 1 through stage 4 chronic kidney disease, or unspecified chronic kidney disease; I48.21 Permanent atrial fibrillation; L03.90 Cellulitis, unspecified; Z68.41 Body mass index [BMI] 40.0-44.9, adult; Z20.822 Contact with and (suspected) exposure to COVID-19; S72.302A Unspecified fracture of shaft of left femur, initial encounter for closed fracture; N18.32 Chronic kidney disease, stage 3b; I95.9 Hypotension, unspecified; W18.09XA Striking against other object with subsequent fall, initial encounter; Y92.009 Unspecified place in unspecified non-institutional (private) residence as the place of occurrence of the external cause; Z79.02 Long term (current) use of antithrombotics/antiplatelets; Z79.4 Long term (current) use of insulin; Z79.899 Other long term (current) drug therapy; Z80.1 Family history of malignant neoplasm of trachea, bronchus and lung; Z82.3 Family history of stroke; B02.9 Zoster without complications; D63.1 Anemia in chronic kidney disease; E11.22 Type 2 diabetes mellitus with diabetic chronic kidney disease; E61.1 Iron deficiency; E66.01 Morbid (severe) obesity due to excess calories; E78.5 Hyperlipidemia, unspecified; E88.09 Other disorders of plasma-protein metabolism, not elsewhere classified; I27.20 Pulmonary hypertension, unspecified; I87.309 Chronic venous hypertension (idiopathic) without complications of unspecified lower extremity; I87.8 Other specified disorders of veins; I89.0 Lymphedema, not elsewhere classified; Z83.3 Family history of diabetes mellitus; Z86.73 Personal history of transient ischemic attack (TIA), and cerebral infarction without residual deficits; Z90.710 Acquired absence of both cervix and uterus
CPT/HCPCS: 36410; 71045; 73502; 76770; 76937; 80048; 80053; 81001; 82533; 82728; 83036; 83540; 83550; 83605; 83735; 85025; 85027; 85610; 85730; 87040; 87635; 93005; 94660; 94760; 96372; 96374; 96375; 99285

== ENCOUNTER 2022-01-16 18:36 | Inpatient (IN) | payer MEDICARE ==
--- NOTE | 2022-01-16 18:56 | ED ---
Weakness HPI - General Chief complaint: Recheck/Abnormal Lab/Rx Stated complaint: altered mental status Time Seen by Provider: 01/16/22 18:47 Source: EMS, RN notes reviewed Mode of arrival: EMS Limitations: no limitations - History of Present Illness Initial comments: This is a pleasant 71-year-old female with a history of congestive heart kurt lure, chronic peripheral edema, chronic kidney disease, type 2 diabetes mellitus, hypertension, hyperlipidemia, and TIA. Patient was admitted here to the hospital after sustaining a left femur fracture and supracondylar fracture of the distal femur with displacement. Patient had to have surgical repair by Dr. William. Patient subsequently was [facility] December 07 to [facility]. Apparently the patient has been complaining about her stay there. Patient is frustrated, stating that the place is too crowded. Patient requested to go home but could not go home. Instead staff called the family who went to visit the patient. Apparently the called 911 from the facility and the patient is here. According to staff the patient is somewhat confused. There is been no fall. Patient complains of no pain. Patient is telling me that the place is too crowded and she is getting an disagreements with people and wants to go home. Patient is able to give a decent history. She is alert and oriented 2. She is minimally disoriented to time. She does come up with the correct year and president. No headache, no fever or chills, no changes in vision or hearing, no sore throat or difficulty with speech, no neck pain, no chest pain or shortness of breath, no abdominal pain, no nausea or vomiting, no changes in urination or bowel move ments, no numbness or tingling, no extremity pain, no skin rashes or lesions. MD Complaint: generalized weakness - Related Data Home Medications Medication Instructions Recorded Confirmed Atorvastatin Calcium [Lipitor] 10 mg PO DAILY@79904/10/14 01/16/22 Clopidogrel [Plavix] 75 mg PO DAILY@79904/10/14 01/16/22 Ergocalciferol [Vitamin D2 50,000 unit PO MO@0800 06/06/14 01/16/22 (DRISDOL)] Travoprost [Travoprost 0.004%] 1 drop BOTH EYES HS 08/19/21 01/16/22 Brimonidine Tartrate [Alphagan P 1 drop BOTH EYES BID@0800,1700 12/08/21 01/16/22 0.1% Ophth Soln] Acetaminophen Tab [Tylenol] 650 mg PO Q6H PRN 01/16/22 01/16/22 Eucerin Plus Cream 1 applic TOPICAL DAILY 01/16/22 01/16/22 Gabapentin [Neurontin] 100 mg PO Q12H 01/16/22 01/16/22 Glucerna Shake 237 ml PO DAILY@0800 01/16/22 01/16/22 HYDROcodone/APAP 5-325MG [[place] 1 tab PO Q6H PRN 01/16/22 01/16/22 5-325] Insulin Aspart Protam & Aspart 10 unit SQ HS 01/16/22 01/16/22 [NovoLOG MIX 70-30 Flexpen] Insulin Aspart Protam & Aspart 15 unit SQ DAILY@0800 01/16/22 01/16/22 [NovoLOG MIX 70-30 Flexpen] Liquacel 30 ml PO DAILY@1200 01/16/22 01/16/22 Magnesium Hydroxide [Milk of 7,200 mg PO Q48H PRN 01/16/22 01/16/22 Magnesia Concentrate] Midodrine [ProAmatine] 10 mg PO TID@0800,1200,1700 01/16/22 01/16/22 Na Phos,M-B/Na Phos,Di-Ba [Fleet 133 ml RECTAL DAILY PRN 01/16/22 01/16/22 Adult] Sennosides-Docusate Sodium 2 tab PO HS 01/16/22 01/16/22 [Senokot-S] Torsemide [Demadex] 20 mg PO DAILY@0800 01/16/22 01/16/22 Torsemide [Demadex] 20 mg PO ONCE@1715 01/16/22 01/16/22 bisacodyL [Dulcolax] 10 mg RECTAL DAILY PRN 01/16/22 01/16/22 Previous Rx's Medication Instructions Recorded Sodium Bicarbonate Tab 650 mg PO QID tab 12/15/21 atenoloL [Tenormin] 12.5 mg PO HS dose 12/15/21 Allergies Allergy/AdvReac Type Severity Reaction Status Date / Time enalapril maleate Allergy Hives over Verified 01/16/22 21:19 [From Vasotec] entire body enalaprilat dihydrate Allergy Hives over Verified 01/16/22 21:19 [From Vasotec] entire body metoprolol tartrate Allergy Hives over Verified 01/16/22 21:19 [From Lopressor] entire body Review of Systems ROS Statement: Those systems with pertinent positive or pertinent negative responses have been documented in the HPI. ROS Other: All systems not noted in ROS Statement are negative. Past Medical History Past Medical History: CVA/TIA, Diabetes Mellitus, Hyperlipidemia, Hypertension Additional Past Medical History / Comment(s): lymphedema History of Any Multi-Drug Resistant Organisms: None Reported Past Surgical History: Breast Surgery, Hysterectomy, Tonsillectomy Additional Past Surgical History / Comment(s): Right breast biopsy for hyperdensity Past Anesthesia/Blood Transfusion Reactions: No Reported Reaction Past Psychological History: No Psychological Hx Reported Smoking Status: Never smoker Past Alcohol Use History: None Reported Past Drug Use History: None Reported - Past Family History Father Family Medical History: Cancer Mother Family Medical History: CVA/TIA, Diabetes Mellitus Additional Family Medical History / Comment(s): 2 brothers okay 2 sisters okay 3 sons okay one daughter okay. patient denies any CAD CHF cancer blood pressure PE DVT CVA asthma General Exam - General Exam Comments Initial Comments: Deconditioned elderly female in minimal distress. Patient actually appears to have mild increased work of breathing.. Cranial nerves II through XII are intact. Patient does not appear to be ill or toxic. Vital signs are reviewed Limitations: no limitations General appearance: alert, in distress, obese Head exam: Present: atraumatic, normocephalic, normal inspection Eye exam: Present: normal appearance, PERRL, EOMI. Absent: scleral icterus, conjunctival injection, periorbital swelling ENT exam: Present: normal exam, normal oropharynx, mucous membranes moist, TM's normal bilaterally, normal external ear exam. Absent: mucous membranes dry Neck exam: Present: normal inspection, full ROM. Absent: tenderness, meningismus, lymphadenopathy Respiratory exam: Present: respiratory distress, rales (Bibasilar), chest wall tenderness, accessory muscle use. Absent: normal lung sounds bilaterally, wheezes, rhonchi, stridor Cardiovascular Exam: Present: regular rate, normal rhythm, normal heart sounds. Absent: systolic murmur, diastolic murmur, rubs, gallop, clicks GI/Abdominal exam: Present: soft, normal bowel sounds. Absent: distended, tenderness, guarding, rebound, rigid Extremities exam: Present: normal inspection, full ROM, normal capillary refill, pedal edema (Patient has edema noted to bilateral legs and arms.), other (Surgical incision appears to be healing well to the left distal femur. Patient has wraps to the bilateral lower extremities. No evidence of infectious process.). Absent: tenderness, joint swelling, calf tenderness Back exam: Present: normal inspection Neurological exam: Present: alert, CN II-XII intact, other (Gait not tested due to patient's condition. Alert and oriented 2. No focal findings). Absent: motor sensory deficit Psychiatric exam: Present: normal affect, normal mood Skin exam: Present: warm, dry, intact, normal color. Absent: rash, cyanosis, diaphoretic, erythema, urticaria, vesicles, petechiae, pallor, mottled, abrasion Course Vital Signs 01/16/22 01/16/22 01/16/22 18:41 19:46 21:36 Temperature 98.3 F Pulse Rate 96 89 84 Respiratory 18 22 22 Rate Blood Pressure 114/56 109/61 99/70 O2 Sat by Pulse 97 96 96 Oximetry - Reevaluation(s) Reevaluation #1: 01/16/22 21:30 Patient was reevaluated and is essentially unchanged. Patient appears to have increased work of breathing despite being on nasal oxygen. According to the she never wore oxygen until recently after the femur fracture. believes that the breathing seems to be getting worse. Patient's CO2 elevated on CMP. According to obtain an ABG and add on a BMP as the patient does appear to have some generalized edema. Reevaluation #2: 01/16/22 22:47 Medical record is reviewed Symptoms are improved here in the emergency department Patient is informed of results and questions answered Patient in no distressPatient minimally improved after IV Lasix. - Consultations Consultation #1: Discussed the case in detail with Dr. Ji who insets admission of the patient for congestive heart failure. EKG Findings - EKG Comments: EKG Findings:: EKG done at 1946 and read by the ED attending physician reveals atrial fibrillation with a rate of 83. Remainder the intervals are normal. Normal axis. No acute ST or T wave changes. When compared to the previous study there is no significant change. Medical Decision Making - Medical Decision Making We'll order a general workup for weakness and possible mild confusion. Ensure that there is no infectious process. However it appears to be that the patient is mostly frustrated with the stay at the nursing facility and wants to go home. Patient's BMP elevated. 60 mg of Lasix ordered IV push. I'll discuss the case with the patient's primary care physician. Case is discussed in detail with the patient's primary care physician who wrote subsequent admission. Note that the patient had 700 mL of urine out on straight cath urineFoley catheter maintained The case was discussed in detail with ED attending physician. Presentation, findings, treatment plan discussed in detail. Dr. Abbasi - Lab Data Result diagrams: 01/16/22 19:35 01/16/22 19:35 Lab Results 01/16/22 01/16/22 01/16/22 Range/Units 19:35 19:35 19:35 WBC 9.3 (3.8-10.6) k/uL RBC 3.86 (3.80-5.40) m/uL Hgb 9.4 L (11.4-16.0) gm/dL Hct 34.9 (34.0-46.0) % MCV 90.3 (80.0-100.0) fL MCH 24.4 L (25.0-35.0) pg MCHC 27.0 L (31.0-37.0) g/dL RDW 19.3 H (11.5-15.5) % Plt Count 356 (150-450) k/uL MPV 8.7 Neutrophils % 83 % Lymphocytes % 7 % Monocytes % 4 % Eosinophils % 3 % Basophils % 1 % Neutrophils # 7.8 H (1.3-7.7) k/uL Lymphocytes # 0.7 L (1.0-4.8) k/uL Monocytes # 0.4 (0-1.0) k/uL Eosinophils # 0.3 (0-0.7) k/uL Basophils # 0.1 (0-0.2) k/uL Hypochromasia Marked Anisocytosis Slight Sodium 140 (137-145) mmol/L Potassium 3.8 (3.5-5.1) mmol/L Chloride 92 L (98-107) mmol/L Carbon Dioxide 45 H* (22-30) mmol/L Anion Gap 3 mmol/L BUN 50 H (7-17) mg/dL Creatinine 1.58 H (0.52-1.04) mg/dL Est GFR (CKD-EPI)AfAm 38 (>60 ml/min/1.73 sqM) Est GFR (CKD-EPI)NonAf 33 (>60 ml/min/1.73 sqM) Glucose 119 H (74-99) mg/dL Plasma Lactic Acid Garrick 0.8 (0.7-2.0) mmol/L Calcium 9.1 (8.4-10.2) mg/dL Phosphorus 4.2 (2.5-4.5) mg/dL Magnesium 1.8 (1.6-2.3) mg/dL Total Bilirubin 0.6 (0.2-1.3) mg/dL AST 19 (14-36) U/L ALT <6 (4-34) U/L Alkaline Phosphatase 63 (38-126) U/L Ammonia 15 (<30) umol/L Troponin I (0.000-0.034) ng/mL NT-Pro-B Natriuret Pep pg/mL Total Protein 5.3 L (6.3-8.2) g/dL Albumin 2.5 L (3.5-5.0) g/dL TSH 1.330 (0.465-4.680) mIU/L Urine Color Urine Appearance (Clear) Urine pH (5.0-8.0) Ur Specific Friend (1.001-1.035) Urine Protein (Negative) Urine Glucose (UA) (Negative) Urine Ketones (Negative) Urine Blood (Negative) Urine Nitrite (Negative) Urine Bilirubin (Negative) Urine Urobilinogen (<2.0) mg/dL Ur Leukocyte Esterase (Negative) Urine RBC (0-5) /hpf Urine WBC (0-5) /hpf Urine WBC Clumps (None) /hpf Urine Bacteria (None) /hpf Hyaline Casts (0-2) /lpf Urine Mucus (None) /hpf 01/16/22 01/16/22 01/16/22 Range/Units 19:35 19:35 23:09 WBC (3.8-10.6) k/uL RBC (3.80-5.40) m/uL Hgb (11.4-16.0) gm/dL Hct (34.0-46.0) % MCV (80.0-100.0) fL MCH (25.0-35.0) pg MCHC (31.0-37.0) g/dL RDW (11.5-15.5) % Plt Count (150-450) k/uL MPV Neutrophils % % Lymphocytes % % Monocytes % % Eosinophils % % Basophils % % Neutrophils # (1.3-7.7) k/uL Lymphocytes # (1.0-4.8) k/uL Monocytes # (0-1.0) k/uL Eosinophils # (0-0.7) k/uL Basophils # (0-0.2) k/uL Hypochromasia Anisocytosis Sodium (137-145) mmol/L Potassium (3.5-5.1) mmol/L Chloride (98-107) mmol/L Carbon Dioxide (22-30) mmol/L Anion Gap mmol/L BUN (7-17) mg/dL Creatinine (0.52-1.04) mg/dL Est GFR (CKD-EPI)AfAm (>60 ml/min/1.73 sqM) Est GFR (CKD-EPI)NonAf (>60 ml/min/1.73 sqM) Glucose (74-99) mg/dL Plasma Lactic Acid Garrick (0.7-2.0) mmol/L Calcium (8.4-10.2) mg/dL Phosphorus (2.5-4.5) mg/dL Magnesium (1.6-2.3) mg/dL Total Bilirubin (0.2-1.3) mg/dL AST (14-36) U/L ALT (4-34) U/L Alkaline Phosphatase (38-126) U/L Ammonia (<30) umol/L Troponin I 0.033 (0.000-0.034) ng/mL NT-Pro-B Natriuret Pep 91741 pg/mL Total Protein (6.3-8.2) g/dL Albumin (3.5-5.0) g/dL TSH (0.465-4.680) mIU/L Urine Color Yellow Urine Appearance Clear (Clear) Urine pH 5.0 (5.0-8.0) Ur Specific Friend 1.010 (1.001-1.035) Urine Protein Negative (Negative) Urine Glucose (UA) Negative (Negative) Urine Ketones Negative (Negative) Urine Blood Negative (Negative) Urine Nitrite Negative (Negative) Urine Bilirubin Negative (Negative) Urine Urobilinogen <2.0 (<2.0) mg/dL Ur Leukocyte Esterase Trace H (Negative) Urine RBC 1 (0-5) /hpf Urine WBC 5 (0-5) /hpf Urine WBC Clumps Rare H (None) /hpf Urine Bacteria Rare H (None) /hpf Hyaline Casts 6 H (0-2) /lpf Urine Mucus Rare H (None) /hpf Disposition Clinical Impression: Acute exacerbation of CHF (congestive heart failure), Agitation, Chronic atrial fibrillation, Urinary retention Disposition: ADMITTED IP TO THIS HOSP Condition: Stable Referrals: Douglas Ellis MD [Primary Care Provider] - 1-2 days Time of Disposition: 22:21
[2022-01-16 19:43] LABS: Anisocytosis Slight; Basophils # (A) 0.1 k/uL (0-0.2); Basophils % (A) 1 %; Eosinophils # (A) 0.3 k/uL (0-0.7); Eosinophils % (A) 3 %; HCT 34.9 % (34.0-46.0); HGB 9.4 gm/dL (11.4-16.0); Hypochromasia Marked; Lymphocytes # (A) 0.7 k/uL (1.0-4.8); Lymphocytes % (A) 7 %; MCH 24.4 pg (25.0-35.0); MCV 90.3 fL (80.0-100.0); Mean Platelet Volume 8.7; Monocytes # (A) 0.4 k/uL (0-1.0); Monocytes % (A) 4 %; Neutrophils # (A) 7.8 k/uL (1.3-7.7); Neutrophils % (A) 83 %; Platelet Count 356 k/uL (150-450); RBC 3.86 m/uL (3.80-5.40); RDW 19.3 % (11.5-15.5); WBC 9.3 k/uL (3.8-10.6)
[2022-01-16 19:52] LABS: Lactic Acid, Venous 0.8 mmol/L (0.7-2.0)
[2022-01-16 20:11] LABS: ALT <6 U/L (4-34); AST 19 U/L (14-36); African American GFR (CKD) 38 (>60 ml/min/1.73 sqM); Albumin 2.5 g/dL (3.5-5.0); Alkaline Phosphatase 63 U/L (38-126); Blood Urea Nitrogen 50 mg/dL (7-17); Calcium 9.1 mg/dL (8.4-10.2); Chloride 92 mmol/L (98-107); Glucose 119 mg/dL (74-99); Magnesium 1.8 mg/dL (1.6-2.3); Non-African American GFR(CKD) 33 (>60 ml/min/1.73 sqM); Phosphorus 4.2 mg/dL (2.5-4.5); Potassium 3.8 mmol/L (3.5-5.1); Sodium 140 mmol/L (137-145); Total Bilirubin 0.6 mg/dL (0.2-1.3); Total Protein 5.3 g/dL (6.3-8.2)
[2022-01-16 20:18] LABS: Anion Gap 3 mmol/L
[2022-01-16 21:05] LABS: Carbon Dioxide 45 mmol/L (22-30)
--- NOTE | 2022-01-16 21:15 | XR ---
EXAMINATION TYPE: XR chest 1V portable DATE OF EXAM: 01/16/2022 COMPARISON: 12/11/2021 HISTORY: Weakness TECHNIQUE: FINDINGS: Heart is enlarged. There is pulmonary interstitial and airspace edema. There is blunting of the costophrenic angles. There are chest leads. IMPRESSION: Congestive heart failure with pulmonary edema and pleural fluid that is increased compare d to old exam.
[2022-01-16] MEDS ORDERED: FUROSEMIDE 10 MG/ML 10 ML VIAL IV STA (21:33)
[2022-01-16] MEDS ORDERED: ASPIRIN 325 MG TAB PO STA (22:56)
[2022-01-16 23:39] LABS: Appearance,Urine Clear (Clear); Bacteria,Urine Rare /hpf; Bilirubin,Urine Negative (Negative); Blood,Urine Negative (Negative); Color,Urine Yellow; Glucose,Urine (UA) Negative (Negative); Hyaline Casts,Urine 6 /lpf (0-2); Ketones,Urine Negative (Negative); Leukocyte Esterase,Urine Trace (Negative); Mucus,Urine Rare /hpf; Nitrite,Urine Negative (Negative); Protein,Urine Negative (Negative); RBC,Urine 1 /hpf (0-5); Urobilinogen,Urine <2.0 mg/dL (<2.0); WBC,Urine 5 /hpf (0-5)
[2022-01-17] MEDS: FUROSEMIDE 10 MG/ML 4 ML VIAL IV SCH ×3 (00:14→23:21)
[2022-01-17 02:38] LABS: Glucose,Whole Blood 133 mg/dL (75-99)
[2022-01-17 05:55] LABS: Glucose,Whole Blood 122 mg/dL (75-99)
[2022-01-17] MEDS: INSULIN ASPART (NovoLOG) 100 UNIT/ML VIAL SQ SCH ×4 (06:04→21:02)
[2022-01-17] MEDS ORDERED: ENOXAPARIN 40 MG/0.4 ML SYRINGE SQ SCH ×2 (09:00)
[2022-01-17] MEDS: ASPIRIN 325 MG TAB PO SCH (09:15)
[2022-01-17] MEDS ORDERED: bisacodyL 10 MG SUPP RECTAL PRN (11:54)
[2022-01-17] MEDS ORDERED: MAGNESIUM HYDROXIDE 2,400 MG/10 ML CUP PO PRN (11:54)
[2022-01-17] MEDS ORDERED: ACETAMINOPHEN TAB 325 MG TAB PO PRN (11:54)
[2022-01-17] MEDS ORDERED: NA PHOS,M-B/NA PHOS,DI-BA 133 ML ENEMA RECTAL PRN (11:54)
[2022-01-17] MEDS ORDERED: HYDROcodone/APAP 5-325MG 1 EACH TAB PO PRN (11:54)
[2022-01-17 11:58] LABS: Glucose,Whole Blood 142 mg/dL (75-99)
[2022-01-17] MEDS ORDERED: NON FORMULARY DRUG (Liquacel 30 ML) PO SCH (12:00)
[2022-01-17] MEDS: SODIUM BICARBONATE TAB 650 MG TAB PO SCH ×3 (12:22→23:22)
[2022-01-17] MEDS: MIDODRINE 5 MG TAB PO SCH ×2 (12:23→16:27)
--- NOTE | 2022-01-17 12:51 | P.CRDCN ---
History of Present Illness Consult date: 01/17/22 History of present illness: Patient is a 71-year-old female with a known history of chronic congestive heart failure, chronic kidney disease, diabetic, hyperlipidemia, hypertension, TIA, permanent atrial fibrillation not on any anticoagulation due to patient refused, known pulmonary hypertension who came into the ER for increased shortness of breath. We have been counseled to see this patient for elevated troponins and congestive heart failure. Patient recently had a left leg fracture and was at rehab, family was visiting the patient felt she was more short of breath than normal and called 911. Patient's chest x-ray showed congestive heart failure. her EKG showed atrial fibrillation. Her troponin first one was negative, second 0.39, and the third one was negative. Her BUN is 15 and creatinine is 1.58, and her BMP is 23,800. Patient was started on IV Lasix 40 mg every 12 hours patient had an echocardiogram completed August 2021 which showed a normal LV function with an ejection fraction of 55-60%, grade 2 diastolic dysfunction, mild mitral valve regurgitation, moderate to severe tricuspid regurgitation and increased pulmonary hypertension. Continue current home medications aspirin, atenolol, Lipitor, Plavix. Patient is on Lovenox for DVT prophylactics. Will obtain a 2-D echo to evaluate LV function Review of Systems REVIEW OF SYSTEMS At the time of my exam: CONSTITUTIONAL: Denies fever or chills. EYES: Negative for vision changes ENT: Negative for hearing loss CARDIOVASCULAR: Denies chest pain, shortness of breath, diaphoresis, orthopnea, PND or palpitations. VASCULAR: Denies edema RESPIRATORY: Denies cough. GASTROINTESTINAL: Denies abdominal pain, diarrhea, constipation, nausea or vomiting. MUSCULOSKELETAL: Denies myalgias. NEUROLOGIC: Denies numbness, tingling, headache or weakness. ENDOCRINE: Denies fatigue, weight change, polydipsia or polyurina. GENITOURINARY: Denies burning, hematuria or urgency with micturation. HEMATOLOGIC: Denies history of anemia or bleeding. DERMATOLOGY: Denies rash or skin sores PSYCH: Negative for depression or hallucinations. Insert review of systems Past Medical History Past Medical History: CVA/TIA, Diabetes Mellitus, Hyperlipidemia, Hypertension Additional Past Medical History / Comment(s): lymphedema History of Any Multi-Drug Resistant Organisms: None Reported Past Surgical History: Breast Surgery, Hysterectomy, Tonsillectomy Additional Past Surgical History / Comment(s): Right breast biopsy for hyperdensity Past Anesthesia/Blood Transfusion Reactions: No Reported Reaction Past Psychological History: No Psychological Hx Reported Smoking Status: Never smoker Past Alcohol Use History: None Reported Past Drug Use History: None Reported - Past Family History Father Family Medical History: Cancer Mother Family Medical History: CVA/TIA, Diabetes Mellitus Additional Family Medical History / Comment(s): 2 brothers okay 2 sisters okay 3 sons okay one daughter okay. patient denies any CAD CHF cancer blood pressure PE DVT CVA asthma Medications and Allergies Home Medications Medication Instructions Recorded Confirmed Type Atorvastatin Calcium [Lipitor] 10 mg PO DAILY@0800 04/10/14 01/16/22 History Clopidogrel [Plavix] 75 mg PO DAILY@0800 04/10/14 01/16/22 History Ergocalciferol [Vitamin D2 50,000 unit PO MO@0800 06/06/14 01/16/22 History (DRISDOL)] Travoprost [Travoprost 0.004%] 1 drop BOTH EYES HS 08/19/21 01/16/22 History Brimonidine Tartrate [Alphagan P 1 drop BOTH EYES BID@0800,1700 12/08/21 History 0.1% Ophth Soln] Sodium Bicarbonate Tab 650 mg PO QID tab 12/15/21 01/16/22 Rx atenoloL [Tenormin] 12.5 mg PO HS dose 12/15/21 01/16/22 Rx Acetaminophen Tab [Tylenol] 650 mg PO Q6H PRN 01/16/22 01/16/22 History Eucerin Plus Cream 1 applic TOPICAL DAILY 01/16/22 01/16/22 History Gabapentin [Neurontin] 100 mg PO Q12H 01/16/22 01/16/22 History Glucerna Shake 237 ml PO DAILY@0800 01/16/22 01/16/22 History HYDROcodone/APAP 5-325MG [[place] 1 tab PO Q6H PRN 01/16/22 01/16/22 History 5-325] Insulin Aspart Protam & Aspart 10 unit SQ HS 01/16/22 01/16/22 History [NovoLOG MIX 70-30 Flexpen] Insulin Aspart Protam & Aspart 15 unit SQ DAILY@0800 01/16/22 01/16/22 History [NovoLOG MIX 70-30 Flexpen] Liquacel 30 ml PO DAILY@1200 01/16/22 01/16/22 History Magnesium Hydroxide [Milk of 7,200 mg PO Q48H PRN 01/16/22 01/16/22 History Magnesia Concentrate] Midodrine [ProAmatine] 10 mg PO TID@0800,1200,1700 01/16/22 01/16/22 History Na Phos,M-B/Na Phos,Di-Ba [Fleet 133 ml RECTAL DAILY PRN 01/16/22 01/16/22 History Adult] Sennosides-Docusate Sodium 2 tab PO HS 01/16/22 01/16/22 History [Senokot-S] Torsemide [Demadex] 20 mg PO DAILY@0800 01/16/22 01/16/22 History Torsemide [Demadex] 20 mg PO ONCE@1715 01/16/22 01/16/22 History bisacodyL [Dulcolax] 10 mg RECTAL DAILY PRN 01/16/22 01/16/22 History Allergies Allergy/AdvReac Type Severity Reaction Status Date / Time enalapril maleate Allergy Hives over Verified 01/16/22 21:19 [From Vasotec] entire body enalaprilat dihydrate Allergy Hives over Verified 01/16/22 21:19 [From Vasotec] entire body metoprolol tartrate Allergy Hives over Verified 01/16/22 21:19 [From Lopressor] entire body Physical Exam Vitals: Vital Signs Temp Pulse Pulse Resp BP BP Pulse Ox 01/17/22 11:52 97.8 F 90 18 117/64 95 01/17/22 09:08 19 01/17/22 03:50 95 19 102/78 93 L 01/17/22 01:15 97.9 F 86 18 123/80 100 01/17/22 01:00 89 24 128/90 96 01/17/22 00:23 90 24 116/70 96 01/16/22 21:36 84 22 99/70 96 01/16/22 19:46 89 22 109/61 96 01/16/22 18:41 98.3 F 96 18 114/56 97 Intake and Output 01/16/22 01/17/22 01/17/22 22:59 06:59 14:59 Intake Total 0 0 Output Total 1600 700 Balance -1600 -700 Intake: Oral 0 0 Output: Urine 1600 700 Uretheral ([place]) 700 700 Other: Voiding Method Indwelling Catheter Indwelling Catheter Weight 104.326 kg 114.5 kg General: The patient is awake and alert, in no distress, and does not appear acutely ill. Skin: Skin is warm and dry and no rashes or lesions are noted. Eye: Pupils are equal, round and reactive to light, extra-ocular movements are intact; there is normal conjunctiva bilaterally. Ears, nose, mouth and throat: There are moist mucous membranes and no oral lesions. Neck: The neck is supple, there is no tenderness or JVD. Cardiovascular: There is irregular regular rate and rhythm. No murmur, rub or gallop is appreciated. Respiratory: Lungs are clear to auscultation, respirations are non-labored, breath sounds are equal. Gastrointestinal: Soft, non-distended, non-tender abdomen without masses or organomegaly noted. There is no rebound or guarding present. Bowel sounds are unremarkable. Back: There is no tenderness to palpation in the midline. There is no obvious deformity. Musculoskeletal: Normal ROM, no tenderness, There is no pedal edema. There is no calf tenderness or swelling. Extremities: Mild bilateral pitting edema Vascular: Femoral pulse is normal. Posterior tibial pulses are normal .Dorsalis pedis is palpable. Neurological: CN II-XII intact. There are no obvious motor or sensory deficits. Speech is normal. Psychiatric: Cooperative, appropriate mood & affect, normal judgment Results 01/16/22 19:35 01/16/22 19:35 Cardiac Enzymes 01/16/22 01/16/22 01/16/22 Range/Units 19:35 19:35 23:44 AST 19 (14-36) U/L Troponin I 0.033 0.039 H* (0.000-0.034) ng/mL 01/17/22 Range/Units 03:01 AST (14-36) U/L Troponin I 0.033 (0.000-0.034) ng/mL CBC 01/16/22 Range/Units 19:35 WBC 9.3 (3.8-10.6) k/uL RBC 3.86 (3.80-5.40) m/uL Hgb 9.4 L (11.4-16.0) gm/dL Hct 34.9 (34.0-46.0) % Plt Count 356 (150-450) k/uL Comprehensive Metabolic Panel 01/16/22 Range/Units 19:35 Sodium 140 (137-145) mmol/L Potassium 3.8 (3.5-5.1) mmol/L Chloride 92 L (98-107) mmol/L Carbon Dioxide 45 H* (22-30) mmol/L BUN 50 H (7-17) mg/dL Creatinine 1.58 H (0.52-1.04) mg/dL Glucose 119 H (74-99) mg/dL Calcium 9.1 (8.4-10.2) mg/dL AST 19 (14-36) U/L ALT <6 (4-34) U/L Alkaline Phosphatase 63 (38-126) U/L Total Protein 5.3 L (6.3-8.2) g/dL Albumin 2.5 L (3.5-5.0) g/dL Current Medications Generic Name Dose Route Start Last Admin Trade Name Freq PRN Reason Stop Dose Admin Acetaminophen 650 mg 01/17/22 11:54 Acetaminophen Tab 325 Mg Tab PO Q6H PRN Fever and/ or Pain Hydrocodone Bitart/Acetaminophen 1 each 01/17/22 11:54 Hydrocodone/Apap 5-325mg 1 Each Tab PO Q6H PRN Pain Aspirin 325 mg 01/17/22 09:00 01/17/22 09:15 Aspirin 325 Mg Tab PO 325 mg DAILY VU Administration Atenolol 12.5 mg 01/17/22 21:00 Atenolol 12.5 Mg Tab PO HS [facility] Atorvastatin Calcium 10 mg 01/18/22 08:00 Atorvastatin 10 Mg Tab PO DAILY@0800 [facility] Bisacodyl 10 mg 01/17/22 11:54 Bisacodyl 10 Mg Supp RECTAL DAILY PRN Constipation Brimonidine Tartrate 1 drops 01/17/22 17:00 Brimonidine Tartrate 0.2% Drops 5 Ml Btl BOTH EYES BID@0800,1700 [facility] Clopidogrel Bisulfate 75 mg 01/18/22 08:00 Clopidogrel 75 Mg Tab PO DAILY@0800 [facility] Ergocalciferol 1,250 mcg 01/18/22 08:00 Ergocalciferol 1,250 Mcg (50,000 Iu) Capsule PO MO@0800 [facility] Furosemide 40 mg 01/16/22 23:00 01/17/22 12:23 Furosemide 10 Mg/Ml 4 Ml Vial IV 40 mg Q12H VU Administration Gabapentin 100 mg 01/17/22 12:00 Gabapentin 100 Mg Cap PO Q12HR [facility] Heparin Sodium (Porcine) 5,000 unit 01/17/22 21:00 Heparin Sodium,Porcine/Pf 5,000 Unit/0.5 Ml Syringe SQ Q12HR [facility] Insulin Aspart 0 unit 01/17/22 07:30 01/17/22 12:30 Insulin Aspart (Novolog) 100 Unit/Ml Vial SQ Not Given ACHS [facility] Protocol Insulin Aspart 10 unit 01/17/22 21:00 Insuln Asp Prt/Insulin Aspart 100 Unit/Ml 10 Ml Vial SQ HS [facility] Insulin Aspart 15 unit 01/18/22 08:00 Insuln Asp Prt/Insulin Aspart 100 Unit/Ml 10 Ml Vial SQ DAILY@0800 [facility] Latanoprost 1 drops 01/17/22 21:00 Latanoprost 0.005% Ophth Drops 2.5 Ml Btl BOTH EYES [facility] Magnesium Hydroxide 2,400 mg 01/17/22 11:54 Magnesium Hydroxide 2,400 Mg/10 Ml Cup PO Q48H PRN Constipation Midodrine 10 mg 01/17/22 12:00 01/17/22 12:23 Midodrine 5 Mg Tab PO 10 mg TID@0800,1200,1700 [facility] Administration Multi-Ingred Cream/Lotion/Oil/Oint 1 applic 01/18/22 09:00 Mineral Oil-White Petrolatum 120 Gm Jar TOPICAL DAILY [facility] Pantoprazole Sodium 40 mg 01/18/22 07:30 Pantoprazole 40 Mg Tablet PO AC-BRKFST [facility] Senna/Docusate Sodium 2 each 01/17/22 21:00 Sennosides-Docusate Sodium 1 Each Tab PO HS [facility] Sodium Bicarbonate 650 mg 01/17/22 13:00 01/17/22 12:22 Sodium Bicarbonate Tab 650 Mg Tab PO 650 mg QID [facility] Administration Sodium Biphosphate/Sodium Phosphate 133 ml 01/17/22 11:54 Na Phos,M-B/Na Phos,Di-Ba 133 Ml Enema RECTAL DAILY PRN Constipation Sodium Chloride 10 ml 01/16/22 23:00 01/17/22 09:15 Sodium Chloride 0.9% Flush 10 Ml Syringe IV 10 ml BID VU Administration Intake and Output 01/16/22 01/17/22 01/17/22 22:59 06:59 14:59 Intake Total 0 0 Output Total 1600 700 Balance -1600 -700 Intake: Oral 0 0 Output: Urine 1600 700 Uretheral ([place]) 700 700 Other: Voiding Method Indwelling Catheter Indwelling Catheter Weight 104.326 kg 114.5 kg 01/16/22 19:35 01/16/22 19:35 Assessment and Plan Assessment: Acute on chronic congestive diastolic heart failure Elevated troponin secondary to chronic renal function impairment Permanent atrial fibrillation without anticoagulation due to patient refused Type II diabetic Hypertension Hyperlipidemia Plan: obtain a 2-D echo to evaluate LV function Continue with all current cardiac medications Continue with telemetry monitoring Further recommendations based on clinical course The above impression and plan of care have been discussed and directed by the signing physician. Araceli Choudhary, nurse practitioner, acting as scribe for signing physician.
--- NOTE | 2022-01-17 13:15 | P.HPIM ---
History of Present Illness H&P Date: 01/17/22 HISTORY OF PRESENT ILLNESS Patient is a 71-year-old female with a PMH of diastolic CHF with persistent bilateral lower extremity edema, chronic kidney disease, type II DM, hy pertension, hyperlipidemia, TIA patient was hospitalized last in December 07 for left hip fracture ended up having ORIF with Dr. William successfully did well. Started on PTOT and was sent to [facility] for rehab. Patient has been fluctuating with her weight and fluid retention on and off require more list Also her kidney function has been fluctuating with GFR declining and slight increase in creatinine last few weeks. Patient had gain over 5 pounds and shorter time her Demadex was increased to 20 mg twice a day. The nurse was in to evaluate patient on 12/30/2021 patient was very confused competitive and agitated and kept shouting she wants to leave as soon as possible. After contacting the family even patient was stable with with her confusion and altered mental status ended up being sent to the emergency department at [facility] where was seen and evaluated with her anasarca her BNP w as 23,800 troponin was elevated 0.039, carbon dioxide is quite bit high at 45 with creatinine is 1.58 GFR is down to 33. Her EKG showed atrophy fibrillation with heart rate well controlled. Chest x-ray showed interstitial edema with typical pulmonary edema and congestive heart failure, with mild exacerbation. Patient was started on IV diuretics will continue CK with troponin 3 patient be admitted to the hospital. Her urine test was positive for UTI and patient was started on 1 g of Rocephin daily and the cultures back. REVIEW OF SYSTEMS Constitutional: No fever, no chills, no night sweats. No weight change. Generalized weakness, +fatigue or lethargy. No daytime sleepiness. EENT: No headache. No blurred vision or double vision, no loss of vision. No loss of Hearing, no ringing in the ears, no dizziness. No nasal drainage or congestion. No epistaxis. No sore throat. Lungs: Reports shortness of breath, cough, no sputum production. No wheezing. Cardiovascular: No chest pain, positive lower extremity edema with mild PND orthopnea and palpitation. No syncope. Abdominal: No abdominal pain. No nausea, vomiting. No diarrhea. No constipation. No bloody or tarry stools. No loss of appetite. Genitourinary: No dysuria, increased frequency, urgency. No urinary retention. Aguilera catheter. Musculoskeletal: No myalgias. No muscle weakness, no gait dysfunction, no frequent falls. No back pain. No neck pain. + Left hip pain. Integumentary: No wounds, no lesions. Noted rash now pruritus. No unusual bruising. No change in hair or nails. Significant edema in both upper extremity. Neurologic: No aphasia. No facial droop. No change in mentation. No head injury. No headache. No paralysis. No paresthesia. Psychiatric: No depression. No anxiety. No mood swings. Endocrine: No abnormal blood sugars. No weight change. No excessive sweating or thirst. No cold intolerance. SOCIAL HISTORY Patient never smoked, no lipase, no diagnosis of sleep apnea patient is not using CPAP. She is and lives with her till her fracture and debility in November. FAMILY HISTORY Patient's father from lung cancer, mother from home stroke and advanced diabetic complication. Patient had 2 brothers and 2 [id number] living and well she has 3 sons and 1 daughter with history of hypertension diabetes. PHYSICAL EXAMINATION Gen: This is a 71-year-old morbidly obese female. She is resting in bed and appears to be comfortable and in no acute distress. HEENT: Head is atraumatic, normocephalic. Pupils equal, round. Sclerae is an icteric. NECK: Supple. No JVD. No lymphadenopathy. No thyromegaly. LUNGS: Diminished breath sounds. No wheezes. No intercostal retractions. No accessory muscle usage. HEART: Regular rate and rhythm. Systolic ejection murmur. ABDOMEN: Soft. Bowel sounds are present. No masses. No tenderness. EXTREMITIES: 2+ edema with significant anasarca and chronic lymphedema and lower part of her leg as well. With the side of her left hip or her surgical site looks very clean with no sign of oozing or infection at this point. NEUROLOGICAL: Patient is awake, alert and oriented x3. Cranial nerves 2 through 12 are grossly intact. ASSESSMENT AND PLAN 1 Significant dyspnea and shortness of breath: Most likely fluid overload and diastolic congestive heart failure with exacerbation require more management IV diuretics will be started, consult cardiology titrate O2 try to keep pulse ox above 90%. 2 diastolic dysfunction congestive heart failure: Patient last echocardiogram from last year showed good ejection fraction with significant pulmonary hypertension is not clear whether patient has sleep apnea or not been treated. Patient will be on IV Lasix twice a day we'll repeat echocardiogram this time. 3 altered mental status every 2 carbon dioxide retention along with UTI with encephalopathy IP causing her symptoms, patient will be treated at this point continue to watch her mental status will consult neurology if needed. 4 severe advanced pulmonary hypertension: Most likely secondary pulmonary hypertension with right-sided pressure of 84 mmHg, patient will be on beta trinity and diuretics might benefit from long-acting nitrate. 5 urinary tract infection with sepsis: Patient had significant change mental status with positive UA no elevated white blood cell at this point her urine culture probably would to be positive we'll continue 1 g of Rocephin at this point. 6 A. fib: Pulse rates under control on atenolol and Cardizem patient isn't not on any anticoagulation at this time which I believe with her comorbidity and pulmonary hypertension anticoagulation will be highly recommended. 7 type 2 diabetes: Has been on NovoLog units in the morning and 10 units at bedtime, continue Accu-Chek with sliding scales coverage patient was on metformin early was stopped because of her kidney function. 8 hypertension: Has been slightly hypertensive lately patient was on a higher dose of Cardizem before along with atenolol 12.5 mg a day. 9 hyperlipidemia: Continue atorvastatin 10 mg daily. 10 anasarca: Most likely secondary to diastolic heart failure along with pulmonary hypertension continue patient on furosemide 20 mg twice a day when she goes back to [facility]. 11 peripheral neuropathy: Most likely diabetic neuropathy, patient remain on gabapentin. 12 stage IIIB chronic kidney disease: Continue to monitor BUN/creatinine regular basis especially with the type of diuretic she is using patient also had acute kidney injury with the higher dose of diuretics still monitoring her urine output carefully. 13 recent left femoral fracture status post intramedullary nail and 12/08/2021, patient was allowed to have some weightbearing Lasix since seen Dr. William last time. 14 recent history of severe herpes zoster was treated from her admission to [facility] has done very well with it. 15 anticoagulation and DVT prophylaxis: Patient continued to have A. fib with pulse rates under control she would benefit from long-term anticoagulation with product like Eliquis or Xarelto meanwhile heparin subcutaneous can be use. 15 GI prophylaxis: Patient will be on Pepcid 20 mg daily. CODE STATUS: Full code. With patient today patient service for more than 2 night stay. Past Medical History Past Medical History: CVA/TIA, Diabetes Mellitus, Hyperlipidemia, Hypertension Additional Past Medical History / Comment(s): lymphedema History of Any Multi-Drug Resistant Organisms: None Reported Past Surgical History: Breast Surgery, Hysterectomy, Tonsillectomy Additional Past Surgical History / Comment(s): Right breast biopsy for hyperdensity Past Anesthesia/Blood Transfusion Reactions: No Reported Reaction Past Psychological History: No Psychological Hx Reported Smoking Status: Never smoker Past Alcohol Use History: None Reported Past Drug Use History: None Reported - Past Family History Father Family Medical History: Cancer Mother Family Medical History: CVA/TIA, Diabetes Mellitus Additional Family Medical History / Comment(s): 2 brothers okay 2 sisters okay 3 sons okay one daughter okay. patient denies any CAD CHF cancer blood pressure PE DVT CVA asthma Medications and Allergies Home Medications Medication Instructions Recorded Confirmed Type Atorvastatin Calcium [Lipitor] 10 mg PO DAILY@0800 04/10/14 01/16/22 History Clopidogrel [Plavix] 75 mg PO DAILY@0800 04/10/14 01/16/22 History Ergocalciferol [Vitamin D2 50,000 unit PO MO@0800 06/06/14 01/16/22 History (DRISDOL)] Travoprost [Travoprost 0.004%] 1 drop BOTH EYES HS 08/19/21 01/16/22 History Brimonidine Tartrate [Alphagan P 1 drop BOTH EYES BID@0800,1700 12/08/21 01/16/22 History 0.1% Ophth Soln] Sodium Bicarbonate Tab 650 mg PO QID tab 12/15/21 01/16/22 Rx atenoloL [Tenormin] 12.5 mg PO HS dose 12/15/21 01/16/22 Rx Acetaminophen Tab [Tylenol] 650 mg PO Q6H PRN 01/16/22 01/16/22 History Eucerin Plus Cream 1 applic TOPICAL DAILY 01/16/22 01/16/22 History Gabapentin [Neurontin] 100 mg PO Q12H 01/16/22 01/16/22 History Glucerna Shake 237 ml PO DAILY@0800 01/16/22 01/16/22 History HYDROcodone/APAP 5-325MG [[place] 1 tab PO Q6H PRN 01/16/22 01/16/22 History 5-325] Insulin Aspart Protam & Aspart 10 unit SQ HS 01/16/22 01/16/22 History [NovoLOG MIX 70-30 Flexpen] Insulin Aspart Protam & Aspart 15 unit SQ DAILY@0800 01/16/22 01/16/22 History [NovoLOG MIX 70-30 Flexpen] Liquacel 30 ml PO DAILY@1200 01/16/22 01/16/22 History Magnesium Hydroxide [Milk of 7,200 mg PO Q48H PRN 01/16/22 01/16/22 History Magnesia Concentrate] Midodrine [ProAmatine] 10 mg PO TID@0800,1200,1700 01/16/22 01/16/22 History Na Phos,M-B/Na Phos,Di-Ba [Fleet 133 ml RECTAL DAILY PRN 01/16/22 01/16/22 History Adult] Sennosides-Docusate Sodium 2 tab PO HS 01/16/22 01/16/22 History [Senokot-S] Torsemide [Demadex] 20 mg PO DAILY@0800 01/16/22 01/16/22 History Torsemide [Demadex] 20 mg PO ONCE@1715 01/16/22 01/16/22 History bisacodyL [Dulcolax] 10 mg RECTAL DAILY PRN 01/16/22 01/16/22 History Allergies Allergy/AdvReac Type Severity Reaction Status Date / Time enalapril maleate Allergy Hives over Verified 01/16/22 21:19 [From Vasotec] entire body enalaprilat dihydrate Allergy Hives over Verified 01/16/22 21:19 [From Vasotec] entire body metoprolol tartrate Allergy Hives over Verified 01/16/22 21:19 [From Lopressor] entire body Physical Exam Vitals: Vital Signs Temp Pulse Pulse Resp BP BP Pulse Ox 01/17/22 09:08 19 01/17/22 03:50 95 19 102/78 93 L 01/17/22 01:15 97.9 F 86 18 123/80 100 01/17/22 01:00 89 24 128/90 96 01/17/22 00:23 90 24 116/70 96 01/16/22 21:36 84 22 99/70 96 01/16/22 19:46 89 22 109/61 96 01/16/22 18:41 98.3 F 96 18 114/56 97 Intake and Output 01/16/22 01/17/22 01/17/22 22:59 06:59 14:59 Intake Total 0 0 Output Total 1600 700 Balance -1600 -700 Intake: Oral 0 0 Output: Urine 1600 700 Uretheral ([place]) 700 700 Other: Voiding Method Indwelling Catheter Indwelling Catheter Weight 104.326 kg 114.5 kg Results CBC & Chem 7: 01/16/22 19:35 01/16/22 19:35 Labs: Abnormal Lab Results - Last 24 Hours (Table) 01/16/22 01/16/22 01/16/22 Range/Units 19:35 19:35 23:09 Hgb 9.4 L (11.4-16.0) gm/dL MCH 24.4 L (25.0-35.0) pg MCHC 27.0 L (31.0-37.0) g/dL RDW 19.3 H (11.5-15.5) % Neutrophils # 7.8 H (1.3-7.7) k/uL Lymphocytes # 0.7 L (1.0-4.8) k/uL Chloride 92 L (98-107) mmol/L Carbon Dioxide 45 H* (22-30) mmol/L BUN 50 H (7-17) mg/dL Creatinine 1.58 H (0.52-1.04) mg/dL Glucose 119 H (74-99) mg/dL POC Glucose (mg/dL) (75-99) mg/dL Troponin I (0.000-0.034) ng/mL Total Protein 5.3 L (6.3-8.2) g/dL Albumin 2.5 L (3.5-5.0) g/dL Ur Leukocyte Esterase Trace H (Negative) Urine WBC Clumps Rare H (None) /hpf Urine Bacteria Rare H (None) /hpf Hyaline Casts 6 H (0-2) /lpf Urine Mucus Rare H (None) /hpf 01/16/22 01/17/22 01/17/22 Range/Units 23:44 02:35 05:54 Hgb (11.4-16.0) gm/dL MCH (25.0-35.0) pg MCHC (31.0-37.0) g/dL RDW (11.5-15.5) % Neutrophils # (1.3-7.7) k/uL Lymphocytes # (1.0-4.8) k/uL Chloride (98-107) mmol/L Carbon Dioxide (22-30) mmol/L BUN (7-17) mg/dL Creatinine (0.52-1.04) mg/dL Glucose (74-99) mg/dL POC Glucose (mg/dL) 133 H 122 H (75-99) mg/dL Troponin I 0.039 H* (0.000-0.034) ng/mL Total Protein (6.3-8.2) g/dL Albumin (3.5-5.0) g/dL Ur Leukocyte Esterase (Negative) Urine WBC Clumps (None) /hpf Urine Bacteria (None) /hpf Hyaline Casts (0-2) /lpf Urine Mucus (None) /hpf
[2022-01-17] MEDS: GABAPENTIN 100 MG CAP PO SCH ×2 (15:53→20:57)
[2022-01-17 16:26] LABS: Glucose,Whole Blood 147 mg/dL (75-99)
[2022-01-17] MEDS: BRIMONIDINE TARTRATE 0.2% DROPS 5 ML BTL BOTH EYES SCH (16:26)
[2022-01-17 20:18] LABS: Glucose,Whole Blood 171 mg/dL (75-99)
[2022-01-17] MEDS: LATANOPROST 0.005% OPHTH DROPS 2.5 ML BTL BOTH EYES SCH (20:57)
[2022-01-17] MEDS: SENNOSIDES-DOCUSATE SODIUM 1 EACH TAB PO SCH (20:57)
[2022-01-17] MEDS: INSULN ASP PRT/INSULIN ASPART 100 UNIT/ML 10 ML VIAL SQ SCH (20:57)
[2022-01-17] MEDS ORDERED: ENOXAPARIN 30 MG/0.3 ML SYRINGE SQ SCH (21:00)
[2022-01-17] MEDS: HEPARIN SODIUM,PORCINE/PF 5,000 UNIT/0.5 ML SYRINGE SQ SCH (21:02)
[2022-01-18 01:41] LABS: Glucose,Whole Blood 71 mg/dL (75-99)
[2022-01-18 04:59] LABS: Glucose,Whole Blood 92 mg/dL (75-99)
[2022-01-18 06:31] LABS: Glucose,Whole Blood 88 mg/dL (75-99)
[2022-01-18] MEDS: INSULIN ASPART (NovoLOG) 100 UNIT/ML VIAL SQ SCH ×4 (06:31→20:26)
[2022-01-18] MEDS: PANTOPRAZOLE 40 MG TABLET PO SCH (06:36)
[2022-01-18] MEDS ORDERED: ERGOCALCIFEROL 1,250 MCG (50,000 IU) CAPSULE PO SCH (08:00)
[2022-01-18] MEDS ORDERED: NON FORMULARY DRUG (Glucerna Shake 1 CAN Ml) PO SCH (08:00)
[2022-01-18] MEDS: HEPARIN SODIUM,PORCINE/PF 5,000 UNIT/0.5 ML SYRINGE SQ SCH ×2 (08:33→20:26)
[2022-01-18] MEDS: ATORVASTATIN 10 MG TAB PO SCH (08:33)
[2022-01-18] MEDS: FUROSEMIDE 10 MG/ML 4 ML VIAL IV SCH ×2 (08:33→15:56)
[2022-01-18] MEDS: GABAPENTIN 100 MG CAP PO SCH ×2 (08:33→20:26)
[2022-01-18] MEDS: CLOPIDOGREL 75 MG TAB PO SCH (08:33)
[2022-01-18] MEDS: ASPIRIN 325 MG TAB PO SCH (08:33)
[2022-01-18] MEDS: SODIUM BICARBONATE TAB 650 MG TAB PO SCH ×4 (08:33→20:26)
[2022-01-18] MEDS: MIDODRINE 5 MG TAB PO SCH ×3 (08:34→15:53)
[2022-01-18] MEDS: INSULN ASP PRT/INSULIN ASPART 100 UNIT/ML 10 ML VIAL SQ SCH ×2 (08:34→20:26)
[2022-01-18] MEDS: BRIMONIDINE TARTRATE 0.2% DROPS 5 ML BTL BOTH EYES SCH ×2 (08:37→15:53)
[2022-01-18] MEDS: MINERAL OIL-WHITE PETROLATUM 120 GM JAR TOPICAL SCH (08:40)
[2022-01-18 09:26] LABS: Anisocytosis Slight; HCT 36.3 % (34.0-46.0); HGB 9.9 gm/dL (11.4-16.0); Hypochromasia Marked; MCHC 27.2 g/dL (31.0-37.0); MCV 91.8 fL (80.0-100.0); Mean Platelet Volume 8.2; Platelet Count 331 k/uL (150-450); RBC 3.96 m/uL (3.80-5.40); RDW 19.2 % (11.5-15.5); WBC 9.6 k/uL (3.8-10.6)
[2022-01-18 09:51] LABS: ALT <6 U/L (4-34); AST 19 U/L (14-36); African American GFR (CKD) 37 (>60 ml/min/1.73 sqM); Albumin 2.4 g/dL (3.5-5.0); Alkaline Phosphatase 63 U/L (38-126); Blood Urea Nitrogen 50 mg/dL (7-17); Chloride 91 mmol/L (98-107); Glucose 97 mg/dL (74-99); Non-African American GFR(CKD) 32 (>60 ml/min/1.73 sqM); Sodium 140 mmol/L (137-145); Total Bilirubin 0.7 mg/dL (0.2-1.3); Total Protein 5.1 g/dL (6.3-8.2)
[2022-01-18 09:58] LABS: Anion Gap 6 mmol/L
[2022-01-18 10:05] LABS: Carbon Dioxide 43 mmol/L (22-30)
[2022-01-18 11:25] LABS: Glucose,Whole Blood 111 mg/dL (75-99)
--- NOTE | 2022-01-18 12:29 | P.PN ---
Subjective This is a 71 year old female with a past medical history of hypertension, dyslipidemia, type 2 diabetes, permanent atrial fibrillation not on anticoa gulation due to patient refusal in the past, chronic kidney disease, severe pulmonary hypertension, peripheral vascular disease, congestive heart failure with preserved ejection fraction, December 07, 2021 hospitalized for left hip fracture ended up having ORIF with Dr. William. She follows with Dr. Mari. We have been consulted for congestive heart failure. Patient presents emergency department with complaints of shortness of breath, 5 pound weight gain, and dyspnea on exertion. Patient has been placed on IV Lasix and diuresing Patient seen and examined at bedside, she continues to have shortness of breath and lower extremity edema. She denies any chest pain. Patient with -2870mL fluid balance over the past 24 hours. Patient remains in atrial fibrillation with heart rates in the 80s-105 She is on IV Lasix 40mg BID, aspirin daily, Plavix 75 mg daily, midodrine 10mg TID, atenolol 12.5 mg daily, atorvastatin 10 mg daily Labs: Sodium 140, potassium 4.0, BUN 50, serum creatinine 1.6 GENERAL: In no acute distress. NECK: Supple without JVD or thyromegaly. LUNGS: Breath sounds crackles to auscultation bilaterally. Respiration equal and unlabored. No wheezes, rales or rhonchi. HEART: Irregular rate and rhythm, systolic ejection murmur, No rubs or gallops. S1 and S2 heard. EXTREMITIES: Normal range of motion, 3+bilateral lower extremity, No clubbing or cyanosis. Peripheral pulses intact. ASSESSMENT Acute on chronic heart failure with preserved ejection fraction (most recent echo with 55-60% in 08/2021), repeat pending Hypertension Dyslipidemia Type 2 diabetes Permanent atrial fibrillation not on anticoagulation due to patient refusal in the past Chronic kidney disease Severe pulmonary hypertension Peripheral vascular disease on plavix History of left hip fracture s/p ORIF 11/2021 PLAN 2D echo pending Continue IV Lasix 40mg BID Monitor renal function and electrolytes Monitor I/Os, daily weights Continue aspirin, atenolol, statin, Plavix Patient not on ACEI/ARB due to kidney function Further recommendations based on clinical course Nurse Practitioner note has been reviewed, I agree with a documented findings and plan of care. Patient was seen and examined. Objective - Vital Signs Vital signs: Vital Signs Temp 98.1 F 01/18/22 11:33 Pulse 105 H 01/18/22 11:33 Resp 22 01/18/22 11:33 BP 142/82 01/18/22 11:33 Pulse Ox 99 01/18/22 11:33 Intake & Output 01/17/22 01/18/22 01/18/22 18:59 06:59 18:59 Intake Total 0 10 Output Total 1550 1320 150 Balance -1550 -1320 -140 Intake: IV 10 Invasive Line 1 10 Oral 0 Output: Urine 1550 1320 150 Uretheral ([place]) 1400 700 150 Other: Voiding Method Indwelling Catheter Indwelling Catheter Indwelling Catheter - Labs CBC & Chem 7: 01/18/22 08:25 01/18/22 08:25 Labs: Abnormal Lab Results - Last 24 Hours (Table) 01/17/22 01/17/22 01/18/22 Range/Units 16:24 20:09 01:38 Hgb (11.4-16.0) gm/dL MCHC (31.0-37.0) g/dL RDW (11.5-15.5) % Chloride (98-107) mmol/L Carbon Dioxide (22-30) mmol/L BUN (7-17) mg/dL Creatinine (0.52-1.04) mg/dL POC Glucose (mg/dL) 147 H 171 H 71 L (75-99) mg/dL Total Protein (6.3-8.2) g/dL Albumin (3.5-5.0) g/dL 01/18/22 01/18/22 01/18/22 Range/Units 08:25 08:25 11:24 Hgb 9.9 L (11.4-16.0) gm/dL MCHC 27.2 L (31.0-37.0) g/dL RDW 19.2 H (11.5-15.5) % Chloride 91 L (98-107) mmol/L Carbon Dioxide 43 H* (22-30) mmol/L BUN 50 H (7-17) mg/dL Creatinine 1.62 H (0.52-1.04) mg/dL POC Glucose (mg/dL) 111 H (75-99) mg/dL Total Protein 5.1 L (6.3-8.2) g/dL Albumin 2.4 L (3.5-5.0) g/dL
[2022-01-18 12:43] VITALS: BMI 46.1
--- NOTE | 2022-01-18 12:43 | P.PN ---
Subjective Progress Note Date: 01/18/22 HISTORY OF PRESENT ILLNESS Patient is a 71-year-old female with a PMH of diastolic CHF with persistent bilateral lower extremity edema, chronic kidney disease, type II DM, hyperten zackary, hyperlipidemia, TIA patient was hospitalized last in December 07 for left hip fracture ended up having ORIF with Dr. William successfully did well. Started on PTOT and was sent to [facility] for rehab. Patient has been fluctuating with her weight and fluid retention on and off require more list Also her kidney function has been fluctuating with GFR declining and slight increase in creatinine last few weeks. Patient had gain over 5 pounds and shorter time her Demadex was increased to 20 mg twice a day. The nurse was in to evaluate patient on 12/30/2021 patient was very confused competitive and agitated and kept shouting she wants to leave as soon as possible. After contacting the family even patient was stable with with her confusion and altered mental status ended up being sent to the emergency department at [facility] where was seen and evaluated with her anasarca her BNP was 23,800 troponin was elevated 0.039, carbon dioxide is quite bit high at 45 with creatinine is 1.58 GFR is down to 33. Her EKG showed atrophy fibrillation with heart rate well controlled. Chest x-ray showed interstitial edema with typical pulmonary edema and congestive heart failure, with mild exacerbation. Patient was started on IV diuretics will continue CK with troponin 3 patient be admitted to the hospital. Her urine test was positive for UTI and patient was started on 1 g of Rocephin daily and the cultures back. 01/18: Patient is seen and followed by cardiology REVIEW OF SYSTEMS Constitutional: No fever, no chills, no night sweats. No weight change. Generalized weakness, +fatigue or lethargy. No daytime sleepiness. EENT: No headache. No blurred vision or double vision, no loss of vision. No loss of Hearing, no ringing in the ears, no dizziness. No nasal drainage or congestion. No epistaxis. No sore throat. Lungs: Reports shortness of breath, cough, no sputum production. No wheezing. Cardiovascular: No chest pain, positive lower extremity edema with mild PND orthopnea and palpitation. No syncope. Abdominal: No abdominal pain. No nausea, vomiting. No diarrhea. No constipation. No bloody or tarry stools. No loss of appetite. Genitourinary: No dysuria, increased frequency, urgency. No urinary retention. Aguilera catheter. Musculoskeletal: No myalgias. No muscle weakness, no gait dysfunction, no frequent falls. No back pain. No neck pain. + Left hip pain. Integumentary: No wounds, no lesions. Noted rash now pruritus. No unusual br uising. No change in hair or nails. Significant edema in both upper extremity. Neurologic: No aphasia. No facial droop. No change in mentation. No head injury. No headache. No paralysis. No paresthesia. Psychiatric: No depression. No anxiety. No mood swings. Endocrine: No abnormal blood sugars. No weight change. No excessive sweating or thirst. No cold intolerance. PHYSICAL EXAMINATION Gen: This is a 71-year-old morbidly obese female. She is resting in bed and appears to be comfortable and in no acute distress. HEENT: Head is atraumatic, normocephalic. Pupils equal, round. Sclerae is anicteric. NECK: Supple. No JVD. No lymphadenopathy. No thyromegaly. LUNGS: Diminished breath sounds. No wheezes. No intercostal retractions. No accessory muscle usage. HEART: Regular rate and rhythm. Systolic ejection murmur. ABDOMEN: Soft. Bowel sounds are present. No masses. No tenderness. EXTREMITIES: 2+ edema with significant anasarca and chronic lymphedema and lower part of her leg as well. With the side of her left hip or her surgical site loo ks very clean with no sign of oozing or infection at this point. NEUROLOGICAL: Patient is awake, alert and oriented x3. Cranial nerves 2 through 12 are grossly intact. ASSESSMENT AND PLAN 1 Significant dyspnea and shortness of breath secondary to acute on chronic diastolic heart failure. Continue IV diuretics, cardiology consult appreciated, monitor I&O and daily weights, echocardiogram report pending. Patient is not on SOTERO inhibitor/are both due to renal failure. 2. Acute on chronic diastolic dysfunction congestive heart failure. Continue as in #1. 3 metabolic encephalopathy secondary to carbon dioxide retention along with UTI with encephalopathy causing her symptoms, patient will be treated at this point continue to watch her mental status will consult neurology if needed. 4 severe advanced pulmonary hypertension: Most likely secondary pulmonary hype rtension with right-sided pressure of 84 mmHg, patient will be on beta trinity and diuretics might benefit from long-acting nitrate. 5 urinary tract infection with sepsis: Patient had significant change mental status with positive UA no elevated white blood cell at this point her urine culture probably would to be positive we'll continue 1 g of Rocephin at this point. 6 . Permanent A. fib: Pulse rates under control on atenolol and Cardizem patient isn't not on any anticoagulation at this time which I believe with her comorbidity and pulmonary hypertension anticoagulation will be highly ce mmended. 7 type 2 diabetes: Has been on NovoLog units in the morning and 10 units at bedtime, continue Accu-Chek with sliding scales coverage patient was on metformin early was stopped because of her kidney function. 8 hypertension: Has been slightly hypertensive lately patient was on a higher dose of Cardizem before along with atenolol 12.5 mg a day. 9 hyperlipidemia: Continue atorvastatin 10 mg daily. 10 anasarca: Most likely secondary to diastolic heart failure along with pulmonary hypertension continue patient on furosemide 20 mg twice a day when she goes back to [facility]. 11 peripheral neuropathy: Most likely diabetic neuropathy, patient remain on gabapentin. 12 stage IIIB chronic kidney disease: Continue to monitor BUN/creatinine regular basis especially with the type of diuretic she is using patient also had acute kidney injury with the higher dose of diuretics still monitoring her urine output carefully. 13 recent left femoral fracture status post intramedullary nail and 12/08/2021, patient was allowed to have some weightbearing Lasix since seen Dr. Stewart sibley t time. 14 recent history of severe herpes zoster was treated from her admission to [facility] has done very well with it. 15 anticoagulation and DVT prophylaxis: Patient continued to have A. fib with pulse rates under control she would benefit from long-term anticoagulation with product like Eliquis or Xarelto meanwhile heparin subcutaneous can be use. 15 GI prophylaxis: Patient will be on Pepcid 20 mg daily. CODE STATUS: Full code. DISCHARGE PLAN tbd Impression and plan of care have been directed as dictated by the signing physician. Lucia Oliver nurse practitioner acting as scribe for signing physician. Objective - Vital Signs Vital signs: Vital Signs Temp 98.1 F 01/17/22 20:55 Pulse 100 01/18/22 04:20 Resp 18 01/18/22 04:20 BP 133/81 05/02/22 04:20 Pulse Ox 100 01/18/22 04:20 Intake & Output 01/17/22 01/18/22 01/18/22 18:59 06:59 18:59 Intake Total 0 10 Output Total 1550 1320 150 Balance -1550 -1320 -140 Intake: IV 10 Invasive Line 1 10 Oral 0 Output: Urine 1550 1320 150 Uretheral ([place]) 1400 700 150 Other: Voiding Method Indwelling Catheter Indwelling Catheter Indwelling Catheter - Labs CBC & Chem 7: 01/18/22 08:25 01/18/22 08:25 Labs: Abnormal Lab Results - Last 24 Hours (Table) 01/17/22 01/17/22 01/17/22 Range/Units 11:56 16:24 20:09 POC Glucose (mg/dL) 142 H 147 H 171 H (75-99) mg/dL 01/18/22 Range/Units 01:38 POC Glucose (mg/dL) 71 L (75-99) mg/dL
--- NOTE | 2022-01-18 15:09 | P.CN ---
Psychiatric Consult - . Consult date: 01/18/22 Consult:: 01/18/22 13:05 IDENTIFYING DATA: This patient is a 71-year-old female, currently lives with her and son in a house and has 4 kids. REASON FOR REFERRAL: Psychiatry was consulted for acute delirium HISTORY OF PRESENT ILLNESS: The patient presented to the hospital on 01/16 after having a femur fracture. Patient apparently had surgical repair and was relocated to rehab for further care. Apparently according to ER report patient was complaining at that facility and was fairly confused and wanted to leave early. She apparently was stating that it was "too crowded" and was not doing well. Patient apparently was alert and oriented 2 in the ER. Patient was admitted for urinary tract infection and CO2 retention. Patient was seen today and her was by her side in the chair. He claims that patient was healing from a femur fracture and was at rehab and states that they were not helping her at rehab much. He states that they were focusing mainly on her upper extremities and not her legs. He states that patient is fairly paranoid and believing that she can walk and wants to leave the hospital. He claims that she is somewhat irritable and demanding lately. He is also concerned she is not making good decisions. Patient was seen at the bedside today and appeared to be fairly overweight and suspicious of junior underwriter. She was endorsing paranoia and does not trust the staff were the junior underwriter. She claims that "things got fuzzy" at rehab was fairly vague and guarded and evasive about what occurred. She claims that junior underwriter knows her daughter and that we are friends. She states that "because you note Cherelle you should know everything". She was endorsing paranoia and was claiming that she wants to go home. She is stating that her sleep and appetite are fair. She claims that she is in [facility] and not in the hospital. She does know today's date and her name. At this time patient denies any suicidal or homical ideations, intent or plan. Patient denies any auditory, visual hallucinations. Patients admits to using no recreational drugs or cigarettes. PAST PSYCHIATRIC HISTORY: Patient has apparently no psychiatric history. Patient denies being on any psychiatric medications. Patient denies any previous psychiatric hospitalizations. Patient denies any psychiatric outpatient follow- up. Patient denies any history of suicide attempts in the past. Past Medical History: CVA/TIA, Diabetes Mellitus, Hyperlipidemia, Hypertension Additional Past Medical History / Comment(s): lymphedema ALLERGIES: as per EMR. CHEMICAL DEPENDENCY HISTORY: as per HPI. FAMILY PSYCHIATRIC/SUBSTANCE USE HISTORY: denies SOCIAL HISTORY: Patient was born and raised in [facility]. She completed high school and did some college. 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 She is currently unemployed. She lives with her and son in a house. She has 4 kids.. MENTAL STATUS EXAM: General Appearance: Patient appears to be obese, older than stated age is alert, paranoid and uncooperative at times. Patient appears to have fair hygiene and grooming wearing hospital gown with poor eye contact. Behavior: Patient is calmly lying in bed without any agitated behavior. Paranoid. Speech: Patient's speech is fluent and nonpressured. Mood/Affect: Patient reports their mood is "not good", affect is congruent Suicidality/Homicidality: Patient denies having any suicidal or homicidal ideation intent or plan. Perceptions: Patient denies any visual hallucinations and denies any auditory hallucinations Though content/process: Patient is paranoid. She is demanding. Memory and concentration: AOX2, fair attention span. He is not oriented to place. Cannot spell "WORLD" backwards Judgment and insight: poor IMPRESSIONS: Psychosis unspecified PLAN: -At this time patient DOES NOT meet criteria for inpatient psychiatric admission. -Patient DOES NOT have decision making capacity at this time and is unable to reason through and communicate/appreciate the risks, benefits and alternatives to treatment. -Delirium precautions recommended with patient including - avoiding use of narcotics and SLATE ROOFER HELPER sedatives, limit anticholinergic medications when possible, frequent re-orientation, minimize use of restraints, open window shades during the day and close them at night -Would recommend the following medication changes/additions: Prolixin by mouth 2 mg twice a day for psychosis/paranoia. -Would suggest obtaining head imaging including computed tomography scan to rule out any organic etiologies. -Will continue to follow along -Please contact with any questions.
[2022-01-18 19:36] LABS: Glucose,Whole Blood 161 mg/dL (75-99)
[2022-01-18] MEDS: SENNOSIDES-DOCUSATE SODIUM 1 EACH TAB PO SCH (20:26)
[2022-01-18] MEDS: LATANOPROST 0.005% OPHTH DROPS 2.5 ML BTL BOTH EYES SCH (20:27)
[2022-01-19 06:06] LABS: Glucose,Whole Blood 109 mg/dL (75-99)
[2022-01-19] MEDS: INSULIN ASPART (NovoLOG) 100 UNIT/ML VIAL SQ SCH ×3 (06:11→13:11)
--- NOTE | 2022-01-19 07:16 | CA ---
Transthoracic Echo Report Name: Ashley Egan Age: 71 Gender: F : 1950 Exam Date: 01/18/2022 07:53 Exam Location: [facility] Ht (in): 62 Wt (lb): 252 Ordering Physician: Douglas Ellis MD Attending/Referring Phys: Quality Assurance Supervisor Chassis Elisa Hooper RDCS Procedure CPT: Indications: lvfunction Cardiac Hx: Technical Quality: Fair Contrast 1: Total Dose (mL): Contrast 2: Total Dose (mL): MEASUREMENTS (Male / Female) Normal Values 2D ECHO LV Diastolic Diameter PLAX 3.9 cm 4.2 - 5.9 / 3.9 - 5.3 cm LV Systolic Diameter PLAX 2.2 cm IVS Diastolic Thickness 1.5 cm 0.6 - 1.0 / 0.6 - 0.9 cm LVPW Diastolic Thickness 1.5 cm 0.6 - 1.0 / 0.6 - 0.9 cm LV Relative Wall Thickness 0.8 RV Internal Dim ED PLAX 3.8 cm LA Volume 84.2 cm??? 18 - 58 / 22 - 52 cm??? M-MODE Aortic Root Diameter MM 2.5 cm LA Systolic Diameter MM 5.5 cm LA Ao Ratio MM 2.2 AV Cusp Separation MM 1.9 cm DOPPLER AV Peak Velocity 108.7 cm/s AV Peak Gradient 4.7 mmHg LVOT Peak Velocity 73.0 cm/s LVOT Peak Gradient 2.1 mmHg TR Peak Velocity 441.3 cm/s TR Peak Gradient 77.9 mmHg Right Ventricular Systolic Press 79.0 mmHg FINDINGS Left Ventricle Left ventricular cavity size normal. Moderately increased left ventricular wall thickness. No obvious regional wall motion abnormalities. Left ventricular ejection fraction is estimated at 50-55 %. Right Ventricle Moderate right ventricular dilatation. Severe pulmonary hypertension. Right Atrium Mild right atrial dilatation. Left Atrium Severely increased left atrial volume. Mildly increased left atrial area. Mitral Valve [id number] mitral regurgitation. Aortic Valve No aortic regurgitation. Diffuse thickening (sclerosis) of the aortic valve cusps without reduced excursion. Tricuspid Valve [id number] tricuspid regurgitation. Pulmonic Valve Trace pulmonic regurgitation. Pericardium No pericardial effusion. Aorta Aortic root and proximal ascending aorta not well visualized. CONCLUSIONS Preserved LV systolic function Reduced RV size and function, mildly dilated RV Dilated are a At least moderate to severe tricuspid regurgitation Previewed by: Dr. Sagar Botello MD (Electronically Signed) Final Date: 19 Jan 2022 07:15
[2022-01-19] MEDS: INSULN ASP PRT/INSULIN ASPART 100 UNIT/ML 10 ML VIAL SQ SCH (09:09)
[2022-01-19] MEDS: FUROSEMIDE 10 MG/ML 4 ML VIAL IV SCH ×2 (09:13→13:11)
[2022-01-19] MEDS: GABAPENTIN 100 MG CAP PO SCH (09:13)
[2022-01-19] MEDS: HEPARIN SODIUM,PORCINE/PF 5,000 UNIT/0.5 ML SYRINGE SQ SCH (09:13)
[2022-01-19] MEDS: PANTOPRAZOLE 40 MG TABLET PO SCH (09:14)
[2022-01-19] MEDS: ASPIRIN 325 MG TAB PO SCH (09:14)
[2022-01-19] MEDS: MIDODRINE 5 MG TAB PO SCH ×2 (09:14→13:10)
[2022-01-19] MEDS: CLOPIDOGREL 75 MG TAB PO SCH (09:14)
[2022-01-19] MEDS: SODIUM BICARBONATE TAB 650 MG TAB PO SCH ×2 (09:14→13:11)
[2022-01-19] MEDS: ATORVASTATIN 10 MG TAB PO SCH (09:15)
[2022-01-19] MEDS: BRIMONIDINE TARTRATE 0.2% DROPS 5 ML BTL BOTH EYES SCH ×2 (09:15→13:11)
[2022-01-19] MEDS: MINERAL OIL-WHITE PETROLATUM 120 GM JAR TOPICAL SCH (09:16)
--- NOTE | 2022-01-19 09:28 | P.PN ---
Subjective Progress Note Date: 01/19/22 HISTORY OF PRESENT ILLNESS Patient is a 71-year-old female with a PMH of diastolic CHF with persistent bilateral lower extremity edema, chronic kidney disease, type II DM, hyperten zackary, hyperlipidemia, TIA patient was hospitalized last in December 07 for left hip fracture ended up having ORIF with Dr. William successfully did well. Started on PTOT and was sent to [facility] for rehab. Patient has been fluctuating with her weight and fluid retention on and off require more list Also her kidney function has been fluctuating with GFR declining and slight increase in creatinine last few weeks. Patient had gain over 5 pounds and shorter time her Demadex was increased to 20 mg twice a day. The nurse was in to evaluate patient on 12/30/2021 patient was very confused competitive and agitated and kept shouting she wants to leave as soon as possible. After contacting the family even patient was stable with with her confusion and altered mental status ended up being sent to the emergency department at [facility] where was seen and evaluated with her anasarca her BNP was 23,800 troponin was elevated 0.039, carbon dioxide is quite bit high at 45 with creatinine is 1.58 GFR is down to 33. Her EKG showed atrophy fibrillation with heart rate well controlled. Chest x-ray showed interstitial edema with typical pulmonary edema and congestive heart failure, with mild exacerbation. Patient was started on IV diuretics will continue CK with troponin 3 patient be admitted to the hospital. Her urine test was positive for UTI and patient was started on 1 g of Rocephin daily and the cultures back. 01/18: Patient is refusing to take her medications, review seen care uncoopera tive. Patient says was able to give her IV Lasix. to be called to come in and sit with the patient. Blood work came back with hemoglobin of 9.9, CO2 43, BUN 15 creatinine 1.62. Blood blood glucoses run between 88 and 161. Liver function tests were normal. Patient is refusing to keep cardiac monitoring on which will be discontinued. Psych consultation added. 01/19: Patient has been seen by psychiatry and started on Prolixin 2 mg twice a day for psychosis. Patient's family which included a son and her had a meeting with hospice last evening and are undecided at this point. Patient is slightly more alert and oriented today. spent the night in her room. Patient has been afebrile, heart rate 110, blood pressure 118/74, pulse ox 96% on 3 L nasal cannula. Capillary blood glucose ran between 109 and 161. Echocardiogram reveals preserved LV systolic function, mildly dilated RV, moderate to severe tricuspid regurgitation. REVIEW OF SYSTEMS Constitutional: No fever, no chills, no night sweats. No weight change. Generalized weakness, +fatigue or lethargy. No daytime sleepiness. EENT: No headache. No blurred vision or double vision, no loss of vision. No loss of Hearing, no ringing in the ears, no dizziness. No nasal drainage or congestion. No epistaxis. No sore throat. Lungs: Reports shortness of breath, cough, no sputum production. No wheezing. Cardiovascular: No chest pain, positive lower extremity edema with mild PND orthopnea and palpitation. No syncope. Abdominal: No abdominal pain. No nausea, vomiting. No diarrhea. No constipation. No bloody or tarry stools. No loss of appetite. Genitourinary: No dysuria, increased frequency, urgency. No urinary retention. Aguilera catheter. Musculoskeletal: No myalgias. No muscle weakness, no gait dysfunction, no frequent falls. No back pain. No neck pain. + Left hip pain. Integumentary: No wounds, no lesions. Noted rash now pruritus. No unusual bruising. No change in hair or nails. Significant edema in both upper extremity. Neurologic: No aphasia. No facial droop. Noted change in mentation. No head injury. No headache. No paralysis. No paresthesia. Psychiatric: No depression. No anxiety. No mood swings. Endocrine: No abnormal blood sugars. No weight change. No excessive sweating or thirst. No cold intolerance. PHYSICAL EXAMINATION Gen: This is a 71-year-old morbidly obese female. She is resting in bed and appears to be comfortable and in no acute distress. HEENT: Head is atraumatic, normocephalic. Pupils equal, round. Sclerae is anicteric. NECK: Supple. No JVD. No lymphadenopathy. No thyromegaly. LUNGS: Diminished breath sounds. No wheezes. No intercostal retractions. No accessory muscle usage. HEART: Regular rate and rhythm. Systolic ejection murmur. ABDOMEN: Soft. Bowel sounds are present. No masses. No tenderness. EXTREMITIES: 2+ edema with significant anasarca and chronic lymphedema and lower part of her leg as well. With the side of her left hip or her surgical site looks very clean with no sign of oozing or infection at this point. NEUROLOGICAL: Patient is awake, alert and oriented to person and place. Patient is more cooperative today. ASSESSMENT AND PLAN 1 Significant dyspnea and shortness of breath secondary to acute on chronic diastolic heart failure. Continue IV diuretics, cardiology consult appreciated, monitor I&O and daily weights, echocardiogram report above. Patient is not on SOTERO inhibitor/are both due to renal failure. 2. Acute on chronic diastolic dysfunction congestive heart failure. Continue as in #1. 3 metabolic encephalopathy secondary to carbon dioxide retention along with UTI with encephalopathy causing her symptoms, patient will be treated at this point continue to watch her mental status will consult neurology if needed. 4 severe advanced pulmonary hypertension: Most likely secondary pulmonary hypertension with right-sided pressure of 84 mmHg, patient will be on beta trinity and diuretics might benefit from long-acting nitrate. 5 urinary tract infection with sepsis: Patient had significant change mental status with positive UA no elevated white blood cell at this point her urine culture probably would to be positive we'll continue 1 g of Rocephin at this point. 6 . Permanent A. fib: Pulse rates under control on atenolol and Cardizem patient isn't not on any anticoagulation at this time which I believe with her comorbidity and pulmonary hypertension anticoagulation will be highly recommen ded. 7 type 2 diabetes: Has been on NovoLog 70/30 15 units in the morning and 10 units at bedtime, continue Accu-Chek with sliding scales coverage patient was on metformin early was stopped because of her kidney function. 8 hypertension: Has been slightly hypertensive lately patient was on a higher dose of Cardizem before along with atenolol 12.5 mg a day. 9 hyperlipidemia: Continue atorvastatin 10 mg daily. 10 anasarca: Most likely secondary to diastolic heart failure along with pulmonary hypertension continue patient on furosemide 20 mg twice a day when she goes back to [facility]. 11 peripheral neuropathy: Most likely diabetic neuropathy, patient remain on gabapentin. 12 stage IIIB chronic kidney disease: Continue to monitor BUN/creatinine regular basis especially with the type of diuretic she is using patient also had acute kidney injury with the higher dose of diuretics still monitoring her urine output carefully. 13 recent left femoral fracture status post intramedullary nail and 12/08/2021, patient was allowed to have some weightbearing Lasix since seen Dr. William last time. 14 recent history of severe herpes zoster was treated from her admission to [facility] has done very well with it. 15 anticoagulation and DVT prophylaxis: Patient continued to have A. fib with pulse rates under control she would benefit from long-term anticoagulation with product like Eliquis or Xarelto meanwhile heparin subcutaneous can be use. 15 GI prophylaxis: Patient will be on Pepcid 20 mg daily. CODE STATUS: Full code. DISCHARGE PLAN tbd. Family has met with hospice. Impression and plan of care have been directed as dictated by the signing physician. Lucia Oliver nurse practitioner acting as scribe for signing physician. Objective - Vital Signs Vital signs: Vital Signs Temp 98.1 F 01/18/22 20:20 Pulse 102 H 01/19/22 03:50 Resp 17 01/19/22 03:50 BP 117/73 01/19/22 03:50 Pulse Ox 98 01/19/22 03:50 Intake & Output 01/18/22 01/19/22 01/19/22 18:59 06:59 18:59 Intake Total 10 Output Total 575 250 Balance -565 -250 Weight 114.5 kg 116 kg Intake: IV 10 Invasive Line 1 10 Output: Urine 575 250 Uretheral (Aguilera) 575 Other: Voiding Method Indwelling Catheter Indwelling Catheter - Labs CBC & Chem 7: 01/18/22 08:25 01/18/22 08:25 Labs: Abnormal Lab Results - Last 24 Hours (Table) 01/18/22 01/18/22 01/18/22 Range/Units 08:25 08:25 11:24 Hgb 9.9 L (11.4-16.0) gm/dL MCHC 27.2 L (31.0-37.0) g/dL RDW 19.2 H (11.5-15.5) % Chloride 91 L (98-107) mmol/L Carbon Dioxide 43 H* (22-30) mmol/L BUN 50 H (7-17) mg/dL Creatinine 1.62 H (0.52-1.04) mg/dL POC Glucose (mg/dL) 111 H (75-99) mg/dL Total Protein 5.1 L (6.3-8.2) g/dL Albumin 2.4 L (3.5-5.0) g/dL 01/18/22 01/19/22 Range/Units 19:35 06:05 Hgb (11.4-16.0) gm/dL MCHC (31.0-37.0) g/dL RDW (11.5-15.5) % Chloride (98-107) mmol/L Carbon Dioxide (22-30) mmol/L BUN (7-17) mg/dL Creatinine (0.52-1.04) mg/dL POC Glucose (mg/dL) 161 H 109 H (75-99) mg/dL Total Protein (6.3-8.2) g/dL Albumin (3.5-5.0) g/dL
[2022-01-19 10:30] LABS: Calcium 8.7 mg/dL (8.4-10.2); Magnesium 1.8 mg/dL (1.6-2.3); Potassium 3.8 mmol/L (3.5-5.1)
--- NOTE | 2022-01-19 10:58 | P.DS ---
Providers Date of admission: 01/17/22 00:06 Expected date of discharge: 01/19/22 Attending physician: Douglas Ellis Consults: 01/16/22 22:56 Consult Physician Urgent Consulting Provider: Davis Hawk Consult Reason/Comments: Congestive heart failure Do you want consulting provider notified?: Yes, Notify in am 01/18/22 08:54 Consult Physician Routine Consulting Provider: Ozzy Umaña Consult Reason/Comments: acute delirium Do you want consulting provider notified?: Yes Primary care physician: [facility] Course: HISTORY OF PRESENT ILLNESS Patient is a 71-year-old female with a PMH of diastolic CHF with persistent bilateral lower extremity edema, chronic kidney disease, type II DM, hypertension, hyperlipidemia, TIA patient was hospitalized last in December 07 for left hip fracture ended up having ORIF with Dr. William successfully did well. Started on PTOT and was sent to [facility] for rehab. Patient has been fluctuating with her weight and fluid retention on and off require more list Also her kidney function has been fluctuating with GFR declining and slight increase in creatinine last few weeks. Patient had gain over 5 pounds and shorter time her Demadex was increased to 20 mg twice a day. The nurse was in to evaluate patient on 12/30/2021 patient was very confused competitive and agitated and kept shouting she wants to leave as soon as possible. After contacting the family even patient was stable with with her confusion and altered mental status ended up being sent to the emergency department at [facility] where was seen and evaluated with her anasarca her BNP was 23,800 troponin was elevated 0.039, carbon dioxide is quite bit high at 45 with creatinine is 1.58 GFR is down to 33. Her EKG showed atrophy fibrillation with heart rate well controlled. Chest x-ray showed interstitial edema with typical pulmonary edema and congestive heart failure, with mild exacerbation. Patient was started on IV diuretics will continue CK with troponin 3 patient be admitted to the hospital. Her urine test was positive for UTI and patient was started on 1 g of Rocephin daily and the cultures back. 01/18: Patient is refusing to take her medications, review seen care uncooperative. Patient says was able to give her IV Lasix. to be called to come in and sit with the patient. Blood work came back with hemoglobi n of 9.9, CO2 43, BUN 15 creatinine 1.62. Blood blood glucoses run between 88 and 161. Liver function tests were normal. Patient is refusing to keep cardiac monitoring on which will be discontinued. Psych consultation added. 01/19: Patient has been seen by psychiatry and started on Prolixin 2 mg twice a day for psychosis. Patient's family which included a son and her had a meeting with hospice last evening and are undecided at this point. Patient is slightly more alert and oriented today. spent the night in her room. Patient has been afebrile, heart rate 110, blood pressure 118/74, pulse ox 96% on 3 L nasal cannula. Capillary blood glucose ran between 109 and 161. Echocardiogram reveals preserved LV systolic function, mildly dilated RV, moderate to severe tricuspid regurgitation. Family have decided to take the patient home with hospice. DISCHARGE DIAGNOSES 1 Significant dyspnea and shortness of breath secondary to acute on chronic di astolic heart failure. 2. Acute on chronic diastolic dysfunction congestive heart failure. 3 metabolic encephalopathy secondary to carbon dioxide retention 4 severe advanced pulmonary hypertension 5 urinary tract infection with sepsis ruled out 6. Permanent A. fib 7 type 2 diabetes 8 hypertension 9 hyperlipidemia 10 anasarca: Most likely secondary to diastolic heart failure 11 peripheral neuropathy: Most likely diabetic neuropathy 12 stage IIIB chronic kidney disease 13 recent left femoral fracture status post intramedullary nail and 12/08/2021 14 recent history of severe herpes zoster was treated from her admission to [facility] has done very well with it. DISCHARGE PLAN Home with [facility]. Greater than 35 minutes was utilized and coordinating patient's discharge. Impression and plan of care have been directed as dictated by the signing physician. Lucia Oliver nurse practitioner acting as scribe for signing physician. Patient Condition at Discharge: Stable Plan - Discharge Summary Discharge Rx Participant: No New Discharge Prescriptions: New fluPHENAZine [Prolixin] 2 mg PO BID #30 tab Continue Clopidogrel [Plavix] 75 mg PO DAILY@0800 atenoloL [Tenormin] 12.5 mg PO HS dose Eucerin Plus Cream 1 applic TOPICAL DAILY Gabapentin [Neurontin] 100 mg PO Q12H Glucerna Shake 237 ml PO DAILY@0800 Sennosides-Docusate Sodium [Senokot-S] 2 tab PO HS Torsemide [Demadex] 20 mg PO DAILY@0800 Travoprost [Travoprost 0.004%] 1 drop BOTH EYES HS Brimonidine Tartrate [Alphagan P 0.1% Ophth Soln] 1 drop BOTH EYES BID@0800,1700 Liquacel 30 ml PO DAILY@1200 bisacodyL [Dulcolax] 10 mg RECTAL DAILY PRN PRN Reason: Constipation HYDROcodone/APAP 5-325MG [[place] 5-325] 1 tab PO Q6H PRN PRN Reason: Pain Magnesium Hydroxide [Milk of Magnesia Concentrate] 7,200 mg PO Q48H PRN PRN Reason: Constipation Acetaminophen Tab [Tylenol] 650 mg PO Q6H PRN PRN Reason: Fever And/ Or Pain Changed Insulin Aspart Protam & Aspart [NovoLOG MIX 70-30 Flexpen] 5 unit SQ HS #0 Insulin Aspart Protam & Aspart [NovoLOG MIX 70-30 Flexpen] 5 unit SQ DAILY@0800 #0 Midodrine [ProAmatine] 10 mg PO TID@0800,1200,1700 #0 Discontinued Atorvastatin Calcium [Lipitor] 10 mg PO DAILY@0800 Ergocalciferol [Vitamin D2 (DRISDOL)] 50,000 unit PO MO@0800 Sodium Bicarbonate Tab 650 mg PO QID tab Na Phos,M-B/Na Phos,Di-Ba [Fleet Adult] 133 ml RECTAL DAILY PRN PRN Reason: Constipation Torsemide [Demadex] 20 mg PO ONCE@1715 Discharge Medication List Clopidogrel [Plavix] 75 mg PO DAILY@0800 04/10/14 [History] Travoprost [Travoprost 0.004%] 1 drop BOTH EYES HS 08/19/21 [History] Brimonidine Tartrate [Alphagan P 0.1% Ophth Soln] 1 drop BOTH EYES BID@0800,1700 12/08/21 [History] atenoloL [Tenormin] 12.5 mg PO HS dose 12/15/21 [Rx] Acetaminophen Tab [Tylenol] 650 mg PO Q6H PRN 01/16/22 [History] Eucerin Plus Cream 1 applic TOPICAL DAILY 01/16/22 [History] Gabapentin [Neurontin] 100 mg PO Q12H 01/16/22 [History] Glucerna Shake 237 ml PO DAILY@0800 01/16/22 [History] HYDROcodone/APAP 5-325MG [[place] 5-325] 1 tab PO Q6H PRN 01/16/22 [History] Liquacel 30 ml PO DAILY@1200 01/16/22 [History] Magnesium Hydroxide [Milk of Magnesia Concentrate] 7,200 mg PO Q48H PRN 01/16/22 [History] Sennosides-Docusate Sodium [Senokot-S] 2 tab PO HS 01/16/22 [History] Torsemide [Demadex] 20 mg PO DAILY@0800 01/16/22 [History] bisacodyL [Dulcolax] 10 mg RECTAL DAILY PRN 01/16/22 [History] Insulin Aspart Protam & Aspart [NovoLOG MIX 70-30 Flexpen] 5 unit SQ DAILY@0800 #0 01/19/22 [Rx] Insulin Aspart Protam & Aspart [NovoLOG MIX 70-30 Flexpen] 5 unit SQ HS #0 01/19/22 [Rx] Midodrine [ProAmatine] 10 mg PO TID@0800,1200,1700 #0 01/19/22 [Rx] fluPHENAZine [Prolixin] 2 mg PO BID #30 tab 01/19/22 [Rx] Follow up Appointment(s)/Referral(s): Douglas Ellis MD [Primary Care Provider] - 1-2 days
[2022-01-19 11:33] VITALS: BP 117/80; PULSE 97; RESP 20; TEMP 97
[2022-01-19 11:36] LABS: Glucose,Whole Blood 153 mg/dL (75-99)
--- NOTE | 2022-01-19 11:45 | P.PN ---
Progress Note - Text Progress Note Date: 01/19/22 Interval History: Patient was seen today for psychiatric follow-up. Patient's nurse states that patient has been doing better in terms of her paranoia and is more cooperative today and taking medications. Patient's spoke with the journalists and other writers today and states that she is doing better than yesterday overall and thanked journalists and other writers. We spoke briefly about her medications and treatment going forward. Patient was seen at the bedside and agreeable to seek the journalists and other writers. She recognizes journalists and other writers from yesterday. She had a mildly constricted affect however was watching television and somewhat distracted. She is denying any paranoia not endorsing any delusions today. She is not having any irritability and states that her mood is "fine". She states that she has not spoken with her daughter today. She is denying any anxiety. She states that she slept fairly last night. She is alert and oriented 3. At this time patient denies any suicidal or homical ideations, intent or plan. Patient denies any auditory, visual hallucinations. Patient denies any side effects from the medications and has been compliant with meds. Mental Status Exam: General Appearance: Patient appears to be obese, older than stated age is alert, not paranoid today, more cooperative. Patient appears to have fair hygiene and grooming wearing hospital gown with poor eye contact. Behavior: Patient is calmly lying in bed without any agitated behavior. More cooperative. Speech: Patient's speech is fluent and nonpressured. [place] Mood/Affect: Patient reports their mood is "good", affect is congruent and constricted Suicidality/Homicidality: Patient denies having any suicidal or homicidal ideation intent or plan. Perceptions: Patient denies any visual hallucinations and denies any auditory hallucinations Though content/process: Patient is concrete, poverty of content, not delusional and not endorsing any paranoid today. Memory and concentration: AOX3, fair attention span. Judgment and insight: poor, improving mildly IMPRESSIONS: Psychosis unspecified PLAN: -At this time patient DOES NOT meet criteria for inpatient psychiatric admission. -Patient DOES NOT have decision making capacity at this time and is unable to reason through and communicate/appreciate the risks, benefits and alternatives to treatment. -Delirium precautions recommended with patient including - avoiding use of narcotics and ADMITTANCE ATTENDANT sedatives, limit anticholinergic medications when possible, frequent re-orientation, minimize use of restraints, open window shades during the day and close them at night -Would recommend the following medication changes/additions: Prolixin by mouth 2 mg twice a day for psychosis/paranoia. -Would suggest obtaining head imaging including computed tomography scan to rule out any organic etiologies. -At this time psychiatry will sign off. -Please contact with any questions.
--- NOTE | 2022-01-19 12:33 | P.PN ---
Subjective This is a 71 year old female with a past medical history of hypertension, dyslipidemia, type 2 diabetes, permanent atrial fibrillation not on anticoa gulation due to patient refusal in the past, chronic kidney disease, severe pulmonary hypertension, peripheral vascular disease, congestive heart failure with preserved ejection fraction, December 07, 2021 hospitalized for left hip fracture ended up having ORIF with Dr. William. She follows with Dr. Mari. We have been consulted for congestive heart failure. Patient presents emergency department with complaints of shortness of breath, 5 pound weight gain, and dyspnea on exertion. Patient has been placed on IV Lasix and diuresing Patient seen and examined at bedside, she continues to have lower extremity edema. She is being evaluated by psychiatry for Psychosis and altered mental status. Her breathing has improved. She denies any chest pain. Patient with only -815mL fluid balance over the past 24 hours. Patient remains in atrial fibrillation with heart rates controlled. HR in the 80s-105 She is on IV Lasix 40mg BID, aspirin daily, Plavix 75 mg daily, midodrine 10mg TID, atenolol 12.5 mg daily, atorvastatin 10 mg daily Labs: Sodium 138, potassium 3.8, chloride 92, cardiac index of 42, BUN 52, serum, and 1.41 (improved 1.62. ) Echocardiogram revealed EF of 5055%, moderately increased left ventricular wall thickness, severely increase left atrial volume, moderate to severe mitral regurgitation, [id number] tricuspid regurgitation GENERAL: In no acute distress. NECK: Supple without JVD or thyromegaly. LUNGS: Breath sounds crackles to auscultation bilaterally. Respiration equal and unlabored. No wheezes, rales or rhonchi. HEART: Irregular rate and rhythm, systolic ejection murmur, No rubs or gallops. S1 and S2 heard. EXTREMITIES: Normal range of motion, 3+bilateral lower extremity, No clubbing or cyanosis. Peripheral pulses intact. ASSESSMENT Acute on chronic heart failure with preserved ejection fraction Hypertension Dyslipidemia Type 2 diabetes Permanent atrial fibrillation not on anticoagulation due to patient refusal in the past Chronic kidney disease Severe pulmonary hypertension Peripheral vascular disease on plavix History of left hip fracture s/p ORIF 11/2021 PLAN Continue IV Lasix 40mg BID Monitor renal function and electrolytes Monitor I/Os, daily weights Continue aspirin, atenolol, statin, Plavix Patient not on ACEI/ARB due to kidney function Further recommendations based on clinical course Nurse Practitioner note has been reviewed, I agree with a documented findings and plan of care. Patient was seen and examined. Objective - Vital Signs Vital signs: Vital Signs Temp 97.0 F L 01/19/22 11:32 Pulse 97 01/19/22 11:32 Resp 20 01/19/22 11:32 BP 117/80 01/19/22 11:32 Pulse Ox 97 01/19/22 11:32 Intake & Output 01/18/22 01/19/22 01/19/22 18:59 06:59 18:59 Intake Total 10 10 Output Total 575 250 Balance -565 -250 10 Weight 114.5 kg 116 kg Intake: IV 10 10 Invasive Line 1 10 Invasive Line 2 10 Output: Urine 575 250 Uretheral ([place]) 575 Other: Voiding Method Indwelling Catheter Indwelling Catheter Indwelling Catheter - Labs CBC & Chem 7: 01/18/22 08:25 01/19/22 09:10 Labs: Abnormal Lab Results - Last 24 Hours (Table) 01/18/22 01/19/22 01/19/22 Range/Units 19:35 06:05 09:10 Chloride 92 L (98-107) mmol/L Carbon Dioxide 42 H* (22-30) mmol/L BUN 52 H (7-17) mg/dL Creatinine 1.41 H (0.52-1.04) mg/dL Glucose 107 H (74-99) mg/dL POC Glucose (mg/dL) 161 H 109 H (75-99) mg/dL 01/19/22 Range/Units 11:35 Chloride (98-107) mmol/L Carbon Dioxide (22-30) mmol/L BUN (7-17) mg/dL Creatinine (0.52-1.04) mg/dL Glucose (74-99) mg/dL POC Glucose (mg/dL) 153 H (75-99) mg/dL
== END 2022-01-19 14:00 | disposition hospice, home (50) | DRG 871 ==
LOC: EC 18:36 → 3SCARD 01-17 00:06
PROVIDERS: ADMIT Internal Medicine Geriatric Medicine; ATTEND Internal Medicine Geriatric Medicine
DX: A41.9 Sepsis, unspecified organism (principal); G93.41 Metabolic encephalopathy; I50.33 Acute on chronic diastolic (congestive) heart failure; E87.2 Acidosis; I13.0 Hypertensive heart and chronic kidney disease with heart failure and stage 1 through stage 4 chronic kidney disease, or unspecified chronic kidney disease; I48.21 Permanent atrial fibrillation; N17.9 Acute kidney failure, unspecified; N39.0 Urinary tract infection, site not specified; N18.32 Chronic kidney disease, stage 3b; E11.22 Type 2 diabetes mellitus with diabetic chronic kidney disease; E11.42 Type 2 diabetes mellitus with diabetic polyneuropathy; E11.51 Type 2 diabetes mellitus with diabetic peripheral angiopathy without gangrene; F29 Unspecified psychosis not due to a substance or known physiological condition; I08.1 Rheumatic disorders of both mitral and tricuspid valves; R33.8 Other retention of urine; S72.402E Unspecified fracture of lower end of left femur, subsequent encounter for open fracture type I or II with routine healing; E78.5 Hyperlipidemia, unspecified; F22 Delusional disorders; I27.29 Other secondary pulmonary hypertension; Z63.4 Disappearance and death of family member; Z79.01 Long term (current) use of anticoagulants; Z79.02 Long term (current) use of antithrombotics/antiplatelets; Z79.4 Long term (current) use of insulin; Z79.82 Long term (current) use of aspirin; Z79.899 Other long term (current) drug therapy; Z80.1 Family history of malignant neoplasm of trachea, bronchus and lung; Z82.3 Family history of stroke; Z82.49 Family history of ischemic heart disease and other diseases of the circulatory system; Z83.3 Family history of diabetes mellitus; Z86.73 Personal history of transient ischemic attack (TIA), and cerebral infarction without residual deficits; Z90.710 Acquired absence of both cervix and uterus; Z88.8 Allergy status to other drugs, medicaments and biological substances
CPT/HCPCS: 36415; 51702; 71045; 80048; 80053; 81001; 82140; 83605; 83735; 83880; 84100; 84443; 84484; 85025; 85027; 93005; 93306; 96374; 99285